=== PATIENT | female | born 1945 | race Caucasian/White ===

== ENCOUNTER 2018-01-05 08:31 | Inpatient (IN) | payer BC ==
[2018-01-05] MEDS ORDERED: 0.9 % SODIUM CHLORIDE 10 ML DISP.SYRIN. IV (09:15)
[2018-01-05 09:41] LABS: BASO % 0 % (0-3); EOS % 0 % (0-3); HEMATOCRIT 29.1 % (36.0-47.0); HEMOGLOBIN 9.7 g/dL (12.0-15.5); LYMPH # 0.7 x10^3/uL (1.0-4.8); LYMPH % 7 % (24-48); MEAN CORPUSCULAR HEMOGLOBIN 25 pg (25-35); MEAN CORPUSCULAR HGB CONC 33 g/dL (31-37); MEAN CORPUSCULAR VOLUME 74 fL (79-100); MONO # 0.7 x10^3/uL (0.0-1.1); MONO % 7 % (0-9); NEUT # 9.1 x10^3uL (1.8-7.7); NEUT % 87 % (31-73); PLATELET COUNT 336 x10^3/uL (140-400); RED BLOOD COUNT 3.94 x10^6/uL (3.50-5.40); RED CELL DISTRIBUTION WIDTH 17.5 % (11.5-14.5); WHITE BLOOD COUNT 10.5 x10^3/uL (4.0-11.0)
[2018-01-05] MEDS: IV NORMAL SALINE 1000ML BAG 1,000 ML IV ×3 (09:45→16:25)
[2018-01-05] MEDS: ONDANSETRON PF 4 MG/2 ML VIAL. IV (09:46)
[2018-01-05] MEDS: MORPHINE SULFATE 4 MG/ML DISP.SYRIN. IV/SQ (09:47)
[2018-01-05 09:48] LABS: ADD MAN DIFF? YES
[2018-01-05 09:54] LABS: ANION GAP 13 (6-14); BLOOD UREA NITROGEN 32 mg/dL (7-20); CALCIUM 9.7 mg/dL (8.5-10.1); CARBON DIOXIDE 26 mmol/L (21-32); CHLORIDE 99 mmol/L (98-107); CREATININE 1.2 mg/dL (0.6-1.0); GFR 43.9; GLUCOSE 152 mg/dL (70-99); POTASSIUM 3.5 mmol/L (3.5-5.1); SODIUM 138 mmol/L (136-145)
[2018-01-05 10:02] LABS: LACTIC ACID 1.6 mmol/L (0.4-2.0)
[2018-01-05 10:06] LABS: TROPONINI < 0.017 ng/mL (0.000-0.055)
[2018-01-05 10:09] LABS: ALBUMIN 3.3 g/dL (3.4-5.0); ALK PHOS 95 U/L (46-116); ALT (SGPT) 14 U/L (14-59); AST (SGOT) 14 U/L (15-37); CREATINE KINASE 30 U/L (26-192); DIRECT BILIRUBIN 0.2 mg/dL (0.0-0.2); LIPASE 77 U/L (73-393); TOTAL BILIRUBIN 0.5 mg/dL (0.2-1.0); TOTAL PROTEIN 7.5 g/dL (6.4-8.2)
[2018-01-05 10:30] LABS: % BANDS 16 % (0-9); % BASOS 1 % (0-3); % EOS 1 % (0-5); % LYMPHS 7 % (24-48); % METAS 1 % (0-0); % MONOS 3 % (0-10); % SEGS 71 % (35-66); PLT ESTIMATE ADEQUATE (ADEQUATE)
[2018-01-05 10:56] LABS: BILIRUBIN,URINE NEGATIVE (NEG); CLARITY,URINE CLEAR; COLOR,URINE YELLOW; GLUCOSE,URINE NEGATIVE (NEG); NITRITE,URINE NEGATIVE (NEG); PROTEIN,URINE NEGATIVE (NEG-TRACE)
[2018-01-05 11:08] LABS: BACTERIA,URINE 0 /HPF (0-FEW); RBC,URINE 0 /HPF (0-2); SQUAMOUS EPITHELIAL CELL,UR OCC /LPF; WBC,URINE 0 /HPF (0-4)
[2018-01-05] MEDS: MORPHINE SULFATE 4 MG/ML DISP.SYRIN. IV ×2 (11:18→22:57)
[2018-01-05] MEDS: CIPROFLOXACIN 400MG PREMIX 200 ML IV ×2 (12:14→21:15)
[2018-01-05] MEDS ORDERED: ALBUTEROL SULFATE 2.5 MG/3 ML NEBU. NEB (14:15)
[2018-01-05] MEDS: LOSARTAN POTASSIUM 50 MG TABLET. PO (15:00)
[2018-01-05] MEDS: CALCIUM CARBONATE 500 MG TABLET PO (15:00)
[2018-01-05] MEDS: DIGOXIN 125 MCG TABLET. PO (15:00)
[2018-01-05] MEDS: ENOXAPARIN 40 MG/0.4 ML SYRINGE. SQ (15:00)
[2018-01-05] MEDS: OMEGA-3 FATTY ACIDS/FISH OIL 1,000 MG CAPSULE. PO ×2 (15:00→21:16)
[2018-01-05] MEDS: BUMETANIDE 1 MG TABLET. PO (15:00)
[2018-01-05] MEDS: ALBUTEROL SULFATE 2.5 MG/3 ML NEBU. NEB ×2 (15:54→20:25)
[2018-01-05] MEDS: POTASSIUM CL 20MEQ D5-0.9%NACL 1,000 ML IV (16:23)
[2018-01-05] MEDS: BUDESONIDE 0.5 MG/2 ML NEBU. NEB (20:25)
[2018-01-05] MEDS ORDERED: NON FORMULARY ITEM (Budesonide/Formoterol Fumarate (Symbicort 160-4.5 Mcg Inhaler) 2 PUFF) IH (21:00)
[2018-01-05] MEDS: FAMOTIDINE 20 MG TABLET. PO (21:15)
[2018-01-06] MEDS: POTASSIUM CL 20MEQ D5-0.9%NACL 1,000 ML IV ×3 (01:52→20:11)
[2018-01-06] MEDS: MORPHINE SULFATE 4 MG/ML DISP.SYRIN. IV ×2 (04:03→11:29)
[2018-01-06] MEDS: ONDANSETRON PF 4 MG/2 ML VIAL. IV (04:05)
[2018-01-06] MEDS: BUDESONIDE 0.5 MG/2 ML NEBU. NEB ×2 (06:09→18:40)
[2018-01-06] MEDS: ALBUTEROL SULFATE 2.5 MG/3 ML NEBU. NEB ×4 (06:09→18:40)
[2018-01-06] MEDS: CIPROFLOXACIN 400MG PREMIX 200 ML IV ×2 (08:29→21:28)
[2018-01-06] MEDS: BUMETANIDE 1 MG TABLET. PO (09:00)
[2018-01-06] MEDS: DIGOXIN 125 MCG TABLET. PO ×2 (09:00→20:52)
[2018-01-06] MEDS: CALCIUM CARBONATE 500 MG TABLET PO (09:00)
[2018-01-06] MEDS: LOSARTAN POTASSIUM 50 MG TABLET. PO ×2 (09:00→20:53)
[2018-01-06] MEDS: OMEGA-3 FATTY ACIDS/FISH OIL 1,000 MG CAPSULE. PO ×2 (09:00→20:29)
[2018-01-06] MEDS: IV NORMAL SALINE 1000ML BAG 1,000 ML IV (11:32)
[2018-01-06 12:04] LABS: ADD MAN DIFF? NO
[2018-01-06 12:05] LABS: BASO % 0 % (0-3); EOS % 0 % (0-3); HEMOGLOBIN 8.4 g/dL (12.0-15.5); LYMPH # 0.6 x10^3/uL (1.0-4.8); LYMPH % 8 % (24-48); MEAN CORPUSCULAR HEMOGLOBIN 25 pg (25-35); MEAN CORPUSCULAR HGB CONC 32 g/dL (31-37); MEAN CORPUSCULAR VOLUME 77 fL (79-100); MONO # 0.7 x10^3/uL (0.0-1.1); MONO % 10 % (0-9); NEUT # 6.2 x10^3uL (1.8-7.7); NEUT % 82 % (31-73); PLATELET COUNT 267 x10^3/uL (140-400); RED BLOOD COUNT 3.37 x10^6/uL (3.50-5.40); RED CELL DISTRIBUTION WIDTH 17.3 % (11.5-14.5); WHITE BLOOD COUNT 7.6 x10^3/uL (4.0-11.0)
[2018-01-06 12:21] LABS: ALBUMIN 2.7 g/dL (3.4-5.0); ALBUMIN/GLOBULIN RATIO 0.7 (1.0-1.7); BLOOD UREA NITROGEN 27 mg/dL (7-20); CALCIUM 8.4 mg/dL (8.5-10.1); CREATININE 1.2 mg/dL (0.6-1.0); GLUCOSE 141 mg/dL (70-99); TOTAL PROTEIN 6.6 g/dL (6.4-8.2)
[2018-01-06 12:22] LABS: ALK PHOS 89 U/L (46-116); ALT (SGPT) 34 U/L (14-59); AST (SGOT) 23 U/L (15-37); BUN/CREATININE RATIO 23 (6-20); CARBON DIOXIDE 27 mmol/L (21-32); CHLORIDE 103 mmol/L (98-107); GFR 43.9; SODIUM 126 mmol/L (136-145); TOTAL BILIRUBIN 0.2 mg/dL (0.2-1.0)
[2018-01-06] MEDS ORDERED: POTASSIUM CHLORIDE 20MEQ 50 ML IV (13:00)
[2018-01-06 13:05] LABS: MAGNESIUM 1.8 mg/dL (1.8-2.4)
[2018-01-06] MEDS: POTASSIUM CHLORIDE 10 MEQ in IV NORMAL SALINE 100ML 100 ML IV ×6 (13:30→20:53)
[2018-01-06] MEDS: ENOXAPARIN 40 MG/0.4 ML SYRINGE. SQ (13:41)
[2018-01-06 17:19] LABS: C DIFF BY PCR Negative (Negative)
[2018-01-06] MEDS: FAMOTIDINE 20 MG TABLET. PO (20:29)
[2018-01-07] MEDS: MORPHINE SULFATE 2 MG/ML DISP.SYRIN. IV (01:53)
[2018-01-07] MEDS: POTASSIUM CL 20MEQ D5-0.9%NACL 1,000 ML IV (01:53)
[2018-01-07] MEDS: BUDESONIDE 0.5 MG/2 ML NEBU. NEB ×2 (08:33→20:06)
[2018-01-07] MEDS: ALBUTEROL SULFATE 2.5 MG/3 ML NEBU. NEB ×4 (08:33→20:06)
[2018-01-07] MEDS: LOSARTAN POTASSIUM 50 MG TABLET. PO ×2 (09:00→16:30)
[2018-01-07] MEDS: CIPROFLOXACIN 400MG PREMIX 200 ML IV ×2 (09:00→20:28)
[2018-01-07] MEDS: CALCIUM CARBONATE 500 MG TABLET PO ×2 (09:00→16:32)
[2018-01-07] MEDS: BUMETANIDE 1 MG TABLET. PO ×2 (09:00→16:31)
[2018-01-07] MEDS: OMEGA-3 FATTY ACIDS/FISH OIL 1,000 MG CAPSULE. PO ×2 (09:00→20:28)
[2018-01-07] MEDS: DIGOXIN 125 MCG TABLET. PO ×2 (09:00→16:32)
[2018-01-07] MEDS: POTASSIUM CHLORIDE 20 MEQ TABLET.ER. PO ×2 (11:30→16:18)
[2018-01-07] MEDS: IV NORMAL SALINE 1000ML BAG 1,000 ML IV ×2 (11:30→21:30)
[2018-01-07] MEDS: ENOXAPARIN 40 MG/0.4 ML SYRINGE. SQ (15:00)
[2018-01-07] MEDS: HYDROcodone/APAP 5/325MG 1 TAB TABLET PO ×2 (16:18→20:05)
[2018-01-07] MEDS: FAMOTIDINE 20 MG TABLET. PO (20:28)
[2018-01-08] MEDS: HYDROcodone/APAP 5/325MG 1 TAB TABLET PO ×2 (04:42→23:26)
[2018-01-08 06:22] LABS: ADD MAN DIFF? NO
[2018-01-08 06:28] LABS: BASO % 0 % (0-3); EOS # 0.1 x10^3/uL (0.0-0.7); EOS % 1 % (0-3); HEMATOCRIT 26.4 % (36.0-47.0); HEMOGLOBIN 8.3 g/dL (12.0-15.5); LYMPH # 1.3 x10^3/uL (1.0-4.8); LYMPH % 13 % (24-48); MEAN CORPUSCULAR HEMOGLOBIN 24 pg (25-35); MEAN CORPUSCULAR HGB CONC 31 g/dL (31-37); MEAN CORPUSCULAR VOLUME 77 fL (79-100); MONO % 10 % (0-9); NEUT # 7.4 x10^3uL (1.8-7.7); NEUT % 75 % (31-73); PLATELET COUNT 288 x10^3/uL (140-400); RED BLOOD COUNT 3.44 x10^6/uL (3.50-5.40); RED CELL DISTRIBUTION WIDTH 16.8 % (11.5-14.5); WHITE BLOOD COUNT 9.8 x10^3/uL (4.0-11.0)
[2018-01-08 06:35] LABS: ANION GAP 6 (6-14); BLOOD UREA NITROGEN 12 mg/dL (7-20); CALCIUM 8.4 mg/dL (8.5-10.1); CARBON DIOXIDE 27 mmol/L (21-32); CHLORIDE 107 mmol/L (98-107); GFR 54.2; GLUCOSE 118 mg/dL (70-99); POTASSIUM 3.7 mmol/L (3.5-5.1); SODIUM 140 mmol/L (136-145)
[2018-01-08] MEDS: BUDESONIDE 0.5 MG/2 ML NEBU. NEB ×2 (07:13→19:34)
[2018-01-08] MEDS: ALBUTEROL SULFATE 2.5 MG/3 ML NEBU. NEB ×4 (07:13→19:34)
[2018-01-08] MEDS: IV NORMAL SALINE 1000ML BAG 1,000 ML IV ×2 (07:30→17:30)
[2018-01-08] MEDS: OMEGA-3 FATTY ACIDS/FISH OIL 1,000 MG CAPSULE. PO ×2 (08:42→22:04)
[2018-01-08] MEDS: LOSARTAN POTASSIUM 50 MG TABLET. PO (08:42)
[2018-01-08] MEDS: DIGOXIN 125 MCG TABLET. PO (08:42)
[2018-01-08] MEDS: CALCIUM CARBONATE 500 MG TABLET PO (08:42)
[2018-01-08] MEDS: BUMETANIDE 1 MG TABLET. PO (08:42)
[2018-01-08] MEDS: CIPROFLOXACIN 400MG PREMIX 200 ML IV ×2 (08:43→22:04)
[2018-01-08] MEDS: ENOXAPARIN 40 MG/0.4 ML SYRINGE. SQ (15:00)
[2018-01-08] MEDS: FAMOTIDINE 20 MG TABLET. PO (22:04)
[2018-01-08] MEDS: LACTOBACILLUS RHAMNOSUS GG 1 CAPSULE. PO (22:05)
[2018-01-09] MEDS: IV NORMAL SALINE 1000ML BAG 1,000 ML IV ×2 (03:30→12:34)
[2018-01-09 05:05] LABS: ADD MAN DIFF? NO
[2018-01-09 05:09] LABS: BASO % 0 % (0-3); EOS # 0.1 x10^3/uL (0.0-0.7); EOS % 2 % (0-3); HEMATOCRIT 25.8 % (36.0-47.0); HEMOGLOBIN 8.3 g/dL (12.0-15.5); LYMPH # 1.5 x10^3/uL (1.0-4.8); LYMPH % 16 % (24-48); MEAN CORPUSCULAR HEMOGLOBIN 25 pg (25-35); MEAN CORPUSCULAR HGB CONC 32 g/dL (31-37); MEAN CORPUSCULAR VOLUME 77 fL (79-100); MONO % 10 % (0-9); NEUT # 6.8 x10^3uL (1.8-7.7); NEUT % 72 % (31-73); PLATELET COUNT 277 x10^3/uL (140-400); RED BLOOD COUNT 3.36 x10^6/uL (3.50-5.40); WHITE BLOOD COUNT 9.4 x10^3/uL (4.0-11.0)
[2018-01-09 05:30] LABS: ANION GAP 6 (6-14); BLOOD UREA NITROGEN 10 mg/dL (7-20); CALCIUM 8.7 mg/dL (8.5-10.1); CARBON DIOXIDE 27 mmol/L (21-32); CHLORIDE 104 mmol/L (98-107); CREATININE 1.1 mg/dL (0.6-1.0); GFR 48.6; GLUCOSE 112 mg/dL (70-99); POTASSIUM 3.4 mmol/L (3.5-5.1); SODIUM 137 mmol/L (136-145)
[2018-01-09] MEDS: ALBUTEROL SULFATE 2.5 MG/3 ML NEBU. NEB ×4 (08:17→19:03)
[2018-01-09] MEDS: BUDESONIDE 0.5 MG/2 ML NEBU. NEB ×2 (08:17→19:03)
[2018-01-09] MEDS: CIPROFLOXACIN 400MG PREMIX 200 ML IV ×2 (08:45→22:19)
[2018-01-09] MEDS: OMEGA-3 FATTY ACIDS/FISH OIL 1,000 MG CAPSULE. PO ×2 (08:46→21:01)
[2018-01-09] MEDS: CALCIUM CARBONATE 500 MG TABLET PO (08:46)
[2018-01-09] MEDS: DIGOXIN 125 MCG TABLET. PO (08:47)
[2018-01-09] MEDS: LOSARTAN POTASSIUM 50 MG TABLET. PO (08:48)
[2018-01-09] MEDS: BUMETANIDE 1 MG TABLET. PO (08:48)
[2018-01-09] MEDS: LACTOBACILLUS RHAMNOSUS GG 1 CAPSULE. PO ×2 (08:50→21:01)
[2018-01-09 10:55] LABS: % SAT IRON 4 % (15-34); IRON,SERUM 11 ug/dL (50-170)
[2018-01-09] MEDS: ENOXAPARIN 40 MG/0.4 ML SYRINGE. SQ (15:00)
[2018-01-09] MEDS: FAMOTIDINE 20 MG TABLET. PO (21:01)
[2018-01-10] MEDS: BUDESONIDE 0.5 MG/2 ML NEBU. NEB ×2 (07:30→19:22)
[2018-01-10] MEDS: ALBUTEROL SULFATE 2.5 MG/3 ML NEBU. NEB ×4 (07:30→19:22)
[2018-01-10] MEDS: BUMETANIDE 1 MG TABLET. PO (08:23)
[2018-01-10] MEDS: LOSARTAN POTASSIUM 50 MG TABLET. PO (08:24)
[2018-01-10] MEDS: LACTOBACILLUS RHAMNOSUS GG 1 CAPSULE. PO ×2 (08:24→20:52)
[2018-01-10] MEDS: DIGOXIN 125 MCG TABLET. PO (08:24)
[2018-01-10] MEDS: OMEGA-3 FATTY ACIDS/FISH OIL 1,000 MG CAPSULE. PO ×2 (08:25→20:52)
[2018-01-10] MEDS: CALCIUM CARBONATE 500 MG TABLET PO (08:25)
[2018-01-10] MEDS: CIPROFLOXACIN 400MG PREMIX 200 ML IV (08:25)
[2018-01-10] MEDS ORDERED: ERGOCALCIFEROL (VITAMIN D2) 50,000 UNIT CAPSULE. PO (10:00)
[2018-01-10] MEDS: ERGOCALCIFEROL (VITAMIN D2) 50,000 UNIT CAPSULE. PO (10:40)
[2018-01-10] MEDS: ENOXAPARIN 40 MG/0.4 ML SYRINGE. SQ (13:16)
[2018-01-10] MEDS: CIPROFLOXACIN HCL 250 MG TABLET. PO (20:52)
[2018-01-10] MEDS: FAMOTIDINE 20 MG TABLET. PO (20:53)
[2018-01-11] MEDS: ALBUTEROL SULFATE 2.5 MG/3 ML NEBU. NEB ×2 (08:30→11:18)
[2018-01-11] MEDS: BUDESONIDE 0.5 MG/2 ML NEBU. NEB (08:30)
[2018-01-11] MEDS: BUMETANIDE 1 MG TABLET. PO (08:38)
[2018-01-11] MEDS: LACTOBACILLUS RHAMNOSUS GG 1 CAPSULE. PO (08:39)
[2018-01-11] MEDS: OMEGA-3 FATTY ACIDS/FISH OIL 1,000 MG CAPSULE. PO (08:39)
[2018-01-11] MEDS: CIPROFLOXACIN HCL 250 MG TABLET. PO (08:40)
[2018-01-11] MEDS: CALCIUM CARBONATE 500 MG TABLET PO (08:40)
[2018-01-11] MEDS: DIGOXIN 125 MCG TABLET. PO (08:40)
[2018-01-11] MEDS: LOSARTAN POTASSIUM 50 MG TABLET. PO (08:41)
[2018-01-11 11:17] LABS: ANION GAP 9 (6-14); BLOOD UREA NITROGEN 11 mg/dL (7-20); CARBON DIOXIDE 29 mmol/L (21-32); CHLORIDE 103 mmol/L (98-107); CREATININE 1.3 mg/dL (0.6-1.0); GLUCOSE 101 mg/dL (70-99); MAGNESIUM 1.5 mg/dL (1.8-2.4); POTASSIUM 3.3 mmol/L (3.5-5.1); SODIUM 141 mmol/L (136-145)
== END 2018-01-11 13:55 | disposition home or self-care (01) | DRG 392 ==
LOC: ER 08:31 → 4 NORTH 12:11
DX: K57.32 Diverticulitis of large intestine without perforation or abscess without bleeding (principal); K59.39 Other megacolon; E11.22 Type 2 diabetes mellitus with diabetic chronic kidney disease; I48.0 Paroxysmal atrial fibrillation; E44.1 Mild protein-calorie malnutrition; N18.3 Chronic kidney disease, stage 3 (moderate); E66.01 Morbid (severe) obesity due to excess calories; K56.7 Ileus, unspecified; I50.32 Chronic diastolic (congestive) heart failure; I13.0 Hypertensive heart and chronic kidney disease with heart failure and stage 1 through stage 4 chronic kidney disease, or unspecified chronic kidney disease; E87.1 Hypo-osmolality and hyponatremia; N39.0 Urinary tract infection, site not specified; K43.9 Ventral hernia without obstruction or gangrene; D50.9 Iron deficiency anemia, unspecified; K21.9 Gastro-esophageal reflux disease without esophagitis; J44.9 Chronic obstructive pulmonary disease, unspecified; E87.6 Hypokalemia; E78.5 Hyperlipidemia, unspecified; Z68.33 Body mass index [BMI] 33.0-33.9, adult; Z90.49 Acquired absence of other specified parts of digestive tract; Z87.891 Personal history of nicotine dependence; Z88.1 Allergy status to other antibiotic agents; Z88.0 Allergy status to penicillin; Z88.8 Allergy status to other drugs, medicaments and biological substances; Z82.49 Family history of ischemic heart disease and other diseases of the circulatory system; Z86.010 Personal history of colon polyps; Z83.71 Family history of colonic polyps; Z83.3 Family history of diabetes mellitus
CPT/HCPCS: 36415; 74176; 80048; 80053; 80076; 81001; 82550; 83540; 83550; 83605; 83690; 83735; 84484; 85007; 85025; 87045; 87324; 93005; 94640; 94760; 96361; 96365; 96375; 96376; 99285; 99285-25; J0744; J2270; J2405; J3490; J7030; J7613; J7626

== ENCOUNTER 2018-03-28 15:00 | Inpatient (IN) | payer BC ==
[2018-03-28 15:39] LABS: ADD MAN DIFF? NO
[2018-03-28 15:45] LABS: BASO # 0.1 x10^3/uL (0.0-0.2); BASO % 1 % (0-3); EOS # 0.2 x10^3/uL (0.0-0.7); EOS % 2 % (0-3); LYMPH # 1.5 x10^3/uL (1.0-4.8); LYMPH % 18 % (24-48); MEAN CORPUSCULAR HEMOGLOBIN 23 pg (25-35); MEAN CORPUSCULAR HGB CONC 31 g/dL (31-37); MEAN CORPUSCULAR VOLUME 74 fL (79-100); MONO # 0.9 x10^3/uL (0.0-1.1); MONO % 11 % (0-9); NEUT # 5.7 x10^3uL (1.8-7.7); NEUT % 68 % (31-73); PLATELET COUNT 407 x10^3/uL (140-400); RED BLOOD COUNT 2.84 x10^6/uL (3.50-5.40); RED CELL DISTRIBUTION WIDTH 21.3 % (11.5-14.5); WHITE BLOOD COUNT 8.4 x10^3/uL (4.0-11.0)
[2018-03-28 15:47] LABS: HEMOGLOBIN 6.6 g/dL (12.0-15.5)
[2018-03-28 15:50] LABS: FECAL OB PT NEGATIVE (NEG); INR 1.1 (0.8-1.1); NEG OBC FOB NEG; POS OBC FOB POS; PROTHROMBIN TIME PATIENT 13.7 SEC (11.7-14.0)
[2018-03-28 15:53] LABS: ANION GAP 8 (6-14); BLOOD UREA NITROGEN 23 mg/dL (7-20); BUN/CREATININE RATIO 18 (6-20); CALCIUM 9.7 mg/dL (8.5-10.1); CARBON DIOXIDE 28 mmol/L (21-32); CHLORIDE 105 mmol/L (98-107); CREATININE 1.3 mg/dL (0.6-1.0); GLUCOSE 115 mg/dL (70-99); POTASSIUM 3.9 mmol/L (3.5-5.1); SODIUM 141 mmol/L (136-145)
[2018-03-28 15:59] LABS: ALBUMIN/GLOBULIN RATIO 0.7 (1.0-1.7); ALK PHOS 77 U/L (46-116); ALT (SGPT) 15 U/L (14-59); AST (SGOT) 16 U/L (15-37); TOTAL BILIRUBIN 0.2 mg/dL (0.2-1.0); TOTAL PROTEIN 7.2 g/dL (6.4-8.2)
[2018-03-28 16:05] LABS: TROPONINI < 0.017 ng/mL (0.000-0.055)
[2018-03-28 16:07] LABS: NT-PRO BNP 1283 pg/mL (0-124)
[2018-03-28 16:08] LABS: CKMB MASS < 0.5 ng/mL (0.0-3.6); CREATINE KINASE 33 U/L (26-192)
[2018-03-28 16:44] LABS: IMMEDIATE SPIN CROSSMATCH 1 2
[2018-03-28 17:40] LABS: ANISOCYTOSIS MOD; HYPOCHROMIA SLIGHT; MICROCYTOSIS MOD; PLT ESTIMATE ADEQUATE (ADEQUATE)
[2018-03-28] MEDS ORDERED: traMADol 50 MG TABLET PO (17:45)
[2018-03-28] MEDS ORDERED: DOCUSATE SODIUM 100 MG CAPSULE. PO (17:45)
[2018-03-28] MEDS ORDERED: ONDANSETRON PF 4 MG/2 ML VIAL. IV (17:45)
[2018-03-28] MEDS ORDERED: hydrALAZINE 20 MG/ML VIAL. IVP (17:45)
[2018-03-28] MEDS ORDERED: MORPHINE SULFATE 4 MG/ML DISP.SYRIN. IV (17:45)
[2018-03-28] MEDS: ALBUTEROL SULFATE 2.5 MG/3 ML NEBU. NEB (20:00)
[2018-03-28] MEDS: BUDESONIDE 0.5 MG/2 ML NEBU. NEB (20:00)
[2018-03-28] MEDS: PANTOPRAZOLE IV PUSH 40 MG VIAL. IVP (20:12)
[2018-03-28] MEDS: OMEGA-3 FATTY ACIDS/FISH OIL 1,000 MG CAPSULE. PO (22:24)
[2018-03-29] MEDS: ACETAMINOPHEN 325 MG TABLET. PO ×2 (03:35→22:57)
[2018-03-29] MEDS: PANTOPRAZOLE IV PUSH 40 MG VIAL. IVP (06:00)
[2018-03-29 08:12] LABS: ADD MAN DIFF? NO
[2018-03-29 08:14] LABS: BASO % 0 % (0-3); EOS # 0.2 x10^3/uL (0.0-0.7); EOS % 2 % (0-3); HEMATOCRIT 27.7 % (36.0-47.0); HEMOGLOBIN 8.8 g/dL (12.0-15.5); LYMPH % 13 % (24-48); MEAN CORPUSCULAR HEMOGLOBIN 24 pg (25-35); MEAN CORPUSCULAR HGB CONC 32 g/dL (31-37); MEAN CORPUSCULAR VOLUME 77 fL (79-100); MONO # 0.7 x10^3/uL (0.0-1.1); MONO % 9 % (0-9); NEUT # 6.1 x10^3uL (1.8-7.7); NEUT % 76 % (31-73); PLATELET COUNT 363 x10^3/uL (140-400); RED BLOOD COUNT 3.62 x10^6/uL (3.50-5.40); RED CELL DISTRIBUTION WIDTH 20.5 % (11.5-14.5)
[2018-03-29] MEDS: ALBUTEROL SULFATE 2.5 MG/3 ML NEBU. NEB ×4 (08:15→20:02)
[2018-03-29] MEDS: BUDESONIDE 0.5 MG/2 ML NEBU. NEB ×2 (08:15→20:02)
[2018-03-29 08:25] LABS: ANION GAP 9 (6-14); BLOOD UREA NITROGEN 19 mg/dL (7-20); CALCIUM 9.4 mg/dL (8.5-10.1); CARBON DIOXIDE 27 mmol/L (21-32); CHLORIDE 109 mmol/L (98-107); CREATININE 1.3 mg/dL (0.6-1.0); GLUCOSE 137 mg/dL (70-99); POTASSIUM 4.3 mmol/L (3.5-5.1); SODIUM 145 mmol/L (136-145)
[2018-03-29] MEDS: POLYETHYLENE GLYCOL 3350 17 GM PACKET. PO (09:17)
[2018-03-29] MEDS: BUMETANIDE 1 MG TABLET. PO (09:17)
[2018-03-29] MEDS: LOSARTAN POTASSIUM 50 MG TABLET. PO (09:18)
[2018-03-29] MEDS: POTASSIUM CHLORIDE 10 MEQ TABLET.ER. PO (09:18)
[2018-03-29] MEDS: OMEGA-3 FATTY ACIDS/FISH OIL 1,000 MG CAPSULE. PO ×2 (09:18→20:17)
[2018-03-29] MEDS: DIGOXIN 125 MCG TABLET. PO (09:18)
[2018-03-29] MEDS: CALCIUM CARBONATE 500 MG TABLET PO (09:18)
[2018-03-29] MEDS ORDERED: CONTRAST GIVEN MC (11:00)
[2018-03-29] MEDS: IOHEXOL 300 MG/ML 100ML VIAL. PR (11:36)
[2018-03-30] MEDS: PANTOPRAZOLE IV PUSH 40 MG VIAL. IVP (07:30)
[2018-03-30] MEDS: ALBUTEROL SULFATE 2.5 MG/3 ML NEBU. NEB ×3 (07:45→15:17)
[2018-03-30] MEDS: BUDESONIDE 0.5 MG/2 ML NEBU. NEB (07:48)
[2018-03-30] MEDS ORDERED: POTASSIUM CHLORIDE 10 MEQ TABLET.ER. PO (08:00)
[2018-03-30] MEDS ORDERED: POLYETHYLENE GLYCOL 3350 17 GM PACKET. (08:00)
[2018-03-30] MEDS ORDERED: DIGOXIN 125 MCG TABLET. (08:00)
[2018-03-30] MEDS ORDERED: PANTOPRAZOLE IV PUSH 40 MG VIAL. IVP (08:00)
[2018-03-30] MEDS ORDERED: LOSARTAN POTASSIUM 50 MG TABLET. (08:00)
[2018-03-30] MEDS ORDERED: BUMETANIDE 1 MG TABLET. (08:00)
[2018-03-30] MEDS ORDERED: CALCIUM CARBONATE 500 MG TABLET PO (08:00)
[2018-03-30] MEDS ORDERED: OMEGA-3 FATTY ACIDS/FISH OIL 1,000 MG CAPSULE. PO (08:00)
[2018-03-30] MEDS: BUMETANIDE 1 MG TABLET. PO (09:00)
[2018-03-30] MEDS: OMEGA-3 FATTY ACIDS/FISH OIL 1,000 MG CAPSULE. PO (09:00)
[2018-03-30] MEDS: LOSARTAN POTASSIUM 50 MG TABLET. PO (09:00)
[2018-03-30] MEDS: DIGOXIN 125 MCG TABLET. PO (09:00)
[2018-03-30] MEDS: POLYETHYLENE GLYCOL 3350 17 GM PACKET. PO (09:00)
[2018-03-30] MEDS: POTASSIUM CHLORIDE 10 MEQ TABLET.ER. PO (09:00)
[2018-03-30] MEDS: CALCIUM CARBONATE 500 MG TABLET PO (09:00)
[2018-03-30 13:38] LABS: ADD MAN DIFF? NO
[2018-03-30 13:47] LABS: BASO # 0.1 x10^3/uL (0.0-0.2); BASO % 1 % (0-3); EOS # 0.1 x10^3/uL (0.0-0.7); EOS % 2 % (0-3); HEMATOCRIT 26.4 % (36.0-47.0); HEMOGLOBIN 8.5 g/dL (12.0-15.5); LYMPH # 0.6 x10^3/uL (1.0-4.8); LYMPH % 10 % (24-48); MEAN CORPUSCULAR HEMOGLOBIN 24 pg (25-35); MEAN CORPUSCULAR HGB CONC 32 g/dL (31-37); MEAN CORPUSCULAR VOLUME 76 fL (79-100); MONO # 0.9 x10^3/uL (0.0-1.1); MONO % 15 % (0-9); NEUT # 4.3 x10^3uL (1.8-7.7); NEUT % 73 % (31-73); PLATELET COUNT 345 x10^3/uL (140-400); RED BLOOD COUNT 3.49 x10^6/uL (3.50-5.40); RED CELL DISTRIBUTION WIDTH 20.9 % (11.5-14.5); WHITE BLOOD COUNT 5.9 x10^3/uL (4.0-11.0)
[2018-03-30 14:45] LABS: ANISOCYTOSIS MOD; HYPOCHROMIA MOD; MICROCYTOSIS MOD; PLT ESTIMATE ADEQUATE (ADEQUATE); POLYCHROMASIA SLIGHT
== END 2018-03-30 16:10 | disposition home or self-care (01) | DRG 378 ==
LOC: ER 15:00 → 4 NORTH 17:15
PROC: 30233N1 Transfusion of Nonautologous Red Blood Cells into Peripheral Vein, Percutaneous Approach (ICD-10-PCS; principal; 2018-03-28)
DX: K57.33 Diverticulitis of large intestine without perforation or abscess with bleeding (principal); E44.1 Mild protein-calorie malnutrition; E11.22 Type 2 diabetes mellitus with diabetic chronic kidney disease; I48.0 Paroxysmal atrial fibrillation; I13.0 Hypertensive heart and chronic kidney disease with heart failure and stage 1 through stage 4 chronic kidney disease, or unspecified chronic kidney disease; I50.9 Heart failure, unspecified; D64.9 Anemia, unspecified; N18.3 Chronic kidney disease, stage 3 (moderate); E66.01 Morbid (severe) obesity due to excess calories; J44.9 Chronic obstructive pulmonary disease, unspecified; E61.1 Iron deficiency; K21.9 Gastro-esophageal reflux disease without esophagitis; Z87.11 Personal history of peptic ulcer disease; Z90.49 Acquired absence of other specified parts of digestive tract; Z90.89 Acquired absence of other organs; Z86.010 Personal history of colon polyps; Z83.71 Family history of colonic polyps; Z82.49 Family history of ischemic heart disease and other diseases of the circulatory system; Z83.3 Family history of diabetes mellitus; Z88.0 Allergy status to penicillin; Z88.1 Allergy status to other antibiotic agents; Z88.8 Allergy status to other drugs, medicaments and biological substances; Z68.34 Body mass index [BMI] 34.0-34.9, adult; Z87.891 Personal history of nicotine dependence
CPT/HCPCS: 36415; 71045; 74176; 74270; 80048; 80053; 82274; 82553; 83880; 84484; 85025; 85610; 86850; 86900; 86901; 86920; 93005; 94640; 94760; 99291; 99291-25; C9113; J7613; J7626; P9016; Q9967

== ENCOUNTER → 2018-04-11 | Day surgery (SDC) | payer BC ==
[~2018-04-11] MED LIST: LIDOCAINE 1% PF 2 ML VIAL. ID; MORPHINE SULFATE 4 MG/ML DISP.SYRIN. IV; PROCHLORPERAZINE 10 MG/2 ML VIAL. IV; PROPOFOL 40 ML IV; fentaNYL PF VIAL 100 MCG/2 ML VIAL IV
[2018-04-11] MEDS: IV RINGERS,LACTATED 1000ML 1,000 ML IV (12:04)
== END | disposition home or self-care (01) ==
LOC: ENDOS 10:56
DX: K21.0 Gastro-esophageal reflux disease with esophagitis (principal); K31.89 Other diseases of stomach and duodenum; D50.9 Iron deficiency anemia, unspecified; I11.0 Hypertensive heart disease with heart failure; I50.9 Heart failure, unspecified; J43.9 Emphysema, unspecified; I48.91 Unspecified atrial fibrillation; G47.33 Obstructive sleep apnea (adult) (pediatric); M19.90 Unspecified osteoarthritis, unspecified site; Z90.49 Acquired absence of other specified parts of digestive tract; Z98.890 Other specified postprocedural states; Z87.891 Personal history of nicotine dependence; Z72.89 Other problems related to lifestyle; Z82.49 Family history of ischemic heart disease and other diseases of the circulatory system; Z83.3 Family history of diabetes mellitus; Z83.71 Family history of colonic polyps; Z79.899 Other long term (current) drug therapy; Z88.0 Allergy status to penicillin; Z88.1 Allergy status to other antibiotic agents; Z88.8 Allergy status to other drugs, medicaments and biological substances; Z86.010 Personal history of colon polyps; Z98.42 Cataract extraction status, left eye; Z98.41 Cataract extraction status, right eye
CPT/HCPCS: 43239; 88305; 88342; J2704

== ENCOUNTER 2018-04-26 10:46 | Emergency (ER) | payer BC ==
[2018-04-26 11:35] LABS: ADD MAN DIFF? NO
[2018-04-26 11:40] LABS: BASO % 0 % (0-3); EOS % 0 % (0-3); HEMATOCRIT 31.6 % (36.0-47.0); HEMOGLOBIN 10.1 g/dL (12.0-15.5); LYMPH # 1.2 x10^3/uL (1.0-4.8); LYMPH % 12 % (24-48); MEAN CORPUSCULAR HEMOGLOBIN 24 pg (25-35); MEAN CORPUSCULAR HGB CONC 32 g/dL (31-37); MEAN CORPUSCULAR VOLUME 73 fL (79-100); MONO # 0.9 x10^3/uL (0.0-1.1); MONO % 9 % (0-9); NEUT # 8.1 x10^3uL (1.8-7.7); NEUT % 79 % (31-73); PLATELET COUNT 387 x10^3/uL (140-400); RED BLOOD COUNT 4.31 x10^6/uL (3.50-5.40); RED CELL DISTRIBUTION WIDTH 19.4 % (11.5-14.5); WHITE BLOOD COUNT 10.3 x10^3/uL (4.0-11.0)
[2018-04-26 11:42] LABS: BILIRUBIN,URINE SMALL (NEG); CLARITY,URINE CLEAR; COLOR,URINE YELLOW; GLUCOSE,URINE NEGATIVE (NEG); NITRITE,URINE NEGATIVE (NEG); PH,URINE 5.5; PROTEIN,URINE NEGATIVE (NEG-TRACE)
[2018-04-26 11:46] LABS: ANION GAP 13 (6-14); BLOOD UREA NITROGEN 26 mg/dL (7-20); BUN/CREATININE RATIO 19 (6-20); CALCIUM 11.2 mg/dL (8.5-10.1); CARBON DIOXIDE 24 mmol/L (21-32); CHLORIDE 102 mmol/L (98-107); CREATININE 1.4 mg/dL (0.6-1.0); GFR 36.8; GLUCOSE 125 mg/dL (70-99); SODIUM 139 mmol/L (136-145)
[2018-04-26 11:51] LABS: ALBUMIN 3.2 g/dL (3.4-5.0); ALBUMIN/GLOBULIN RATIO 0.7 (1.0-1.7); ALK PHOS 111 U/L (46-116); ALT (SGPT) 13 U/L (14-59); AST (SGOT) 13 U/L (15-37); LIPASE 131 U/L (73-393); TOTAL BILIRUBIN 0.4 mg/dL (0.2-1.0); TOTAL PROTEIN 7.8 g/dL (6.4-8.2)
[2018-04-26 11:58] LABS: AMORPHOUS SEDIMENT,UR PRESENT /HPF; BACTERIA,URINE 0 /HPF (0-FEW); HYALINE CASTS, URINE FEW /HPF; RBC,URINE 0 /HPF (0-2); WBC,URINE OCC /HPF (0-4)
[2018-04-26 14:41] LABS: FECAL OB PT POSITIVE (NEG); NEG OBC FOB NEG; POS OBC FOB POS
== END 2018-04-26 16:13 | disposition home or self-care (01) ==
LOC: ER 10:46
DX: R10.84 Generalized abdominal pain (principal); R11.2 Nausea with vomiting, unspecified; N18.9 Chronic kidney disease, unspecified; I13.0 Hypertensive heart and chronic kidney disease with heart failure and stage 1 through stage 4 chronic kidney disease, or unspecified chronic kidney disease; I50.9 Heart failure, unspecified; E11.22 Type 2 diabetes mellitus with diabetic chronic kidney disease; I48.91 Unspecified atrial fibrillation; J44.9 Chronic obstructive pulmonary disease, unspecified; Z90.49 Acquired absence of other specified parts of digestive tract; Z88.0 Allergy status to penicillin; Z88.1 Allergy status to other antibiotic agents; Z88.8 Allergy status to other drugs, medicaments and biological substances
CPT/HCPCS: 36415; 80053; 81001; 82274; 83690; 85025; 99284; P9612

== ENCOUNTER → 2018-07-17 | Outpatient (CLI) | payer BC ==
[2018-05-12 11:00] VITALS: BP 106/56
[~2018-07-17] MED LIST changes: +BUDE10.2 IH; +BUME2TAB PO; +CALC600T4 PO; +CIPR250T30 PO; +DIGO125T PO; +ERGO500027 PO; +LACT1CAP19 PO; -LIDOCAINE 1% PF 2 ML VIAL. ID; +LOSA50TA6 PO; +METO25TA4 PO; +METR500T PO; -MORPHINE SULFATE 4 MG/ML DISP.SYRIN. IV; +OMEG-165 PO; +POLY17PO29 PO; +POTA10TA12 PO; -PROCHLORPERAZINE 10 MG/2 ML VIAL. IV; -PROPOFOL 40 ML IV; +Pantoprazole PO; +TRAM50TA PO; -fentaNYL PF VIAL 100 MCG/2 ML VIAL IV
--- NOTE | 2018-07-17 11:54 | CARD ---
MR#: [id number] Date of Study: 07/17/2018 Ordering Physician: NERI CAMARA, Referring Physician: NERI CAMARA, Tech: Maricel Trujillo RDCS APPROVED REPORT EXAM: Two-dimensional and M-mode echocardiogram with Doppler and color Doppler. Other Information Quality : Good Rhythm : Atrial Fibrillation INDICATION Atrial Fibrillation 2D DIMENSIONS RVDd3.0 (2.9-3.5cm)Left Atrium(2D)4.7 (1.6-4.0cm) IVSd1.2 (0.7-1.1cm)Aortic Root(2D)2.5 (2.0-3.7cm) LVDd4.7 (3.9-5.9cm)LVOT Diameter2.0 (1.8-2.4cm) PWd1.2 (0.7-1.1cm)LVDs2.6 (2.5-4.0cm) FS (%) 30.0 %SV75.6 ml LVEF(%)60.0 (>50%) Aortic Valve AoV Peak Mustapha.187.0cm/sAoV VTI35.5cm AO Peak GR.14.0mmHgLVOT Peak Mustapha.117.9cm/s LVOT VTI 24.62cmAO Mean GR.8mmHg SHANE (VMAX)2.76td6BQC (VTI)2.23cm2 AI P 1/2 Gyas235tq Mitral Valve MV E Goeoooch856.7cm/sMV E Peak Gr.157mmHg MV DECEL [id number] DEY19xr MVA (PHT)4.43cm2 TDI E/Lateral E'43.8 Tricuspid Valve TR P. Sbowqhod920iq/sRAP UDCEJEGE7ntEf TR Peak Gr.17fcIeTNVT01gnTb Pulmonary Vein S1 Hhodjobr95.1cm/sD2 Wxsloktl18.3cm/s LEFT VENTRICLE The left ventricle is normal size. There is mild concentric left ventricular hypertrophy. The left ve ntricular systolic function is normal. The Ejection Fraction is 60-65%. There is normal LV segmental wall motion. RIGHT VENTRICLE The right ventricle is normal size. The right ventricular systolic function is normal. ATRIA The left atrium is mildly dilated. The right atrium size is normal. The interatrial septum is intact with no evidence for an atrial septal defect or patent foramen ovale as noted on 2-D or Doppler imagi ng. AORTIC VALVE The aortic valve is calcified but opens well. Doppler and Color Flow revealed moderate aortic regurgi tation. There is no significant aortic valvular stenosis. MITRAL VALVE The mitral valve is calcified but opens well. Mitral annular calcification is mild. There is no evide nce of mitral valve prolapse. There is no mitral valve stenosis. Doppler and Color-flow revealed mild to moderate mitral regurgitation. TRICUSPID VALVE The tricuspid valve is normal in structure and function. Doppler and Color Flow revealed mild tricusp id regurgitation. There is mild to moderate pulmonary hypertension. The PA pressure was estimated at 42 mmHg. There is no tricuspid valve stenosis. PULMONIC VALVE The pulmonic valve is not well visualized. Doppler and Color Flow revealed trace to mild pulmonic anthony vular regurgitation. There is no pulmonic valvular stenosis. GREAT VESSELS The aortic root is normal in size. The ascending aorta is normal in size. The IVC is dilated and socorro apses >50% with inspiration. PERICARDIAL EFFUSION There is no evidence of significant pericardial effusion. Critical Notification Critical Value: No <Conclusion> The left ventricular systolic function is normal. The Ejection Fraction is 60-65%. There is normal LV segmental wall motion. Moderate aortic regurgitation. Mild to moderate mitral regurgitation. Mild tricuspid regurgitation. The PA pressure was estimated at 42 mmHg. There is no evidence of significant pericardial effusion. Signed by : Caleb Craig, Electronically Approved : 07/17/2018 11:53:56
== END | disposition home or self-care (01) ==
LOC: ECHO 10:40
PROVIDERS: ATTEND Internal Medicine Cardiovascular Disease
DX: I08.8 Other rheumatic multiple valve diseases (principal); I48.2 Chronic atrial fibrillation; I13.0 Hypertensive heart and chronic kidney disease with heart failure and stage 1 through stage 4 chronic kidney disease, or unspecified chronic kidney disease; E11.22 Type 2 diabetes mellitus with diabetic chronic kidney disease; I50.9 Heart failure, unspecified; N18.3 Chronic kidney disease, stage 3 (moderate); K21.9 Gastro-esophageal reflux disease without esophagitis; E78.5 Hyperlipidemia, unspecified; J43.9 Emphysema, unspecified; E87.6 Hypokalemia; Z86.2 Personal history of diseases of the blood and blood-forming organs and certain disorders involving the immune mechanism; Z90.89 Acquired absence of other organs; Z90.49 Acquired absence of other specified parts of digestive tract; Z83.3 Family history of diabetes mellitus; Z83.71 Family history of colonic polyps
CPT/HCPCS: 93306

== ENCOUNTER 2018-07-21 14:44 | Inpatient (IN) | payer BC ==
[~2018-07-21] VITALS: Ht 152.4 cm; Wt 75.3 kg
[~2018-07-21 14:44] MED LIST changes: -LOSA50TA6 PO; +LOSA50TA7 PO
[2018-07-21 15:36] LABS: CREATININE ISTAT 0.9 mg/dL (0.5-1.4); HEMOGLOBIN ISTAT 13.3 g/dL (12-15); ION CA ISTAT 1.24 mmol/L (1.13-1.32); POTASSIUM ISTAT 4.3 mmol/L (3.5-5.0)
[2018-07-21] MEDS ORDERED: METOCLOPRAMIDE HCL 10 MG/2 ML VIAL. IV ONE (15:45)
[2018-07-21] MEDS ORDERED: IV NORMAL SALINE 500ML BAG 500 ML IV ONE (15:45)
[2018-07-21] MEDS ORDERED: fentaNYL PF VIAL 100 MCG/2 ML VIAL IV ONE ×2 (15:45→18:45)
[2018-07-21 15:48] LABS: BASO # 0.1 x10^3/uL (0.0-0.2); BASO % 1 % (0-3); EOS # 0.2 x10^3/uL (0.0-0.7); EOS % 1 % (0-3); HEMATOCRIT 38.9 % (36.0-47.0); HEMOGLOBIN 12.9 g/dL (12.0-15.5); LYMPH # 1.2 x10^3/uL (1.0-4.8); LYMPH % 9 % (24-48); MEAN CORPUSCULAR HEMOGLOBIN 28 pg (25-35); MEAN CORPUSCULAR HGB CONC 33 g/dL (31-37); MEAN CORPUSCULAR VOLUME 86 fL (79-100); MONO # 0.5 x10^3/uL (0.0-1.1); MONO % 4 % (0-9); NEUT # 10.5 x10^3uL (1.8-7.7); NEUT % 85 % (31-73); PLATELET COUNT 274 x10^3/uL (140-400); RED BLOOD COUNT 4.55 x10^6/uL (3.50-5.40); RED CELL DISTRIBUTION WIDTH 19.3 % (11.5-14.5); WHITE BLOOD COUNT 12.4 x10^3/uL (4.0-11.0)
--- NOTE | 2018-07-21 15:49 | RAD ---
Single view of the chest. 07/21/2018 3:37 PM Indication: SEVERE ABDOMINAL ACROSS LOWER STOMACH BY OSTOMY. Comparison: Chest radiograph May 04, 2018 Findings: Lordotic projection noted. No pneumothorax or definitive effusion is seen. Mild linear opacity in left midlung may represent discoid atelectasis. Heart size is enlarged. Mild central vascular congestion is similar comparison studies. No acute osseous change is identified. IMPRESSION: 1. Stable cardiomegaly and mild central vascular congestion 2. Possible mild discoid atelectasis, left midlung 3. Otherwise stable chest Electronically signed by: Ruben Chawla MD (07/21/2018 3:46 PM) [facility]
--- NOTE | 2018-07-21 15:50 | EKG ---
[facility] [address] [place] [address] Test Date: 2018-07-21 Test Time: 15:21:28 Pat Name: ARIELLE MONZON Department: Room: Gender: F Counter Maker: SRIKANTH : 1945 Requested By: BRITTON BEST Order Number: [id number] Reading MD: Dejon Spaulding MD Measurements Intervals [place] Rate: 88 P: ID: QRS: 26 QRSD: 102 T: 26 QT: 408 QTc: 498 Interpretive Statements ATRIAL FIBRILLATION WITH RVR NON-SPECIFIC ST/T CHANGES PVC Electronically Signed On 07-25-2018 11:56:14 CDT by Dejon Spaulding MD
[2018-07-21] MEDS ORDERED: IOHEXOL 300 MG/ML 100ML VIAL. IV ONE (16:00)
[2018-07-21] MEDS ORDERED: CONTRAST GIVEN. MC PRN (16:00)
--- NOTE | 2018-07-21 16:32 | PHYS DOC ---
Past Medical History Past Medical History: A-Fib, Anemia, Arrhythmia, Asthma, CHF, COPD, Diabetes- Type II, Diverticulitis, Hypertension, Renal Failure, Other Additional Past Medical Histor: C-DIFF, COLOSTOMY D/T BOWEL OBST, Past Surgical History: Appendectomy, Cholecystectomy, Tonsillectomy, Other Additional Past Surgical Histo: adenoidectomy, EGD,COLOSTOMY BOWEL OBST, Alcohol Use: Rarely Drug Use: None Adult General Chief Complaint Chief Complaint: ABDOMINAL PAIN HPI HPI Patient is a 73 year old female who presents with abdominal pain and vomiting she's had this for 2 days. The pain is worse. She a few minutes into the ER stay had a period where she had significant vomiting she was foaming at the mouth she bradyed down to 20 for about 30 seconds she never lost her pulse all the way she remained awake throughout. She says that the pain is diffuse and cramping she did have an ostomy placed a few weeks ago she tells me for a blocked large intestine. Review of Systems Review of Systems Constitutional: Denies fever or chills [] Eyes: Denies change in visual acuity, redness, or eye pain [] Musculoskeletal: Denies back pain or joint pain [] Integument: Denies rash or skin lesions [] Neurologic: Denies headache, focal weakness or sensory changes [] Endocrine: Denies polyuria or polydipsia [] All other systems were reviewed and found to be within normal limits, except as documented in this note. Current Medications Current Medications Current Medications Medications (Trade) Dose Ordered Sig/Jose Rafael Start Time Stop Time Status Last Admin Dose Admin Fentanyl Citrate (Fentanyl 2ml Vial) 50 mcg 1X ONCE 07/21/18 15:45 07/21/18 15:46 DC 07/21/18 16:04 50 MCG Info (CONTRAST GIVEN -- Rx MONITORING) 1 each PRN DAILY PRN 07/21/18 16:00 07/23/18 15:59 Iohexol (Omnipaque 300 Mg/ml) 75 ml 1X ONCE 07/21/18 16:00 07/21/18 16:01 DC 07/21/18 17:00 75 ML Metoclopramide HCl (Reglan Vial) 10 mg 1X ONCE 07/21/18 15:45 07/21/18 15:46 DC 07/21/18 16:04 10 MG Sodium Chloride 1,000 ml @ 100 mls/hr Q10H 07/21/18 17:28 07/22/18 17:27 Allergies Allergies Allergies Coded Allergies Type Severity Reaction Last Updated Verified DONNA Inhibitors Allergy Severe angioedema 04/11/18 Yes Penicillins Allergy Intermediate n/v,itch,rash 04/11/18 Yes erythromycin base Adverse Reaction Intermediate n/v 04/29/18 Yes Physical Exam Physical Exam Constitutional: Well developed, well nourished, mild distress HENT: Normocephalic, atraumatic, bilateral external ears normal, oropharynx moist, no oral exudates, nose normal. [] Eyes: PERRLA, EOMI, conjunctiva normal, no discharge. [] Neck: Normal range of motion, no tenderness, supple, no stridor. [] Cardiovascular:Heart rate regular rhythm, 3/6 murmur Lungs & Thorax: Bilateral breath sounds clear to auscultation [] Abdomen: soft, diffuse tenderness, no masses, no pulsatile masses. [] ostomy bag is flat the ostomy itself is somewhat flat against the skin and not as pink as I AM USED TO seeing. Does appear patent however Skin: Warm, dry, no erythema, no rash. [] Back: No tenderness, no CVA tenderness. [] Extremities: No tenderness, no cyanosis, no clubbing, ROM intact, no edema. [] Neurologic: Alert and oriented X 3, normal motor function, normal sensory function, no focal deficits noted. [] Psychologic: Affect normal, judgement normal, mood normal. [] Current Patient Data Vital Signs Vital Signs Date Time Temp Pulse Resp B/P (MAP) Pulse Ox O2 Delivery O2 Flow Rate FiO2 07/21/18 16:04 22 Nasal Cannula 2.0 07/21/18 14:44 97.7 91 176/99 (124) 96 97.7 Lab Values Laboratory Tests Test 07/21/18 15:25 07/21/18 15:30 07/21/18 16:12 White Blood Count 12.4 x10^3/uL (4.0-11.0) H Red Blood Count 4.55 x10^6/uL (3.50-5.40) Hemoglobin 12.9 g/dL (12.0-15.5) Hematocrit 38.9 % (36.0-47.0) Mean Corpuscular Volume 86 fL (79-100) Mean Corpuscular Hemoglobin 28 pg (25-35) Mean Corpuscular Hemoglobin Concent 33 g/dL (31-37) Red Cell Distribution Width 19.3 % (11.5-14.5) H Platelet Count 274 x10^3/uL (140-400) Neutrophils (%) (Auto) 85 % (31-73) H Lymphocytes (%) (Auto) 9 % (24-48) L Monocytes (%) (Auto) 4 % (0-9) Eosinophils (%) (Auto) 1 % (0-3) Basophils (%) (Auto) 1 % (0-3) Neutrophils # (Auto) 10.5 x10^3uL (1.8-7.7) H Lymphocytes # (Auto) 1.2 x10^3/uL (1.0-4.8) Monocytes # (Auto) 0.5 x10^3/uL (0.0-1.1) Eosinophils # (Auto) 0.2 x10^3/uL (0.0-0.7) Basophils # (Auto) 0.1 x10^3/uL (0.0-0.2) Lactic Acid Level 1.7 mmol/L (0.4-2.0) POC Hemoglobin 13.3 g/dL (12-15) POC Hematocrit 39 % (36-40) POC Sodium 141 mmol/L (135-145) POC Potassium 4.3 mmol/L (3.5-5.0) POC Chloride 106 mmol/L (98-110) POC Total CO2 26 mmol/L (23-32) Anion Gap 15 mmol/L (6-14) H 9 (6-14) POC Blood Urea Nitrogen 23 mg/dL (8-26) POC Creatinine 0.9 mg/dL (0.5-1.4) Glucose Level 198 mg/dL (70-99) H 200 mg/dL (70-99) H POC Ionized Calcium (Madeleine) 1.24 mmol/L (1.13-1.32) POC Troponin I 0.03 ng/ml (<0.08) Sodium Level 141 mmol/L (136-145) Potassium Level 4.2 mmol/L (3.5-5.1) Chloride Level 106 mmol/L (98-107) Carbon Dioxide Level 26 mmol/L (21-32) Blood Urea Nitrogen 20 mg/dL (7-20) Creatinine 1.0 mg/dL (0.6-1.0) Estimated GFR (Cockcroft-Gault) 54.1 BUN/Creatinine Ratio 20 (6-20) Calcium Level 10.0 mg/dL (8.5-10.1) Magnesium Level 2.1 mg/dL (1.8-2.4) Total Bilirubin 0.6 mg/dL (0.2-1.0) Aspartate Amino Transferase (AST) 14 U/L (15-37) L Alanine Aminotransferase (ALT) 18 U/L (14-59) Alkaline Phosphatase 85 U/L (46-116) Total Protein 7.6 g/dL (6.4-8.2) Albumin 3.5 g/dL (3.4-5.0) Albumin/Globulin Ratio 0.9 (1.0-1.7) L Lipase 139 U/L (73-393) Laboratory Tests 07/21/18 15:25 Laboratory Tests 07/21/18 15:30 07/21/18 16:12 EKG EKG [] Interpretation Time: EKG shows probable A. fib irregular rhythm QRS is [address] changes noted high lateral but no obvious STEMI was seen. Radiology/Procedures Radiology/Procedures [] Impressions: IMPRESSION: 1. Stable cardiomegaly and mild central vascular congestion 2. Possible mild discoid atelectasis, left midlung 3. Otherwise stable chest Electronically signed by: Ruben Riggins MD (07/21/2018 3:46 PM) [facility] DICTATED and SIGNED BY: RUBEN RIGGINS MD DATE: 07/21/18 1544 FINDINGS: Heart is moderately enlarged in size. No pericardial or pleural effusion. Clear lung bases. Liver, spleen, pancreas, adrenals are within normal limits. Too small to characterize low attenuating lesion is seen in the left kidney also seen on previous study most likely simple cysts. No nephrolithiasis or hydronephrosis. Status post partial colectomy with left lower quadrant colostomy. There is diffuse dilation of the residual colon seen with air-fluid levels without obstructing lesion. The represented to chronic diameter measures approximately 5.6 cm in the transverse colon. Small bowel is nondilated. No enlarged retroperitoneal or pelvic adenopathy. No free pelvic fluid or ascites. Urinary bladder is within normal limits. Anteverted uterus with small calcified fibroids. No pneumoperitoneum or pneumatosis intestinalis. No suspicious bony lesion. Moderate multilevel degenerative disc disease is seen in the visualized spine. Advanced lower lumbar spine facet arthropathy. IMPRESSION: 1. Diffuse dilation of the colon with air-fluid levels all the way up to the ostomy without obstructing mass suggest colonic ileus. Clinically correlate with ostomy output. Electronically signed by: Ant Johnson DO (07/21/2018 5:12 PM) [facility] DICTATED and SIGNED BY: ANT JOHNSON DO DATE: 07/21/181705 Course & Med Decision Making Course & Med Decision Making Pertinent Labs and Imaging studies reviewed. (See chart for details) []73 yo f presenting with abdominal pain and vomiting for 2 days she is status post ostomy for a large intestine hemicolectomy BACK IN [facility] During the ER stay she did have a period of bradycardia with vomiting however she never lost her pulse and when I went into the room she was awake and alert. CT scan as noted above. I spoke with Dr. Duvall from surgery who is recommended an NG tube due to the vomiting as well as an ICU admission overnight for close observation. Given the bradycardia and abnormal findings. admit emmanuelle Holt Disclaimer Dragon Disclaimer This electronic medical record was generated, in whole or in part, using a voice recognition dictation system. Departure Departure Impression: Primary Impression: Colon obstruction Additional Impression: Syncope Disposition: 09 ADMITTED INPATIENT Condition: STABLE Referrals: RYLEY GONZALES Jr, MD (PCP) Problem Qualifiers BRITTON BEST MD Jul 21, 2018 16:32
[2018-07-21 16:53] LABS: GFR 54.1; POTASSIUM 4.2 mmol/L (3.5-5.1)
[2018-07-21 16:59] LABS: ALBUMIN 3.5 g/dL (3.4-5.0); ALBUMIN/GLOBULIN RATIO 0.9 (1.0-1.7); MAGNESIUM 2.1 mg/dL (1.8-2.4); TOTAL BILIRUBIN 0.6 mg/dL (0.2-1.0); TOTAL PROTEIN 7.6 g/dL (6.4-8.2)
--- NOTE | 2018-07-21 17:15 | RAD ---
PQRS Compliance statement: One or more of the following individualized dose reduction techniques were utilized for this examination: 1. Automated exposure control. 2. Adjustment of the mA and/or kV according to patient size. 3. Use of iterative reconstruction technique. Indication:severe abd pain s/p sx inj 75ml Omni 300 prev sent TECHNIQUE: CT abdomen and pelvis with IV contrast with multiplanar reformats. COMPARISON: 04/27/2018 FINDINGS: Heart is moderately enlarged in size. No pericardial or pleural effusion. Clear lung bases. Liver, spleen, pancreas, adrenals are within normal limits. Too small to characterize low attenuating lesion is seen in the left kidney also seen on previous study most likely simple cysts. No nephrolithiasis or hydronephrosis. Status post partial colectomy with left lower quadrant colostomy. There is diffuse dilation of the residual colon seen with air-fluid levels without obstructing lesion. The represented to chronic diameter measures approximately 5.6 cm in the transverse colon. Small bowel is nondilated. No enlarged retroperitoneal or pelvic adenopathy. No free pelvic fluid or ascites. Urinary bladder is within normal limits. Anteverted uterus with small calcified fibroids. No pneumoperitoneum or pneumatosis intestinalis. No suspicious bony lesion. Moderate multilevel degenerative disc disease is seen in the visualized spine. Advanced lower lumbar spine facet arthropathy. IMPRESSION: 1. Diffuse dilation of the colon with air-fluid levels all the way up to the ostomy without obstructing mass suggest colonic ileus. Clinically correlate with ostomy output. Electronically signed by: Ant Johnson DO (07/21/2018 5:12 PM) [facility]
--- NOTE | 2018-07-21 18:02 | PDOC2 ---
CONSULT Date of Consult Date of Consult DATE: 07/21/18 TIME: 17:56 Reason for Consult Reason for Consult: abd pain, N/V Referring Physician Referring Physician: Jeanne Identification/Chief Complaint Chief Complaint abd pain, N/V Source Source: Patient History of Present Illness Reason for Visit: 73 yo F recently underwent bryant's procedure for colonic obstruction secondary to diverticulitis. Presents with minimal colostomy output, diffuse abd pain and distention. N/V with associated bradycardia event in ER. Also reports inability to void, and to have john. Past Medical History Cardiovascular: AFIB, CHF, HTN Pulmonary: COPD Musculoskeletal: Osteoarthritis Infectious disease: No pertinent hx Renal/: Chronic renal insuff Endocrine: No pertinent hx Past Surgical History Past Surgical History: Appendectomy, Cholecystectomy, Tonsillectomy, Colon Resection, Other Family History Family History: Diabetes, Hypertension, Other Social History Quit ALCOHOL: occassional Drugs: None Current Medications Current Medications Current Medications Metoclopramide HCl (Reglan Vial) 10 mg 1X ONCE IV Last administered on at 16:04; Start 07/21/18 at 15:45; Stop 07/21/18 at 15:46; Status DC Sodium Chloride 500 ml @ 500 mls/hr 1X ONCE IV Last administered on at 16:06; Start 07/21/18 at 15:45; Stop 07/21/18 at 16:44; Status DC Fentanyl Citrate (Fentanyl 2ml Vial) 50 mcg 1X ONCE IV Last administered on at 16:04; Start 07/21/18 at 15:45; Stop 07/21/18 at 15:46; Status DC Iohexol (Omnipaque 300 Mg/ml) 75 ml 1X ONCE IV Last administered on 07/21/18at 17:00; Start 07/21/18 at 16:00; Stop 07/21/18 at 16:01; Status DC Info (CONTRAST GIVEN -- Rx MONITORING) 1 each PRN DAILY PRN MC SEE COMMENTS; Start 07/21/18 at 16:00; Stop 07/23/18 at 15:59 Sodium Chloride 1,000 ml @ 100 mls/hr Q10H IV ; Start 07/21/18 at 17:28; Stop 07/22/18 at 17:27 Active Scripts Active [Pantoprazole] 40 MG Tablet.dr 40 Mg PO DAILYAC Tramadol Hcl 50 Mg Tablet 50 Mg PO PRN Q6HRS PRN Metoprolol Tartrate 25 Mg Tablet 12.5 Mg PO BID Culturelle (Lactobacillus Rhamnosus Gg) 1 Each Cap.sprink 1 Cap PO BID Reported Bumetanide 2 Mg Tablet 2 Mg PO DAILY Fish Oil 1,000 mg Softgel ([place]-3S/Dha/Epa/Fish Oil) 1 Each Capsule 1 Each PO BID Losartan Potassium 50 Mg Tablet 50 Mg PO DAILY Vitamin D2 (Ergocalciferol (Vitamin D2)) 50,000 Unit Capsule 50,000 Unit PO 2XWEEKLY Klor-Con M10 (Potassium Chloride) 10 Meq Tab.er.prt 1 Tab PO BID Calcium (Calcium Carbonate) 600 Mg Tablet 600 Mg PO DAILY Digoxin 125 Mcg Tablet 1 Tab PO DAILY Miralax (Polyethylene Glycol 3350) 17 Gm Powd.pack 1 Packet PO DAILY Symbicort 160-4.5 Mcg Inhaler (Budesonide/Formoterol Fumarate) 10.2 Gm Hfa.aer.ad 2 Puff IH BID Allergies Allergies: Coded Allergies: DONNA Inhibitors (Verified Allergy, Severe, angioedema, 04/11/18) Penicillins (Verified Allergy, Intermediate, n/v,itch,rash, 04/11/18) erythromycin base (Verified Adverse Reaction, Intermediate, n/v, 04/29/18) ROS Gastrointestinal: Yes Nausea, Yes Vomiting, Yes Abdominal Pain, Yes Constipation Genitourinary: YES Retention Physical Exam General: Alert, Oriented X3, Cooperative, mild distress, Other (somewhat cushingnoid appearance) HEENT: Atraumatic Lungs: Other (some wheeze) Abdomen: Soft, Other (diffuse distention and mild TTP, incision well healed, ostomy without obvious output) Vitals VITALS Vital Signs Date Time Temp Pulse Resp B/P (MAP) Pulse Ox O2 Delivery O2 Flow Rate FiO2 07/21/18 16:04 22 Nasal Cannula 2.0 07/21/18 14:44 97.7 91 176/99 (124) 96 97.7 Labs Labs Laboratory Tests Test 07/21/18 15:25 07/21/18 15:30 07/21/18 16:12 White Blood Count 12.4 x10^3/uL (4.0-11.0) Red Blood Count 4.55 x10^6/uL (3.50-5.40) Hemoglobin 12.9 g/dL (12.0-15.5) Hematocrit 38.9 % (36.0-47.0) Mean Corpuscular Volume 86 fL (79-100) Mean Corpuscular Hemoglobin 28 pg (25-35) Mean Corpuscular Hemoglobin Concent 33 g/dL (31-37) Red Cell Distribution Width 19.3 % (11.5-14.5) Platelet Count 274 x10^3/uL (140-400) Neutrophils (%) (Auto) 85 % (31-73) Lymphocytes (%) (Auto) 9 % (24-48) Monocytes (%) (Auto) 4 % (0-9) Eosinophils (%) (Auto) 1 % (0-3) Basophils (%) (Auto) 1 % (0-3) Neutrophils # (Auto) 10.5 x10^3uL (1.8-7.7) Lymphocytes # (Auto) 1.2 x10^3/uL (1.0-4.8) Monocytes # (Auto) 0.5 x10^3/uL (0.0-1.1) Eosinophils # (Auto) 0.2 x10^3/uL (0.0-0.7) Basophils # (Auto) 0.1 x10^3/uL (0.0-0.2) Lactic Acid Level 1.7 mmol/L (0.4-2.0) Bedside Hemoglobin 13.3 g/dL (12-15) Bedside Hematocrit 39 % (36-40) Bedside Sodium 141 mmol/L (135-145) Bedside Potassium 4.3 mmol/L (3.5-5.0) Bedside Chloride 106 mmol/L (98-110) Bedside Total CO2 26 mmol/L (23-32) Anion Gap 15 mmol/L (6-14) 9 (6-14) Bedside Blood Urea Nitrogen 23 mg/dL (8-26) Bedside Creatinine 0.9 mg/dL (0.5-1.4) Glucose Level 198 mg/dL (70-99) 200 mg/dL (70-99) Bedside Ionized Calcium (Madeleine) 1.24 mmol/L (1.13-1.32) Bedside Troponin I 0.03 ng/ml (<0.08) Sodium Level 141 mmol/L (136-145) Potassium Level 4.2 mmol/L (3.5-5.1) Chloride Level 106 mmol/L (98-107) Carbon Dioxide Level 26 mmol/L (21-32) Blood Urea Nitrogen 20 mg/dL (7-20) Creatinine 1.0 mg/dL (0.6-1.0) Estimated GFR (Cockcroft-Gault) 54.1 BUN/Creatinine Ratio 20 (6-20) Calcium Level 10.0 mg/dL (8.5-10.1) Magnesium Level 2.1 mg/dL (1.8-2.4) Total Bilirubin 0.6 mg/dL (0.2-1.0) Aspartate Amino Transf (AST/SGOT) 14 U/L (15-37) Alanine Aminotransferase (ALT/SGPT) 18 U/L (14-59) Alkaline Phosphatase 85 U/L (46-116) Total Protein 7.6 g/dL (6.4-8.2) Albumin 3.5 g/dL (3.4-5.0) Albumin/Globulin Ratio 0.9 (1.0-1.7) Lipase 139 U/L (73-393) Laboratory Tests Test 07/21/18 15:25 07/21/18 15:30 07/21/18 16:12 White Blood Count 12.4 x10^3/uL (4.0-11.0) Red Blood Count 4.55 x10^6/uL (3.50-5.40) Hemoglobin 12.9 g/dL (12.0-15.5) Hematocrit 38.9 % (36.0-47.0) Mean Corpuscular Volume 86 fL (79-100) Mean Corpuscular Hemoglobin 28 pg (25-35) Mean Corpuscular Hemoglobin Concent 33 g/dL (31-37) Red Cell Distribution Width 19.3 % (11.5-14.5) Platelet Count 274 x10^3/uL (140-400) Neutrophils (%) (Auto) 85 % (31-73) Lymphocytes (%) (Auto) 9 % (24-48) Monocytes (%) (Auto) 4 % (0-9) Eosinophils (%) (Auto) 1 % (0-3) Basophils (%) (Auto) 1 % (0-3) Neutrophils # (Auto) 10.5 x10^3uL (1.8-7.7) Lymphocytes # (Auto) 1.2 x10^3/uL (1.0-4.8) Monocytes # (Auto) 0.5 x10^3/uL (0.0-1.1) Eosinophils # (Auto) 0.2 x10^3/uL (0.0-0.7) Basophils # (Auto) 0.1 x10^3/uL (0.0-0.2) Lactic Acid Level 1.7 mmol/L (0.4-2.0) Bedside Hemoglobin 13.3 g/dL (12-15) Bedside Hematocrit 39 % (36-40) Bedside Sodium 141 mmol/L (135-145) Bedside Potassium 4.3 mmol/L (3.5-5.0) Bedside Chloride 106 mmol/L (98-110) Bedside Total CO2 26 mmol/L (23-32) Anion Gap 15 mmol/L (6-14) 9 (6-14) Bedside Blood Urea Nitrogen 23 mg/dL (8-26) Bedside Creatinine 0.9 mg/dL (0.5-1.4) Glucose Level 198 mg/dL (70-99) 200 mg/dL (70-99) Bedside Ionized Calcium (Madeleine) 1.24 mmol/L (1.13-1.32) Bedside Troponin I 0.03 ng/ml (<0.08) Sodium Level 141 mmol/L (136-145) Potassium Level 4.2 mmol/L (3.5-5.1) Chloride Level 106 mmol/L (98-107) Carbon Dioxide Level 26 mmol/L (21-32) Blood Urea Nitrogen 20 mg/dL (7-20) Creatinine 1.0 mg/dL (0.6-1.0) Estimated GFR (Cockcroft-Gault) 54.1 BUN/Creatinine Ratio 20 (6-20) Calcium Level 10.0 mg/dL (8.5-10.1) Magnesium Level 2.1 mg/dL (1.8-2.4) Total Bilirubin 0.6 mg/dL (0.2-1.0) Aspartate Amino Transf (AST/SGOT) 14 U/L (15-37) Alanine Aminotransferase (ALT/SGPT) 18 U/L (14-59) Alkaline Phosphatase 85 U/L (46-116) Total Protein 7.6 g/dL (6.4-8.2) Albumin 3.5 g/dL (3.4-5.0) Albumin/Globulin Ratio 0.9 (1.0-1.7) Lipase 139 U/L (73-393) Images Images CT with colonic distention but no lesion Assessment/Plan Assessment/Plan Colonic ileus agree with admission to ICU, NGT placement for N/V and supportive care Once stabilized, will ask GI to evaluate and consider colonoscopy and decompression. If not successful, may need to consider total colectomy Thanks for consult! MIRANDA PAYNE MD Jul 21, 2018 18:02
[2018-07-21] MEDS: IV NORMAL SALINE 1000ML BAG 1,000 ML IV SCH (18:45)
[2018-07-21 19:10] VITALS: BP 152/84
[2018-07-21 20:00] VITALS: BP 165/98
[2018-07-21] MEDS ORDERED: ONDANSETRON PF 4 MG/2 ML VIAL. IV PRN (20:00)
[2018-07-21] MEDS: MORPHINE SULFATE 2 MG/ML VIAL. IV PRN ×2 (20:18→22:07)
[2018-07-21 21:00] VITALS: BP 176/88
[2018-07-21 22:00] VITALS: BP 135/67
[2018-07-21 23:00] VITALS: BP 129/71
--- NOTE | 2018-07-21 23:10 | RAD ---
Indication: NG tube placement verification TECHNIQUE: Single supine AP view of the abdomen COMPARISON: None FINDINGS: NG tube is seen with its tip in the body of the stomach. Visualized lung bases are clear. IMPRESSION: NG tube with its tip in the body of stomach. Electronically signed by: Ant Johnson DO (07/21/2018 11:07 PM) [facility]
[2018-07-22] VITALS (16 sets, daily range): BP systolic 86–120; BP diastolic 47–62
[2018-07-22] MEDS: IV NORMAL SALINE 1000ML BAG 1,000 ML IV SCH ×2 (03:26→13:28)
[2018-07-22] MEDS: MORPHINE SULFATE 2 MG/ML VIAL. IV PRN (06:37)
--- NOTE | 2018-07-22 11:36 | PDOC ---
SURGICAL PROGRESS NOTE Subjective Pt feels much better, no N/V, had large amount of colostomy output Vital Signs Vital Signs Date Time Temp Pulse Resp B/P (MAP) Pulse Ox O2 Delivery O2 Flow Rate FiO2 07/22/18 11:00 98.7 92 14 113/62 (79) 99 Nasal Cannula 2.0 98.7 I&O Intake and Output 07/22/18 07:00 Intake Total 1487.8 ml Output Total 645 ml Balance 842.8 ml Intake Oral 0 ml IV Total 1487.8 ml Output Urine Total 645 ml # Voids 3 PATIENT HAS A EDWARDS: Yes General: Alert, Oriented X3, Cooperative, No acute distress Abdomen: Soft, No tenderness Labs Laboratory Tests Test 07/21/18 15:25 07/21/18 15:30 07/21/18 16:12 White Blood Count 12.4 x10^3/uL (4.0-11.0) Red Blood Count 4.55 x10^6/uL (3.50-5.40) Hemoglobin 12.9 g/dL (12.0-15.5) Hematocrit 38.9 % (36.0-47.0) Mean Corpuscular Volume 86 fL (79-100) Mean Corpuscular Hemoglobin 28 pg (25-35) Mean Corpuscular Hemoglobin Concent 33 g/dL (31-37) Red Cell Distribution Width 19.3 % (11.5-14.5) Platelet Count 274 x10^3/uL (140-400) Neutrophils (%) (Auto) 85 % (31-73) Lymphocytes (%) (Auto) 9 % (24-48) Monocytes (%) (Auto) 4 % (0-9) Eosinophils (%) (Auto) 1 % (0-3) Basophils (%) (Auto) 1 % (0-3) Neutrophils # (Auto) 10.5 x10^3uL (1.8-7.7) Lymphocytes # (Auto) 1.2 x10^3/uL (1.0-4.8) Monocytes # (Auto) 0.5 x10^3/uL (0.0-1.1) Eosinophils # (Auto) 0.2 x10^3/uL (0.0-0.7) Basophils # (Auto) 0.1 x10^3/uL (0.0-0.2) Lactic Acid Level 1.7 mmol/L (0.4-2.0) Bedside Hemoglobin 13.3 g/dL (12-15) Bedside Hematocrit 39 % (36-40) Bedside Sodium 141 mmol/L (135-145) Bedside Potassium 4.3 mmol/L (3.5-5.0) Bedside Chloride 106 mmol/L (98-110) Bedside Total CO2 26 mmol/L (23-32) Anion Gap 15 mmol/L (6-14) 9 (6-14) Bedside Blood Urea Nitrogen 23 mg/dL (8-26) Bedside Creatinine 0.9 mg/dL (0.5-1.4) Glucose Level 198 mg/dL (70-99) 200 mg/dL (70-99) Bedside Ionized Calcium (Madeleine) 1.24 mmol/L (1.13-1.32) Bedside Troponin I 0.03 ng/ml (<0.08) Sodium Level 141 mmol/L (136-145) Potassium Level 4.2 mmol/L (3.5-5.1) Chloride Level 106 mmol/L (98-107) Carbon Dioxide Level 26 mmol/L (21-32) Blood Urea Nitrogen 20 mg/dL (7-20) Creatinine 1.0 mg/dL (0.6-1.0) Estimated GFR (Cockcroft-Gault) 54.1 BUN/Creatinine Ratio 20 (6-20) Calcium Level 10.0 mg/dL (8.5-10.1) Magnesium Level 2.1 mg/dL (1.8-2.4) Total Bilirubin 0.6 mg/dL (0.2-1.0) Aspartate Amino Transf (AST/SGOT) 14 U/L (15-37) Alanine Aminotransferase (ALT/SGPT) 18 U/L (14-59) Alkaline Phosphatase 85 U/L (46-116) Total Protein 7.6 g/dL (6.4-8.2) Albumin 3.5 g/dL (3.4-5.0) Albumin/Globulin Ratio 0.9 (1.0-1.7) Lipase 139 U/L (73-393) Laboratory Tests Test 07/21/18 15:25 07/21/18 15:30 07/21/18 16:12 White Blood Count 12.4 x10^3/uL (4.0-11.0) Red Blood Count 4.55 x10^6/uL (3.50-5.40) Hemoglobin 12.9 g/dL (12.0-15.5) Hematocrit 38.9 % (36.0-47.0) Mean Corpuscular Volume 86 fL (79-100) Mean Corpuscular Hemoglobin 28 pg (25-35) Mean Corpuscular Hemoglobin Concent 33 g/dL (31-37) Red Cell Distribution Width 19.3 % (11.5-14.5) Platelet Count 274 x10^3/uL (140-400) Neutrophils (%) (Auto) 85 % (31-73) Lymphocytes (%) (Auto) 9 % (24-48) Monocytes (%) (Auto) 4 % (0-9) Eosinophils (%) (Auto) 1 % (0-3) Basophils (%) (Auto) 1 % (0-3) Neutrophils # (Auto) 10.5 x10^3uL (1.8-7.7) Lymphocytes # (Auto) 1.2 x10^3/uL (1.0-4.8) Monocytes # (Auto) 0.5 x10^3/uL (0.0-1.1) Eosinophils # (Auto) 0.2 x10^3/uL (0.0-0.7) Basophils # (Auto) 0.1 x10^3/uL (0.0-0.2) Lactic Acid Level 1.7 mmol/L (0.4-2.0) Bedside Hemoglobin 13.3 g/dL (12-15) Bedside Hematocrit 39 % (36-40) Bedside Sodium 141 mmol/L (135-145) Bedside Potassium 4.3 mmol/L (3.5-5.0) Bedside Chloride 106 mmol/L (98-110) Bedside Total CO2 26 mmol/L (23-32) Anion Gap 15 mmol/L (6-14) 9 (6-14) Bedside Blood Urea Nitrogen 23 mg/dL (8-26) Bedside Creatinine 0.9 mg/dL (0.5-1.4) Glucose Level 198 mg/dL (70-99) 200 mg/dL (70-99) Bedside Ionized Calcium (Madeleine) 1.24 mmol/L (1.13-1.32) Bedside Troponin I 0.03 ng/ml (<0.08) Sodium Level 141 mmol/L (136-145) Potassium Level 4.2 mmol/L (3.5-5.1) Chloride Level 106 mmol/L (98-107) Carbon Dioxide Level 26 mmol/L (21-32) Blood Urea Nitrogen 20 mg/dL (7-20) Creatinine 1.0 mg/dL (0.6-1.0) Estimated GFR (Cockcroft-Gault) 54.1 BUN/Creatinine Ratio 20 (6-20) Calcium Level 10.0 mg/dL (8.5-10.1) Magnesium Level 2.1 mg/dL (1.8-2.4) Total Bilirubin 0.6 mg/dL (0.2-1.0) Aspartate Amino Transf (AST/SGOT) 14 U/L (15-37) Alanine Aminotransferase (ALT/SGPT) 18 U/L (14-59) Alkaline Phosphatase 85 U/L (46-116) Total Protein 7.6 g/dL (6.4-8.2) Albumin 3.5 g/dL (3.4-5.0) Albumin/Globulin Ratio 0.9 (1.0-1.7) Lipase 139 U/L (73-393) Problem List colonic ileus, appears resolved d/c NGT, ADAT, will check KUB OK to tx out of ICU as vitals have been wnl d/w pt and pt's family consider colonoscopy at some point but defer to GI MIRANDA PAYNE MD Jul 22, 2018 11:36
[2018-07-22] MEDS ORDERED: traMADol 50 MG TABLET PO PRN (11:45)
--- NOTE | 2018-07-22 11:55 | HP ---
ADMIT DATE: 07/22/2018 CHIEF COMPLAINT: Abdominal pain. HISTORY OF PRESENT ILLNESS: The patient is a pleasant 73-year-old female who presented with abdominal pain. While in the ER, we did some imaging. It appears she has an ileus or small-bowel obstruction. She also vomited in the ER ____ down to heart rate of 20. We did admit her to the ICU. She is now being examined in the ICU room 108. PAST MEDICAL HISTORY: AFib, anemia, arrhythmias, asthma, CHF, COPD, diabetes, diverticulitis, hypertension, renal failure, C. diff, colostomy, previous bowel obstructions, cholecystectomy, tonsillectomy, adenoidectomy, EGD. ALLERGIES: DONNA INHIBITORS, PENICILLIN AND ERYTHROMYCIN. FAMILY HISTORY: Coronary artery disease. SOCIAL HISTORY: She does not drink, smoke or take drugs. MEDICATIONS: Reviewed, please refer to the MRAD. REVIEW OF SYSTEMS: GENERAL: No history of weight change, weakness or fevers. SKIN: No bruising, hair changes or rashes. EYES: No blurred, double or loss of vision. NOSE AND THROAT: No history of nosebleeds, hoarseness or sore throat. HEART: No history of palpitations, chest pain or shortness of breath on exertion. LUNGS: Denies cough, hemoptysis, wheezing or shortness of breath. GASTROINTESTINAL: She complains of abdominal pain, but is improving. GENITOURINARY: No history of frequency, urgency, hesitancy or nocturia. NEUROLOGIC: Denies history of numbness, tingling, tremor or weakness. PSYCHIATRIC: No history of panic, anxiety or depression. ENDOCRINE: No history of heat or cold intolerance, polyuria or polydipsia. EXTREMITIES: Denies muscle weakness, joint pain, pain on walking or stiffness. PHYSICAL EXAMINATION: VITAL SIGNS: Temperature afebrile, pulse 92, respirations 18, blood pressure 113/62. GENERAL: She is alert, cooperative. HEART: Normal S1, S2, irregular. LUNGS: Clear. ABDOMEN: Soft. There is an ostomy. ENDOCRINE: No thyromegaly. LYMPHATICS: No cervical nodes. HEMATOPOIETIC: No bruising. EXTREMITIES: No edema. PSYCHIATRIC: She is stable. LABORATORY DATA: White count is 12, hemoglobin 12.9, platelets 274. Electrolytes are normal. Lactic acid is normal at 1.7. Glucose is little high at 198. Lipase 139. Albumin 3.5. Chest x-ray, cardiomegaly with mild vascular congestion. CT of the abdomen shows diffuse dilatation of the colon with air fluid levels way up to the ostomy without obstruction, suggesting colonic ileus. ASSESSMENT AND PLAN: Colonic ileus. The patient has been admitted. We have consulted GI and General Surgery. We are suctioning her gut. N.P.O., IV hydration, p.r.n. antiemetics. We will try to resume her home meds once we get this resolved. PROGNOSIS: Guarded. JULEEL Anamaria DAVIS DO DR: MAREN/lara JOB#: [id number] / [id number]
--- NOTE | 2018-07-22 11:59 | PDOC2 ---
CONSULT Date of Consult Date of Consult DATE: 07/22/18 TIME: 11:57 Reason for Consult Reason for Consult: Abd pain s/p diverting colostomy Past Medical History Cardiovascular: AFIB, CHF, HTN Pulmonary: COPD Musculoskeletal: Osteoarthritis Infectious disease: No pertinent hx Renal/: Chronic renal insuff Endocrine: No pertinent hx Past Surgical History Past Surgical History: Appendectomy, Cholecystectomy, Tonsillectomy, Colon Resection, Other Family History Family History: Diabetes, Hypertension, Other Social History Quit ALCOHOL: occassional Drugs: None Current Medications Current Medications Current Medications Metoclopramide HCl (Reglan Vial) 10 mg 1X ONCE IV Last administered on at 16:04; Start 07/21/18 at 15:45; Stop 07/21/18 at 15:46; Status DC Sodium Chloride 500 ml @ 500 mls/hr 1X ONCE IV Last administered on at 16:06; Start 07/21/18 at 15:45; Stop 07/21/18 at 16:44; Status DC Fentanyl Citrate (Fentanyl 2ml Vial) 50 mcg 1X ONCE IV Last administered on at 16:04; Start 07/21/18 at 15:45; Stop 07/21/18 at 15:46; Status DC Iohexol (Omnipaque 300 Mg/ml) 75 ml 1X ONCE IV Last administered on 07/21/18at 17:00; Start 07/21/18 at 16:00; Stop 07/21/18 at 16:01; Status DC Info (CONTRAST GIVEN -- Rx MONITORING) 1 each PRN DAILY PRN MC SEE COMMENTS; Start 07/21/18 at 16:00; Stop 07/23/18 at 15:59 Sodium Chloride 1,000 ml @ 100 mls/hr Q10H IV Last administered on 07/22/18at 03 :26; Start 07/21/18 at 17:28; Stop 07/22/18 at 17:27 Fentanyl Citrate (Fentanyl 2ml Vial) 50 mcg 1X ONCE IV Last administered on at 18:44; Start 07/21/18 at 18:45; Stop 07/21/18 at 18:46; Status DC Morphine Sulfate (Morphine Sulfate) 2 mg PRN Q2HR PRN IV PAIN Last administered on 07/22/18at 06:37; Start 8/31/18 at 20:00 Ondansetron HCl (Zofran) 4 mg PRN Q6HRS PRN IV NAUSEA/VOMITING Last administered on 07/21/18at 20:17; Start 07/21/18 at 20:00 Digoxin (Lanoxin) 125 mcg DAILY PO ; Start 07/22/18 at 12:00 Ergocalciferol (Vitamin D2) 50,000 unit DAILY PO ; Start 07/23/18 at 09:00; Status UNV Lactobacillus Rhamnosus (Culturelle) 1 cap BID PO ; Start 07/22/18 at 12:00 Losartan Potassium (Cozaar) 50 mg DAILY PO ; Start 07/22/18 at 12:00 Metoprolol Tartrate (Lopressor) 12.5 mg BID PO ; Start 07/22/18 at 12:00 Potassium Chloride (Klor-Con) 10 meq BID PO ; Start 07/22/18 at 12:00 Tramadol HCl (Ultram) 50 mg PRN Q6HRS PRN PO MILD PAIN; Start 07/22/18 at 11:45 Non-Formulary Medication (Budesonide/ Formoterol Fumarate (Symbicort 160-4.5 Mcg Inhaler)) 2 puff BID IH ; Start 07/22/18 at 21:00; Status UNV Bumetanide (Bumex) 2 mg DAILY PO ; Start 07/22/18 at 12:00 Calcium/Vitamin D (Oscal D 500mg/ 200uts) 1 tab DAILYWLUN PO ; Start 07/22/18 at 12:00 Fish Oil (Fish Oil) 1,000 mg BID PO ; Start 07/22/18 at 12:00 Polyethylene Glycol (miraLAX PACKET) 17 gm DAILY PO ; Start 07/22/18 at 12:00 Pantoprazole Sodium (Protonix) 40 mg DAILYAC PO ; Start 07/22/18 at 12:00 Budesonide (Pulmicort) 0.5 mg RTBID NEB ; Start 07/22/18 at 20:00; Status UNV Albuterol Sulfate (Ventolin Neb Soln) 2.5 mg RTQID NEB ; Start 07/22/18 at 12:00 ; Status UNV Active Scripts Active [Pantoprazole] 40 MG Tablet.dr 40 Mg PO DAILYAC Tramadol Hcl 50 Mg Tablet 50 Mg PO PRN Q6HRS PRN Metoprolol Tartrate 25 Mg Tablet 12.5 Mg PO BID Culturelle (Lactobacillus Rhamnosus Gg) 1 Each Cap.sprink 1 Cap PO BID Reported Bumetanide 2 Mg Tablet 2 Mg PO DAILY Fish Oil 1,000 mg Softgel (Marion-3S/Dha/Epa/Fish Oil) 1 Each Capsule 1 Each PO BID Losartan Potassium 50 Mg Tablet 50 Mg PO DAILY Vitamin D2 (Ergocalciferol (Vitamin D2)) 50,000 Unit Capsule 50,000 Unit PO 2XWEEKLY Klor-Con M10 (Potassium Chloride) 10 Meq Tab.er.prt 1 Tab PO BID Calcium (Calcium Carbonate) 600 Mg Tablet 600 Mg PO DAILY Digoxin 125 Mcg Tablet 1 Tab PO DAILY Miralax (Polyethylene Glycol 3350) 17 Gm Powd.pack 1 Packet PO DAILY Symbicort 160-4.5 Mcg Inhaler (Budesonide/Formoterol Fumarate) 10.2 Gm Hfa.aer.ad 2 Puff IH BID Allergies Allergies: Coded Allergies: DONNA Inhibitors (Verified Allergy, Severe, angioedema, 04/11/18) Penicillins (Verified Allergy, Intermediate, n/v,itch,rash, 04/11/18) erythromycin base (Verified Adverse Reaction, Intermediate, n/v, 04/29/18) Vitals VITALS Vital Signs Date Time Temp Pulse Resp B/P (MAP) Pulse Ox O2 Delivery O2 Flow Rate FiO2 07/22/18 11:00 98.7 92 14 113/62 (79) 99 Nasal Cannula 2.0 98.7 Labs Labs Laboratory Tests Test 07/21/18 15:25 07/21/18 15:30 07/21/18 16:12 White Blood Count 12.4 x10^3/uL (4.0-11.0) Red Blood Count 4.55 x10^6/uL (3.50-5.40) Hemoglobin 12.9 g/dL (12.0-15.5) Hematocrit 38.9 % (36.0-47.0) Mean Corpuscular Volume 86 fL (79-100) Mean Corpuscular Hemoglobin 28 pg (25-35) Mean Corpuscular Hemoglobin Concent 33 g/dL (31-37) Red Cell Distribution Width 19.3 % (11.5-14.5) Platelet Count 274 x10^3/uL (140-400) Neutrophils (%) (Auto) 85 % (31-73) Lymphocytes (%) (Auto) 9 % (24-48) Monocytes (%) (Auto) 4 % (0-9) Eosinophils (%) (Auto) 1 % (0-3) Basophils (%) (Auto) 1 % (0-3) Neutrophils # (Auto) 10.5 x10^3uL (1.8-7.7) Lymphocytes # (Auto) 1.2 x10^3/uL (1.0-4.8) Monocytes # (Auto) 0.5 x10^3/uL (0.0-1.1) Eosinophils # (Auto) 0.2 x10^3/uL (0.0-0.7) Basophils # (Auto) 0.1 x10^3/uL (0.0-0.2) Lactic Acid Level 1.7 mmol/L (0.4-2.0) Bedside Hemoglobin 13.3 g/dL (12-15) Bedside Hematocrit 39 % (36-40) Bedside Sodium 141 mmol/L (135-145) Bedside Potassium 4.3 mmol/L (3.5-5.0) Bedside Chloride 106 mmol/L (98-110) Bedside Total CO2 26 mmol/L (23-32) Anion Gap 15 mmol/L (6-14) 9 (6-14) Bedside Blood Urea Nitrogen 23 mg/dL (8-26) Bedside Creatinine 0.9 mg/dL (0.5-1.4) Glucose Level 198 mg/dL (70-99) 200 mg/dL (70-99) Bedside Ionized Calcium (Madeleine) 1.24 mmol/L (1.13-1.32) Bedside Troponin I 0.03 ng/ml (<0.08) Sodium Level 141 mmol/L (136-145) Potassium Level 4.2 mmol/L (3.5-5.1) Chloride Level 106 mmol/L (98-107) Carbon Dioxide Level 26 mmol/L (21-32) Blood Urea Nitrogen 20 mg/dL (7-20) Creatinine 1.0 mg/dL (0.6-1.0) Estimated GFR (Cockcroft-Gault) 54.1 BUN/Creatinine Ratio 20 (6-20) Calcium Level 10.0 mg/dL (8.5-10.1) Magnesium Level 2.1 mg/dL (1.8-2.4) Total Bilirubin 0.6 mg/dL (0.2-1.0) Aspartate Amino Transf (AST/SGOT) 14 U/L (15-37) Alanine Aminotransferase (ALT/SGPT) 18 U/L (14-59) Alkaline Phosphatase 85 U/L (46-116) Total Protein 7.6 g/dL (6.4-8.2) Albumin 3.5 g/dL (3.4-5.0) Albumin/Globulin Ratio 0.9 (1.0-1.7) Lipase 139 U/L (73-393) Laboratory Tests Test 07/21/18 15:25 07/21/18 15:30 07/21/18 16:12 White Blood Count 12.4 x10^3/uL (4.0-11.0) Red Blood Count 4.55 x10^6/uL (3.50-5.40) Hemoglobin 12.9 g/dL (12.0-15.5) Hematocrit 38.9 % (36.0-47.0) Mean Corpuscular Volume 86 fL (79-100) Mean Corpuscular Hemoglobin 28 pg (25-35) Mean Corpuscular Hemoglobin Concent 33 g/dL (31-37) Red Cell Distribution Width 19.3 % (11.5-14.5) Platelet Count 274 x10^3/uL (140-400) Neutrophils (%) (Auto) 85 % (31-73) Lymphocytes (%) (Auto) 9 % (24-48) Monocytes (%) (Auto) 4 % (0-9) Eosinophils (%) (Auto) 1 % (0-3) Basophils (%) (Auto) 1 % (0-3) Neutrophils # (Auto) 10.5 x10^3uL (1.8-7.7) Lymphocytes # (Auto) 1.2 x10^3/uL (1.0-4.8) Monocytes # (Auto) 0.5 x10^3/uL (0.0-1.1) Eosinophils # (Auto) 0.2 x10^3/uL (0.0-0.7) Basophils # (Auto) 0.1 x10^3/uL (0.0-0.2) Lactic Acid Level 1.7 mmol/L (0.4-2.0) Bedside Hemoglobin 13.3 g/dL (12-15) Bedside Hematocrit 39 % (36-40) Bedside Sodium 141 mmol/L (135-145) Bedside Potassium 4.3 mmol/L (3.5-5.0) Bedside Chloride 106 mmol/L (98-110) Bedside Total CO2 26 mmol/L (23-32) Anion Gap 15 mmol/L (6-14) 9 (6-14) Bedside Blood Urea Nitrogen 23 mg/dL (8-26) Bedside Creatinine 0.9 mg/dL (0.5-1.4) Glucose Level 198 mg/dL (70-99) 200 mg/dL (70-99) Bedside Ionized Calcium (Madeleine) 1.24 mmol/L (1.13-1.32) Bedside Troponin I 0.03 ng/ml (<0.08) Sodium Level 141 mmol/L (136-145) Potassium Level 4.2 mmol/L (3.5-5.1) Chloride Level 106 mmol/L (98-107) Carbon Dioxide Level 26 mmol/L (21-32) Blood Urea Nitrogen 20 mg/dL (7-20) Creatinine 1.0 mg/dL (0.6-1.0) Estimated GFR (Cockcroft-Gault) 54.1 BUN/Creatinine Ratio 20 (6-20) Calcium Level 10.0 mg/dL (8.5-10.1) Magnesium Level 2.1 mg/dL (1.8-2.4) Total Bilirubin 0.6 mg/dL (0.2-1.0) Aspartate Amino Transf (AST/SGOT) 14 U/L (15-37) Alanine Aminotransferase (ALT/SGPT) 18 U/L (14-59) Alkaline Phosphatase 85 U/L (46-116) Total Protein 7.6 g/dL (6.4-8.2) Albumin 3.5 g/dL (3.4-5.0) Albumin/Globulin Ratio 0.9 (1.0-1.7) Lipase 139 U/L (73-393) Assessment/Plan Assessment/Plan Abd pain- s/p diverting colostomy with partial bowel obstruction. Adhesions and/ or stomal hernia likely contributing. Improved with NG decompression. Trial of pO. If recurrent symptoms, then SB series and colonoscopy to follow. Full note dictated RYAN SHEN MD Jul 22, 2018 11:59
[2018-07-22] MEDS: POTASSIUM CHLORIDE 10 MEQ TABLET.ER. PO SCH ×2 (12:00→20:52)
[2018-07-22] MEDS: POLYETHYLENE GLYCOL 3350 17 GM PACKET. PO SCH (12:00)
[2018-07-22] MEDS: METOPROLOL TART IMMED RELEASE 25 MG TABLET. PO SCH ×2 (12:00→20:52)
[2018-07-22] MEDS: BUMETANIDE 1 MG TABLET. PO SCH (12:00)
[2018-07-22] MEDS: LOSARTAN POTASSIUM 50 MG TABLET. PO SCH (12:00)
[2018-07-22] MEDS: ALBUTEROL SULFATE 2.5 MG/3 ML NEBU. NEB SCH ×3 (12:00→20:00)
[2018-07-22] MEDS: DIGOXIN 125 MCG TABLET. PO SCH (12:22)
[2018-07-22] MEDS: CALCIUM CARB/VIT D3 500/200 TABLET. PO SCH (12:22)
[2018-07-22] MEDS: OMEGA-3 FATTY ACIDS/FISH OIL 1,000 MG CAPSULE. PO SCH ×2 (12:22→20:51)
[2018-07-22] MEDS: LACTOBACILLUS RHAMNOSUS GG 1 CAPSULE. PO SCH ×2 (12:22→20:51)
[2018-07-22] MEDS: PANTOPRAZOLE 40 MG TABLET.DR. PO SCH (12:22)
--- NOTE | 2018-07-22 13:11 | RAD ---
2 view abdominal series and portable AP upright chest x-ray COMPARISON: KUB dated July 11, 2018 and chest x-ray dated July 21, 2018. Clinical indications: Colonic ileus. Chronic bloating. Abdominal pain. FINDINGS: The previously seen dilated segment of colon has decreased in size and now measures only 5 cm in caliber. No obstructive bowel pattern is seen. No air-fluid levels are evident. No tobi. No air is evident. There is a radiolucent area seen just lateral to the left hip joint which measures 4 cm in size. This could represent a lipoma. Chest x-ray: No new lung infiltrate or pulmonary edema is seen. No pleural effusion is seen on the right side. There is persistent blunting of the left lateral costophrenic angle which may represent a small pleural effusion or pleural thickening and is unchanged including a chest x-ray from May 04, 2018 chest x-ray. No pneumothorax is seen. The heart size is enlarged but stable. IMPRESSION: Decrease in size of dilated colon seen previously. No small bowel obstruction or free air is evident. No new lung infiltrate. Stable cardiomegaly. Electronically signed by: Vitor Barajas MD (07/22/2018 1:07 PM) [facility]
[2018-07-22] MEDS: BUDESONIDE 0.5 MG/2 ML NEBU. NEB SCH (20:00)
[2018-07-22] MEDS ORDERED: NON FORMULARY ITEM (Budesonide/Formoterol Fumarate (Symbicort 160-4.5 Mcg Inhaler) 2 PUFF) IH SCH (21:00)
--- NOTE | 2018-07-23 01:57 | CONS ---
DATE OF CONSULTATION: 07/22/2018 REFERRING PHYSICIAN: Dr. Angel. REASON FOR CONSULTATION: Abdominal pain, ileus, status post diverting colostomy. HISTORY OF PRESENT ILLNESS: A 73-year-old female, with past medical history significant for organic heart disease, AFib, anemia, COPD, diabetes, hypertension, status post appendectomy, cholecystectomy, tonsillectomy and status post diverting colostomy for diverticulitis, is seen with increased abdominal pain, nausea and vomiting for the past 2 days. She states that she is unable tolerate the pain and has come to the hospital for admission and subsequently was then placed on IV fluids and NG decompression with improvement in her symptoms with return of function to her colostomy. There has been no melena. There has been no change in weight or appetite up until the acute event. She is otherwise without additional complaints. PAST MEDICAL HISTORY: Organic heart disease, AFib, anemia, arrhythmia, asthma, CHF, COPD, type 2 diabetes mellitus, hypertension, chronic renal insufficiency, status post appendectomy, cholecystectomy, tonsillectomy. MEDICATIONS: Presently include bumetanide, vitamin D, pantoprazole, budesonide, metoprolol, losartan, digoxin, tramadol. FAMILY AND SOCIAL HISTORY: She is retired. Does not drink or smoke at this time. REVIEW OF SYSTEMS: Per records. PHYSICAL EXAMINATION: GENERAL: Reveals a well-nourished, well-developed female. VITAL SIGNS: Temperature 98.7, pulse 92, respirations 14, blood pressure is 113/62. HEENT: Normocephalic, atraumatic head. Pupils and extraocular muscles are not tested. Sclerae are anicteric. NECK: Supple. LUNGS: Clear. CARDIOVASCULAR: Reveals S1, S2 without S3, S4 or appreciable murmur. ABDOMEN: Reveals soft abdomen with normoactive bowel sounds with a colostomy in the left lower quadrant with multiple surgical incisions. EXTREMITIES: Reveals no cyanosis, clubbing or edema. LABORATORY STUDIES: Hemoglobin is 12.9, hematocrit 38.9, white count 12.4, platelet count is 274,000. Sodium 141, potassium 4.3, chloride 106, BUN is 23, creatinine 0.9, glucose is 200, magnesium 2.1. Total bilirubin 0.6, AST of 14, ALT of 18, alkaline phosphatase 85, total protein 7.6, albumin 3.5, lipase 139. CT of the abdomen and pelvis reveals cardiomegaly, status post partial colectomy with left lower quadrant colostomy with some dilatation of the transverse colon. IMPRESSION: Abdominal pain, status post diverting colostomy with partial ileus and partial small bowel obstruction, which is improved with NG decompression, IV fluids. We recommend trial of p.o. If the patient continues to have symptoms, small bowel series and colonoscopy would be pursued. I thank Dr. Angel and Dr. Duvall for allowing us to consult and participate in this patient's care. RYAN SHEN MD DR: MARIA ESTHER/lara JOB#: [id number] / [id number] ASHWIN Romo Dr.
[2018-07-23 03:00] VITALS: BP 102/57
[2018-07-23 07:00] VITALS: BP 101/60
[2018-07-23] MEDS: ALBUTEROL SULFATE 2.5 MG/3 ML NEBU. NEB SCH (08:00)
[2018-07-23] MEDS: BUDESONIDE 0.5 MG/2 ML NEBU. NEB SCH (08:00)
[2018-07-23] MEDS ORDERED: ERGOCALCIFEROL (VITAMIN D2) 50,000 UNIT CAPSULE. PO SCH (09:00)
[2018-07-23] MEDS: METOPROLOL TART IMMED RELEASE 25 MG TABLET. PO SCH (09:00)
[2018-07-23] MEDS: LOSARTAN POTASSIUM 50 MG TABLET. PO SCH (09:00)
[2018-07-23] MEDS: DIGOXIN 125 MCG TABLET. PO SCH (09:15)
[2018-07-23] MEDS: PANTOPRAZOLE 40 MG TABLET.DR. PO SCH (09:15)
[2018-07-23] MEDS: OMEGA-3 FATTY ACIDS/FISH OIL 1,000 MG CAPSULE. PO SCH (09:15)
[2018-07-23] MEDS: POTASSIUM CHLORIDE 10 MEQ TABLET.ER. PO SCH (09:16)
[2018-07-23] MEDS: LACTOBACILLUS RHAMNOSUS GG 1 CAPSULE. PO SCH (09:16)
[2018-07-23] MEDS: POLYETHYLENE GLYCOL 3350 17 GM PACKET. PO SCH (09:17)
[2018-07-23] MEDS: BUMETANIDE 1 MG TABLET. PO SCH (09:24)
[2018-07-23] MEDS: CALCIUM CARB/VIT D3 500/200 TABLET. PO SCH (09:29)
--- NOTE | 2018-07-23 10:55 | PDOC ---
SURGICAL PROGRESS NOTE Subjective Pt feels better today, fili clears, good ostomy output Vital Signs Vital Signs Date Time Temp Pulse Resp B/P (MAP) Pulse Ox O2 Delivery O2 Flow Rate FiO2 07/23/18 09:15 76 101/60 07/23/18 07:00 98.3 20 93 Room Air 98.3 07/23/18 03:00 2.0 I&O Intake and Output 07/23/18 07:00 Intake Total 2402 ml Output Total 685 ml Balance 1717 ml Intake Oral 700 ml IV Total 1702 ml Output Urine Total 610 ml Stool Total 75 ml # Voids 1 General: Alert, Oriented X3, Cooperative, No acute distress Abdomen: Soft, No tenderness, Other (ostomy fxn) Labs Laboratory Tests Test 07/21/18 15:25 07/21/18 15:30 07/21/18 16:12 07/21/18 19:10 White Blood Count 12.4 x10^3/uL (4.0-11.0) Red Blood Count 4.55 x10^6/uL (3.50-5.40) Hemoglobin 12.9 g/dL (12.0-15.5) Hematocrit 38.9 % (36.0-47.0) Mean Corpuscular Volume 86 fL (79-100) Mean Corpuscular Hemoglobin 28 pg (25-35) Mean Corpuscular Hemoglobin Concent 33 g/dL (31-37) Red Cell Distribution Width 19.3 % (11.5-14.5) Platelet Count 274 x10^3/uL (140-400) Neutrophils (%) (Auto) 85 % (31-73) Lymphocytes (%) (Auto) 9 % (24-48) Monocytes (%) (Auto) 4 % (0-9) Eosinophils (%) (Auto) 1 % (0-3) Basophils (%) (Auto) 1 % (0-3) Neutrophils # (Auto) 10.5 x10^3uL (1.8-7.7) Lymphocytes # (Auto) 1.2 x10^3/uL (1.0-4.8) Monocytes # (Auto) 0.5 x10^3/uL (0.0-1.1) Eosinophils # (Auto) 0.2 x10^3/uL (0.0-0.7) Basophils # (Auto) 0.1 x10^3/uL (0.0-0.2) Lactic Acid Level 1.7 mmol/L (0.4-2.0) Bedside Hemoglobin 13.3 g/dL (12-15) Bedside Hematocrit 39 % (36-40) Bedside Sodium 141 mmol/L (135-145) Bedside Potassium 4.3 mmol/L (3.5-5.0) Bedside Chloride 106 mmol/L (98-110) Bedside Total CO2 26 mmol/L (23-32) Anion Gap 15 mmol/L (6-14) 9 (6-14) Bedside Blood Urea Nitrogen 23 mg/dL (8-26) Bedside Creatinine 0.9 mg/dL (0.5-1.4) Glucose Level 198 mg/dL (70-99) 200 mg/dL (70-99) Bedside Ionized Calcium (Madeleine) 1.24 mmol/L (1.13-1.32) Bedside Troponin I 0.03 ng/ml (<0.08) Sodium Level 141 mmol/L (136-145) Potassium Level 4.2 mmol/L (3.5-5.1) Chloride Level 106 mmol/L (98-107) Carbon Dioxide Level 26 mmol/L (21-32) Blood Urea Nitrogen 20 mg/dL (7-20) Creatinine 1.0 mg/dL (0.6-1.0) Estimated GFR (Cockcroft-Gault) 54.1 BUN/Creatinine Ratio 20 (6-20) Calcium Level 10.0 mg/dL (8.5-10.1) Magnesium Level 2.1 mg/dL (1.8-2.4) Total Bilirubin 0.6 mg/dL (0.2-1.0) Aspartate Amino Transf (AST/SGOT) 14 U/L (15-37) Alanine Aminotransferase (ALT/SGPT) 18 U/L (14-59) Alkaline Phosphatase 85 U/L (46-116) Total Protein 7.6 g/dL (6.4-8.2) Albumin 3.5 g/dL (3.4-5.0) Albumin/Globulin Ratio 0.9 (1.0-1.7) Lipase 139 U/L (73-393) Nasal Screen MRSA (PCR) Negative (Negative) Problem List colonic ileus, appears resolved ADAT OK to d/c home if cleared by other physicians MIRANDA PAYNE MD Jul 23, 2018 10:55
[2018-07-23 11:00] VITALS: BP 125/68
[2018-07-23] MEDS ORDERED: ZINC OXIDE 20% TOPICAL OINTMENT 28GM TUBE. TP ONE (13:00)
--- NOTE | 2018-07-23 13:28 | PDOC ---
G I PROGRESS NOTE Reason for Follow-up Abd pain/bloating Subjective Feeling better with ostomy output increased Physical Exam Lungs clear CV S1 S2 ABD +BS, soft, LLQ stoma intact Review of Relevant I have reviewed the following items halle (where applicable) has been applied. Labs Laboratory Tests Test 07/21/18 15:25 07/21/18 15:30 07/21/18 16:12 07/21/18 19:10 White Blood Count 12.4 x10^3/uL (4.0-11.0) Red Blood Count 4.55 x10^6/uL (3.50-5.40) Hemoglobin 12.9 g/dL (12.0-15.5) Hematocrit 38.9 % (36.0-47.0) Mean Corpuscular Volume 86 fL (79-100) Mean Corpuscular Hemoglobin 28 pg (25-35) Mean Corpuscular Hemoglobin Concent 33 g/dL (31-37) Red Cell Distribution Width 19.3 % (11.5-14.5) Platelet Count 274 x10^3/uL (140-400) Neutrophils (%) (Auto) 85 % (31-73) Lymphocytes (%) (Auto) 9 % (24-48) Monocytes (%) (Auto) 4 % (0-9) Eosinophils (%) (Auto) 1 % (0-3) Basophils (%) (Auto) 1 % (0-3) Neutrophils # (Auto) 10.5 x10^3uL (1.8-7.7) Lymphocytes # (Auto) 1.2 x10^3/uL (1.0-4.8) Monocytes # (Auto) 0.5 x10^3/uL (0.0-1.1) Eosinophils # (Auto) 0.2 x10^3/uL (0.0-0.7) Basophils # (Auto) 0.1 x10^3/uL (0.0-0.2) Lactic Acid Level 1.7 mmol/L (0.4-2.0) Bedside Hemoglobin 13.3 g/dL (12-15) Bedside Hematocrit 39 % (36-40) Bedside Sodium 141 mmol/L (135-145) Bedside Potassium 4.3 mmol/L (3.5-5.0) Bedside Chloride 106 mmol/L (98-110) Bedside Total CO2 26 mmol/L (23-32) Anion Gap 15 mmol/L (6-14) 9 (6-14) Bedside Blood Urea Nitrogen 23 mg/dL (8-26) Bedside Creatinine 0.9 mg/dL (0.5-1.4) Glucose Level 198 mg/dL (70-99) 200 mg/dL (70-99) Bedside Ionized Calcium (Madeleine) 1.24 mmol/L (1.13-1.32) Bedside Troponin I 0.03 ng/ml (<0.08) Sodium Level 141 mmol/L (136-145) Potassium Level 4.2 mmol/L (3.5-5.1) Chloride Level 106 mmol/L (98-107) Carbon Dioxide Level 26 mmol/L (21-32) Blood Urea Nitrogen 20 mg/dL (7-20) Creatinine 1.0 mg/dL (0.6-1.0) Estimated GFR (Cockcroft-Gault) 54.1 BUN/Creatinine Ratio 20 (6-20) Calcium Level 10.0 mg/dL (8.5-10.1) Magnesium Level 2.1 mg/dL (1.8-2.4) Total Bilirubin 0.6 mg/dL (0.2-1.0) Aspartate Amino Transf (AST/SGOT) 14 U/L (15-37) Alanine Aminotransferase (ALT/SGPT) 18 U/L (14-59) Alkaline Phosphatase 85 U/L (46-116) Total Protein 7.6 g/dL (6.4-8.2) Albumin 3.5 g/dL (3.4-5.0) Albumin/Globulin Ratio 0.9 (1.0-1.7) Lipase 139 U/L (73-393) Nasal Screen MRSA (PCR) Negative (Negative) Medications Current Medications Metoclopramide HCl (Reglan Vial) 10 mg 1X ONCE IV Last administered on at 16:04; Start 07/21/18 at 15:45; Stop 07/21/18 at 15:46; Status DC Sodium Chloride 500 ml @ 500 mls/hr 1X ONCE IV Last administered on at 16:06; Start 07/21/18 at 15:45; Stop 07/21/18 at 16:44; Status DC Fentanyl Citrate (Fentanyl 2ml Vial) 50 mcg 1X ONCE IV Last administered on at 16:04; Start 07/21/18 at 15:45; Stop 07/21/18 at 15:46; Status DC Iohexol (Omnipaque 300 Mg/ml) 75 ml 1X ONCE IV Last administered on 07/21/18at 17:00; Start 07/21/18 at 16:00; Stop 07/21/18 at 16:01; Status DC Info (CONTRAST GIVEN -- Rx MONITORING) 1 each PRN DAILY PRN MC SEE COMMENTS; Start 07/21/18 at 16:00; Stop 07/23/18 at 15:59 Sodium Chloride 1,000 ml @ 100 mls/hr Q10H IV Last administered on 07/22/18at 13 :28; Start 07/21/18 at 17:28; Stop 07/22/18 at 17:27; Status DC Fentanyl Citrate (Fentanyl 2ml Vial) 50 mcg 1X ONCE IV Last administered on at 18:44; Start 07/21/18 at 18:45; Stop 07/21/18 at 18:46; Status DC Morphine Sulfate (Morphine Sulfate) 2 mg PRN Q2HR PRN IV PAIN Last administered on 07/22/18at 06:37; Start 07/21/18 at 20:00 Ondansetron HCl (Zofran) 4 mg PRN Q6HRS PRN IV NAUSEA/VOMITING Last administered on 07/21/18at 20:17; Start 07/21/18 at 20:00 Digoxin (Lanoxin) 125 mcg DAILY PO Last administered on 07/23/18at 09:15; Start 07/22/18 at 12:00 Ergocalciferol (Vitamin D2) 50,000 unit DAILY PO Last administered on 07/23/18at 09:16; Start 07/23/18 at 09:00 Lactobacillus Rhamnosus (Culturelle) 1 cap BID PO Last administered on at 09:16; Start 07/22/18 at 12:00 Losartan Potassium (Cozaar) 50 mg DAILY PO ; Start 07/22/18 at 12:00 Metoprolol Tartrate (Lopressor) 12.5 mg BID PO Last administered on 07/22/18at 20 :52; Start 07/22/18 at 12:00 Potassium Chloride (Klor-Con) 10 meq BID PO Last administered on 07/23/18at 09:16 ; Start 07/22/18 at 12:00 Tramadol HCl (Ultram) 50 mg PRN Q6HRS PRN PO MILD PAIN Last administered on 07/22at 19:30; Start 07/22/18 at 11:45 Non-Formulary Medication (Budesonide/ Formoterol Fumarate (Symbicort 160-4.5 Mcg Inhaler)) 2 puff BID IH ; Start 07/22/18 at 21:00; Status UNV Bumetanide (Bumex) 2 mg DAILY PO Last administered on 07/23/18at 09:24; Start 07/22/18 at 12:00 Calcium/Vitamin D (Oscal D 500mg/ 200uts) 1 tab DAILYWLUN PO Last administered on 07/22/18at 12:22; Start 07/22/18 at 12:00 Fish Oil (Fish Oil) 1,000 mg BID PO Last administered on 07/23/18at 09:15; Start 07/22/18 at 12:00 Polyethylene Glycol (miraLAX PACKET) 17 gm DAILY PO Last administered on at 09:17; Start 07/22/18 at 12:00 Pantoprazole Sodium (Protonix) 40 mg DAILYAC PO Last administered on 07/23/18at 09:15; Start 07/22/18 at 12:00 Budesonide (Pulmicort) 0.5 mg RTBID NEB ; Start 07/22/18 at 20:00 Albuterol Sulfate (Ventolin Neb Soln) 2.5 mg RTQID NEB ; Start 07/22/18 at 12:00 Zinc Oxide (Zinc Oxide 20% Topical) 1 char 1X ONCE TP ; Start 07/23/18 at 13:00; Stop 07/23/18 at 13:01; Status DC Active Scripts Active Tramadol Hcl 50 Mg Tablet 50 Mg PO PRN Q6HRS PRN Metoprolol Tartrate 25 Mg Tablet 12.5 Mg PO BID Culturelle (Lactobacillus Rhamnosus Gg) 1 Each Cap.sprink 1 Cap PO BID Reported Bumetanide 2 Mg Tablet 2 Mg PO DAILY Fish Oil 1,000 mg Softgel ([place]-3S/Dha/Epa/Fish Oil) 1 Each Capsule 1 Each PO BID Losartan Potassium 50 Mg Tablet 50 Mg PO DAILY Vitamin D2 (Ergocalciferol (Vitamin D2)) 50,000 Unit Capsule 50,000 Unit PO 2XWEEKLY Klor-Con M10 (Potassium Chloride) 10 Meq Tab.er.prt 1 Tab PO BID Calcium (Calcium Carbonate) 600 Mg Tablet 600 Mg PO DAILY Digoxin 125 Mcg Tablet 1 Tab PO DAILY Miralax (Polyethylene Glycol 3350) 17 Gm Powd.pack 1 Packet PO DAILY Symbicort 160-4.5 Mcg Inhaler (Budesonide/Formoterol Fumarate) 10.2 Gm Hfa.aer.ad 2 Puff IH BID Vitals/I & O Vital Sign - Last 24 Hours 07/22/18 07/22/18 07/22/18 07/22/18 16:00 19:30 20:00 20:52 Temp 98.1 98.4 98.1 98.4 Pulse 102 102 98 Resp 18 20 B/P (MAP) 96/55 (69) 101/59 (73) 101/59 Pulse Ox 99 96 O2 Delivery Nasal Cannula Nasal Cannula Nasal Cannula O2 Flow Rate 2.0 2.0 2.0 07/22/18 07/23/18 07/23/18 07/23/18 22:31 03:00 07:00 09:00 Temp 98.3 98.3 98.3 98.3 98.3 98.3 Pulse 77 76 76 76 Resp 18 18 20 B/P (MAP) 113/50 (71) 102/57 (72) 101/60 (74) 101/60 Pulse Ox 99 97 93 O2 Delivery Nasal Cannula Nasal Cannula Room Air O2 Flow Rate 2.0 2.0 07/23/18 07/23/18 09:15 11:00 Temp 99.7 99.7 Pulse 76 90 Resp 18 B/P (MAP) 101/60 125/68 (87) Pulse Ox 98 O2 Delivery Nasal Cannula O2 Flow Rate 2.0 Intake and Output 07/22/18 07/22/18 07/23/18 15:00 23:00 07:00 Intake Total 1222 ml 200 ml 980 ml Output Total 310 ml 375 ml Balance 912 ml -175 ml 980 ml Problem List Abd pain- with ileus s/p colostomy, most likely multi-factorial in etiology, tolerating PO, sb series and colonoscopy if symptoms recur RYAN SHEN MD Jul 23, 2018 13:27
--- NOTE | 2018-07-23 13:56 | PDOC ---
PROGRESS NOTES Chief Complaint Chief Complaint CC: Abdominal pain; Ileus Syncope Previous bowel obstructions Cholecystectomy A-fib Anemia Arrhythmias Asthma CHF COPD DM Diverticulitis HTN Renal failure C. diff Colostomy Tonsillectomy Adenoidectomy EGD History of Present Illness History of Present Illness Pt. seen and examined Pt. alert and oriented Pt.'s affect good VSS Family member present at bedside, good support DW nursing; pt. fit for discharge today Vitals Vitals Vital Signs Date Time Temp Pulse Resp B/P (MAP) Pulse Ox O2 Delivery O2 Flow Rate FiO2 07/23/18 11:00 99.7 90 18 125/68 (87) 98 Nasal Cannula 2.0 99.7 Physical Exam General: Alert, Oriented X3, Cooperative, No acute distress Lungs: Clear Abdomen: Soft, No tenderness, Other (ostomy fxn) Review of Systems Review of Systems Pt. denies pain Pt. denies weakness Assessment and Plan Assessmemt and Plan CC: Abdominal pain; Ileus Syncope Assessment: Abdominal pain; Ileus Syncope Previous bowel obstructions Cholecystectomy A-fib Anemia Arrhythmias Asthma CHF COPD DM Diverticulitis HTN Renal failure C. diff Colostomy Tonsillectomy Adenoidectomy EGD Plan: Pt. discharged home Continue home meds PT/OT Comment Review of Relevant I have reviewed the following items halle (where applicable) has been applied. Labs Laboratory Tests Test 07/21/18 15:25 07/21/18 15:30 07/21/18 16:12 07/21/18 19:10 White Blood Count 12.4 x10^3/uL (4.0-11.0) Red Blood Count 4.55 x10^6/uL (3.50-5.40) Hemoglobin 12.9 g/dL (12.0-15.5) Hematocrit 38.9 % (36.0-47.0) Mean Corpuscular Volume 86 fL (79-100) Mean Corpuscular Hemoglobin 28 pg (25-35) Mean Corpuscular Hemoglobin Concent 33 g/dL (31-37) Red Cell Distribution Width 19.3 % (11.5-14.5) Platelet Count 274 x10^3/uL (140-400) Neutrophils (%) (Auto) 85 % (31-73) Lymphocytes (%) (Auto) 9 % (24-48) Monocytes (%) (Auto) 4 % (0-9) Eosinophils (%) (Auto) 1 % (0-3) Basophils (%) (Auto) 1 % (0-3) Neutrophils # (Auto) 10.5 x10^3uL (1.8-7.7) Lymphocytes # (Auto) 1.2 x10^3/uL (1.0-4.8) Monocytes # (Auto) 0.5 x10^3/uL (0.0-1.1) Eosinophils # (Auto) 0.2 x10^3/uL (0.0-0.7) Basophils # (Auto) 0.1 x10^3/uL (0.0-0.2) Lactic Acid Level 1.7 mmol/L (0.4-2.0) Bedside Hemoglobin 13.3 g/dL (12-15) Bedside Hematocrit 39 % (36-40) Bedside Sodium 141 mmol/L (135-145) Bedside Potassium 4.3 mmol/L (3.5-5.0) Bedside Chloride 106 mmol/L (98-110) Bedside Total CO2 26 mmol/L (23-32) Anion Gap 15 mmol/L (6-14) 9 (6-14) Bedside Blood Urea Nitrogen 23 mg/dL (8-26) Bedside Creatinine 0.9 mg/dL (0.5-1.4) Glucose Level 198 mg/dL (70-99) 200 mg/dL (70-99) Bedside Ionized Calcium (Madeleine) 1.24 mmol/L (1.13-1.32) Bedside Troponin I 0.03 ng/ml (<0.08) Sodium Level 141 mmol/L (136-145) Potassium Level 4.2 mmol/L (3.5-5.1) Chloride Level 106 mmol/L (98-107) Carbon Dioxide Level 26 mmol/L (21-32) Blood Urea Nitrogen 20 mg/dL (7-20) Creatinine 1.0 mg/dL (0.6-1.0) Estimated GFR (Cockcroft-Gault) 54.1 BUN/Creatinine Ratio 20 (6-20) Calcium Level 10.0 mg/dL (8.5-10.1) Magnesium Level 2.1 mg/dL (1.8-2.4) Total Bilirubin 0.6 mg/dL (0.2-1.0) Aspartate Amino Transf (AST/SGOT) 14 U/L (15-37) Alanine Aminotransferase (ALT/SGPT) 18 U/L (14-59) Alkaline Phosphatase 85 U/L (46-116) Total Protein 7.6 g/dL (6.4-8.2) Albumin 3.5 g/dL (3.4-5.0) Albumin/Globulin Ratio 0.9 (1.0-1.7) Lipase 139 U/L (73-393) Nasal Screen MRSA (PCR) Negative (Negative) Medications Current Medications Metoclopramide HCl (Reglan Vial) 10 mg 1X ONCE IV Last administered on 16:04; Start 07/21/18 at 15:45; Stop 07/21/18 at 15:46; Status DC Sodium Chloride 500 ml @ 500 mls/hr 1X ONCE IV Last administered on at 16:06; Start 07/21/18 at 15:45; Stop 07/21/18 at 16:44; Status DC Fentanyl Citrate (Fentanyl 2ml Vial) 50 mcg 1X ONCE IV Last administered on at 16:04; Start 07/21/18 at 15:45; Stop 07/21/18 at 15:46; Status DC Iohexol (Omnipaque 300 Mg/ml) 75 ml 1X ONCE IV Last administered on 07/21/18at 17:00; Start 07/21/18 at 16:00; Stop 07/21/18 at 16:01; Status DC Info (CONTRAST GIVEN -- Rx MONITORING) 1 each PRN DAILY PRN MC SEE COMMENTS; Start 07/21/18 at 16:00; Stop 07/23/18 at 15:59 Sodium Chloride 1,000 ml @ 100 mls/hr Q10H IV Last administered on 07/22/18at 13 :28; Start 07/21/18 at 17:28; Stop 07/22/18 at 17:27; Status DC Fentanyl Citrate (Fentanyl 2ml Vial) 50 mcg 1X ONCE IV Last administered on at 18:44; Start 07/21/18 at 18:45; Stop 07/21/18 at 18:46; Status DC Morphine Sulfate (Morphine Sulfate) 2 mg PRN Q2HR PRN IV PAIN Last administered on 07/22/18at 06:37; Start 07/21/18 at 20:00 Ondansetron HCl (Zofran) 4 mg PRN Q6HRS PRN IV NAUSEA/VOMITING Last administered on 07/21/18 20:17; Start 07/21/18 at 20:00 Digoxin (Lanoxin) 125 mcg DAILY PO Last administered on 07/23/18 09:15; Start 07/22/18 at 12:00 Ergocalciferol (Vitamin D2) 50,000 unit DAILY PO Last administered on 07/23/18 09:16; Start 07/23/18 at 09:00 Lactobacillus Rhamnosus (Culturelle) 1 cap BID PO Last administered on 09:16; Start 07/22/18 at 12:00 Losartan Potassium (Cozaar) 50 mg DAILY PO ; Start 07/22/18 at 12:00 Metoprolol Tartrate (Lopressor) 12.5 mg BID PO Last administered on 07/22/18 20 :52; Start 07/22/18 at 12:00 Potassium Chloride (Klor-Con) 10 meq BID PO Last administered on 07/23/18 09:16 ; Start 07/22/18 at 12:00 Tramadol HCl (Ultram) 50 mg PRN Q6HRS PRN PO MILD PAIN Last administered on 07/22 19:30; Start 07/22/18 at 11:45 Non-Formulary Medication (Budesonide/ Formoterol Fumarate (Symbicort 160-4.5 Mcg Inhaler)) 2 puff BID IH ; Start 07/22/18 at 21:00; Status UNV Bumetanide (Bumex) 2 mg DAILY PO Last administered on 07/23/18 09:24; Start 07/22/18 at 12:00 Calcium/Vitamin D (Oscal D 500mg/ 200uts) 1 tab DAILYWLUN PO Last administered on 07/22/18 12:22; Start 07/22/18 at 12:00 Fish Oil (Fish Oil) 1,000 mg BID PO Last administered on 07/23/18 09:15; Start 07/22/18 at 12:00 Polyethylene Glycol (miraLAX PACKET) 17 gm DAILY PO Last administered on 09:17; Start 07/22/18 at 12:00 Pantoprazole Sodium (Protonix) 40 mg DAILYAC PO Last administered on 07/23/18at 09:15; Start 07/22/18 at 12:00 Budesonide (Pulmicort) 0.5 mg RTBID NEB ; Start 07/22/18 at 20:00 Albuterol Sulfate (Ventolin Neb Soln) 2.5 mg RTQID NEB ; Start 07/22/18 at 12:00 Zinc Oxide (Zinc Oxide 20% Topical) 1 char 1X ONCE TP ; Start 07/23/18 at 13:00; Stop 07/23/18 at 13:01; Status DC Active Scripts Active Tramadol Hcl 50 Mg Tablet 50 Mg PO PRN Q6HRS PRN Metoprolol Tartrate 25 Mg Tablet 12.5 Mg PO BID Culturelle (Lactobacillus Rhamnosus Gg) 1 Each Cap.sprink 1 Cap PO BID Reported Bumetanide 2 Mg Tablet 2 Mg PO DAILY Fish Oil 1,000 mg Softgel ([place]-3S/Dha/Epa/Fish Oil) 1 Each Capsule 1 Each PO BID Losartan Potassium 50 Mg Tablet 50 Mg PO DAILY Vitamin D2 (Ergocalciferol (Vitamin D2)) 50,000 Unit Capsule 50,000 Unit PO 2XWEEKLY Klor-Con M10 (Potassium Chloride) 10 Meq Tab.er.prt 1 Tab PO BID Calcium (Calcium Carbonate) 600 Mg Tablet 600 Mg PO DAILY Digoxin 125 Mcg Tablet 1 Tab PO DAILY Miralax (Polyethylene Glycol 3350) 17 Gm Powd.pack 1 Packet PO DAILY Symbicort 160-4.5 Mcg Inhaler (Budesonide/Formoterol Fumarate) 10.2 Gm Hfa.aer.ad 2 Puff IH BID Vitals/I & O Vital Sign - Last 24 Hours 07/22/18 07/22/18 07/22/18 07/22/18 16:00 19:30 20:00 20:52 Temp 98.1 98.4 98.1 98.4 Pulse 102 102 98 Resp 18 20 B/P (MAP) 96/55 (69) 101/59 (73) 101/59 Pulse Ox 99 96 O2 Delivery Nasal Cannula Nasal Cannula Nasal Cannula O2 Flow Rate 2.0 2.0 2.0 07/22/18 07/23/18 07/23/18 07/23/18 22:31 03:00 07:00 09:00 Temp 98.3 98.3 98.3 98.3 98.3 98.3 Pulse 77 76 76 76 Resp 18 18 20 B/P (MAP) 113/50 (71) 102/57 (72) 101/60 (74) 101/60 Pulse Ox 99 97 93 O2 Delivery Nasal Cannula Nasal Cannula Room Air O2 Flow Rate 2.0 2.0 07/23/18 07/23/18 09:15 11:00 Temp 99.7 99.7 Pulse 76 90 Resp 18 B/P (MAP) 101/60 125/68 (87) Pulse Ox 98 O2 Delivery Nasal Cannula O2 Flow Rate 2.0 Intake and Output 07/22/18 07/22/18 07/23/18 15:00 23:00 07:00 Intake Total 1222 ml 200 ml 980 ml Output Total 310 ml 375 ml Balance 912 ml -175 ml 980 ml ASHWIN DAVIS III DO Jul 23, 2018 13:56
== END 2018-07-23 15:10 | disposition home or self-care (01) | DRG 389 ==
LOC: ER 14:44 → 1 WEST ICU 17:30 → 4 NORTH 07-22 12:52
PROVIDERS: ADMIT Internal Medicine; ATTEND Internal Medicine
PROC: 0D9670Z Drainage of Stomach with Drainage Device, Via Natural or Artificial Opening (ICD-10-PCS; principal; 2018-07-21)
DX: K56.600 Partial intestinal obstruction, unspecified as to cause (principal); K57.32 Diverticulitis of large intestine without perforation or abscess without bleeding; I13.0 Hypertensive heart and chronic kidney disease with heart failure and stage 1 through stage 4 chronic kidney disease, or unspecified chronic kidney disease; K56.7 Ileus, unspecified; D64.9 Anemia, unspecified; E11.22 Type 2 diabetes mellitus with diabetic chronic kidney disease; I50.9 Heart failure, unspecified; I48.91 Unspecified atrial fibrillation; J44.9 Chronic obstructive pulmonary disease, unspecified; N18.9 Chronic kidney disease, unspecified; Z82.49 Family history of ischemic heart disease and other diseases of the circulatory system; Z90.49 Acquired absence of other specified parts of digestive tract; Z83.3 Family history of diabetes mellitus; Z93.3 Colostomy status; Z88.8 Allergy status to other drugs, medicaments and biological substances; Z88.0 Allergy status to penicillin; Z88.1 Allergy status to other antibiotic agents
CPT/HCPCS: 36415; 51701; 71045; 74018; 74022; 74177; 80047; 80053; 83605; 83690; 83735; 84484; 85025; 87641; 93005; 96361; 96374; 96375; J2270; J2405; J2765; J3010; J7030; J7040; Q9967; 99285-25

== ENCOUNTER 2018-08-01 17:02 | Inpatient (IN) | payer BC ==
[~2018-08-01] VITALS: Ht 154.9 cm; Wt 71.8 kg
[2018-08-01] MEDS ORDERED: ONDANSETRON PF 4 MG/2 ML VIAL. IV ONE (19:30)
[2018-08-01] MEDS ORDERED: fentaNYL PF VIAL 100 MCG/2 ML VIAL IV ONE ×2 (19:30→22:30)
[2018-08-01 19:46] LABS: BASO # 0.1 x10^3/uL (0.0-0.2); BASO % 1 % (0-3); EOS # 0.1 x10^3/uL (0.0-0.7); EOS % 1 % (0-3); HEMATOCRIT 37.1 % (36.0-47.0); HEMOGLOBIN 12.5 g/dL (12.0-15.5); LYMPH # 1.4 x10^3/uL (1.0-4.8); LYMPH % 11 % (24-48); MEAN CORPUSCULAR HEMOGLOBIN 29 pg (25-35); MEAN CORPUSCULAR HGB CONC 34 g/dL (31-37); MEAN CORPUSCULAR VOLUME 85 fL (79-100); MONO # 0.9 x10^3/uL (0.0-1.1); MONO % 7 % (0-9); NEUT # 10.6 x10^3uL (1.8-7.7); NEUT % 81 % (31-73); PLATELET COUNT 315 x10^3/uL (140-400); RED BLOOD COUNT 4.37 x10^6/uL (3.50-5.40); RED CELL DISTRIBUTION WIDTH 16.4 % (11.5-14.5); WHITE BLOOD COUNT 13.1 x10^3/uL (4.0-11.0)
[2018-08-01 19:48] LABS: BILIRUBIN,URINE NEGATIVE (NEG); CLARITY,URINE CLEAR; COLOR,URINE YELLOW; NITRITE,URINE NEGATIVE (NEG); PH,URINE 5.5; PROTEIN,URINE 30 mg/dL (NEG-TRACE); UROBILINOGEN,URINE 0.2 mg/dL (0.2 mg/dL)
[2018-08-01] MEDS ORDERED: BENZOCAINE ONE 20% MUCOSAL SPRAY. (19:52)
[2018-08-01 19:54] LABS: CALCIUM 10.5 mg/dL (8.5-10.1); CREATININE 0.8 mg/dL (0.6-1.0); GFR 69.9; POTASSIUM 4.5 mmol/L (3.5-5.1)
[2018-08-01 19:57] LABS: BACTERIA,URINE FEW /HPF (0-FEW); RBC,URINE 0 /HPF (0-2); SQUAMOUS EPITHELIAL CELL,UR FEW /LPF; WBC,URINE OCC /HPF (0-4)
[2018-08-01 19:59] LABS: ALBUMIN 3.2 g/dL (3.4-5.0); ALBUMIN/GLOBULIN RATIO 0.7 (1.0-1.7); TOTAL BILIRUBIN 0.7 mg/dL (0.2-1.0); TOTAL PROTEIN 7.8 g/dL (6.4-8.2)
[2018-08-01] MEDS ORDERED: BENZOCAINE ONE 20% MUCOSAL SPRAY. MM (20:00)
[2018-08-01] MEDS ORDERED: IOHEXOL 240 MG/ML 50ML VIAL. PO ONE (20:30)
[2018-08-01] MEDS ORDERED: IOHEXOL 300 MG/ML 100ML VIAL. IV ONE (20:30)
--- NOTE | 2018-08-01 21:56 | PHYS DOC ---
Past Medical History Past Medical History: A-Fib, Anemia, Arrhythmia, Asthma, CHF, COPD, Diabetes- Type II, Diverticulitis, Hypertension, Renal Failure, Other Additional Past Medical Histor: C-DIFF, COLOSTOMY D/T BOWEL OBST, Past Surgical History: Appendectomy, Cholecystectomy, Tonsillectomy, Other Additional Past Surgical Histo: adenoidectomy, EGD,COLOSTOMY BOWEL OBST, Alcohol Use: Rarely Drug Use: None Adult General Chief Complaint Chief Complaint: ABDOMINAL PAIN HPI HPI Patient is a 73 year old female who presents with abdominal pain with nausea and vomiting. The patient was recently seen for a similar incident when she was admitted with a bowel obstruction. The patient has had a hemicolectomy and states that the pain, nausea and vomiting have begun exactly like her last admission. She denies fever. Review of Systems Review of Systems Constitutional: Denies fever or chills [] Eyes: Denies change in visual acuity, redness, or eye pain [] HENT: Denies nasal congestion or sore throat [] Respiratory: Denies cough or shortness of breath [] Cardiovascular: No additional information not addressed in HPI [] GI: See history of present illness : Denies dysuria or hematuria [] Musculoskeletal: Denies back pain or joint pain [] Integument: Denies rash or skin lesions [] Neurologic: Denies headache, focal weakness or sensory changes [] Endocrine: Denies polyuria or polydipsia [] All other systems were reviewed and found to be within normal limits, except as documented in this note. Current Medications Current Medications Current Medications Medications (Trade) Dose Ordered Sig/Jose Rafael Start Time Stop Time Status Last Admin Dose Admin Benzocaine (Hurricaine One) 1 spray 1X ONCE 08/01/18 20:00 08/01/18 20:01 DC 08/01/18 21:51 1 SPRAY Fentanyl Citrate (Fentanyl 2ml Vial) 50 mcg PRN Q2HR PRN 08/01/18 22:45 08/02/18 22:44 Iohexol (Omnipaque 240 Mg/ml) 30 ml 1X ONCE 08/01/18 20:30 08/01/18 20:37 DC 08/01/18 20:30 30 ML Iohexol (Omnipaque 300 Mg/ml) 75 ml 1X ONCE 08/01/18 20:30 08/01/18 20:37 DC 08/01/18 20:30 75 ML Morphine Sulfate (Morphine Sulfate) 4 mg PRN Q2HR PRN 08/01/18 22:45 08/02/18 22:44 Ondansetron HCl (Zofran) 4 mg PRN Q8HRS PRN 08/01/18 22:45 08/02/18 22:44 Sodium Chloride 1,000 ml @ 125 mls/hr Q8H 08/01/18 22:45 08/02/18 22:44 Allergies Allergies Allergies Coded Allergies Type Severity Reaction Last Updated Verified DONNA Inhibitors Allergy Severe angioedema 08/01/18 Yes Penicillins Allergy Intermediate n/v,itch,rash 08/01/18 Yes erythromycin base Adverse Reaction Intermediate n/v 08/01/18 Yes Physical Exam Physical Exam Constitutional: Well developed, well nourished, no acute distress, non-toxic appearance. [] HENT: Normocephalic, atraumatic, bilateral external ears normal, oropharynx moist, no oral exudates, nose normal. [] Eyes: PERRLA, EOMI, conjunctiva normal, no discharge. [] Neck: Normal range of motion, no tenderness, supple, no stridor. [] Cardiovascular:Heart rate regular rhythm, no murmur [] Lungs & Thorax: Bilateral breath sounds clear to auscultation [] Abdomen: Bowel sounds hypoactive, firm, generalized tenderness, no masses, no pulsatile masses. [] Skin: Warm, dry, no erythema, no rash. [] Neurologic: Alert and oriented X 3, normal motor function, normal sensory function, no focal deficits noted. [] Psychologic: Affect normal, judgement normal, mood normal. [] Current Patient Data Vital Signs Vital Signs Date Time Temp Pulse Resp B/P (MAP) Pulse Ox O2 Delivery O2 Flow Rate FiO2 08/01/18 22:46 97 Room Air 08/01/18 20:38 64 147/81 (103) 08/01/18 20:04 21 08/01/18 18:09 97.7 97.7 Lab Values Laboratory Tests Test 08/01/18 18:42 08/01/18 19:35 Urine Collection Type Unknown Urine Color Yellow Urine Clarity Clear Urine pH 5.5 Urine Specific [place] 1.015 Urine Protein 30 mg/dL (NEG-TRACE) Urine Glucose (UA) Negative mg/dL (NEG) Urine Ketones (Stick) Negative mg/dL (NEG) Urine Blood Negative (NEG) Urine Nitrite Negative (NEG) Urine Bilirubin Negative (NEG) Urine Urobilinogen Dipstick 0.2 mg/dL (0.2 mg/dL) Urine Leukocyte Esterase Negative (NEG) Urine RBC 0 /HPF (0-2) Urine WBC Occ /HPF (0-4) Urine Squamous Epithelial Cells Few /LPF Urine Bacteria Few /HPF (0-FEW) Urine Mucus Mod /LPF White Blood Count 13.1 x10^3/uL (4.0-11.0) H Red Blood Count 4.37 x10^6/uL (3.50-5.40) Hemoglobin 12.5 g/dL (12.0-15.5) Hematocrit 37.1 % (36.0-47.0) Mean Corpuscular Volume 85 fL (79-100) Mean Corpuscular Hemoglobin 29 pg (25-35) Mean Corpuscular Hemoglobin Concent 34 g/dL (31-37) Red Cell Distribution Width 16.4 % (11.5-14.5) H Platelet Count 315 x10^3/uL (140-400) Neutrophils (%) (Auto) 81 % (31-73) H Lymphocytes (%) (Auto) 11 % (24-48) L Monocytes (%) (Auto) 7 % (0-9) Eosinophils (%) (Auto) 1 % (0-3) Basophils (%) (Auto) 1 % (0-3) Neutrophils # (Auto) 10.6 x10^3uL (1.8-7.7) H Lymphocytes # (Auto) 1.4 x10^3/uL (1.0-4.8) Monocytes # (Auto) 0.9 x10^3/uL (0.0-1.1) Eosinophils # (Auto) 0.1 x10^3/uL (0.0-0.7) Basophils # (Auto) 0.1 x10^3/uL (0.0-0.2) Sodium Level 140 mmol/L (136-145) Potassium Level 4.5 mmol/L (3.5-5.1) Chloride Level 103 mmol/L (98-107) Carbon Dioxide Level 24 mmol/L (21-32) Anion Gap 13 (6-14) Blood Urea Nitrogen 21 mg/dL (7-20) H Creatinine 0.8 mg/dL (0.6-1.0) Estimated GFR (Cockcroft-Gault) 69.9 BUN/Creatinine Ratio 26 (6-20) H Glucose Level 106 mg/dL (70-99) H Calcium Level 10.5 mg/dL (8.5-10.1) H Total Bilirubin 0.7 mg/dL (0.2-1.0) Aspartate Amino Transferase (AST) 24 U/L (15-37) Alanine Aminotransferase (ALT) 13 U/L (14-59) L Alkaline Phosphatase 80 U/L (46-116) Total Protein 7.8 g/dL (6.4-8.2) Albumin 3.2 g/dL (3.4-5.0) L Albumin/Globulin Ratio 0.7 (1.0-1.7) L Laboratory Tests 08/01/18 19:35 Laboratory Tests 08/01/18 19:35 EKG EKG [] Radiology/Procedures Radiology/Procedures [] Course & Med Decision Making Course & Med Decision Making Pertinent Labs and Imaging studies reviewed. (See chart for details) The patient had an NG tube placed in the emergency department. She has also received fentanyl and Zofran for her pain and nausea. She states that the nausea has resolved. Her pain is under control with the fentanyl. She is being admitted to Dr. Moran's service. Dragon Disclaimer Dragon Disclaimer This electronic medical record was generated, in whole or in part, using a voice recognition dictation system. Departure Departure Impression: Primary Impression: Abdominal pain Additional Impression: Nausea & vomiting Disposition: ADMITTED INPATIENT Admitting Physician: aDyanna Sanchez Condition: GOOD Referrals: RYLEY GONZALES Jr, MD (PCP) Problem Qualifiers IRVIN DICKENS [employer] Aug 01, 2018 21:56
--- NOTE | 2018-08-01 22:34 | RAD ---
PQRS Compliance statement: One or more of the following individualized dose reduction techniques were utilized for this examination: 1. Automated exposure control. 2. Adjustment of the mA and/or kV according to patient size. 3. Use of iterative reconstruction technique. Indication:eval for obstruction, abd pain TECHNIQUE: CT abdomen and pelvis with IV contrast with multiplanar reformats. COMPARISON: 07/21/2018 FINDINGS: Heart is moderately enlarged in size. No pericardial or pleural effusion. Clear lung bases. Liver, spleen, pancreas, adrenals and kidneys are within normal limits. No enlarged retroperitoneal or pelvic adenopathy. No free pelvic fluid or ascites. Status post cholecystectomy. Left lower quadrant ostomy is seen. Diffusely fluid-filled distended colon seen. Small bowel loops are not dilated. Dodd's pouch noted. Uterus is present. Urinary bladder within normal limits. No pneumoperitoneum or pneumatosis intestinalis. No suspicious bony lesion. Grade 1 anterolisthesis of L4 over L5. Multilevel degenerative disc disease is seen in the spine. IMPRESSION: 1. Left lower quadrant ostomy with diffusely distended fluid-filled colon. Clinically correlate with ostomy output. 2. No small bowel obstruction. Electronically signed by: Ant Johnson DO (08/01/2018 10:31 PM) [facility]
[2018-08-01] MEDS ORDERED: ONDANSETRON PF 4 MG/2 ML VIAL. IV PRN (22:45)
[2018-08-02] VITALS (7 sets, daily range): BP systolic 115–176; BP diastolic 64–78
--- NOTE | 2018-08-02 00:03 | RAD ---
Indication: Check NG tube placement TECHNIQUE: Single upright AP view of the upper abdomen COMPARISON: None FINDINGS: Heart is moderately enlarged in size. Clear lung bases. NG tube is seen with its tip in the region of the gastric cardia with side-port in the distal esophagus. No abnormally dilated bowel loops. Visualized bones are within normal limits. IMPRESSION: ET tube is in the gastric cardia and side-port in the distal esophagus. Please advance the NG tube by approximately 10 cm. Electronically signed by: Ant Johnson DO (08/01/2018 11:59 PM) [facility]
[2018-08-02] MEDS: IV NORMAL SALINE 1000ML BAG 1,000 ML IV SCH ×3 (00:38→16:09)
[2018-08-02] MEDS: fentaNYL PF VIAL 100 MCG/2 ML VIAL IV PRN ×3 (00:42→17:32)
[2018-08-02 06:09] LABS: BASO % 0 % (0-3); EOS % 0 % (0-3); HEMATOCRIT 36.3 % (36.0-47.0); LYMPH # 1.4 x10^3/uL (1.0-4.8); LYMPH % 13 % (24-48); MEAN CORPUSCULAR HEMOGLOBIN 28 pg (25-35); MEAN CORPUSCULAR HGB CONC 33 g/dL (31-37); MEAN CORPUSCULAR VOLUME 86 fL (79-100); MONO # 0.8 x10^3/uL (0.0-1.1); MONO % 8 % (0-9); NEUT # 8.2 x10^3uL (1.8-7.7); NEUT % 79 % (31-73); PLATELET COUNT 296 x10^3/uL (140-400); RED BLOOD COUNT 4.24 x10^6/uL (3.50-5.40); RED CELL DISTRIBUTION WIDTH 16.5 % (11.5-14.5); WHITE BLOOD COUNT 10.4 x10^3/uL (4.0-11.0)
[2018-08-02 06:14] LABS: CALCIUM 10.3 mg/dL (8.5-10.1); CREATININE 0.8 mg/dL (0.6-1.0); GFR 69.9
[2018-08-02] MEDS ORDERED: ONDANSETRON PF 4 MG/2 ML VIAL. IV PRN (09:15)
[2018-08-02] MEDS ORDERED: ACETAMINOPHEN 500 MG TABLET PO PRN (09:15)
[2018-08-02] MEDS ORDERED: LABETALOL 20 MG/4 ML DISP.SYRIN. IVP PRN (09:15)
[2018-08-02] MEDS ORDERED: ACETAMINOPHEN/CODEINE 300/30MG TABLET. PO PRN (09:15)
[2018-08-02] MEDS: ENOXAPARIN 40 MG/0.4 ML SYRINGE. SQ SCH (10:00)
[2018-08-02] MEDS ORDERED: PANTOPRAZOLE IV PUSH 40 MG VIAL. IVP ONE (10:00)
--- NOTE | 2018-08-02 10:38 | PDOC ---
Subjective: Subjective: Please see GI consult from 07/23/18. 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 Recent admission for abd pain, n/v, and ileus. Symptoms improved and was discharged. Was beginning to eat more at home, then gradual recurrence of abd pain on Tuesday, progressively worse w/ n/v, called Dr. John's office and came back to ER. Has NGT (clamped), still really uncomfortable. Last ostomy output yesterday - soft stool, perhaps smaller amount than usual. H/o JOHNNIE, now w/ normal Hgb. EGD 04/11/18: LA grade A reflux esophagitis, normal stomach, normal duodenum - path neg for H. pylori and celiac. Flex sig in 04/2018 prior to surgery - unable to pass scope beyond rectosigmoid stricture. Last complete colonoscopy in [place] ~8 years ago (for "GI bleed"). H/o colon polyps, C Diff. S/p cholecystectomy. Objective: Vital Signs: Vital Signs Date Time Temp Pulse Resp B/P (MAP) Pulse Ox O2 Delivery O2 Flow Rate FiO2 08/02/18 07:00 97.5 71 16 144/78 (100) 98 Room Air 97.5 Labs: Laboratory Tests Test 08/01/18 18:42 08/01/18 19:35 08/02/18 05:04 Urine Collection Type Unknown Urine Color Yellow Urine Clarity Clear Urine pH 5.5 Urine Specific [place] 1.015 Urine Protein 30 mg/dL Urine Glucose (UA) Negative mg/dL Urine Ketones (Stick) Negative mg/dL Urine Blood Negative Urine Nitrite Negative Urine Bilirubin Negative Urine Urobilinogen Dipstick 0.2 mg/dL Urine Leukocyte Esterase Negative Urine RBC 0 /HPF Urine WBC Occ /HPF Urine Squamous Epithelial Cells Few /LPF Urine Bacteria Few /HPF Urine Mucus Mod /LPF White Blood Count 13.1 x10^3/uL 10.4 x10^3/uL Red Blood Count 4.37 x10^6/uL 4.24 x10^6/uL Hemoglobin 12.5 g/dL 12.0 g/dL Hematocrit 37.1 % 36.3 % Mean Corpuscular Volume 85 fL 86 fL Mean Corpuscular Hemoglobin 29 pg 28 pg Mean Corpuscular Hemoglobin Concent 34 g/dL 33 g/dL Red Cell Distribution Width 16.4 % 16.5 % Platelet Count 315 x10^3/uL 296 x10^3/uL Neutrophils (%) (Auto) 81 % 79 % Lymphocytes (%) (Auto) 11 % 13 % Monocytes (%) (Auto) 7 % 8 % Eosinophils (%) (Auto) 1 % 0 % Basophils (%) (Auto) 1 % 0 % Neutrophils # (Auto) 10.6 x10^3uL 8.2 x10^3uL Lymphocytes # (Auto) 1.4 x10^3/uL 1.4 x10^3/uL Monocytes # (Auto) 0.9 x10^3/uL 0.8 x10^3/uL Eosinophils # (Auto) 0.1 x10^3/uL 0.0 x10^3/uL Basophils # (Auto) 0.1 x10^3/uL 0.0 x10^3/uL Sodium Level 140 mmol/L 140 mmol/L Potassium Level 4.5 mmol/L 4.0 mmol/L Chloride Level 103 mmol/L 104 mmol/L Carbon Dioxide Level 24 mmol/L 26 mmol/L Anion Gap 13 10 Blood Urea Nitrogen 21 mg/dL 22 mg/dL Creatinine 0.8 mg/dL 0.8 mg/dL Estimated GFR (Cockcroft-Gault) 69.9 69.9 BUN/Creatinine Ratio 26 Glucose Level 106 mg/dL 115 mg/dL Calcium Level 10.5 mg/dL 10.3 mg/dL Total Bilirubin 0.7 mg/dL Aspartate Amino Transf (AST/SGOT) 24 U/L Alanine Aminotransferase (ALT/SGPT) 13 U/L Alkaline Phosphatase 80 U/L Total Protein 7.8 g/dL Albumin 3.2 g/dL Albumin/Globulin Ratio 0.7 Imaging: CT A/P IMPRESSION: 1. Left lower quadrant ostomy with diffusely distended fluid-filled colon. Clinically correlate with ostomy output. 2. No small bowel obstruction. KUB IMPRESSION: ET tube is in the gastric cardia and side-port in the distal esophagus. Please advance the NG tube by approximately 10 cm. PE: GEN: uncomfortable HEENT: +NGT LUNGS: CTAB HEART: RRR ABD: tender diffusely, BS+ but louder on right, LLQ ostomy - no stool NEURO/PSYCH: A & O 3 A/P: H/o diverticular stricture, s/p sigmoid colectomy w/ LLQ ostomy Abd pain, n/v Abnormal CT - distended fluid-filled colon -- ?need for NGT Will review w/ Dr. John. MELO STOCKTON Aug 02, 2018 10:38
[2018-08-02] MEDS: MORPHINE SULFATE 4 MG/ML VIAL. IV PRN ×2 (10:43→19:56)
[2018-08-02] MEDS ORDERED: IOHEXOL 300 MG/ML 100ML VIAL. PR ONE (12:15)
[2018-08-02] MEDS ORDERED: CONTRAST GIVEN. MC PRN (12:15)
--- NOTE | 2018-08-02 13:43 | PDOC1 ---
History and Physical Date of Admission Date of Admission DATE: 08/02/18 TIME: 13:39 Identification/Chief Complaint Chief Complaint Nausea vomiting Source Source: Caregiver, Chart review, Patient History of Present Illness History of Present Illness 73-year-old female history of SBO, lives at home, few days history nausea vomiting and abdominal pain severe, claims similar to the pain she had when he she had SBO not too long ago. She Now has an NG tube and looks better, more comfortable. CAT scan shows 1. Left lower quadrant ostomy with diffusely distended fluid-filled colon. Clinically correlate with ostomy output. 2. No small bowel obstruction. GI consulted, ordered small barium , which can be both diagnostic and therapeutic, will see what that shows, she looks actually better with minimal NG output. Might be able to clamp her trial the NG tube tomorrow if barium shows resolution of the fluid, follow GI recommendations she has An indwelling left colostomy/stoma from her previous SBO Past Medical History Cardiovascular: AFIB, CHF, HTN Pulmonary: COPD Musculoskeletal: Osteoarthritis Infectious disease: No pertinent hx Renal/: Chronic renal insuff Endocrine: No pertinent hx Past Surgical History Past Surgical History: Appendectomy, Cholecystectomy, Tonsillectomy, Colon Resection, Other Family History Family History: Diabetes, Hypertension, Other Social History Smoke: No ALCOHOL: none Drugs: None Current Medications Current Medications Current Medications Fentanyl Citrate (Fentanyl 2ml Vial) 50 mcg 1X ONCE IV Last administered on 10/08at 20:04; Start 08/01/18 at 19:30; Stop 08/01/18 at 19:33; Status DC Ondansetron HCl (Zofran) 4 mg 1X ONCE IV Last administered on 08/01/18at 20:04 ; Start 08/01/18 at 19:30; Stop 08/01/18 at 19:33; Status DC Benzocaine (Hurricaine One) 1 spray STK-MED ONCE .ROUTE ; Start 08/01/18 at 19: 52; Stop 08/01/18 at 19:53; Status DC Benzocaine (Hurricaine One) 1 spray 1X ONCE MM Last administered on 08/01/18at 21:51; Start 08/01/18 at 20:00; Stop 08/01/18 at 20:01; Status DC Iohexol (Omnipaque 240 Mg/ml) 30 ml 1X ONCE PO Last administered on 08/01/18at 20:30; Start 08/01/18 at 20:30; Stop 08/01/18 at 20:37; Status DC Iohexol (Omnipaque 300 Mg/ml) 75 ml 1X ONCE IV Last administered on 08/01/18at 20:30; Start 08/01/18 at 20:30; Stop 08/01/18 at 20:37; Status DC Fentanyl Citrate (Fentanyl 2ml Vial) 50 mcg 1X ONCE IV Last administered on 10/08at 22:46; Start 08/01/18 at 22:30; Stop 08/01/18 at 22:31; Status DC Ondansetron HCl (Zofran) 4 mg PRN Q8HRS PRN IV NAUSEA/VOMITING Last administered on 08/02/18at 08:54; Start 08/01/18 at 22:45; Stop 08/02/18 at 09:05 ; Status DC Morphine Sulfate (Morphine Sulfate) 4 mg PRN Q2HR PRN IV PAIN Last administered on 08/02/18at 10:43; Start 08/01/18 at 22:45; Stop 08/02/18 at 22:44 Fentanyl Citrate (Fentanyl 2ml Vial) 50 mcg PRN Q2HR PRN IV PAIN Last administered on 08/02/18at 08:52; Start 08/01/18 at 22:45; Stop 08/02/18 at 22:44 Sodium Chloride 1,000 ml @ 100 mls/hr Q10H IV Last administered on 08/02/18at 08:52; Start 08/01/18 at 22:45; Stop 08/02/18 at 22:44 Ondansetron HCl (Zofran) 4 mg PRN Q6HRS PRN IV NAUSEA/VOMITING; Start 08/02/18 at 09:15 Enoxaparin Sodium (Lovenox 40mg Syringe) 40 mg Q24H SQ ; Start 08/02/18 at 10:00 Acetaminophen (Tylenol) 500 mg PRN Q6HRS PRN PO MILD PAIN / TEMP; Start at 09:15 Acetaminophen/ Codeine Phosphate (Tylenol #3) 1 tab PRN Q6HRS PRN PO MODERATE - SEVERE PAIN; Start 08/02/18 at 09:15 Pantoprazole Sodium (PROTONIX VIAL for IV PUSH) 40 mg DAILYAC IVP ; Start at 07:30 Pantoprazole Sodium (PROTONIX VIAL for IV PUSH) 40 mg 1X ONCE IVP Last administered on 08/02/18at 10:42; Start 08/02/18 at 10:00; Stop 08/02/18 at 11:22 ; Status DC Labetalol HCl (Normodyne Iv Push) 20 mg PRN Q2HR PRN IVP HYPERTENSION, SEE COMMENTS; Start 08/02/18 at 09:15 Pantoprazole Sodium (Protonix) 40 mg BIDAC PO ; Start 08/02/18 at 16:30 Iohexol (Omnipaque 300 Mg/ml) 500 ml 1X ONCE ND Last administered on at 13:26; Start 08/02/18 at 12:15; Stop 08/02/18 at 12:16; Status DC Info (CONTRAST GIVEN -- Rx MONITORING) 1 each PRN DAILY PRN MC SEE COMMENTS; Start 08/02/18 at 12:15; Stop 08/04/18 at 12:14 Active Scripts Active [Pantoprazole] 40 MG Tablet.dr 40 Mg PO DAILYAC Tramadol Hcl 50 Mg Tablet 50 Mg PO PRN Q6HRS PRN Metoprolol Tartrate 25 Mg Tablet 12.5 Mg PO BID Culturelle (Lactobacillus Rhamnosus Gg) 1 Each Cap.sprink 1 Cap PO BID Reported Bumetanide 2 Mg Tablet 2 Mg PO DAILY Fish Oil 1,000 mg Softgel ([place]-3S/Dha/Epa/Fish Oil) 1 Each Capsule 1 Each PO BID Losartan Potassium 50 Mg Tablet 50 Mg PO DAILY Vitamin D2 (Ergocalciferol (Vitamin D2)) 50,000 Unit Capsule 50,000 Unit PO 2XWEEKLY Klor-Con M10 (Potassium Chloride) 10 Meq Tab.er.prt 1 Tab PO BID Calcium (Calcium Carbonate) 600 Mg Tablet 600 Mg PO DAILY Digoxin 125 Mcg Tablet 1 Tab PO DAILY Miralax (Polyethylene Glycol 3350) 17 Gm Powd.pack 1 Packet PO DAILY Symbicort 160-4.5 Mcg Inhaler (Budesonide/Formoterol Fumarate) 10.2 Gm Hfa.aer.ad 2 Puff IH BID Allergies Allergies: Coded Allergies: DONNA Inhibitors (Verified Allergy, Severe, angioedema, 08/01/18) Penicillins (Verified Allergy, Intermediate, n/v,itch,rash, 08/01/18) erythromycin base (Verified Adverse Reaction, Intermediate, n/v, 08/01/18) ROS Review of System As per history of present illness, the rest of ROS 14 point negative Physical Exam General: Alert, Oriented X3, Cooperative, No acute distress HEENT: Atraumatic, PERRLA, Mucous membr. moist/pink, Other (NG tube in place with minimal output) Lungs: Clear to auscultation Cardiovascular: S1, S2 Breasts: Normal, Rt breast nml w/o mass, Lt breast nml w/o mass, Nipples normal Abdomen: Normal bowel sounds, Soft, Other (some tenderness on deep palpation otherwise no guarding not an acute abdomen) Rectal Exam: not examined PELVIC: Nml ext genitalia Extremities: No clubbing, No cyanosis, No edema, Normal pulses, No tenderness/ swelling Skin: No rashes, No breakdown, No significant lesion Neuro: Normal gait, Normal speech, Strength at 5/5 X4 ext, Normal tone, Sensation intact, Cranial nerves 3-12 NL, Reflexes 2+ Psych/Mental Status: Mental status NL, Mood NL Vitals Vitals Vital Signs Date Time Temp Pulse Resp B/P (MAP) Pulse Ox O2 Delivery O2 Flow Rate FiO2 08/02/18 11:00 97.5 76 16 149/75 (99) 99 Room Air 97.5 Labs Labs Laboratory Tests Test 08/01/18 18:42 08/01/18 19:35 08/02/18 05:04 Urine Collection Type Unknown Urine Color Yellow Urine Clarity Clear Urine pH 5.5 Urine Specific [place] 1.015 Urine Protein 30 mg/dL (NEG-TRACE) Urine Glucose (UA) Negative mg/dL (NEG) Urine Ketones (Stick) Negative mg/dL (NEG) Urine Blood Negative (NEG) Urine Nitrite Negative (NEG) Urine Bilirubin Negative (NEG) Urine Urobilinogen Dipstick 0.2 mg/dL (0.2 mg/dL) Urine Leukocyte Esterase Negative (NEG) Urine RBC 0 /HPF (0-2) Urine WBC Occ /HPF (0-4) Urine Squamous Epithelial Cells Few /LPF Urine Bacteria Few /HPF (0-FEW) Urine Mucus Mod /LPF White Blood Count 13.1 x10^3/uL (4.0-11.0) 10.4 x10^3/uL (4.0-11.0) Red Blood Count 4.37 x10^6/uL (3.50-5.40) 4.24 x10^6/uL (3.50-5.40) Hemoglobin 12.5 g/dL (12.0-15.5) 12.0 g/dL (12.0-15.5) Hematocrit 37.1 % (36.0-47.0) 36.3 % (36.0-47.0) Mean Corpuscular Volume 85 fL (79-100) 86 fL (79-100) Mean Corpuscular Hemoglobin 29 pg (25-35) 28 pg (25-35) Mean Corpuscular Hemoglobin Concent 34 g/dL (31-37) 33 g/dL (31-37) Red Cell Distribution Width 16.4 % (11.5-14.5) 16.5 % (11.5-14.5) Platelet Count 315 x10^3/uL (140-400) 296 x10^3/uL (140-400) Neutrophils (%) (Auto) 81 % (31-73) 79 % (31-73) Lymphocytes (%) (Auto) 11 % (24-48) 13 % (24-48) Monocytes (%) (Auto) 7 % (0-9) 8 % (0-9) Eosinophils (%) (Auto) 1 % (0-3) 0 % (0-3) Basophils (%) (Auto) 1 % (0-3) 0 % (0-3) Neutrophils # (Auto) 10.6 x10^3uL (1.8-7.7) 8.2 x10^3uL (1.8-7.7) Lymphocytes # (Auto) 1.4 x10^3/uL (1.0-4.8) 1.4 x10^3/uL (1.0-4.8) Monocytes # (Auto) 0.9 x10^3/uL (0.0-1.1) 0.8 x10^3/uL (0.0-1.1) Eosinophils # (Auto) 0.1 x10^3/uL (0.0-0.7) 0.0 x10^3/uL (0.0-0.7) Basophils # (Auto) 0.1 x10^3/uL (0.0-0.2) 0.0 x10^3/uL (0.0-0.2) Sodium Level 140 mmol/L (136-145) 140 mmol/L (136-145) Potassium Level 4.5 mmol/L (3.5-5.1) 4.0 mmol/L (3.5-5.1) Chloride Level 103 mmol/L (98-107) 104 mmol/L (98-107) Carbon Dioxide Level 24 mmol/L (21-32) 26 mmol/L (21-32) Anion Gap 13 (6-14) 10 (6-14) Blood Urea Nitrogen 21 mg/dL (7-20) 22 mg/dL (7-20) Creatinine 0.8 mg/dL (0.6-1.0) 0.8 mg/dL (0.6-1.0) Estimated GFR (Cockcroft-Gault) 69.9 69.9 BUN/Creatinine Ratio 26 (6-20) Glucose Level 106 mg/dL (70-99) 115 mg/dL (70-99) Calcium Level 10.5 mg/dL (8.5-10.1) 10.3 mg/dL (8.5-10.1) Total Bilirubin 0.7 mg/dL (0.2-1.0) Aspartate Amino Transf (AST/SGOT) 24 U/L (15-37) Alanine Aminotransferase (ALT/SGPT) 13 U/L (14-59) Alkaline Phosphatase 80 U/L (46-116) Total Protein 7.8 g/dL (6.4-8.2) Albumin 3.2 g/dL (3.4-5.0) Albumin/Globulin Ratio 0.7 (1.0-1.7) Laboratory Tests Test 08/01/18 18:42 08/01/18 19:35 08/02/18 05:04 Urine Collection Type Unknown Urine Color Yellow Urine Clarity Clear Urine pH 5.5 Urine Specific [place] 1.015 Urine Protein 30 mg/dL (NEG-TRACE) Urine Glucose (UA) Negative mg/dL (NEG) Urine Ketones (Stick) Negative mg/dL (NEG) Urine Blood Negative (NEG) Urine Nitrite Negative (NEG) Urine Bilirubin Negative (NEG) Urine Urobilinogen Dipstick 0.2 mg/dL (0.2 mg/dL) Urine Leukocyte Esterase Negative (NEG) Urine RBC 0 /HPF (0-2) Urine WBC Occ /HPF (0-4) Urine Squamous Epithelial Cells Few /LPF Urine Bacteria Few /HPF (0-FEW) Urine Mucus Mod /LPF White Blood Count 13.1 x10^3/uL (4.0-11.0) 10.4 x10^3/uL (4.0-11.0) Red Blood Count 4.37 x10^6/uL (3.50-5.40) 4.24 x10^6/uL (3.50-5.40) Hemoglobin 12.5 g/dL (12.0-15.5) 12.0 g/dL (12.0-15.5) Hematocrit 37.1 % (36.0-47.0) 36.3 % (36.0-47.0) Mean Corpuscular Volume 85 fL (79-100) 86 fL (79-100) Mean Corpuscular Hemoglobin 29 pg (25-35) 28 pg (25-35) Mean Corpuscular Hemoglobin Concent 34 g/dL (31-37) 33 g/dL (31-37) Red Cell Distribution Width 16.4 % (11.5-14.5) 16.5 % (11.5-14.5) Platelet Count 315 x10^3/uL (140-400) 296 x10^3/uL (140-400) Neutrophils (%) (Auto) 81 % (31-73) 79 % (31-73) Lymphocytes (%) (Auto) 11 % (24-48) 13 % (24-48) Monocytes (%) (Auto) 7 % (0-9) 8 % (0-9) Eosinophils (%) (Auto) 1 % (0-3) 0 % (0-3) Basophils (%) (Auto) 1 % (0-3) 0 % (0-3) Neutrophils # (Auto) 10.6 x10^3uL (1.8-7.7) 8.2 x10^3uL (1.8-7.7) Lymphocytes # (Auto) 1.4 x10^3/uL (1.0-4.8) 1.4 x10^3/uL (1.0-4.8) Monocytes # (Auto) 0.9 x10^3/uL (0.0-1.1) 0.8 x10^3/uL (0.0-1.1) Eosinophils # (Auto) 0.1 x10^3/uL (0.0-0.7) 0.0 x10^3/uL (0.0-0.7) Basophils # (Auto) 0.1 x10^3/uL (0.0-0.2) 0.0 x10^3/uL (0.0-0.2) Sodium Level 140 mmol/L (136-145) 140 mmol/L (136-145) Potassium Level 4.5 mmol/L (3.5-5.1) 4.0 mmol/L (3.5-5.1) Chloride Level 103 mmol/L (98-107) 104 mmol/L (98-107) Carbon Dioxide Level 24 mmol/L (21-32) 26 mmol/L (21-32) Anion Gap 13 (6-14) 10 (6-14) Blood Urea Nitrogen 21 mg/dL (7-20) 22 mg/dL (7-20) Creatinine 0.8 mg/dL (0.6-1.0) 0.8 mg/dL (0.6-1.0) Estimated GFR (Cockcroft-Gault) 69.9 69.9 BUN/Creatinine Ratio 26 (6-20) Glucose Level 106 mg/dL (70-99) 115 mg/dL (70-99) Calcium Level 10.5 mg/dL (8.5-10.1) 10.3 mg/dL (8.5-10.1) Total Bilirubin 0.7 mg/dL (0.2-1.0) Aspartate Amino Transf (AST/SGOT) 24 U/L (15-37) Alanine Aminotransferase (ALT/SGPT) 13 U/L (14-59) Alkaline Phosphatase 80 U/L (46-116) Total Protein 7.8 g/dL (6.4-8.2) Albumin 3.2 g/dL (3.4-5.0) Albumin/Globulin Ratio 0.7 (1.0-1.7) VTE Prophylaxis Ordered VTE Prophylaxis Devices: Yes VTE Pharmacological Prophylaxi: Yes Assessment/Plan Assessment/Plan H/o diverticular stricture, s/p sigmoid colectomy w/ LLQ ostomy Abd pain, n/v Abnormal CT - distended fluid-filled colon PLAN: Await barium studies, ostomy care Nothing by mouth for now while NG tube IV fluids while nothing by mouth PPI Appreciate GI Will reconcile home meds when taking PO already labetolol prn CURLY NOLAN MD Aug 02, 2018 13:43
--- NOTE | 2018-08-02 13:50 | RAD ---
Contrast enema, 08/02/2018: History: Possible blockage, stomal dysfunction The preliminary abdominal image demonstrates a nonspecific gas pattern. There are right lower quadrant opacities compatible with undissolved medication in the right colon. Initial attempts at placing the normal enema tip in the patient's left lower quadrant ostomy site were unsuccessful due to the small caliber of the stoma. We were able to pass an 8 [place] feeding tube through the stoma into the colon. Nonionic contrast was then injected through this tube. 3.1 minutes of fluoroscopy time was utilized. 15 static and dynamic fluoroscopic sequences were recorded. The left colon and transverse colon were well opacified. There are filling defects compatible with retained stool. Colonic diverticula are present, most prominent in the distal descending colon. No constricting colonic lesion is seen. The colon is of normal caliber right up to the level of the stoma. The findings suggest ostial stenosis at the stoma. We did not attempt to fully opacify the right colon. IMPRESSION: 1. Colonic diverticulosis. 2. Narrowing of the stoma as described above which is probably the source of the partial obstruction. Follow up abdominal radiographs may be helpful in evaluating the degree of obstruction by following the rate of clearing of the contrast from the colon.
[2018-08-02] MEDS: PANTOPRAZOLE 40 MG TABLET.DR. PO SCH (17:31)
[2018-08-03 03:38] VITALS: BP 134/66
[2018-08-03 07:00] VITALS: BP 140/56
[2018-08-03] MEDS ORDERED: PANTOPRAZOLE IV PUSH 40 MG VIAL. IVP SCH (07:30)
[2018-08-03] MEDS: MORPHINE SULFATE 2 MG/ML VIAL. IV PRN ×4 (07:41→21:18)
[2018-08-03] MEDS: PANTOPRAZOLE 40 MG TABLET.DR. PO SCH ×2 (07:41→16:59)
[2018-08-03] MEDS: ENOXAPARIN 40 MG/0.4 ML SYRINGE. SQ SCH (08:57)
--- NOTE | 2018-08-03 10:13 | PDOC ---
Subjective: Subjective: Feels better - reading about college football, she's a [employer] fan. Her family might come visit later. Her son-in-law had a stroke in May. Tolerating clears w/o n/v. Not much ostomy output aside from a little brown liquid. Area around ostomy feels "hard" but is less painful. Objective: Vital Signs: Vital Signs Date Time Temp Pulse Resp B/P (MAP) Pulse Ox O2 Delivery O2 Flow Rate FiO2 08/03/18 08:11 20 98 Room Air 08/03/18 08:00 2.0 08/03/18 07:00 98.1 96 140/56 (84) 98.1 Imaging: IMPRESSION: 1. Colonic diverticulosis. 2. Narrowing of the stoma as described above which is probably the source of the partial obstruction. Follow up abdominal radiographs may be helpful in evaluating the degree of obstruction by following the rate of clearing of the contrast from the colon. PE: GEN: NAD LUNGS: CTAB HEART: RRR ABD: NABS, firmness around ostomy though not particularly tender, minimal brown liquid in bag NEURO/PSYCH: A & O 3 A/P: H/o diverticular stricture, s/p sigmoid colectomy w/ LLQ ostomy ?stomal stenosis on imaging -- Await today's KUB and surgery thoughts. MELO STOCKTON Aug 03, 2018 10:13
[2018-08-03 11:00] VITALS: BP 121/71
--- NOTE | 2018-08-03 12:12 | RAD ---
Portable abdomen, 08/03/2018: HISTORY: Abdominal tenderness, partial obstruction at colostomy site Comparison is made to images from yesterday's contrast enema. There is a large amount of retained contrast within the colon with mild colonic distention. Contrast has refluxed into the terminal ileum which is also mildly distended. The findings suggest significant distal obstruction, at the level of the colostomy stoma as noted on the contrast enema. IMPRESSION: Large amount retained contrast in the colon as described above. Electronically signed by: Med Lamas MD (08/03/2018 12:09 PM) [facility]
--- NOTE | 2018-08-03 13:00 | PDOC2 ---
CONSULT Date of Consult Date of Consult DATE: 08/02/18 TIME: 16:30 LATE ENTRY PT SEEN AND EXAMINED THURSDAY 08/02 Reason for Consult Reason for Consult: CONSTIPATION Referring Physician Referring Physician: RHYS Identification/Chief Complaint Chief Complaint abdominal pain, decreased output from colostomy Source Source: Chart review, Patient History of Present Illness Reason for Visit: Ms Christensen is a 73 yo lady known to our surgical service. She had a sigmoid resection with end colostomy by Dr Marte a few months back. She was recently admitted here, seen by Dr Duvall. Her constipation resolved and she went home. She returns with another bout of abdominal pain and decreased output from her stoma. Past Medical History Cardiovascular: AFIB, CHF, HTN Pulmonary: COPD Musculoskeletal: Osteoarthritis Infectious disease: No pertinent hx Renal/: Chronic renal insuff Endocrine: No pertinent hx Past Surgical History Past Surgical History: Appendectomy, Cholecystectomy, Tonsillectomy, Colon Resection, Other Family History Family History: Diabetes, Hypertension, Other Social History No ALCOHOL: none Drugs: None Current Medications Current Medications Current Medications Fentanyl Citrate (Fentanyl 2ml Vial) 50 mcg 1X ONCE IV Last administered on 10/08at 20:04; Start 08/01/18 at 19:30; Stop 08/01/18 at 19:33; Status DC Ondansetron HCl (Zofran) 4 mg 1X ONCE IV Last administered on 08/01/18at 20:04 ; Start 08/01/18 at 19:30; Stop 08/01/18 at 19:33; Status DC Benzocaine (Hurricaine One) 1 spray STK-MED ONCE .ROUTE ; Start 08/01/18 at 19: 52; Stop 08/01/18 at 19:53; Status DC Benzocaine (Hurricaine One) 1 spray 1X ONCE MM Last administered on 08/01/18at 21:51; Start 08/01/18 at 20:00; Stop 08/01/18 at 20:01; Status DC Iohexol (Omnipaque 240 Mg/ml) 30 ml 1X ONCE PO Last administered on 08/01/18at 20:30; Start 08/01/18 at 20:30; Stop 08/01/18 at 20:37; Status DC Iohexol (Omnipaque 300 Mg/ml) 75 ml 1X ONCE IV Last administered on 08/01/18at 20:30; Start 08/01/18 at 20:30; Stop 08/01/18 at 20:37; Status DC Fentanyl Citrate (Fentanyl 2ml Vial) 50 mcg 1X ONCE IV Last administered on 10/08at 22:46; Start 08/01/18 at 22:30; Stop 08/01/18 at 22:31; Status DC Ondansetron HCl (Zofran) 4 mg PRN Q8HRS PRN IV NAUSEA/VOMITING Last administered on 08/02/18at 08:54; Start 08/01/18 at 22:45; Stop 08/02/18 at 09:05 ; Status DC Morphine Sulfate (Morphine Sulfate) 4 mg PRN Q2HR PRN IV PAIN Last administered on 08/02/18at 19:56; Start 08/01/18 at 22:45; Stop 08/02/18 at 22:44 ; Status DC Fentanyl Citrate (Fentanyl 2ml Vial) 50 mcg PRN Q2HR PRN IV PAIN Last administered on 08/02/18at 17:32; Start 08/01/18 at 22:45; Stop 08/02/18 at 22:44 ; Status DC Sodium Chloride 1,000 ml @ 100 mls/hr Q10H IV Last administered on 08/02/18at 08:52; Start 08/01/18 at 22:45; Stop 08/02/18 at 22:44; Status DC Ondansetron HCl (Zofran) 4 mg PRN Q6HRS PRN IV NAUSEA/VOMITING; Start 08/02/18 at 09:15 Enoxaparin Sodium (Lovenox 40mg Syringe) 40 mg Q24H SQ ; Start 08/02/18 at 10:00 Acetaminophen (Tylenol) 500 mg PRN Q6HRS PRN PO MILD PAIN / TEMP; Start at 09:15 Acetaminophen/ Codeine Phosphate (Tylenol #3) 1 tab PRN Q6HRS PRN PO MODERATE - SEVERE PAIN; Start 08/02/18 at 09:15 Pantoprazole Sodium (PROTONIX VIAL for IV PUSH) 40 mg DAILYAC IVP ; Start at 07:30; Stop 08/03/18 at 10:14; Status DC Pantoprazole Sodium (PROTONIX VIAL for IV PUSH) 40 mg 1X ONCE IVP Last administered on 08/02/18at 10:42; Start 08/02/18 at 10:00; Stop 08/02/18 at 11:22 ; Status DC Labetalol HCl (Normodyne Iv Push) 20 mg PRN Q2HR PRN IVP HYPERTENSION, SEE COMMENTS; Start 08/02/18 at 09:15 Pantoprazole Sodium (Protonix) 40 mg BIDAC PO Last administered on 08/03/18at 07 :41; Start 08/02/18 at 16:30 Iohexol (Omnipaque 300 Mg/ml) 500 ml 1X ONCE AL Last administered on at 13:26; Start 08/02/18 at 12:15; Stop 08/02/18 at 12:16; Status DC Info (CONTRAST GIVEN -- Rx MONITORING) 1 each PRN DAILY PRN MC SEE COMMENTS; Start 08/02/18 at 12:15; Stop 08/04/18 at 12:14 Morphine Sulfate (Morphine Sulfate) 4 mg PRN Q2HR PRN IV SEVERE PAIN Last administered on 08/03/18at 07:41; Start 08/03/18 at 01:00 Active Scripts Active [Pantoprazole] 40 MG Tablet.dr 40 Mg PO DAILYAC Tramadol Hcl 50 Mg Tablet 50 Mg PO PRN Q6HRS PRN Metoprolol Tartrate 25 Mg Tablet 12.5 Mg PO BID Culturelle (Lactobacillus Rhamnosus Gg) 1 Each Cap.sprink 1 Cap PO BID Reported Bumetanide 2 Mg Tablet 2 Mg PO DAILY Fish Oil 1,000 mg Softgel ([place]-3S/Dha/Epa/Fish Oil) 1 Each Capsule 1 Each PO BID Losartan Potassium 50 Mg Tablet 50 Mg PO DAILY Vitamin D2 (Ergocalciferol (Vitamin D2)) 50,000 Unit Capsule 50,000 Unit PO 2XWEEKLY Klor-Con M10 (Potassium Chloride) 10 Meq Tab.er.prt 1 Tab PO BID Calcium (Calcium Carbonate) 600 Mg Tablet 600 Mg PO DAILY Digoxin 125 Mcg Tablet 1 Tab PO DAILY Miralax (Polyethylene Glycol 3350) 17 Gm Powd.pack 1 Packet PO DAILY Symbicort 160-4.5 Mcg Inhaler (Budesonide/Formoterol Fumarate) 10.2 Gm Hfa.aer.ad 2 Puff IH BID Allergies Allergies: Coded Allergies: DONNA Inhibitors (Verified Allergy, Severe, angioedema, 08/01/18) Penicillins (Verified Allergy, Intermediate, n/v,itch,rash, 08/01/18) erythromycin base (Verified Adverse Reaction, Intermediate, n/v, 08/01/18) ROS Review of System negative with exception of present complaints Physical Exam General: Alert, Cooperative, No acute distress HEENT: Atraumatic Lungs: Normal air movement Heart: Regular rate Abdomen: Soft, Other (well healed midline scar, left sided stoma with minimal contents in appliance) Vitals VITALS Vital Signs Date Time Temp Pulse Resp B/P (MAP) Pulse Ox O2 Delivery O2 Flow Rate FiO2 08/03/18 11:00 97.7 82 18 121/71 (88) 95 Room Air 97.7 08/03/18 08:00 2.0 Labs Labs Laboratory Tests Test 08/01/18 18:42 08/01/18 19:35 08/02/18 05:04 Urine Collection Type Unknown Urine Color Yellow Urine Clarity Clear Urine pH 5.5 Urine Specific [place] 1.015 Urine Protein 30 mg/dL (NEG-TRACE) Urine Glucose (UA) Negative mg/dL (NEG) Urine Ketones (Stick) Negative mg/dL (NEG) Urine Blood Negative (NEG) Urine Nitrite Negative (NEG) Urine Bilirubin Negative (NEG) Urine Urobilinogen Dipstick 0.2 mg/dL (0.2 mg/dL) Urine Leukocyte Esterase Negative (NEG) Urine RBC 0 /HPF (0-2) Urine WBC Occ /HPF (0-4) Urine Squamous Epithelial Cells Few /LPF Urine Bacteria Few /HPF (0-FEW) Urine Mucus Mod /LPF White Blood Count 13.1 x10^3/uL (4.0-11.0) 10.4 x10^3/uL (4.0-11.0) Red Blood Count 4.37 x10^6/uL (3.50-5.40) 4.24 x10^6/uL (3.50-5.40) Hemoglobin 12.5 g/dL (12.0-15.5) 12.0 g/dL (12.0-15.5) Hematocrit 37.1 % (36.0-47.0) 36.3 % (36.0-47.0) Mean Corpuscular Volume 85 fL (79-100) 86 fL (79-100) Mean Corpuscular Hemoglobin 29 pg (25-35) 28 pg (25-35) Mean Corpuscular Hemoglobin Concent 34 g/dL (31-37) 33 g/dL (31-37) Red Cell Distribution Width 16.4 % (11.5-14.5) 16.5 % (11.5-14.5) Platelet Count 315 x10^3/uL (140-400) 296 x10^3/uL (140-400) Neutrophils (%) (Auto) 81 % (31-73) 79 % (31-73) Lymphocytes (%) (Auto) 11 % (24-48) 13 % (24-48) Monocytes (%) (Auto) 7 % (0-9) 8 % (0-9) Eosinophils (%) (Auto) 1 % (0-3) 0 % (0-3) Basophils (%) (Auto) 1 % (0-3) 0 % (0-3) Neutrophils # (Auto) 10.6 x10^3uL (1.8-7.7) 8.2 x10^3uL (1.8-7.7) Lymphocytes # (Auto) 1.4 x10^3/uL (1.0-4.8) 1.4 x10^3/uL (1.0-4.8) Monocytes # (Auto) 0.9 x10^3/uL (0.0-1.1) 0.8 x10^3/uL (0.0-1.1) Eosinophils # (Auto) 0.1 x10^3/uL (0.0-0.7) 0.0 x10^3/uL (0.0-0.7) Basophils # (Auto) 0.1 x10^3/uL (0.0-0.2) 0.0 x10^3/uL (0.0-0.2) Sodium Level 140 mmol/L (136-145) 140 mmol/L (136-145) Potassium Level 4.5 mmol/L (3.5-5.1) 4.0 mmol/L (3.5-5.1) Chloride Level 103 mmol/L (98-107) 104 mmol/L (98-107) Carbon Dioxide Level 24 mmol/L (21-32) 26 mmol/L (21-32) Anion Gap 13 (6-14) 10 (6-14) Blood Urea Nitrogen 21 mg/dL (7-20) 22 mg/dL (7-20) Creatinine 0.8 mg/dL (0.6-1.0) 0.8 mg/dL (0.6-1.0) Estimated GFR (Cockcroft-Gault) 69.9 69.9 BUN/Creatinine Ratio 26 (6-20) Glucose Level 106 mg/dL (70-99) 115 mg/dL (70-99) Calcium Level 10.5 mg/dL (8.5-10.1) 10.3 mg/dL (8.5-10.1) Total Bilirubin 0.7 mg/dL (0.2-1.0) Aspartate Amino Transf (AST/SGOT) 24 U/L (15-37) Alanine Aminotransferase (ALT/SGPT) 13 U/L (14-59) Alkaline Phosphatase 80 U/L (46-116) Total Protein 7.8 g/dL (6.4-8.2) Albumin 3.2 g/dL (3.4-5.0) Albumin/Globulin Ratio 0.7 (1.0-1.7) Assessment/Plan Assessment/Plan abdominal pain/constipation 2/2 stenotic stoma, ileus 2/2 medications s/p sigmoid resection stool softeners, ambulations, minimize narcotic pain meds may need dilatation of stoma site will follow Thanks for consult WAQAS OLIVERA MD Aug 03, 2018 13:00
--- NOTE | 2018-08-03 13:04 | PDOC ---
PROGRESS NOTES Chief Complaint Chief Complaint stomal stricture H/o diverticular stricture, s/p sigmoid colectomy w/ LLQ ostomy Abd pain, n/v Abnormal CT - distended fluid-filled colon History of Present Illness History of Present Illness NG out 08/02/18 Minimal abdominal pain Upgraded to full liquid diet Plan for dilatation of the stoma stricture as evident on barium enema on small bowel series Plan: Full liquid today Nothing by mouth post midnight Discussed with family members and RN at bedside Vitals Vitals Vital Signs Date Time Temp Pulse Resp B/P (MAP) Pulse Ox O2 Delivery O2 Flow Rate FiO2 08/03/18 11:00 97.7 82 18 121/71 (88) 95 Room Air 97.7 08/03/18 08:00 2.0 Physical Exam General: Alert, Cooperative, No acute distress Heart: Regular rate Lungs: Clear Abdomen: Soft, Other (well healed midline scar, left sided stoma with minimal contents in appliance) Extremities: No clubbing, No cyanosis, No edema, Normal pulses, No tenderness/ swelling Skin: No rashes, No breakdown, No significant lesion Review of Systems Review of Systems A 14 point ROS was completed with the following noted as positive: Other systems reviewed and negative. \CONSTITUTIONAL: No fever or chills EYES: No recent changes SKIN: No rash or itching CARDIOVASCULAR: No chest pain, syncope, palpitations, or edema RESPIRATORY: No SOB or cough GASTROINTESTINAL: No nausea, vomiting or abdominal pain NEUROLOGICAL: No headaches or weakness ENDOCRINE: No cold or heat intolerance GENITOURINARY: No urgency or frequency of urination MUSCULOSKELETAL: No back pain or joint pain LYMPHATICS: No enlarged lymph nodes PSYCHIATRIC: No anxiety or depression Comment Review of Relevant I have reviewed the following items halle (where applicable) has been applied. Labs Laboratory Tests Test 08/01/18 18:42 08/01/18 19:35 08/02/18 05:04 Urine Collection Type Unknown Urine Color Yellow Urine Clarity Clear Urine pH 5.5 Urine Specific [place] 1.015 Urine Protein 30 mg/dL (NEG-TRACE) Urine Glucose (UA) Negative mg/dL (NEG) Urine Ketones (Stick) Negative mg/dL (NEG) Urine Blood Negative (NEG) Urine Nitrite Negative (NEG) Urine Bilirubin Negative (NEG) Urine Urobilinogen Dipstick 0.2 mg/dL (0.2 mg/dL) Urine Leukocyte Esterase Negative (NEG) Urine RBC 0 /HPF (0-2) Urine WBC Occ /HPF (0-4) Urine Squamous Epithelial Cells Few /LPF Urine Bacteria Few /HPF (0-FEW) Urine Mucus Mod /LPF White Blood Count 13.1 x10^3/uL (4.0-11.0) 10.4 x10^3/uL (4.0-11.0) Red Blood Count 4.37 x10^6/uL (3.50-5.40) 4.24 x10^6/uL (3.50-5.40) Hemoglobin 12.5 g/dL (12.0-15.5) 12.0 g/dL (12.0-15.5) Hematocrit 37.1 % (36.0-47.0) 36.3 % (36.0-47.0) Mean Corpuscular Volume 85 fL (79-100) 86 fL (79-100) Mean Corpuscular Hemoglobin 29 pg (25-35) 28 pg (25-35) Mean Corpuscular Hemoglobin Concent 34 g/dL (31-37) 33 g/dL (31-37) Red Cell Distribution Width 16.4 % (11.5-14.5) 16.5 % (11.5-14.5) Platelet Count 315 x10^3/uL (140-400) 296 x10^3/uL (140-400) Neutrophils (%) (Auto) 81 % (31-73) 79 % (31-73) Lymphocytes (%) (Auto) 11 % (24-48) 13 % (24-48) Monocytes (%) (Auto) 7 % (0-9) 8 % (0-9) Eosinophils (%) (Auto) 1 % (0-3) 0 % (0-3) Basophils (%) (Auto) 1 % (0-3) 0 % (0-3) Neutrophils # (Auto) 10.6 x10^3uL (1.8-7.7) 8.2 x10^3uL (1.8-7.7) Lymphocytes # (Auto) 1.4 x10^3/uL (1.0-4.8) 1.4 x10^3/uL (1.0-4.8) Monocytes # (Auto) 0.9 x10^3/uL (0.0-1.1) 0.8 x10^3/uL (0.0-1.1) Eosinophils # (Auto) 0.1 x10^3/uL (0.0-0.7) 0.0 x10^3/uL (0.0-0.7) Basophils # (Auto) 0.1 x10^3/uL (0.0-0.2) 0.0 x10^3/uL (0.0-0.2) Sodium Level 140 mmol/L (136-145) 140 mmol/L (136-145) Potassium Level 4.5 mmol/L (3.5-5.1) 4.0 mmol/L (3.5-5.1) Chloride Level 103 mmol/L (98-107) 104 mmol/L (98-107) Carbon Dioxide Level 24 mmol/L (21-32) 26 mmol/L (21-32) Anion Gap 13 (6-14) 10 (6-14) Blood Urea Nitrogen 21 mg/dL (7-20) 22 mg/dL (7-20) Creatinine 0.8 mg/dL (0.6-1.0) 0.8 mg/dL (0.6-1.0) Estimated GFR (Cockcroft-Gault) 69.9 69.9 BUN/Creatinine Ratio 26 (6-20) Glucose Level 106 mg/dL (70-99) 115 mg/dL (70-99) Calcium Level 10.5 mg/dL (8.5-10.1) 10.3 mg/dL (8.5-10.1) Total Bilirubin 0.7 mg/dL (0.2-1.0) Aspartate Amino Transf (AST/SGOT) 24 U/L (15-37) Alanine Aminotransferase (ALT/SGPT) 13 U/L (14-59) Alkaline Phosphatase 80 U/L (46-116) Total Protein 7.8 g/dL (6.4-8.2) Albumin 3.2 g/dL (3.4-5.0) Albumin/Globulin Ratio 0.7 (1.0-1.7) Medications Current Medications Fentanyl Citrate (Fentanyl 2ml Vial) 50 mcg 1X ONCE IV Last administered on 10/08at 20:04; Start 08/01/18 at 19:30; Stop 08/01/18 at 19:33; Status DC Ondansetron HCl (Zofran) 4 mg 1X ONCE IV Last administered on 08/01/18at 20:04 ; Start 08/01/18 at 19:30; Stop 08/01/18 at 19:33; Status DC Benzocaine (Hurricaine One) 1 spray STK-MED ONCE .ROUTE ; Start 08/01/18 at 19: 52; Stop 08/01/18 at 19:53; Status DC Benzocaine (Hurricaine One) 1 spray 1X ONCE MM Last administered on 08/01/18at 21:51; Start 08/01/18 at 20:00; Stop 08/01/18 at 20:01; Status DC Iohexol (Omnipaque 240 Mg/ml) 30 ml 1X ONCE PO Last administered on 08/01/18at 20:30; Start 08/01/18 at 20:30; Stop 08/01/18 at 20:37; Status DC Iohexol (Omnipaque 300 Mg/ml) 75 ml 1X ONCE IV Last administered on 08/01/18at 20:30; Start 08/01/18 at 20:30; Stop 08/01/18 at 20:37; Status DC Fentanyl Citrate (Fentanyl 2ml Vial) 50 mcg 1X ONCE IV Last administered on 10/08at 22:46; Start 08/01/18 at 22:30; Stop 08/01/18 at 22:31; Status DC Ondansetron HCl (Zofran) 4 mg PRN Q8HRS PRN IV NAUSEA/VOMITING Last administered on 08/02/18at 08:54; Start 08/01/18 at 22:45; Stop 08/02/18 at 09:05 ; Status DC Morphine Sulfate (Morphine Sulfate) 4 mg PRN Q2HR PRN IV PAIN Last administered on 08/02/18at 19:56; Start 08/01/18 at 22:45; Stop 08/02/18 at 22:44 ; Status DC Fentanyl Citrate (Fentanyl 2ml Vial) 50 mcg PRN Q2HR PRN IV PAIN Last administered on 08/02/18at 17:32; Start 08/01/18 at 22:45; Stop 08/02/18 at 22:44 ; Status DC Sodium Chloride 1,000 ml @ 100 mls/hr Q10H IV Last administered on 08/02/18at 08:52; Start 08/01/18 at 22:45; Stop 08/02/18 at 22:44; Status DC Ondansetron HCl (Zofran) 4 mg PRN Q6HRS PRN IV NAUSEA/VOMITING; Start 08/02/18 at 09:15 Enoxaparin Sodium (Lovenox 40mg Syringe) 40 mg Q24H SQ ; Start 08/02/18 at 10:00 Acetaminophen (Tylenol) 500 mg PRN Q6HRS PRN PO MILD PAIN / TEMP; Start at 09:15 Acetaminophen/ Codeine Phosphate (Tylenol #3) 1 tab PRN Q6HRS PRN PO MODERATE - SEVERE PAIN; Start 08/02/18 at 09:15 Pantoprazole Sodium (PROTONIX VIAL for IV PUSH) 40 mg DAILYAC IVP ; Start at 07:30; Stop 08/03/18 at 10:14; Status DC Pantoprazole Sodium (PROTONIX VIAL for IV PUSH) 40 mg 1X ONCE IVP Last administered on 08/02/18at 10:42; Start 08/02/18 at 10:00; Stop 08/02/18 at 11:22 ; Status DC Labetalol HCl (Normodyne Iv Push) 20 mg PRN Q2HR PRN IVP HYPERTENSION, SEE COMMENTS; Start 08/02/18 at 09:15 Pantoprazole Sodium (Protonix) 40 mg BIDAC PO Last administered on 08/03/18at 07 :41; Start 08/02/18 at 16:30 Iohexol (Omnipaque 300 Mg/ml) 500 ml 1X ONCE [place] Last administered on at 13:26; Start 08/02/18 at 12:15; Stop 08/02/18 at 12:16; Status DC Info (CONTRAST GIVEN -- Rx MONITORING) 1 each PRN DAILY PRN MC SEE COMMENTS; Start 08/02/18 at 12:15; Stop 08/04/18 at 12:14 Morphine Sulfate (Morphine Sulfate) 4 mg PRN Q2HR PRN IV SEVERE PAIN Last administered on 08/03/18at 07:41; Start 08/03/18 at 01:00 Active Scripts Active [Pantoprazole] 40 MG Tablet.dr 40 Mg PO DAILYAC Tramadol Hcl 50 Mg Tablet 50 Mg PO PRN Q6HRS PRN Metoprolol Tartrate 25 Mg Tablet 12.5 Mg PO BID Culturelle (Lactobacillus Rhamnosus Gg) 1 Each Cap.sprink 1 Cap PO BID Reported Bumetanide 2 Mg Tablet 2 Mg PO DAILY Fish Oil 1,000 mg Softgel ([place]-3S/Dha/Epa/Fish Oil) 1 Each Capsule 1 Each PO BID Losartan Potassium 50 Mg Tablet 50 Mg PO DAILY Vitamin D2 (Ergocalciferol (Vitamin D2)) 50,000 Unit Capsule 50,000 Unit PO 2XWEEKLY Klor-Con M10 (Potassium Chloride) 10 Meq Tab.er.prt 1 Tab PO BID Calcium (Calcium Carbonate) 600 Mg Tablet 600 Mg PO DAILY Digoxin 125 Mcg Tablet 1 Tab PO DAILY Miralax (Polyethylene Glycol 3350) 17 Gm Powd.pack 1 Packet PO DAILY Symbicort 160-4.5 Mcg Inhaler (Budesonide/Formoterol Fumarate) 10.2 Gm Hfa.aer.ad 2 Puff IH BID Vitals/I & O Vital Sign - Last 24 Hours 08/02/18 08/02/18 08/02/18 08/02/18 15:00 19:32 19:56 20:00 Temp 96.8 97.9 96.8 97.9 Pulse 81 87 Resp 16 16 16 B/P (MAP) 142/76 (98) 128/75 (92) Pulse Ox 98 95 O2 Delivery Room Air Room Air Room Air Room Air 08/02/18 08/02/18 08/03/18 08/03/18 20:26 23:13 03:38 07:00 Temp 98.0 98.4 98.1 98.0 98.4 98.1 Pulse 81 79 96 Resp 16 16 20 16 B/P (MAP) 115/64 (81) 134/66 (88) 140/56 (84) Pulse Ox 95 95 98 93 O2 Delivery Nasal Cannula Room Air Nasal Cannula Room Air O2 Flow Rate 2.0 08/03/18 08/03/18 08/03/18 08/03/18 07:41 08:00 08:11 11:00 Temp 97.7 97.7 Pulse 82 Resp 20 20 18 B/P (MAP) 121/71 (88) Pulse Ox 98 98 95 O2 Delivery Room Air Room Air Room Air Room Air O2 Flow Rate 2.0 2.0 Intake and Output 08/02/18 08/02/18 08/03/18 15:00 23:00 07:00 Intake Total 870 ml 100 ml Output Total 452 ml Balance 870 ml -352 ml CURLY NOLAN MD Aug 03, 2018 13:04
[2018-08-03 15:00] VITALS: BP 123/75
[2018-08-03 19:19] LABS: CALCIUM PTH 9.4 mg/dL (8.7-10.3); CREATININE PTH 0.88 mg/dL (0.57-1.00); PHOSPHORUS PTH 2.7 mg/dL (2.5-4.5); PTH INTACT 27 pg/mL (15-65)
[2018-08-03 19:46] VITALS: BP 121/73
[2018-08-03 23:20] VITALS: BP 128/76
[2018-08-04 03:16] VITALS: BP 132/63
[2018-08-04] MEDS: MORPHINE SULFATE 2 MG/ML VIAL. IV PRN ×2 (05:44→22:01)
[2018-08-04 07:00] VITALS: BP 110/65
[2018-08-04] MEDS: PANTOPRAZOLE 40 MG TABLET.DR. PO SCH ×2 (07:30→17:24)
[2018-08-04] MEDS: ENOXAPARIN 40 MG/0.4 ML SYRINGE. SQ SCH (10:00)
--- NOTE | 2018-08-04 10:54 | PDOC ---
PROGRESS NOTES Chief Complaint Chief Complaint stomal stricture H/o diverticular stricture, s/p sigmoid colectomy w/ LLQ ostomy Abd pain, n/v Abnormal CT - distended fluid-filled colon History of Present Illness History of Present Illness NG out 08/02/18 some abdominal pain today Asks what time her procedure is Plan: Nothing by mouth for planned diltn of the stomal stricture We'll defer diet post procedure to GI or GS No PT needs Vitals Vitals Vital Signs Date Time Temp Pulse Resp B/P (MAP) Pulse Ox O2 Delivery O2 Flow Rate FiO2 08/04/18 08:19 Room Air 2.0 08/04/18 07:00 98.1 79 16 110/65 (80) 98 98.1 Physical Exam General: Alert, Cooperative, No acute distress Heart: Regular rate Lungs: Clear Abdomen: Soft, Other (well healed midline scar, left sided stoma with minimal contents in appliance) Extremities: No clubbing, No cyanosis, No edema, Normal pulses, No tenderness/ swelling Skin: No rashes, No breakdown, No significant lesion Review of Systems Review of Systems some Abdominal pain otherwise rest of 14 point negative Comment Review of Relevant I have reviewed the following items halle (where applicable) has been applied. Labs Laboratory Tests Test 08/03/18 09:55 Estimated GFR (Non- 64 (>59) EGFR 74 (>59) PTH (Intact) Specimen Description Comment (.) Parathyroid Hormone (Intact) 27 pg/mL (15-65) Calcium (PTH Intact) 9.4 mg/dL (8.7-10.3) Creatinine (PTH Intact) 0.88 mg/dL (0.57-1.00) Phosphorus (PTH Intact) 2.7 mg/dL (2.5-4.5) Medications Current Medications Fentanyl Citrate (Fentanyl 2ml Vial) 50 mcg 1X ONCE IV Last administered on 10/08at 20:04; Start 08/01/18 at 19:30; Stop 08/01/18 at 19:33; Status DC Ondansetron HCl (Zofran) 4 mg 1X ONCE IV Last administered on 08/01/18at 20:04 ; Start 08/01/18 at 19:30; Stop 08/01/18 at 19:33; Status DC Benzocaine (Hurricaine One) 1 spray STK-MED ONCE .ROUTE ; Start 08/01/18 at 19: 52; Stop 08/01/18 at 19:53; Status DC Benzocaine (Hurricaine One) 1 spray 1X ONCE MM Last administered on 08/01/18at 21:51; Start 08/01/18 at 20:00; Stop 08/01/18 at 20:01; Status DC Iohexol (Omnipaque 240 Mg/ml) 30 ml 1X ONCE PO Last administered on 08/01/18at 20:30; Start 08/01/18 at 20:30; Stop 08/01/18 at 20:37; Status DC Iohexol (Omnipaque 300 Mg/ml) 75 ml 1X ONCE IV Last administered on 08/01/18at 20:30; Start 08/01/18 at 20:30; Stop 08/01/18 at 20:37; Status DC Fentanyl Citrate (Fentanyl 2ml Vial) 50 mcg 1X ONCE IV Last administered on 10/08at 22:46; Start 08/01/18 at 22:30; Stop 08/01/18 at 22:31; Status DC Ondansetron HCl (Zofran) 4 mg PRN Q8HRS PRN IV NAUSEA/VOMITING Last administered on 08/02/18at 08:54; Start 08/01/18 at 22:45; Stop 08/02/18 at 09:05 ; Status DC Morphine Sulfate (Morphine Sulfate) 4 mg PRN Q2HR PRN IV PAIN Last administered on 08/02/18at 19:56; Start 08/01/18 at 22:45; Stop 08/02/18 at 22:44 ; Status DC Fentanyl Citrate (Fentanyl 2ml Vial) 50 mcg PRN Q2HR PRN IV PAIN Last administered on 08/02/18at 17:32; Start 08/01/18 at 22:45; Stop 08/02/18 at 22:44 ; Status DC Sodium Chloride 1,000 ml @ 100 mls/hr Q10H IV Last administered on 08/02/18at 08:52; Start 08/01/18 at 22:45; Stop 08/02/18 at 22:44; Status DC Ondansetron HCl (Zofran) 4 mg PRN Q6HRS PRN IV NAUSEA/VOMITING; Start 08/02/18 at 09:15 Enoxaparin Sodium (Lovenox 40mg Syringe) 40 mg Q24H SQ ; Start 08/02/18 at 10:00 Acetaminophen (Tylenol) 500 mg PRN Q6HRS PRN PO MILD PAIN / TEMP; Start at 09:15 Acetaminophen/ Codeine Phosphate (Tylenol #3) 1 tab PRN Q6HRS PRN PO MODERATE - SEVERE PAIN; Start 08/02/18 at 09:15 Pantoprazole Sodium (PROTONIX VIAL for IV PUSH) 40 mg DAILYAC IVP ; Start at 07:30; Stop 08/03/18 at 10:14; Status DC Pantoprazole Sodium (PROTONIX VIAL for IV PUSH) 40 mg 1X ONCE IVP Last administered on 08/02/18at 10:42; Start 08/02/18 at 10:00; Stop 08/02/18 at 11:22 ; Status DC Labetalol HCl (Normodyne Iv Push) 20 mg PRN Q2HR PRN IVP HYPERTENSION, SEE COMMENTS; Start 08/02/18 at 09:15 Pantoprazole Sodium (Protonix) 40 mg BIDAC PO Last administered on 08/03/18at 16 :59; Start 08/02/18 at 16:30 Iohexol (Omnipaque 300 Mg/ml) 500 ml 1X ONCE KS Last administered on at 13:26; Start 08/02/18 at 12:15; Stop 08/02/18 at 12:16; Status DC Info (CONTRAST GIVEN -- Rx MONITORING) 1 each PRN DAILY PRN MC SEE COMMENTS; Start 08/02/18 at 12:15; Stop 08/04/18 at 12:14 Morphine Sulfate (Morphine Sulfate) 4 mg PRN Q2HR PRN IV SEVERE PAIN Last administered on 08/04/18at 05:44; Start 08/03/18 at 01:00 Active Scripts Active [Pantoprazole] 40 MG Tablet.dr 40 Mg PO DAILYAC Tramadol Hcl 50 Mg Tablet 50 Mg PO PRN Q6HRS PRN Metoprolol Tartrate 25 Mg Tablet 12.5 Mg PO BID Culturelle (Lactobacillus Rhamnosus Gg) 1 Each Cap.sprink 1 Cap PO BID Reported Bumetanide 2 Mg Tablet 2 Mg PO DAILY Fish Oil 1,000 mg Softgel ([place]-3S/Dha/Epa/Fish Oil) 1 Each Capsule 1 Each PO BID Losartan Potassium 50 Mg Tablet 50 Mg PO DAILY Vitamin D2 (Ergocalciferol (Vitamin D2)) 50,000 Unit Capsule 50,000 Unit PO 2XWEEKLY Klor-Con M10 (Potassium Chloride) 10 Meq Tab.er.prt 1 Tab PO BID Calcium (Calcium Carbonate) 600 Mg Tablet 600 Mg PO DAILY Digoxin 125 Mcg Tablet 1 Tab PO DAILY Miralax (Polyethylene Glycol 3350) 17 Gm Powd.pack 1 Packet PO DAILY Symbicort 160-4.5 Mcg Inhaler (Budesonide/Formoterol Fumarate) 10.2 Gm Hfa.aer.ad 2 Puff IH BID Vitals/I & O Vital Sign - Last 24 Hours 08/03/18 08/03/18 08/03/18 08/03/18 11:00 14:50 15:00 18:32 Temp 97.7 98.4 97.7 98.4 Pulse 82 92 Resp 18 20 18 20 B/P (MAP) 121/71 (88) 123/75 (91) Pulse Ox 95 95 94 94 O2 Delivery Room Air Room Air Room Air Room Air O2 Flow Rate 2.0 08/03/18 08/03/18 08/03/18 08/03/18 19:46 20:00 21:18 23:20 Temp 98.9 99.7 98.9 99.7 Pulse 94 99 Resp 18 16 B/P (MAP) 121/73 (89) 128/76 (93) Pulse Ox 96 96 94 O2 Delivery Room Air Room Air Room Air Room Air O2 Flow Rate 2.0 08/04/18 08/04/18 08/04/18 08/04/18 03:16 05:44 06:14 07:00 Temp 98.9 98.1 98.9 98.1 Pulse 96 79 Resp 20 16 16 16 B/P (MAP) 132/63 (86) 110/65 (80) Pulse Ox 99 99 98 O2 Delivery Nasal Cannula Room Air Room Air Nasal Cannula O2 Flow Rate 2.0 2.0 2.0 2.0 08/04/18 08:19 O2 Delivery Room Air O2 Flow Rate 2.0 Intake and Output 08/03/18 08/03/18 08/04/18 15:00 23:00 07:00 Intake Total 720 ml 360 ml 110 ml Balance 720 ml 360 ml 110 ml CURLY NOLAN MD Aug 04, 2018 10:54
[2018-08-04 11:00] VITALS: BP 133/73
[2018-08-04] MEDS ORDERED: LIDOCAINE 2% JELLY 6ML IN APPLICATOR. ONE ×2 (11:11→11:12)
[2018-08-04] MEDS ORDERED: LIDOCAINE 2% JELLY 6ML IN APPLICATOR. MM ONE (12:15)
--- NOTE | 2018-08-04 14:39 | PDOC ---
SURGICAL PROGRESS NOTE Subjective some occasional crampy abdominal pain minimal stomal output Vital Signs Vital Signs Date Time Temp Pulse Resp B/P (MAP) Pulse Ox O2 Delivery O2 Flow Rate FiO2 08/04/18 11:00 98.1 80 16 133/73 (93) 94 Room Air 98.1 08/04/18 08:19 2.0 I&O Intake and Output 08/04/18 07:00 Intake Total 1190 ml Balance 1190 ml Intake Oral 1190 ml # Voids 10 PATIENT HAS A EDWARDS: No General: No acute distress Abdomen: Soft, Other Labs Laboratory Tests Test 08/03/18 09:55 Estimated GFR (Non- 64 (>59) EGFR 74 (>59) PTH (Intact) Specimen Description Comment (.) Parathyroid Hormone (Intact) 27 pg/mL (15-65) Calcium (PTH Intact) 9.4 mg/dL (8.7-10.3) Creatinine (PTH Intact) 0.88 mg/dL (0.57-1.00) Phosphorus (PTH Intact) 2.7 mg/dL (2.5-4.5) Assessment/Plan stomal stenosis I injected some 2% lidocaine jelly in the stoma, gently dilated up to a #10 Paula dilator, patient tolerated well, liquid brown stool output, minimal bleeding Dr Duvall and Amanda Whaley to follow over the weekend Dr Marte returns Tuesday WAQAS OLIVERA MD Aug 04, 2018 14:39
[2018-08-04 15:00] VITALS: BP 115/57
--- NOTE | 2018-08-04 15:14 | PDOC ---
Subjective: Subjective: Having some water, says stoma was dilated and has some stool in bag now. Objective: Objective: D/w Dr. Ni and RN this morning - was made NPO at midnight, not sure why. Reviewed Dr. Ni's note. Vital Signs: Vital Signs Date Time Temp Pulse Resp B/P (MAP) Pulse Ox O2 Delivery O2 Flow Rate FiO2 08/04/18 11:00 98.1 80 16 133/73 (93) 94 Room Air 98.1 08/04/18 08:19 2.0 PE: GEN: NAD LUNGS: CTAB HEART: RRR ABD: LLQ ostomy - bag with brown stool NEURO/PSYCH: A & O 3 A/P: Stomal stenosis s/p dilation -- Some stool in bag this afternoon, observe. MELO STOCKTON Aug 04, 2018 15:14
[2018-08-04 19:47] VITALS: BP 127/66
[2018-08-04 23:14] VITALS: BP 143/68
[2018-08-05] MEDS: MORPHINE SULFATE 2 MG/ML VIAL. IV PRN ×2 (01:44→06:02)
[2018-08-05 03:24] VITALS: BP 142/79
[2018-08-05 07:00] VITALS: BP 125/76
[2018-08-05] MEDS: PANTOPRAZOLE 40 MG TABLET.DR. PO SCH ×2 (08:42→16:26)
[2018-08-05] MEDS: ENOXAPARIN 40 MG/0.4 ML SYRINGE. SQ SCH (08:42)
--- NOTE | 2018-08-05 09:50 | PDOC ---
SURGICAL PROGRESS NOTE Subjective hungry some pain did not sleep well Vital Signs Vital Signs Date Time Temp Pulse Resp B/P (MAP) Pulse Ox O2 Delivery O2 Flow Rate FiO2 08/05/18 07:12 Room Air 08/05/18 07:00 98.1 78 18 125/76 (92) 99 2.0 98.1 I&O Intake and Output 08/05/18 07:00 Intake Total 500 ml Output Total 800 ml Balance -300 ml Intake Oral 500 ml Output Urine Total 800 ml # Voids 2 # Bowel Movements 1 General: Alert, Oriented X3, Cooperative, No acute distress Abdomen: Soft, Other (ostomy with some stool) Labs Laboratory Tests Test 08/03/18 09:55 Estimated GFR (Non- 64 (>59) EGFR 74 (>59) PTH (Intact) Specimen Description Comment (.) Parathyroid Hormone (Intact) 27 pg/mL (15-65) Calcium (PTH Intact) 9.4 mg/dL (8.7-10.3) Creatinine (PTH Intact) 0.88 mg/dL (0.57-1.00) Phosphorus (PTH Intact) 2.7 mg/dL (2.5-4.5) Problem List stomal stenosis clears over weekend, will discuss with Dr Marte on Tuesday BRAXTON BIRMINGHAM APRN Aug 05, 2018 09:50
[2018-08-05 11:00] VITALS: BP_SYST 128; BP_DIAS 76; BP_DIAS 86
--- NOTE | 2018-08-05 12:41 | PDOC ---
PROGRESS NOTES Chief Complaint Chief Complaint stomal stricture s/p bedside dilatation 08/04 H/o diverticular stricture, s/p sigmoid colectomy w/ LLQ ostomy Abd pain, n/v Abnormal CT - distended fluid-filled colon History of Present Illness History of Present Illness NG out 08/02/18 Dilatation of ostomy stoma done at bedside by Dr. Ni, more stools coming out Soft belly, hungry Plan: Regular diet Home meds reconciled GS wants to monitor the patient over the weekend, Dr. Marte to come back on Tuesday Discussed with whole family PT OT Vitals Vitals Vital Signs Date Time Temp Pulse Resp B/P (MAP) Pulse Ox O2 Delivery O2 Flow Rate FiO2 08/05/18 11:00 98.0 90 20 128/76 (93) 96 Room Air 98.0 08/05/18 07:00 2.0 Physical Exam General: Alert, Oriented X3, Cooperative, No acute distress Heart: Regular rate Lungs: Clear Abdomen: Soft, Other (ostomy with some stool) Extremities: No clubbing, No cyanosis, No edema, Normal pulses, No tenderness/ swelling Skin: No rashes, No breakdown, No significant lesion Review of Systems Review of Systems A 14 point ROS was completed with the following noted as positive: Other systems reviewed and negative. \CONSTITUTIONAL: No fever or chills EYES: No recent changes SKIN: No rash or itching CARDIOVASCULAR: No chest pain, syncope, palpitations, or edema RESPIRATORY: No SOB or cough GASTROINTESTINAL: No nausea, vomiting or abdominal pain NEUROLOGICAL: No headaches or weakness ENDOCRINE: No cold or heat intolerance GENITOURINARY: No urgency or frequency of urination MUSCULOSKELETAL: No back pain or joint pain LYMPHATICS: No enlarged lymph nodes PSYCHIATRIC: No anxiety or depression Comment Review of Relevant I have reviewed the following items halle (where applicable) has been applied. Medications Current Medications Fentanyl Citrate (Fentanyl 2ml Vial) 50 mcg 1X ONCE IV Last administered on 10/08at 20:04; Start 08/01/18 at 19:30; Stop 08/01/18 at 19:33; Status DC Ondansetron HCl (Zofran) 4 mg 1X ONCE IV Last administered on 08/01/18at 20:04 ; Start 08/01/18 at 19:30; Stop 08/01/18 at 19:33; Status DC Benzocaine (Hurricaine One) 1 spray STK-MED ONCE .ROUTE ; Start 08/01/18 at 19: 52; Stop 08/01/18 at 19:53; Status DC Benzocaine (Hurricaine One) 1 spray 1X ONCE MM Last administered on 08/01/18at 21:51; Start 08/01/18 at 20:00; Stop 08/01/18 at 20:01; Status DC Iohexol (Omnipaque 240 Mg/ml) 30 ml 1X ONCE PO Last administered on 08/01/18at 20:30; Start 08/01/18 at 20:30; Stop 08/01/18 at 20:37; Status DC Iohexol (Omnipaque 300 Mg/ml) 75 ml 1X ONCE IV Last administered on 08/01/18at 20:30; Start 08/01/18 at 20:30; Stop 08/01/18 at 20:37; Status DC Fentanyl Citrate (Fentanyl 2ml Vial) 50 mcg 1X ONCE IV Last administered on 10/08at 22:46; Start 08/01/18 at 22:30; Stop 08/01/18 at 22:31; Status DC Ondansetron HCl (Zofran) 4 mg PRN Q8HRS PRN IV NAUSEA/VOMITING Last administered on 08/02/18at 08:54; Start 08/01/18 at 22:45; Stop 08/02/18 at 09:05 ; Status DC Morphine Sulfate (Morphine Sulfate) 4 mg PRN Q2HR PRN IV PAIN Last administered on 08/02/18at 19:56; Start 08/01/18 at 22:45; Stop 08/02/18 at 22:44 ; Status DC Fentanyl Citrate (Fentanyl 2ml Vial) 50 mcg PRN Q2HR PRN IV PAIN Last administered on 08/02/18at 17:32; Start 08/01/18 at 22:45; Stop 08/02/18 at 22:44 ; Status DC Sodium Chloride 1,000 ml @ 100 mls/hr Q10H IV Last administered on 08/02/18at 08:52; Start 08/01/18 at 22:45; Stop 08/02/18 at 22:44; Status DC Ondansetron HCl (Zofran) 4 mg PRN Q6HRS PRN IV NAUSEA/VOMITING; Start 08/02/18 at 09:15 Enoxaparin Sodium (Lovenox 40mg Syringe) 40 mg Q24H SQ ; Start 08/02/18 at 10:00 Acetaminophen (Tylenol) 500 mg PRN Q6HRS PRN PO MILD PAIN / TEMP; Start at 09:15 Acetaminophen/ Codeine Phosphate (Tylenol #3) 1 tab PRN Q6HRS PRN PO MODERATE - SEVERE PAIN; Start 08/02/18 at 09:15 Pantoprazole Sodium (PROTONIX VIAL for IV PUSH) 40 mg DAILYAC IVP ; Start at 07:30; Stop 08/03/18 at 10:14; Status DC Pantoprazole Sodium (PROTONIX VIAL for IV PUSH) 40 mg 1X ONCE IVP Last administered on 08/02/18at 10:42; Start 08/02/18 at 10:00; Stop 08/02/18 at 11:22 ; Status DC Labetalol HCl (Normodyne Iv Push) 20 mg PRN Q2HR PRN IVP HYPERTENSION, SEE COMMENTS; Start 08/02/18 at 09:15 Pantoprazole Sodium (Protonix) 40 mg BIDAC PO Last administered on 08/05/18at 08 :42; Start 08/02/18 at 16:30 Iohexol (Omnipaque 300 Mg/ml) 500 ml 1X ONCE VA Last administered on at 13:26; Start 08/02/18 at 12:15; Stop 08/02/18 at 12:16; Status DC Info (CONTRAST GIVEN -- Rx MONITORING) 1 each PRN DAILY PRN MC SEE COMMENTS; Start 08/02/18 at 12:15; Stop 08/04/18 at 12:14; Status DC Morphine Sulfate (Morphine Sulfate) 4 mg PRN Q2HR PRN IV SEVERE PAIN Last administered on 08/05/18at 06:02; Start 08/03/18 at 01:00 Lidocaine HCl (Glydo (Lidocaine) Jelly) 1 char 1X ONCE MM Last administered on 08/04/18at 12:15; Start 08/04/18 at 12:15; Stop 08/04/18 at 12:16; Status DC Lidocaine HCl (Glydo (Lidocaine) Jelly) 6 char STK-MED ONCE .ROUTE ; Start at 11:11; Stop 08/04/18 at 12:12; Status DC Lidocaine HCl (Glydo (Lidocaine) Jelly) 6 char STK-MED ONCE .ROUTE ; Start at 11:12; Stop 08/04/18 at 12:12; Status DC Active Scripts Active [Pantoprazole] 40 MG Tablet.dr 40 Mg PO DAILYAC Tramadol Hcl 50 Mg Tablet 50 Mg PO PRN Q6HRS PRN Metoprolol Tartrate 25 Mg Tablet 12.5 Mg PO BID Culturelle (Lactobacillus Rhamnosus Gg) 1 Each Cap.sprink 1 Cap PO BID Reported Bumetanide 2 Mg Tablet 2 Mg PO DAILY Fish Oil 1,000 mg Softgel ([place]-3S/Dha/Epa/Fish Oil) 1 Each Capsule 1 Each PO BID Losartan Potassium 50 Mg Tablet 50 Mg PO DAILY Vitamin D2 (Ergocalciferol (Vitamin D2)) 50,000 Unit Capsule 50,000 Unit PO 2XWEEKLY Klor-Con M10 (Potassium Chloride) 10 Meq Tab.er.prt 1 Tab PO BID Calcium (Calcium Carbonate) 600 Mg Tablet 600 Mg PO DAILY Digoxin 125 Mcg Tablet 1 Tab PO DAILY Miralax (Polyethylene Glycol 3350) 17 Gm Powd.pack 1 Packet PO DAILY Symbicort 160-4.5 Mcg Inhaler (Budesonide/Formoterol Fumarate) 10.2 Gm Hfa.aer.ad 2 Puff IH BID Vitals/I & O Vital Sign - Last 24 Hours 08/04/18 08/04/18 08/04/18 08/04/18 15:00 19:47 20:00 22:01 Temp 97.9 97.8 97.9 97.8 Pulse 79 88 Resp 18 18 B/P (MAP) 115/57 (76) 127/66 (86) Pulse Ox 95 94 94 O2 Delivery Room Air Room Air Room Air Room Air O2 Flow Rate 2.0 08/04/18 08/05/18 08/05/18 08/05/18 23:14 01:44 02:14 03:24 Temp 98.1 97.9 98.1 97.9 Pulse 92 90 Resp 18 18 B/P (MAP) 143/68 (93) 142/79 (100) Pulse Ox 95 95 95 95 O2 Delivery Room Air Room Air Nasal Cannula O2 Flow Rate 2.0 9/1508/05/18 08/05/18 08/05/18 06:02 06:54 07:00 07:12 Temp 98.1 98.1 Pulse 78 Resp 18 B/P (MAP) 125/76 (92) Pulse Ox 96 99 O2 Delivery Room Air Room Air Nasal Cannula Room Air O2 Flow Rate 2.0 2.0 08/05/18 11:00 Temp 98.0 98.0 Pulse 90 Resp 20 B/P (MAP) 128/76 (93) Pulse Ox 96 O2 Delivery Room Air Intake and Output 08/04/18 08/04/18 08/05/18 15:00 23:00 07:00 Intake Total 500 ml Output Total 800 ml Balance -300 ml CURLY NOLAN MD Aug 05, 2018 12:41
[2018-08-05] MEDS ORDERED: traMADol 50 MG TABLET PO PRN (12:45)
[2018-08-05] MEDS: CALCIUM CARBONATE 500 MG TABLET PO SCH ×2 (13:00→13:32)
[2018-08-05] MEDS: BUMETANIDE 1 MG TABLET. PO SCH (13:31)
[2018-08-05] MEDS: DIGOXIN 125 MCG TABLET. PO SCH (13:32)
[2018-08-05] MEDS: LOSARTAN POTASSIUM 50 MG TABLET. PO SCH (13:32)
[2018-08-05] MEDS: POLYETHYLENE GLYCOL 3350 17 GM PACKET. PO SCH (13:32)
[2018-08-05] MEDS: ALBUTEROL SULFATE 2.5 MG/3 ML NEBU. NEB SCH ×2 (16:00→19:50)
[2018-08-05] MEDS: POTASSIUM CHLORIDE 10 MEQ TABLET.ER. PO SCH (16:26)
[2018-08-05 19:10] VITALS: BP 119/65
[2018-08-05] MEDS: BUDESONIDE 0.5 MG/2 ML NEBU. NEB SCH (19:30)
[2018-08-05] MEDS: LACTOBACILLUS RHAMNOSUS GG 1 CAPSULE. PO SCH (20:55)
[2018-08-05] MEDS: METOPROLOL TART IMMED RELEASE 25 MG TABLET. PO SCH (20:55)
[2018-08-05] MEDS: OMEGA-3 FATTY ACIDS/FISH OIL 1,000 MG CAPSULE. PO SCH (20:55)
[2018-08-05] MEDS ORDERED: NON FORMULARY ITEM (Budesonide/Formoterol Fumarate (Symbicort 160-4.5 Mcg Inhaler) 2 PUFF) IH SCH (21:00)
[2018-08-05 23:41] VITALS: BP 123/69
[2018-08-06 03:55] VITALS: BP 130/55
[2018-08-06 07:00] VITALS: BP 122/62
[2018-08-06] MEDS ORDERED: NON FORMULARY ITEM ([Pantoprazole] 40 MG) PO SCH (07:30)
[2018-08-06] MEDS: ALBUTEROL SULFATE 2.5 MG/3 ML NEBU. NEB SCH ×4 (07:35→19:16)
[2018-08-06] MEDS: BUDESONIDE 0.5 MG/2 ML NEBU. NEB SCH ×2 (07:35→19:16)
[2018-08-06] MEDS: LACTOBACILLUS RHAMNOSUS GG 1 CAPSULE. PO SCH ×2 (08:30→21:00)
[2018-08-06] MEDS: POLYETHYLENE GLYCOL 3350 17 GM PACKET. PO SCH (08:30)
[2018-08-06] MEDS: BUMETANIDE 1 MG TABLET. PO SCH (08:30)
[2018-08-06] MEDS: PANTOPRAZOLE 40 MG TABLET.DR. PO SCH ×2 (08:31→16:00)
[2018-08-06] MEDS: POTASSIUM CHLORIDE 10 MEQ TABLET.ER. PO SCH ×2 (08:31→16:00)
[2018-08-06] MEDS: OMEGA-3 FATTY ACIDS/FISH OIL 1,000 MG CAPSULE. PO SCH ×2 (08:31→21:00)
[2018-08-06] MEDS: DIGOXIN 125 MCG TABLET. PO SCH (08:32)
[2018-08-06] MEDS: LOSARTAN POTASSIUM 50 MG TABLET. PO SCH (08:32)
[2018-08-06] MEDS: METOPROLOL TART IMMED RELEASE 25 MG TABLET. PO SCH ×2 (08:32→21:00)
[2018-08-06] MEDS: ENOXAPARIN 40 MG/0.4 ML SYRINGE. SQ SCH (08:35)
--- NOTE | 2018-08-06 09:11 | PDOC ---
BRAXTON BIRMINGHAM APRN 08/06/18 0910: SURGICAL PROGRESS NOTE Subjective has been eating regular diet no emesis feels better ostomy working Vital Signs Vital Signs Date Time Temp Pulse Resp B/P (MAP) Pulse Ox O2 Delivery O2 Flow Rate FiO2 08/06/18 08:32 55 122/62 08/06/18 07:43 Room Air 08/06/18 07:37 96 08/06/18 07:00 97.9 16 97.9 08/05/18 19:34 2.0 I&O Intake and Output 08/06/18 07:00 Intake Total 800 ml Output Total 2200 ml Balance -1400 ml Intake Oral 800 ml Output Urine Total 1650 ml Stool Total 550 ml # Voids 4 # Bowel Movements 1 General: Alert, Oriented X3, Cooperative, No acute distress Abdomen: Soft, Other (ostomy with stool) Assessment/Plan will review with Dr Marte tuesday MIRANDA PAYEN MD 08/06/18 1426: SURGICAL PROGRESS NOTE Assessment/Plan Pt seen and examined. Agree with Ms. Birmingham's note Pt reports feeling well, fili diet having good ostomy output cont supportive care BRAXTON BIRMINGHAM APRN Aug 06, 2018 09:10 MIRANDA PAYNE MD Aug 06, 2018 14:26
--- NOTE | 2018-08-06 10:02 | PDOC ---
PROGRESS NOTES Chief Complaint Chief Complaint stomal stricture s/p bedside dilatation 08/04 H/o diverticular stricture, s/p sigmoid colectomy w/ LLQ ostomy Abd pain, n/v Abnormal CT - distended fluid-filled colon History of Present Illness History of Present Illness NG out 08/02/18 Dilatation of ostomy stoma done at bedside by Dr. Ni, more stools coming out Soft belly, hungry Plan: Regular diet Home meds reconciled GS wants to monitor the patient over the weekend, Dr. Marte to come back on Tuesday Discussed with whole family PT OT Vitals Vitals Vital Signs Date Time Temp Pulse Resp B/P (MAP) Pulse Ox O2 Delivery O2 Flow Rate FiO2 08/06/18 08:32 55 122/62 08/06/18 07:43 Room Air 08/06/18 07:37 96 08/06/18 07:00 97.9 16 97.9 08/05/18 19:34 2.0 Physical Exam General: Alert, Oriented X3, Cooperative, No acute distress Heart: Regular rate Lungs: Clear Abdomen: Soft, Other (ostomy with stool) Extremities: No clubbing, No cyanosis, No edema, Normal pulses, No tenderness/ swelling Skin: No rashes, No breakdown, No significant lesion Review of Systems Review of Systems A 14 point ROS was completed with the following noted as positive: Other systems reviewed and negative. \CONSTITUTIONAL: No fever or chills EYES: No recent changes SKIN: No rash or itching CARDIOVASCULAR: No chest pain, syncope, palpitations, or edema RESPIRATORY: No SOB or cough GASTROINTESTINAL: No nausea, vomiting or abdominal pain NEUROLOGICAL: No headaches or weakness ENDOCRINE: No cold or heat intolerance GENITOURINARY: No urgency or frequency of urination MUSCULOSKELETAL: No back pain or joint pain LYMPHATICS: No enlarged lymph nodes PSYCHIATRIC: No anxiety or depression Comment Review of Relevant I have reviewed the following items halle (where applicable) has been applied. Medications Current Medications Fentanyl Citrate (Fentanyl 2ml Vial) 50 mcg 1X ONCE IV Last administered on 10/08at 20:04; Start 08/01/18 at 19:30; Stop 08/01/18 at 19:33; Status DC Ondansetron HCl (Zofran) 4 mg 1X ONCE IV Last administered on 08/01/18at 20:04 ; Start 08/01/18 at 19:30; Stop 08/01/18 at 19:33; Status DC Benzocaine (Hurricaine One) 1 spray STK-MED ONCE .ROUTE ; Start 08/01/18 at 19: 52; Stop 08/01/18 at 19:53; Status DC Benzocaine (Hurricaine One) 1 spray 1X ONCE MM Last administered on 08/01/18at 21:51; Start 08/01/18 at 20:00; Stop 08/01/18 at 20:01; Status DC Iohexol (Omnipaque 240 Mg/ml) 30 ml 1X ONCE PO Last administered on 08/01/18at 20:30; Start 08/01/18 at 20:30; Stop 08/01/18 at 20:37; Status DC Iohexol (Omnipaque 300 Mg/ml) 75 ml 1X ONCE IV Last administered on 08/01/18at 20:30; Start 08/01/18 at 20:30; Stop 08/01/18 at 20:37; Status DC Fentanyl Citrate (Fentanyl 2ml Vial) 50 mcg 1X ONCE IV Last administered on 10/08at 22:46; Start 08/01/18 at 22:30; Stop 08/01/18 at 22:31; Status DC Ondansetron HCl (Zofran) 4 mg PRN Q8HRS PRN IV NAUSEA/VOMITING Last administered on 08/02/18at 08:54; Start 08/01/18 at 22:45; Stop 08/02/18 at 09:05 ; Status DC Morphine Sulfate (Morphine Sulfate) 4 mg PRN Q2HR PRN IV PAIN Last administered on 08/02/18at 19:56; Start 08/01/18 at 22:45; Stop 08/02/18 at 22:44 ; Status DC Fentanyl Citrate (Fentanyl 2ml Vial) 50 mcg PRN Q2HR PRN IV PAIN Last administered on 08/02/18at 17:32; Start 08/01/18 at 22:45; Stop 08/02/18 at 22:44 ; Status DC Sodium Chloride 1,000 ml @ 100 mls/hr Q10H IV Last administered on 08/02/18at 08:52; Start 08/01/18 at 22:45; Stop 08/02/18 at 22:44; Status DC Ondansetron HCl (Zofran) 4 mg PRN Q6HRS PRN IV NAUSEA/VOMITING; Start 08/02/18 at 09:15 Enoxaparin Sodium (Lovenox 40mg Syringe) 40 mg Q24H SQ ; Start 08/02/18 at 10:00 Acetaminophen (Tylenol) 500 mg PRN Q6HRS PRN PO MILD PAIN / TEMP; Start at 09:15 Acetaminophen/ Codeine Phosphate (Tylenol #3) 1 tab PRN Q6HRS PRN PO MODERATE - SEVERE PAIN; Start 08/02/18 at 09:15 Pantoprazole Sodium (PROTONIX VIAL for IV PUSH) 40 mg DAILYAC IVP ; Start at 07:30; Stop 08/03/18 at 10:14; Status DC Pantoprazole Sodium (PROTONIX VIAL for IV PUSH) 40 mg 1X ONCE IVP Last administered on 08/02/18at 10:42; Start 08/02/18 at 10:00; Stop 08/02/18 at 11:22 ; Status DC Labetalol HCl (Normodyne Iv Push) 20 mg PRN Q2HR PRN IVP HYPERTENSION, SEE COMMENTS; Start 08/02/18 at 09:15 Pantoprazole Sodium (Protonix) 40 mg BIDAC PO Last administered on 08/06/18at 08 :31; Start 08/02/18 at 16:30 Iohexol (Omnipaque 300 Mg/ml) 500 ml 1X ONCE AR Last administered on at 13:26; Start 08/02/18 at 12:15; Stop 08/02/18 at 12:16; Status DC Info (CONTRAST GIVEN -- Rx MONITORING) 1 each PRN DAILY PRN MC SEE COMMENTS; Start 08/02/18 at 12:15; Stop 08/04/18 at 12:14; Status DC Morphine Sulfate (Morphine Sulfate) 4 mg PRN Q2HR PRN IV SEVERE PAIN Last administered on 08/05/18at 06:02; Start 08/03/18 at 01:00 Lidocaine HCl (Glydo (Lidocaine) Jelly) 1 char 1X ONCE MM Last administered on 08/04/18at 12:15; Start 08/04/18 at 12:15; Stop 08/04/18 at 12:16; Status DC Lidocaine HCl (Glydo (Lidocaine) Jelly) [address]-MED ONCE .ROUTE ; Start at 11:11; Stop 08/04/18 at 12:12; Status DC Lidocaine HCl (Glydo (Lidocaine) Jelly) 6 char STK-MED ONCE .ROUTE ; Start at 11:12; Stop 08/04/18 at 12:12; Status DC Digoxin (Lanoxin) 125 mcg DAILY PO Last administered on 08/06/18 08:32; Start 08/05/18 at 14:00 Ergocalciferol (Vitamin D2) 50,000 unit WEEKLY PO ; Start 08/12/18 at 09:00 Lactobacillus Rhamnosus (Culturelle) 1 cap BID PO Last administered on 08:30; Start 08/05/18 at 21:00 Losartan Potassium (Cozaar) 50 mg DAILY PO Last administered on 08/06/18 08:32 ; Start 08/05/18 at 13:00 Metoprolol Tartrate (Lopressor) 12.5 mg BID PO Last administered on 08/06/18 08:32; Start 08/05/18 at 21:00 Potassium Chloride (Klor-Con) 10 meq BIDWMEALS PO Last administered on 08:31; Start 08/05/18 at 17:00 Tramadol HCl (Ultram) 50 mg PRN Q6HRS PRN PO MILD PAIN; Start 08/05/18 at 12:45 Non-Formulary Medication (Budesonide/ Formoterol Fumarate (Symbicort 160-4.5 Mcg Inhaler)) 2 puff BID IH ; Start 08/05/18 at 21:00; Status UNV Bumetanide (Bumex) 2 mg DAILY PO Last administered on 08/06/18 08:30; Start at 14:00 Calcium Carbonate/ Glycine (Oscal) 500 mg DAILY PO Last administered on at 13:32; Start 08/05/18 at 13:00 Fish Oil (Fish Oil) 1,000 mg BID PO Last administered on 08/06/18 08:31; Start 08/05/18 at 21:00 Polyethylene Glycol (miraLAX PACKET) 17 gm DAILY PO Last administered on 08:30; Start 08/05/18 at 14:00 Non-Formulary Medication ([Pantoprazole] ) 40 mg DAILYAC PO ; Start 08/06/18 at 07:30; Status UNV Albuterol Sulfate (Ventolin Neb Soln) 2.5 mg RTQID NEB Last administered on at 07:35; Start 08/05/18 at 16:00 Budesonide (Pulmicort) 0.5 mg RTBID NEB Last administered on 08/06/18at 07:35; Start 08/05/18 at 20:00 Active Scripts Active [Pantoprazole] 40 MG Tablet.dr 40 Mg PO DAILYAC Tramadol Hcl 50 Mg Tablet 50 Mg PO PRN Q6HRS PRN Metoprolol Tartrate 25 Mg Tablet 12.5 Mg PO BID Culturelle (Lactobacillus Rhamnosus Gg) 1 Each Cap.sprink 1 Cap PO BID Reported Bumetanide 2 Mg Tablet 2 Mg PO DAILY Fish Oil 1,000 mg Softgel ([place]-3S/Dha/Epa/Fish Oil) 1 Each Capsule 1 Each PO BID Losartan Potassium 50 Mg Tablet 50 Mg PO DAILY Vitamin D2 (Ergocalciferol (Vitamin D2)) 50,000 Unit Capsule 50,000 Unit PO 2XWEEKLY Klor-Con M10 (Potassium Chloride) 10 Meq Tab.er.prt 1 Tab PO BID Calcium (Calcium Carbonate) 600 Mg Tablet 600 Mg PO DAILY Digoxin 125 Mcg Tablet 1 Tab PO DAILY Miralax (Polyethylene Glycol 3350) 17 Gm Powd.pack 1 Packet PO DAILY Symbicort 160-4.5 Mcg Inhaler (Budesonide/Formoterol Fumarate) 10.2 Gm Hfa.aer.ad 2 Puff IH BID Vitals/I & O Vital Sign - Last 24 Hours 08/05/18 08/05/18 08/05/18 08/05/18 11:00 13:32 13:32 19:10 Temp 98.0 96.6 98.0 96.6 Pulse 90 90 90 79 Resp 20 18 B/P (MAP) 128/86 (100) 128/76 128/76 119/65 (83) Pulse Ox 96 96 O2 Delivery Room Air Room Air 08/05/18 08/05/18 08/05/18 08/05/18 19:32 19:34 20:00 20:55 Pulse 79 B/P (MAP) 119/65 Pulse Ox 97 97 O2 Delivery Nasal Cannula Nasal Cannula Room Air O2 Flow Rate 2.0 2.0 08/05/18 08/06/18 08/06/18 08/06/18 23:41 03:55 07:00 07:37 Temp 98.8 98.9 97.9 98.8 98.9 97.9 Pulse 71 65 55 Resp 18 20 16 B/P (MAP) 123/69 (87) 130/55 (80) 122/62 (82) Pulse Ox 94 100 95 96 O2 Delivery Room Air Room Air Room Air Room Air 08/06/18 08/06/18 08/06/18 08/06/18 07:43 08:32 08:32 08:32 Pulse 55 55 55 B/P (MAP) 122/62 122/62 122/62 O2 Delivery Room Air Intake and Output 08/05/18 08/05/18 08/06/18 15:00 23:00 07:00 Intake Total 400 ml 400 ml Output Total 550 ml 1650 ml Balance -550 ml 400 ml -1250 ml CURLY NOLAN MD Aug 06, 2018 10:02
[2018-08-06 11:00] VITALS: BP 101/47
[2018-08-06 15:00] VITALS: BP 96/58
[2018-08-06 19:49] VITALS: BP 97/56
[2018-08-06 23:02] VITALS: BP 112/55
[2018-08-07 03:05] VITALS: BP 111/57
[2018-08-07] MEDS: ALBUTEROL SULFATE 2.5 MG/3 ML NEBU. NEB SCH ×2 (07:24→11:22)
[2018-08-07] MEDS: BUDESONIDE 0.5 MG/2 ML NEBU. NEB SCH (07:24)
[2018-08-07 07:38] VITALS: BP 114/70
[2018-08-07] MEDS: OMEGA-3 FATTY ACIDS/FISH OIL 1,000 MG CAPSULE. PO SCH (09:39)
[2018-08-07] MEDS: POTASSIUM CHLORIDE 10 MEQ TABLET.ER. PO SCH (09:40)
[2018-08-07] MEDS: CALCIUM CARBONATE 500 MG TABLET PO SCH (09:40)
[2018-08-07] MEDS: PANTOPRAZOLE 40 MG TABLET.DR. PO SCH (09:40)
[2018-08-07] MEDS: BUMETANIDE 1 MG TABLET. PO SCH (09:40)
[2018-08-07] MEDS: LOSARTAN POTASSIUM 50 MG TABLET. PO SCH (09:41)
[2018-08-07] MEDS: DIGOXIN 125 MCG TABLET. PO SCH (09:41)
[2018-08-07] MEDS: METOPROLOL TART IMMED RELEASE 25 MG TABLET. PO SCH (09:42)
[2018-08-07] MEDS: LACTOBACILLUS RHAMNOSUS GG 1 CAPSULE. PO SCH (09:42)
[2018-08-07] MEDS: POLYETHYLENE GLYCOL 3350 17 GM PACKET. PO SCH (09:42)
[2018-08-07] MEDS: ENOXAPARIN 40 MG/0.4 ML SYRINGE. SQ SCH (09:43)
[2018-08-07] MEDS ORDERED: PANT20TA2 PO (10:44)
--- NOTE | 2018-08-07 10:46 | PDOC3 ---
Discharge Summary Visit Information Date of Admission: Aug 01, 2018 Date of Discharge: Aug 07, 2018 Admitting Diagnosis Comment: stomal stricture s/p bedside dilatation 08/04 H/o diverticular stricture, s/p sigmoid colectomy w/ LLQ ostomy Abd pain, n/v Abnormal CT - distended fluid-filled colo Brief Hospital Course Allergies Allergies Coded Allergies Type Severity Reaction Last Updated Verified DONNA Inhibitors Allergy Severe angioedema 08/01/18 Yes Penicillins Allergy Intermediate n/v,itch,rash 08/01/18 Yes erythromycin base Adverse Reaction Intermediate n/v 08/01/18 Yes Vital Signs Vital Signs Date Time Temp Pulse Resp B/P (MAP) Pulse Ox O2 Delivery O2 Flow Rate FiO2 08/07/18 09:42 62 114/70 08/07/18 07:38 97.7 18 98 Room Air 97.7 Brief Hospital Course Ms. Christensen is a 73 old pleasant female who was admitted because of initial thoughts of SBO, she has history of sigmoid colectomy with indwelling left lower quadrant ostomy. But it turned out to be not SBO but just stomal stricture. She underwent stomal dilatation at bedside by GS on 08/04 and that solved the problems. She stayed 7 days because it was the course was throughout the weekend and they wanted to keep over the weekend until the surgeon who did her colonoscopy with come back on Tuesday She has been cleared by that surgeon now No PT needs, new medication is PPI as recommended by GI Rx on chart Discharge time less than 30 minutes Consults performed GI, GS Procedures performed bedside stomal stricture dilatation Discharge Information Condition at Discharge: Improved, Stable Disposition/Orders: D/C to Home Scheduled Budesonide/Formoterol Fumarate (Symbicort 160-4.5 Mcg Inhaler) 10.2 Gm Hfa.aer.ad, 2 PUFF IH BID, #10.6 Ref 3 (Reported) Entered as Reported by: DAISY MENDEZ on 01/05/18 1251 Last Action: Converted on 08/05/18 1239 by CURLY NOLAN Bumetanide (Bumetanide) 2 Mg Tablet, 2 MG PO DAILY, (Reported) Entered as Reported by: DAISY MENDEZ on 01/05/18 1251 Last Action: Converted on 08/05/18 1239 by CURLY NOLAN Calcium Carbonate (Calcium) 600 Mg Tablet, 600 MG PO DAILY, (Reported) Entered as Reported by: DAISY MENDEZ on 01/05/18 1251 Last Action: Converted on 08/05/181238 by CURLY NOLAN Digoxin (Digoxin) 125 Mcg Tablet, 1 TAB PO DAILY, #30 Ref 5 (Reported) Entered as Reported by: DAISY MENDEZ on 01/05/18 125 Last Action: Continued on 08/05/181238 by CURLY NOLAN Ergocalciferol (Vitamin D2) (Vitamin D2) 50,000 Unit Capsule, 50,000 UNIT PO 2XWEEKLY, (Reported) Entered as Reported by: DAISY MENDEZ on 01/05/18 125 Last Action: Continued on 08/05/18 123 by CURLY NOLAN Lactobacillus Rhamnosus Gg (Culturelle) 1 Each Cap.sprink, 1 CAP PO BID, #60 Prescribed by: SNEHA HO on 01/11/18 1054 Last Action: Continued on 08/05/181238 by CURLY NOLAN Losartan Potassium (Losartan Potassium) 50 Mg Tablet, 50 MG PO DAILY, (Reported) Entered as Reported by: DAISY MENDEZ on 01/05/18 125 Last Action: Continued on 08/05/18 123 by CURLY NOLAN Metoprolol Tartrate (Metoprolol Tartrate) 25 Mg Tablet, 12.5 MG PO BID, #60 Ref 1 Prescribed by: SNEHA HO on 05/10/18 1017 Last Action: Continued on 08/05/181238 by CURLY NOLAN [place]-3S/Dha/Epa/Fish Oil (Fish Oil 1,000 mg Softgel) 1 Each Capsule, 1 EACH PO BID, (Reported) Entered as Reported by: DAISY MENDEZ on 01/05/18 125 Last Action: Converted on 08/05/181238 by CURLY NOLAN Pantoprazole Sodium (Protonix) 20 Mg Tablet.dr, 40 MG PO DAILY for 60 Days, #120 Prescribed by: CURLY NOLAN on 08/07/18 1044 Polyethylene Glycol 3350 (Miralax) 17 Gm Powd.pack, 1 PACKET PO DAILY, #30 Ref 3 (Reported) Entered as Reported by: DAISY MENDEZ on 01/05/18 125 Last Action: Converted on 08/05/18 1239 by CURLY NOLAN Potassium Chloride (Klor-Con M10) 10 Meq Tab.er.prt, 1 TAB PO BID, #30 Ref 5 ( Reported) Entered as Reported by: DAISY MENDEZ on 01/05/18 1251 Last Action: Continued on 08/05/181238 by CURLY NOLAN [Pantoprazole] 40 MG TABLET.DR, 40 MG PO DAILYAC, #30 Prescribed by: SNEHA HO on 05/10/18 1017 Last Action: Converted on 08/05/181238 by CURLY NOLAN Scheduled PRN Tramadol Hcl (Tramadol Hcl) 50 Mg Tablet, 50 MG PO PRN Q6HRS PRN for MILD PAIN, #20 Prescribed by: SNEHA HO on 05/10/18 1017 Last Action: Continued on 08/05/181238 by CURLY CEBALLOS MD Aug 07, 2018 10:46
[2018-08-07 11:03] VITALS: BP 132/87
--- NOTE | 2018-08-07 12:43 | PDOC ---
Subjective: Subjective: Feeling much better - tolerating PO, ostomy functioning much better, minimal intermittent abd cramping w/ stooling. Says Dr. Marte stopped by to discuss reversal. Objective: Vital Signs: Vital Signs Date Time Temp Pulse Resp B/P (MAP) Pulse Ox O2 Delivery O2 Flow Rate FiO2 08/07/18 11:22 97 Room Air 08/07/18 11:03 97.8 67 20 132/87 (102) 97.8 PE: GEN: NAD, playing a game LUNGS: CTAB HEART: RRR ABD: LLQ ostomy w/ soft brown stool, non-tender NEURO/PSYCH: A & O 3 A/P: Stomal stenosis s/p dilation -- Ostomy functioning. DC per primary, follow-up w/ surgery as planned. MELO STOCKTON Aug 07, 2018 12:43
--- NOTE | 2018-08-07 12:59 | PDOC ---
SURGICAL PROGRESS NOTE Subjective tolerating diet feels well Vital Signs Vital Signs Date Time Temp Pulse Resp B/P (MAP) Pulse Ox O2 Delivery O2 Flow Rate FiO2 08/07/18 11:22 97 Room Air 08/07/18 11:03 97.8 67 20 132/87 (102) 97.8 I&O Intake and Output 08/07/18 07:00 Intake Total 1445 ml Output Total 350 ml Balance 1095 ml Intake Oral 1445 ml Stool Total 350 ml # Voids 3 General: Alert, Oriented X3, Cooperative, No acute distress Abdomen: No tenderness Extremities: No clubbing Assessment/Plan ok to dc FU next week with Dr Marte to schedule surgery BRAXTON BIRMINGHAM APRN Aug 07, 2018 12:59
[2018-08-12] MEDS ORDERED: ERGOCALCIFEROL (VITAMIN D2) 50,000 UNIT CAPSULE. PO SCH (09:00)
== END 2018-08-07 13:40 | disposition home or self-care (01) | DRG 348 ==
LOC: ER 17:02 → 6 SOUTH 21:51
PROVIDERS: ADMIT Internal Medicine; ATTEND Internal Medicine
PROC: 0WQFXZ2 Repair Abdominal Wall, Stoma, External Approach (ICD-10-PCS; principal; 2018-08-04)
DX: K94.03 Colostomy malfunction (principal); K56.7 Ileus, unspecified; I13.0 Hypertensive heart and chronic kidney disease with heart failure and stage 1 through stage 4 chronic kidney disease, or unspecified chronic kidney disease; R65.10 Systemic inflammatory response syndrome (SIRS) of non-infectious origin without acute organ dysfunction; M19.90 Unspecified osteoarthritis, unspecified site; K21.0 Gastro-esophageal reflux disease with esophagitis; I48.91 Unspecified atrial fibrillation; J44.9 Chronic obstructive pulmonary disease, unspecified; N18.9 Chronic kidney disease, unspecified; K57.30 Diverticulosis of large intestine without perforation or abscess without bleeding; Y82.8 Other medical devices associated with adverse incidents; I50.9 Heart failure, unspecified; E11.22 Type 2 diabetes mellitus with diabetic chronic kidney disease; Y83.3 Surgical operation with formation of external stoma as the cause of abnormal reaction of the patient, or of later complication, without mention of misadventure at the time of the procedure; Z86.010 Personal history of colon polyps; Z90.49 Acquired absence of other specified parts of digestive tract; Z79.51 Long term (current) use of inhaled steroids; Z88.0 Allergy status to penicillin; Z88.8 Allergy status to other drugs, medicaments and biological substances; Z88.1 Allergy status to other antibiotic agents; Z83.3 Family history of diabetes mellitus; Z82.49 Family history of ischemic heart disease and other diseases of the circulatory system
CPT/HCPCS: 36415; 43752; 74018; 74177; 74270; 80048; 80053; 81001; 83970; 85025; 94640; 94760; 96374; 96375; 96376; C9113; J2270; J2405; J3010; J7030; J7613; J7626; Q9966; Q9967; 99285-25

== ENCOUNTER → 2019-04-13 | Outpatient (CLI) | payer BC ==
[2018-12-23 11:31] VITALS: BP 116/55
[~2019-04-13] MED LIST changes: +ALBU2.5V8 NEB; -BUME2TAB PO; +BUME2TAB3 PO; +DOXY100C14 PO; +LOSA-73 PO; -LOSA50TA7 PO; +OXYC1TAB7 PO; +PANT20TA2 PO; +PRED20TA PO
--- NOTE | 2019-04-13 10:47 | RAD ---
EXAM: CT Chest without IV contrast CLINICAL HISTORY: Lung nodule follow-up COMPARISON: None. TECHNIQUE: CT of the chest without intravenous contrast. Axial, coronal and sagittal reformatted images were generated. ---PQRS compliance statement - One or more of the following individualized dose reduction techniques were utilized for this study: 1. Automated exposure control 2. Adjustment of the mA and/or kV according to patient size 3. Use of iterative reconstruction technique--- FINDINGS: Lack of intravenous contrast limits evaluation of solid organs, vasculature, and lymph nodes. Chest: The heart is moderately enlarged. No pericardial effusion. Coronary artery calcifications are seen. Aortic calcifications are seen particularly at the, arch as well as main branches of aorta. Ectasia of the ascending aorta measuring up to 3.9 cm. No pleural effusion or pneumothorax. A borderline enlarged precarinal lymph node measures 1.1 x 1.1 cm however contains fatty hilum, morphologically normal. Additional prominent mediastinal and hilar lymph nodes are seen, in general not enlarged by size criteria. No axillary lymphadenopathy. A 2.1 cm right thyroid nodule is partially profiled, can be further assessed by thyroid ultrasound. Groundglass nodules are again seen in the left upper lobe. The largest left upper lobe groundglass nodule measures 1.9 x 1.5 cm, previously 2 x 1.4 cm when measured in a similar fashion. A smaller, more peripheral mixed solid and groundglass nodule measures 1.4 x 1 cm, previously 1.3 x 0.9 cm. This also appears more solid on today's examination. Several additional smaller groundglass nodules are seen in the left lung in general stable in size. A 5 mm right middle lobe groundglass nodule (series 8 image 136) is stable. Linear opacities in the lower lobes likely scarring/atelectasis. Bilateral emphysematous changes are seen. No lobar consolidation. No definite solid nodule is seen. Visualized Upper abdomen: Grossly unremarkable. Bones: Degenerative changes of the spine are seen. IMPRESSION: 1. Bilateral ground glass nodules are again seen, in general grossly stable in size when measured in a similar fashion. However recommend continued follow-up. Follow-up in 3-6 months is recommended. 2. A 2.1 cm right thyroid nodule is partially profiled, should be further assessed by thyroid ultrasound if not previously performed. 3. Bilateral emphysematous changes are seen. Electronically signed by: Job Sanders MD (04/13/2019 10:44 AM) [id number]
== END | disposition home or self-care (01) ==
LOC: CT 08:56
PROVIDERS: ATTEND Internal Medicine Pulmonary Disease
DX: R91.8 Other nonspecific abnormal finding of lung field (principal); J43.9 Emphysema, unspecified; I70.0 Atherosclerosis of aorta; I77.810 Thoracic aortic ectasia; M47.814 Spondylosis without myelopathy or radiculopathy, thoracic region; E04.1 Nontoxic single thyroid nodule
CPT/HCPCS: 71250

== ENCOUNTER → 2019-04-30 | Outpatient (CLI) | payer BC ==
[2018-12-23 11:31] VITALS: BP 116/55
--- NOTE | 2019-04-30 10:14 | CARD ---
MR#: [id number] Date of Study: 04/30/2019 Ordering Physician: NERI CAMARA, Referring Physician: NERI CAMARA, Tech: Madelyn Adair MAHIN APPROVED REPORT EXAM: Two-dimensional and M-mode echocardiogram with Doppler and color Doppler. Other Information Quality : AverageHR: 75bpm Rhythm : OtherTechnically limited study due to body habitus. INDICATION Shortness of breath 2D DIMENSIONS RVDd3.5 (2.9-3.5cm)Left Atrium(2D)4.9 (1.6-4.0cm) IVSd1.2 (0.7-1.1cm)Aortic Root(2D)2.7 (2.0-3.7cm) LVDd5.2 (3.9-5.9cm)LVOT Diameter1.9 (1.8-2.4cm) PWd1.3 (0.7-1.1cm)LVDs4.1 (2.5-4.0cm) FS (%) 20.3 %SV53.3 ml M-Mode DIMENSIONS Left Atrium(MM)4.78 (2.5-4.0cm)Aortic Root2.63 (2.2-3.7cm) Aortic Valve AoV Peak Mustapha.217.1cm/sAoV VTI46.4cm AO Peak GR.18.9mmHgLVOT Peak Mustapha.66.2cm/s AO Mean GR.10mmHgAVA (VMAX)1.10cm2 SHANE (VTI)1.70gg8QH P 1/2 Poov730qo Mitral Valve MV E Wmftjqvz519.2cm/sMV E Peak Gr.148mmHg MV DECEL [id number] A Woouutwy65.0cm/s MV E Mean Gr.2mmHgE/A Ratio3.0 Pulmonary Valve PV Peak Ymztcnyp076.1cm/s Tricuspid Valve TR P. Yuzplqch230ue/sRAP GAJSWYCK3tlHs TR Peak Gr.20ljPiOYHL09boSl Pulmonary Vein S1 Dutsapum91.6cm/sD2 Aegytvqt70.3cm/s LEFT VENTRICLE The left ventricle is normal size. There is mild concentric left ventricular hypertrophy. Basal infer ior wall appears hypokinetic. The Ejection Fraction is 55%. RIGHT VENTRICLE The right ventricle is normal size. There is normal right ventricular wall thickness. The right ventr icular systolic function is normal. ATRIA The left atrium is moderately dilated. The right atrium is moderately dilated. The interatrial septum is intact with no evidence for an atrial septal defect or patent foramen ovale as noted on 2-D or Do ppler imaging. AORTIC VALVE The aortic valve is calcified but opens well. The aortic valve is trileaflet. Doppler and Color Flow revealed mild to moderate aortic regurgitation. There is no significant aortic valvular stenosis. MITRAL VALVE The mitral valve is normal in structure and function. There is no evidence of mitral valve prolapse. There is no mitral valve stenosis. Doppler and Color-flow revealed moderate to severe mitral regurgit ation. TRICUSPID VALVE The tricuspid valve is normal in structure and function. Doppler and Color Flow revealed mild tricusp id regurgitation. There is moderate pulmonary hypertension. The PA pressure was estimated at 43 mmHg. There is no tricuspid valve prolapse or vegetation. There is no tricuspid valve stenosis. PULMONIC VALVE The pulmonic valve is not well visualized. GREAT VESSELS The aortic root is normal in size. The ascending aorta is Mildly dilated at 3.9cm. The IVC is normal in size and collapses >50% with inspiration. PERICARDIAL EFFUSION There is no evidence of significant pericardial effusion. Critical Notification Critical Value: No <Conclusion> Basal inferior wall appears hypokinetic. The Ejection Fraction is 55%. The left atrium is moderately dilated. Mild to moderate aortic regurgitation. Moderate to severe mitral regurgitation. Mild tricuspid regurgitation. The PA pressure was estimated at 43 mmHg. There is no evidence of significant pericardial effusion. Signed by : Caleb Craig, Electronically Approved : 04/30/2019 10:13:40
== END | disposition home or self-care (01) ==
LOC: ECHO 08:46
PROVIDERS: ATTEND Internal Medicine Cardiovascular Disease
DX: I08.3 Combined rheumatic disorders of mitral, aortic and tricuspid valves (principal); I11.9 Hypertensive heart disease without heart failure; I27.20 Pulmonary hypertension, unspecified
CPT/HCPCS: 93306

== ENCOUNTER 2020-01-26 07:43 | Inpatient (IN) | payer BC ==
[~2020-01-26] VITALS: Ht 152.4 cm; Wt 88.9 kg
[~2020-01-26 07:43] MED LIST changes: -DIGO125T PO; +DIGO125T3 PO
[2020-01-26] MEDS ORDERED: IV NORMAL SALINE 1000ML BAG 1,000 ML IV SCH (08:07)
[2020-01-26] MEDS ORDERED: methylPREDNISolone SOD SUCC PF 125 MG/2 ML VIAL. IV ONE (08:15)
[2020-01-26] MEDS ORDERED: IPRATRPIUM/ALBUTEROL 0.5/2.5MG 3 ML NEBU. NEB ONE (08:15)
[2020-01-26 08:22] LABS: BASO % 0 % (0-3); EOS % 0 % (0-3); HEMATOCRIT 37.8 % (36.0-47.0); HEMOGLOBIN 12.4 g/dL (12.0-15.5); LYMPH # 0.4 x10^3/uL (1.0-4.8); LYMPH % 2 % (24-48); MEAN CORPUSCULAR HEMOGLOBIN 30 pg (25-35); MEAN CORPUSCULAR HGB CONC 33 g/dL (31-37); MEAN CORPUSCULAR VOLUME 91 fL (79-100); MONO # 1.4 x10^3/uL (0.0-1.1); MONO % 5 % (0-9); NEUT # 24.9 x10^3/uL (1.8-7.7); NEUT % 93 % (31-73); PLATELET COUNT 219 x10^3/uL (140-400); RED BLOOD COUNT 4.17 x10^6/uL (3.50-5.40); RED CELL DISTRIBUTION WIDTH 14.8 % (11.5-14.5); WHITE BLOOD COUNT 26.8 x10^3/uL (4.0-11.0)
[2020-01-26 08:36] LABS: CALCIUM 9.8 mg/dL (8.5-10.1); CREATININE 1.8 mg/dL (0.6-1.0); GFR 27.4
--- NOTE | 2020-01-26 08:39 | RAD ---
Examination: PORTABLE CHEST 1V History: Shortness of breath and chest pain. Cough. Comparison/Correlation: 12/11/2018 Portable Chest X-ray Exam Findings: Portable upright frontal view of the chest was obtained. Left perihilar consolidation is present. Cardiomegaly is again seen. No pneumothorax. Right lung field is clear. Subtle interstitial thickening of the lung durant is again seen. Possibility of a very small left pleural effusion is raised. No pneumothorax. Severe right glenohumeral joint degenerative narrowing and remodeling is present. Impression: Left perihilar consolidation. Follow-up to resolution is recommended. Electronically signed by: Eric Marshall MD (01/26/2020 8:36 AM) [id number]
[2020-01-26 08:42] LABS: ALBUMIN 2.8 g/dL (3.4-5.0); ALBUMIN/GLOBULIN RATIO 0.6 (1.0-1.7); TOTAL BILIRUBIN 0.7 mg/dL (0.2-1.0); TOTAL PROTEIN 7.5 g/dL (6.4-8.2)
[2020-01-26 08:43] LABS: PROTHROMBIN TIME PATIENT 15.4 SEC (11.7-14.0)
[2020-01-26 09:05] LABS: INFLUENZA A PATIENT NEGATIVE (NEGATIVE); INFLUENZA B PATIENT NEGATIVE (NEGATIVE)
[2020-01-26] MEDS ORDERED: cefTRIAXone IV Push 1 GM VIAL. IVP ONE (09:15)
[2020-01-26] MEDS: ACETAMINOPHEN 500 MG TABLET PO ONE ×2 (09:15→11:36)
[2020-01-26] MEDS ORDERED: VANCOMYCIN 2 GM in IV NORMAL SALINE 500ML BAG 500 ML IV ONE (09:30)
--- NOTE | 2020-01-26 09:31 | PHYS DOC ---
Past Medical History Past Medical History: A-Fib, Anemia, Arrhythmia, Asthma, CHF, COPD, Diabetes- Type II, Diverticulitis, Hypertension, Renal Failure, Other Additional Past Medical Histor: C-DIFF, COLOSTOMY D/T BOWEL OBST, Past Surgical History: Appendectomy, Cholecystectomy, Tonsillectomy, Other Additional Past Surgical Histo: adenoidectomy, EGD,COLOSTOMY BOWEL OBST, Smoking Status: Former Smoker Alcohol Use: Rarely Drug Use: None Adult General Chief Complaint Chief Complaint: CHEST PAIN HPI HPI Patient is a 74 year old female patient with history of hypertension, diabetes mellitus, CHF, anemia, atrial fibrillation, renal failure, COPD without home oxygen, asthma, diverticulitis who presents with complaint of chest pain. Patient complaining of nonproductive cough for the last 3 days associated with shortness of breath and subjective fever and chills and not feeling good. Patient states since yesterday she has had constant left-sided chest pain with radiation to her back that getting worse with cough and change of position. Patient complaining of myalgia and nausea without vomiting, diarrhea, sick contacts. Patient rated her pain 8/10. Patient was febrile at arrival to ER. Review of Systems Review of Systems Constitutional: Reports fever and chills Eyes: Denies change in visual acuity, redness, or eye pain [] HENT: Reports nasal congestion and sore throat. Respiratory: Reports cough and shortness of Cardiovascular: No additional information not addressed in HPI [] GI: Denies abdominal pain, nausea, vomiting, bloody stools or diarrhea [] : Denies dysuria or hematuria [] Musculoskeletal: Denies back pain or joint pain [] Integument: Denies rash or skin lesions [] Neurologic: Denies headache, focal weakness or sensory changes [] Endocrine: Denies polyuria or polydipsia [] All other systems were reviewed and found to be within normal limits, except as documented in this note. Current Medications Current Medications Current Medications Medications (Trade) Dose Ordered Sig/Jose Rafael Start Time Stop Time Status Last Admin Dose Admin Albuterol/ Ipratropium (Duoneb) 3 ml 1X ONCE 01/26/20 08:15 01/26/20 08:16 DC 01/26/20 08:30 3 ML Methylprednisolone Sodium Succinate (SOLU-Medrol 125MG VIAL) 125 mg 1X ONCE 01/26/20 08:15 01/26/20 08:16 DC 01/26/20 08:42 125 MG Sodium Chloride 1,000 ml @ 150 mls/hr [id number] 01/26/20 08:07 01/26/20 14:46 DC 01/26/20 08:51 150 MLS/HR Allergies Allergies Allergies Coded Allergies Type Severity Reaction Last Updated Verified DONNA Inhibitors Allergy Severe angioedema 12/22/18 Yes Penicillins Allergy Intermediate n/v,itch,rash 12/22/18 Yes erythromycin base Adverse Reaction Intermediate n/v 12/22/18 Yes Physical Exam Physical Exam Constitutional: Well developed, well nourished, mild distress, non-toxic appearance, febrile. [] HENT: Normocephalic, atraumatic, bilateral external ears normal, oropharynx dry, no oral exudates, nose normal. [] Eyes: PERRLA, EOMI, conjunctiva normal, no discharge. [] Neck: Normal range of motion, no tenderness, supple, no stridor. [] Cardiovascular: Irregularly irregular rhythm with tachycardia, no murmur [] Lungs & Thorax: Decrease of air movement bilaterally with left lung crackles and rhonchi Abdomen: Bowel sounds normal, soft, no tenderness, no masses, no pulsatile masses. [] Skin: Warm, dry, no erythema, no rash. [] Back: No tenderness, no CVA tenderness. [] Extremities: No tenderness, no cyanosis, no clubbing, ROM intact, no edema. [] Neurologic: Alert and oriented X 3, normal motor function, normal sensory function, no focal deficits noted. [] Psychologic: Affect normal, judgement normal, mood normal. [] Current Patient Data Vital Signs Vital Signs Date Time Temp Pulse Resp B/P (MAP) Pulse Ox O2 Delivery O2 Flow Rate FiO2 01/26/20 09:00 124 24 120/68 (85) 94 Nasal Cannula 2.0 01/26/20 08:00 100.2 100.2 Lab Values Laboratory Tests Test 01/26/20 07:58 01/26/20 08:00 Influenza Type A Antigen Negative (NEGATIVE) Influenza Type B Antigen Negative (NEGATIVE) White Blood Count 26.8 x10^3/uL (4.0-11.0) H Red Blood Count 4.17 x10^6/uL (3.50-5.40) Hemoglobin 12.4 g/dL (12.0-15.5) Hematocrit 37.8 % (36.0-47.0) Mean Corpuscular Volume 91 fL (79-100) Mean Corpuscular Hemoglobin 30 pg (25-35) Mean Corpuscular Hemoglobin Concent 33 g/dL (31-37) Red Cell Distribution Width 14.8 % (11.5-14.5) H Platelet Count 219 x10^3/uL (140-400) Neutrophils (%) (Auto) 93 % (31-73) H Lymphocytes (%) (Auto) 2 % (24-48) L Monocytes (%) (Auto) 5 % (0-9) Eosinophils (%) (Auto) 0 % (0-3) Basophils (%) (Auto) 0 % (0-3) Neutrophils # (Auto) 24.9 x10^3/uL (1.8-7.7) H Lymphocytes # (Auto) 0.4 x10^3/uL (1.0-4.8) L Monocytes # (Auto) 1.4 x10^3/uL (0.0-1.1) H Eosinophils # (Auto) 0.0 x10^3/uL (0.0-0.7) Basophils # (Auto) 0.0 x10^3/uL (0.0-0.2) Segmented Neutrophils % 81 % (35-66) H Band Neutrophils % 16 % (0-9) H Monocytes % 2 % (0-10) Myelocytes % 1 % (0-0) H Toxic Granulation Present Platelet Estimate Adequate (ADEQUATE) Large Platelets Few Giant Platelets Present Prothrombin Time 15.4 SEC (11.7-14.0) H Prothrombin Time INR 1.3 (0.8-1.1) H Activated Partial Thromboplast Time 37 SEC (24-38) Sodium Level 138 mmol/L (136-145) Potassium Level 4.0 mmol/L (3.5-5.1) Chloride Level 99 mmol/L (98-107) Carbon Dioxide Level 27 mmol/L (21-32) Anion Gap 12 (6-14) Blood Urea Nitrogen 51 mg/dL (7-20) H Creatinine 1.8 mg/dL (0.6-1.0) H Estimated GFR (Cockcroft-Gault) 27.4 BUN/Creatinine Ratio 28 (6-20) H Glucose Level 221 mg/dL (70-99) H Lactic Acid Level 1.6 mmol/L (0.4-2.0) Calcium Level 9.8 mg/dL (8.5-10.1) Magnesium Level 2.0 mg/dL (1.8-2.4) Total Bilirubin 0.7 mg/dL (0.2-1.0) Aspartate Amino Transferase (AST) 19 U/L (15-37) Alanine Aminotransferase (ALT) 27 U/L (14-59) Alkaline Phosphatase 92 U/L (46-116) Creatine Kinase 179 U/L (26-192) Troponin I Quantitative < 0.017 ng/mL (0.000-0.055) FM-Hjr-N-Type Natriuretic Peptide 3597 pg/mL (0-449) H Total Protein 7.5 g/dL (6.4-8.2) Albumin 2.8 g/dL (3.4-5.0) L Albumin/Globulin Ratio 0.6 (1.0-1.7) L Laboratory Tests 01/26/20 08:00 Laboratory Tests 01/26/20 08:00 EKG EKG EKG interpreted by me. EKG at 0 751 showed atrial fibrillation with RVR at rate of 120, PVCs, Q waves in anteroseptal leads, no acute ST and T wave elevation. Radiology/Procedures Radiology/Procedures [facility] [address] [place] [address] IMAGING REPORT Signed PATIENT: ARIELLE MONZON ACCOUNT: [id number] : 1945 LOCATION: ER AGE: 74 SEX: F EXAM STATUS: PRE ER ORD. PHYSICIAN: DEENA VERA MD REASON: Shortness of breath and chest pain and cough since Tuesday. PROCEDURE: PORTABLE CHEST 1V Examination: PORTABLE CHEST 1V History: Shortness of breath and chest pain. Cough. Comparison/Correlation: 12/11/2018 Portable Chest X-ray Exam Findings: Portable upright frontal view of the chest was obtained. Left perihilar consolidation is present. Cardiomegaly is again seen. No pneumothorax. Right lung field is clear. Subtle interstitial thickening of the lung durant is again seen. Possibility of a very small left pleural effusion is raised. No pneumothorax. Severe right glenohumeral joint degenerative narrowing and remodeling is present. Impression: Left perihilar consolidation. Follow-up to resolution is recommended. Electronically signed by: Eric Chandler MD (01/26/2020 8:36 AM) [id number] DICTATED and SIGNED BY: ERIC CHANDLER MD DATE: 01/26/20 0836 Course & Med Decision Making Course & Med Decision Making Pertinent Labs and Imaging studies reviewed. (See chart for details) Evaluation of patient also 74-year-old male patient brought in because of chest pain and cough. Patient was febrile with atrial fibrillation and RVR that did not get better with IV fluids and Tylenol and Cardizem bolus was given with improvement of the heart rate to atrial fibrillation at rate of 90s. Chest x- ray showed left lung infiltration with white count of 26,000. Patient did not have elevation of lactic acid and because of elevation of BNP did not take about 30ML IV fluid/ KG. Patient treated with antibiotic and admitted to CVC. Patient requiring admission for further evaluation and treatment. Discussed with Dr. Williamson who is in agreement with admission. Discussed findings and plan with patient and family, who acknowledge understanding and agreement. Jonathon Disclaimer Jonathon Disclaimer This electronic medical record was generated, in whole or in part, using a voice recognition dictation system. Departure Departure Impression: Primary Impression: CAP (community acquired pneumonia) Additional Impressions: SIRS (systemic inflammatory response syndrome) Leukocytosis Chest wall pain Atrial fibrillation with RVR Congestive heart failure Disposition: 09 ADMITTED INPATIENT (At 0 933) Admitting Physician: TEO (Dr. Williamson accepted admission at 0 932) Condition: GUARDED Referrals: LUIS CASANOVA MD (PCP) Critical Care Time Critical care time was 60 minutes exclusive of procedures. Problem Qualifiers Primary Impression: CAP (community acquired pneumonia) Laterality: left Lung location: unspecified part of lung Qualified Codes: J18.9 - Pneumonia, unspecified organism Additional Impressions: Leukocytosis Leukocytosis type: unspecified Qualified Codes: D72.829 - Elevated white blood cell count, unspecified Congestive heart failure Heart failure type: unspecified Heart failure chronicity: unspecified Qualified Codes: I50.9 - Heart failure, unspecified KOUSHAOBEDZ MD Jan 26, 2020 09:31
[2020-01-26 09:39] LABS: % BANDS 16 % (0-9); % MONOS 2 % (0-10); % MYELOS 1 % (0-0); % SEGS 81 % (35-66); PLT ESTIMATE ADEQUATE (ADEQUATE)
[2020-01-26 09:40] LABS: TOXIC GRANULATION PRESENT
--- NOTE | 2020-01-26 09:40 | PDOC1 ---
History and Physical Date of Admission Date of Admission DATE: 01/26/20 TIME: 09:37 Identification/Chief Complaint Chief Complaint Chest pain Source Source: Patient History of Present Illness History of Present Illness Ms Christensen is a 74 yo F w/ PMHx smoker, chronic AFib, anemia, hypertension, COPD, type 2 diabetes who presents to ED c/o cough, chest pain to ED. WBC 26.8, BUN 51, Cr 1.8, INR 1.3, BNP 3597, Albumin 2.8, Trop 0, Rapid flu negative. CXR with left perihilar infiltrate. Started on empiric antibiotics, admitted for treatment of CAP. Past Medical History Cardiovascular: AFIB, HTN Pulmonary: COPD GI: Diverticulosis, Other Heme/Onc: Anemia NOS Musculoskeletal: Osteoarthritis Infectious disease: Other Renal/: Chronic renal insuff Endocrine: No pertinent hx Past Surgical History Past Surgical History: Appendectomy, Cholecystectomy, Tonsillectomy, Colon Resection, Other Family History Family History: Diabetes, Hypertension Social History Smoke: <1 pack per day ALCOHOL: none Drugs: None Current Medications Current Medications Current Medications Sodium Chloride 1,000 ml @ 150 mls/hr Q6H40M IV Last administered on 01/26/20at 08:51; Start 01/26/20 at 08:07; Stop 01/26/20 at 14:46 Albuterol/ Ipratropium (Duoneb) 3 ml 1X ONCE NEB Last administered on 01/26/20at 08:30; Start 01/26/20 at 08:15; Stop 01/26/20 at 08:16; Status DC Methylprednisolone Sodium Succinate (SOLU-Medrol 125MG VIAL) 125 mg 1X ONCE IV Last administered on 01/26/20at 08:42; Start 01/26/20 at 08:15; Stop 01/26/20 at 08:16; Status DC Acetaminophen (Tylenol) 1,000 mg 1X ONCE PO ; Start 01/26/20 at 09:15; Stop 01/26/20 at 09:16; Status DC Ceftriaxone Sodium (Rocephin) 1 gm 1X ONCE IVP Last administered on 01/26/20at 09:29; Start 01/26/20 at 09:15; Stop 01/26/20 at 09:16; Status DC Vancomycin HCl 2 gm/Sodium Chloride 500 ml @ 250 mls/hr 1X ONCE IV ; Start 01/26/20 at 09:30; Stop 01/26/20 at 11:29 Active Scripts Active Prednisone 20 Mg Tablet 1 Tab PO DAILY Doxycycline Monohydrate 100 Mg Capsule 1 Cap PO BID Proair Hfa (Albuterol Sulfate) 8.5 Gm Hfa.aer.ad 2.5 Mg NEB RTQID MDD 1 Metoprolol Tartrate 25 Mg Tablet 12.5 Mg PO BID MDD 1 Protonix (Pantoprazole Sodium) 20 Mg Tablet.dr 40 Mg PO DAILY 60 Days Culturelle (Lactobacillus Rhamnosus Gg) 1 Each Cap.sprink 1 Cap PO BID Reported Bumetanide 2 Mg Tablet 2 Mg PO DAILY Fish Oil 1,000 mg Softgel (Beasley-3S/Dha/Epa/Fish Oil) 1 Each Capsule 1 Each PO BID Losartan Potassium 50 Mg Tablet 50 Mg PO DAILY Vitamin D2 (Ergocalciferol (Vitamin D2)) 50,000 Unit Capsule 50,000 Unit PO QWE Klor-Con M10 (Potassium Chloride) 10 Meq Tab.er.prt 1 Tab PO BID Digoxin 125 Mcg Tablet 1 Tab PO DAILY Miralax (Polyethylene Glycol 3350) 17 Gm Powd.pack 1 Packet PO DAILY Symbicort 160-4.5 Mcg Inhaler (Budesonide/Formoterol Fumarate) 10.2 Gm Hfa.aer.ad 2 Puff IH BID Allergies Allergies: Coded Allergies: DONNA Inhibitors (Verified Allergy, Severe, angioedema, 12/22/18) Penicillins (Verified Allergy, Intermediate, n/v,itch,rash, 12/22/18) erythromycin base (Verified Adverse Reaction, Intermediate, n/v, 12/22/18) ROS General: YES: Chills, Fatigue, Malaise, Appetite; No: Night Sweats, Other PSYCHOLOGICAL ROS: No: Anxiety, Behavioral Disorder, Concentration difficultie, Decreased libido, Depression, Disorientation, Hallucinations, Hostility, Irritablity, Memory difficulties, Mood Swings, Obsessive thoughts, Physical abuse, Sexual abuse, Sleep disturbances, Suicidal ideation, Other Eyes: No Blurry vision, No Decreased vision, No Double vision, No Dry eyes, No Excessive tearing, No Eye Pain, No Itchy Eyes, No Loss of vision, No Photophobia, No Scotomata, No Uses contacts, No Uses glasses, No Other HEENT: No: Heacaches, Visual Changes, Hearing change, Nasal congestion, Nasal discharge, Oral lesions, Sinus pain, Sore Throat, Epistaxis, Sneezing, Snoring, Tinnitus, Vertigo, Vocal changes, Other ALLERGY AND IMMUNOLOGY: No: Hives, Insect Bite Sensitivity, Itchy/Watery Eyes, Nasal Congestion, Post Nasal Drip, Seasonal Allergies, Other Hematological and Lymphatic: No: Bleeding Problems, Blood Clots, Blood Transfusions, Brusing, Night Sweats, Pallor, Swollen Lymph Nodes, Other ENDOCRINE: No: Breast Changes, Galactorrhea, Hair Pattern Changes, Hot Flashes, Malaise/lethargy, Mood Swings, Palpitations, Polydipsia/polyuria, Skin Changes, Temperature Intolerance, Unexpected Weight Changes, Other Breast: No New/Changing Breast Lumps, No Nipple changes, No Nipple discharge, No Other Respiratory: YES: Cough, Shortness of breath, SOB with excertion, Tachypnea, Wheezing; No: Hemoptysis, Orthopnea, Pleuritic Pain, Sputum Changes, Stridor, Other Cardiovascular: No Chest Pain, No Palpitations, No Orthopnea, No Paroxysmal Noc. Dyspnea, No Edema, No Lt Headedness, No Other Gastrointestinal: Yes Nausea; No Vomiting, No Abdominal Pain, No Diarrhea, No Constipation, No Melena, No Hematochezia, No Other Genitourinary: No Dysuria, No Frequency, No Incontinence, No Hematuria, No Retention, No Discharge, No Urgency, No Pain, No Flank Pain, No Other, No , No , No , No , No , No , No Musculoskeletal: No Gait Disturbance, No Joint Pain, No Joint Stiffness, No Joint Swelling, No Muscle Pain, No Muscular Weakness, No Pain In:, No Swelling In:, No Other Neurological: No Behavorial Changes, No Bowel/Bladder ControlChng, No Confusion, No Dizziness, No Gait Disturbance, No Headaches, No Impaired Coord/balance, No Memory Loss, No Numbness/Tingling, No Seizures, No Speech Problems, No Tremors, No Visual Changes, No Weakness, No Other Skin: No Dry Skin, No Eczema, No Hair Changes, No Lumps, No Mole Changes, No Mottling, No Nail Changes, No Pruritus, No Rash, No Skin Lesion Changes, No Other, No Acne Physical Exam General: Alert, Oriented X3, Cooperative, No acute distress HEENT: Atraumatic, PERRLA, EOMI, Mucous membr. moist/pink Lungs: Other (Left sided rhonchi) Heart: S1S2, irregularly irregular Abdomen: Normal bowel sounds, Soft, No tenderness, No hepatosplenomegaly, No masses Rectal Exam: not examined Extremities: No clubbing, No cyanosis, No edema, Normal pulses, No tenderness/swelling Skin: No rashes, No breakdown, No significant lesion Neuro: Normal gait, Normal speech, Strength at 5/5 X4 ext, Normal tone, Sensation intact, Cranial nerves 3-12 NL, Reflexes 2+ Psych/Mental Status: Mental status NL, Mood NL Vitals Vitals Vital Signs Date Time Temp Pulse Resp B/P (MAP) Pulse Ox O2 Delivery O2 Flow Rate FiO2 01/26/20 08:32 95 Nasal Cannula 3.0 01/26/20 08:00 100.2 130 28 141/94 (110) 100.2 Labs Labs Laboratory Tests Test 01/26/20 07:58 01/26/20 08:00 Influenza Type A Antigen Negative (NEGATIVE) Influenza Type B Antigen Negative (NEGATIVE) White Blood Count 26.8 x10^3/uL (4.0-11.0) Red Blood Count 4.17 x10^6/uL (3.50-5.40) Hemoglobin 12.4 g/dL (12.0-15.5) Hematocrit 37.8 % (36.0-47.0) Mean Corpuscular Volume 91 fL (79-100) Mean Corpuscular Hemoglobin 30 pg (25-35) Mean Corpuscular Hemoglobin Concent 33 g/dL (31-37) Red Cell Distribution Width 14.8 % (11.5-14.5) Platelet Count 219 x10^3/uL (140-400) Neutrophils (%) (Auto) 93 % (31-73) Lymphocytes (%) (Auto) 2 % (24-48) Monocytes (%) (Auto) 5 % (0-9) Eosinophils (%) (Auto) 0 % (0-3) Basophils (%) (Auto) 0 % (0-3) Neutrophils # (Auto) 24.9 x10^3/uL (1.8-7.7) Lymphocytes # (Auto) 0.4 x10^3/uL (1.0-4.8) Monocytes # (Auto) 1.4 x10^3/uL (0.0-1.1) Eosinophils # (Auto) 0.0 x10^3/uL (0.0-0.7) Basophils # (Auto) 0.0 x10^3/uL (0.0-0.2) Prothrombin Time 15.4 SEC (11.7-14.0) Prothromb Time International Ratio 1.3 (0.8-1.1) Activated Partial Thromboplast Time 37 SEC (24-38) Sodium Level 138 mmol/L (136-145) Potassium Level 4.0 mmol/L (3.5-5.1) Chloride Level 99 mmol/L (98-107) Carbon Dioxide Level 27 mmol/L (21-32) Anion Gap 12 (6-14) Blood Urea Nitrogen 51 mg/dL (7-20) Creatinine 1.8 mg/dL (0.6-1.0) Estimated GFR (Cockcroft-Gault) 27.4 BUN/Creatinine Ratio 28 (6-20) Glucose Level 221 mg/dL (70-99) Lactic Acid Level 1.6 mmol/L (0.4-2.0) Calcium Level 9.8 mg/dL (8.5-10.1) Magnesium Level 2.0 mg/dL (1.8-2.4) Total Bilirubin 0.7 mg/dL (0.2-1.0) Aspartate Amino Transf (AST/SGOT) 19 U/L (15-37) Alanine Aminotransferase (ALT/SGPT) 27 U/L (14-59) Alkaline Phosphatase 92 U/L (46-116) Creatine Kinase 179 U/L (26-192) Troponin I Quantitative < 0.017 ng/mL (0.000-0.055) OJ-Dbl-Z-Type Natriuretic Peptide 3597 pg/mL (0-449) Total Protein 7.5 g/dL (6.4-8.2) Albumin 2.8 g/dL (3.4-5.0) Albumin/Globulin Ratio 0.6 (1.0-1.7) Laboratory Tests Test 01/26/20 07:58 01/26/20 08:00 Influenza Type A Antigen Negative (NEGATIVE) Influenza Type B Antigen Negative (NEGATIVE) White Blood Count 26.8 x10^3/uL (4.0-11.0) Red Blood Count 4.17 x10^6/uL (3.50-5.40) Hemoglobin 12.4 g/dL (12.0-15.5) Hematocrit 37.8 % (36.0-47.0) Mean Corpuscular Volume 91 fL (79-100) Mean Corpuscular Hemoglobin 30 pg (25-35) Mean Corpuscular Hemoglobin Concent 33 g/dL (31-37) Red Cell Distribution Width 14.8 % (11.5-14.5) Platelet Count 219 x10^3/uL (140-400) Neutrophils (%) (Auto) 93 % (31-73) Lymphocytes (%) (Auto) 2 % (24-48) Monocytes (%) (Auto) 5 % (0-9) Eosinophils (%) (Auto) 0 % (0-3) Basophils (%) (Auto) 0 % (0-3) Neutrophils # (Auto) 24.9 x10^3/uL (1.8-7.7) Lymphocytes # (Auto) 0.4 x10^3/uL (1.0-4.8) Monocytes # (Auto) 1.4 x10^3/uL (0.0-1.1) Eosinophils # (Auto) 0.0 x10^3/uL (0.0-0.7) Basophils # (Auto) 0.0 x10^3/uL (0.0-0.2) Prothrombin Time 15.4 SEC (11.7-14.0) Prothromb Time International Ratio 1.3 (0.8-1.1) Activated Partial Thromboplast Time 37 SEC (24-38) Sodium Level 138 mmol/L (136-145) Potassium Level 4.0 mmol/L (3.5-5.1) Chloride Level 99 mmol/L (98-107) Carbon Dioxide Level 27 mmol/L (21-32) Anion Gap 12 (6-14) Blood Urea Nitrogen 51 mg/dL (7-20) Creatinine 1.8 mg/dL (0.6-1.0) Estimated GFR (Cockcroft-Gault) 27.4 BUN/Creatinine Ratio 28 (6-20) Glucose Level 221 mg/dL (70-99) Lactic Acid Level 1.6 mmol/L (0.4-2.0) Calcium Level 9.8 mg/dL (8.5-10.1) Magnesium Level 2.0 mg/dL (1.8-2.4) Total Bilirubin 0.7 mg/dL (0.2-1.0) Aspartate Amino Transf (AST/SGOT) 19 U/L (15-37) Alanine Aminotransferase (ALT/SGPT) 27 U/L (14-59) Alkaline Phosphatase 92 U/L (46-116) Creatine Kinase 179 U/L (26-192) Troponin I Quantitative < 0.017 ng/mL (0.000-0.055) XZ-Zsa-Z-Type Natriuretic Peptide 3597 pg/mL (0-449) Total Protein 7.5 g/dL (6.4-8.2) Albumin 2.8 g/dL (3.4-5.0) Albumin/Globulin Ratio 0.6 (1.0-1.7) Images Images CXR - Portable upright frontal view of the chest was obtained. Left perihilar consolidation is present. Cardiomegaly is again seen. No pneumothorax. Right lung field is clear. Subtle interstitial thickening of the lung durant is again seen. Possibility of a very small left pleural effusion is raised. No pneumothorax. Severe right glenohumeral joint degenerative narrowing and remodeling is present. Impression: Left perihilar consolidation. Follow-up to resolution is recommended. VTE Prophylaxis Ordered VTE Prophylaxis Devices: Yes VTE Pharmacological Prophylaxi: Yes Assessment/Plan Assessment/Plan A/P: Left sided pneumonia - will place on rocephin + doxy. given vancomycin and rocephin in ED COPD - with acute exacerbation. Steroids, nebs Sepsis - 2/2 pneumonia. Will cont antibiotics Acute hypoxia - likely related to pneumonia, will wean as tolerated AFIB - on BB, high risk for bleed, not on OAC HTN - cont meds Hx of bowel AVMs - stable Chronic anemia - will monitor CKD3 - stable Chronic diastolic CHF - compensated, will stop fluids DM2 - diet controlled. Will check A1c. Sliding scale + basal Severe protein calorie malnutrition - will have preparation supervisor freezing to see FEN - Cardiac ADA diet PPX - heparing q12hrs FULL CODE Dispo - inpatient for pneumonia. May need pulm consultation if she does not improve in the next 24-48 hours VIKY MOTA MD Jan 26, 2020 09:40
[2020-01-26] MEDS ORDERED: dilTIAZem IV PUSH 25 MG/5 ML VIAL IVP ONE (09:45)
[2020-01-26 10:36] VITALS: BP 117/77
[2020-01-26] MEDS ORDERED: CYAN-25 PO (11:12)
[2020-01-26] MEDS ORDERED: CHOL200078 PO (11:12)
[2020-01-26] MEDS ORDERED: MULT-735 PO (11:12)
[2020-01-26 11:17] LABS: DIG 0.7 ng/mL (0.9-2.0)
[2020-01-26] MEDS ORDERED: DEXTROSE 50% 25 GM / 50ML DISP.SYRIN. IV PRN (11:30)
[2020-01-26] MEDS: MULTIVITAMIN with MINERAL TABLET. PO SCH (12:00)
[2020-01-26] MEDS ORDERED: IPRATRPIUM/ALBUTEROL 0.5/2.5MG 3 ML NEBU. NEB SCH (12:00)
[2020-01-26] MEDS: METOPROLOL TART IMMED RELEASE 25 MG TABLET. PO SCH ×2 (12:00→21:23)
[2020-01-26] MEDS: POLYETHYLENE GLYCOL 3350 17 GM PACKET. PO SCH (12:17)
[2020-01-26] MEDS: CYANOCOBALAMIN (VITAMIN B-12) 1,000 MCG TABLET. PO SCH (12:18)
[2020-01-26] MEDS: OMEGA-3 FATTY ACIDS/FISH OIL 1,000 MG CAPSULE. PO SCH ×2 (12:19→21:23)
[2020-01-26] MEDS: POTASSIUM CHLORIDE 10 MEQ TABLET.ER. PO SCH ×2 (12:19→17:26)
[2020-01-26] MEDS: PANTOPRAZOLE 40 MG TABLET.DR. PO SCH (12:19)
[2020-01-26] MEDS: INSULIN LISPRO 300 UNITS/3 ML VIAL. SQ SCH ×3 (12:24→21:27)
[2020-01-26] MEDS: ALBUTEROL SULFATE 2.5 MG/3 ML NEBU. NEB SCH ×3 (13:03→20:00)
[2020-01-26] MEDS: BUDESONIDE 0.5 MG/2 ML NEBU. NEB SCH ×2 (13:03→20:46)
[2020-01-26 14:12] VITALS: BP 114/54
[2020-01-26] MEDS: LOSARTAN POTASSIUM 50 MG TABLET. PO SCH (14:29)
[2020-01-26] MEDS: DIGOXIN 125 MCG TABLET. PO SCH (14:29)
[2020-01-26] MEDS ORDERED: VANCOMYCIN PER PHARMACY MC PRN (16:45)
--- NOTE | 2020-01-26 16:56 | NUR ---
Patient arrived to unit from ER via bed, transferred with minimal assist. patient alert and oriented, vitals stable, call light within reach. Dr. Williamson notified of patient triggering positive sepsis screen. ICU charge nurse Whit also notified. Orders received for x1 Liter NS at 150 mls/hr. Will continue to monitor.
[2020-01-26] MEDS: HEPARIN for SUB-Q USE 5,000 UNIT/ML VIAL. SQ SCH (17:00)
[2020-01-26] MEDS: IPRATRPIUM/ALBUTEROL 0.5/2.5MG 3 ML NEBU. NEB SCH ×2 (17:00→20:45)
[2020-01-26 19:35] VITALS: BP 127/44
[2020-01-26] MEDS ORDERED: NON FORMULARY ITEM (Budesonide/Formoterol Fumarate (Symbicort 160-4.5 Mcg Inhaler) 2 PUFF) IH SCH (21:00)
[2020-01-26] MEDS: DOXYCYCLINE HYCLATE 100 MG in IV DEXTROSE 5% 100ML 100 ML IV SCH (21:24)
[2020-01-26] MEDS: INSULIN GLARGINE SYRINGE. SQ SCH (21:27)
--- NOTE | 2020-01-26 23:18 | EKG ---
[facility] [address] [place] [address] Test Date: 2020-01-26 Test Time: 07:51:50 Pat Name: ARIELLE MONZON Department: Room: Gender: F Computer Animator: : 1945 Requested By: DEENA VERA Order Number: [id number] Reading MD: Measurements Intervals [place] Rate: 120 P: DE: QRS: 34 QRSD: 98 T: 128 QT: 326 QTc: 466 Interpretive Statements IRREGULAR RHYTHM, NO P-WAVE FOUND VENTRICULAR PREMATURE COMPLEX(ES) ST & T ABNORMALITY, CONSIDER LATERAL ISCHEMIA OR LEFT VENTRICULAR STRAIN INFEROLATERAL ISCHEMIA OR LEFT VENTRICULAR STRAIN ABNORMAL ECG RI6.01 No previous ECG available for comparison
[2020-01-26 23:44] VITALS: BP 100/48
[2020-01-27 03:24] VITALS: BP 113/76
[2020-01-27 07:08] VITALS: BP 107/51
[2020-01-27] MEDS: ALBUTEROL SULFATE 2.5 MG/3 ML NEBU. NEB SCH ×3 (08:00→16:00)
[2020-01-27] MEDS: BUDESONIDE 0.5 MG/2 ML NEBU. NEB SCH ×2 (08:03→21:45)
[2020-01-27] MEDS: IPRATRPIUM/ALBUTEROL 0.5/2.5MG 3 ML NEBU. NEB SCH ×5 (08:03→21:45)
[2020-01-27] MEDS: POLYETHYLENE GLYCOL 3350 17 GM PACKET. PO SCH (08:38)
[2020-01-27] MEDS: DIGOXIN 125 MCG TABLET. PO SCH (08:38)
[2020-01-27] MEDS: OMEGA-3 FATTY ACIDS/FISH OIL 1,000 MG CAPSULE. PO SCH ×2 (08:38→21:19)
[2020-01-27] MEDS: CYANOCOBALAMIN (VITAMIN B-12) 1,000 MCG TABLET. PO SCH (08:38)
[2020-01-27] MEDS: MULTIVITAMIN with MINERAL TABLET. PO SCH ×2 (08:39→09:00)
[2020-01-27] MEDS: METOPROLOL TART IMMED RELEASE 25 MG TABLET. PO SCH ×2 (08:39→21:19)
[2020-01-27] MEDS: PANTOPRAZOLE 40 MG TABLET.DR. PO SCH (08:39)
[2020-01-27] MEDS: predniSONE 20 MG TABLET PO SCH (08:39)
[2020-01-27] MEDS: POTASSIUM CHLORIDE 10 MEQ TABLET.ER. PO SCH ×2 (08:39→17:12)
[2020-01-27] MEDS: LOSARTAN POTASSIUM 50 MG TABLET. PO SCH (08:40)
[2020-01-27] MEDS: INSULIN LISPRO 300 UNITS/3 ML VIAL. SQ SCH ×4 (08:47→21:27)
[2020-01-27] MEDS: cefTRIAXone IV Push 1 GM VIAL. IVP SCH (08:48)
[2020-01-27] MEDS: DOXYCYCLINE HYCLATE 100 MG in IV DEXTROSE 5% 100ML 100 ML IV SCH ×2 (08:48→21:20)
[2020-01-27] MEDS: HEPARIN for SUB-Q USE 5,000 UNIT/ML VIAL. SQ SCH ×2 (08:48→21:00)
[2020-01-27] MEDS: LACTOBACILLUS RHAMNOSUS GG 1 CAPSULE. PO SCH ×2 (09:44→21:19)
[2020-01-27 10:48] VITALS: BP 121/92
--- NOTE | 2020-01-27 12:10 | PDOC ---
PROGRESS NOTES History of Present Illness History of Present Illness Images Images CXR - Portable upright frontal view of the chest was obtained. Left perihilar consolidation is present. Cardiomegaly is again seen. No pneumothorax. Right lung field is clear. Subtle interstitial thickening of the lung durant is again seen. Possibility of a very small left pleural effusion is raised. No pneumothorax. Severe right glenohumeral joint degenerative narrowing and remodeling is present. Impression: Left perihilar consolidation. Follow-up to resolution is recommended. VTE Prophylaxis Ordered VTE Prophylaxis Devices: Yes VTE Pharmacological Prophylaxi: Yes IMPRESSION Left sided pneumonia - will place on rocephin + doxy. given vancomycin and rocephin in ED Left perihilar consolidation COPD - with acute exacerbation. Steroids, nebs Bilateral emphysematous changes are seen. prev ct CHEST Sepsis - 2/2 pneumonia. Will cont antibiotics Acute hypoxia - likely related to pneumonia, will wean as tolerated AFIB - on BB, high risk for bleed, not on OAC HTN - cont meds Hx of bowel AVMs - stable Chronic anemia - will monitor CKD3 - stable Chronic diastolic CHF - compensated, will stop fluids DM2 - diet controlled. Will check A1c. Sliding scale + basal Severe protein calorie malnutrition - will have mine superintendent to see GERARDO TOBACCO ABUSE DISORDER stopped 11 yrs ago plan ADMIT FEN - Cardiac ADA diet PPX - heparing q12hrs FULL CODE Dispo - inpatient for pneumonia. May need pulm consultation if she does not improve in the next 24-[address] CHEST recently done, we need report local facility Nephrology consult D/W RN Vitals Vitals Vital Signs Date Time Temp Pulse Resp B/P (MAP) Pulse Ox O2 Delivery O2 Flow Rate FiO2 01/27/20 11:49 Nasal Cannula 3.0 01/27/20 10:48 97.3 100 22 121/92 (102) 91 97.3 Physical Exam General: Alert, Oriented X3, Cooperative, No acute distress Lungs: Clear Abdomen: Normal bowel sounds, Soft, No tenderness, No hepatosplenomegaly, No masses Extremities: No clubbing, No cyanosis, No edema, Normal pulses, No tenderness/swelling Skin: No rashes, No breakdown, No significant lesion Labs LABS CLINICAL HISTORY: Lung nodule follow-up COMPARISON: None. TECHNIQUE: CT of the chest without intravenous contrast. Axial, coronal and sagittal reformatted images were generated. ---PQRS compliance statement - One or more of the following individualized dose reduction techniques were utilized for this study: 1. Automated exposure control 2. Adjustment of the mA and/or kV according to patient size 3. Use of iterative reconstruction technique--- FINDINGS: Lack of intravenous contrast limits evaluation of solid organs, vasculature, and lymph nodes. Chest: The heart is moderately enlarged. No pericardial effusion. Coronary artery calcifications are seen. Aortic calcifications are seen particularly at the, arch as well as main branches of aorta. Ectasia of the ascending aorta measuring up to 3.9 cm. No pleural effusion or pneumothorax. A borderline enlarged precarinal lymph node measures 1.1 x 1.1 cm however contains fatty hilum, morphologically normal. Additional prominent mediastinal and hilar lymph nodes are seen, in general not enlarged by size criteria. No axillary lymphadenopathy. A 2.1 cm right thyroid nodule is partially profiled, can be further assessed by thyroid ultrasound. Groundglass nodules are again seen in the left upper lobe. The largest left upper lobe groundglass nodule measures 1.9 x 1.5 cm, previously 2 x 1.4 cm when measured in a similar fashion. A smaller, more peripheral mixed solid and groundglass nodule measures 1.4 x 1 cm, previously 1.3 x 0.9 cm. This also appears more solid on today's examination. Several additional smaller groundglass nodules are seen in the left lung in general stable in size. A 5 mm right middle lobe groundglass nodule (series 8 image 136) is stable. Linear opacities in the lower lobes likely scarring/atelectasis. Bilateral emphysematous changes are seen. No lobar consolidation. No definite solid nodule is seen. Visualized Upper abdomen: Grossly unremarkable. Bones: Degenerative changes of the spine are seen. IMPRESSION: 1. Bilateral ground glass nodules are again seen, in general grossly stable in size when measured in a similar fashion. However recommend continued follow-up. Follow-up in 3-6 months is recommended. 2. A 2.1 cm right thyroid nodule is partially profiled, should be further assessed by thyroid ultrasound if not previously performed. 3. Bilateral emphysematous changes are seen. Electronically signed by: Job Mario MD (04/13/2019 10:44 AM) [facility] DICTATED and SIGNED BY: JOB MARIO MD DATE: 04/13/19 1044 PATIENT: ARIELLE MONZON ACCOUNT: [id number] : 1945 LOCATION: ER AGE: 74 SEX: F EXAM STATUS: PRE ER ORD. PHYSICIAN: DEENA VERA MD REASON: Shortness of breath and chest pain and cough since Tuesday. PROCEDURE: PORTABLE CHEST 1V Examination: PORTABLE CHEST 1V History: Shortness of breath and chest pain. Cough. Comparison/Correlation: 12/11/2018 Portable Chest X-ray Exam Findings: Portable upright frontal view of the chest was obtained. Left perihilar consolidation is present. Cardiomegaly is again seen. No pneumothorax. Right lung field is clear. Subtle interstitial thickening of the lung durant is again seen. Possibility of a very small left pleural effusion is raised. No pneumothorax. Severe right glenohumeral joint degenerative narrowing and remodeling is present. Impression: Left perihilar consolidation. Follow-up to resolution is recommended. Electronically signed by: Eric Chandler MD (01/26/2020 8:36 AM) [id number] DICTATED and SIGNED BY: ERIC CHANDLER MD DATE: 01/26/20 0836 Laboratory Tests Test 01/26/20 16:32 01/26/20 20:57 01/27/20 07:11 01/27/20 11:27 Glucose (Fingerstick) 337 mg/dL (70-99) 342 mg/dL (70-99) 177 mg/dL (70-99) 303 mg/dL (70-99) Assessment and Plan Assessmemt and Plan Problems Medical Problems: (1) Atrial fibrillation with RVR Status: Acute (2) CAP (community acquired pneumonia) Status: Acute (3) Chest wall pain Status: Acute (4) Congestive heart failure Status: Acute (5) Leukocytosis Status: Acute (6) SIRS (systemic inflammatory response syndrome) Status: Acute Comment Review of Relevant I have reviewed the following items halle (where applicable) has been applied. Labs Laboratory Tests Test 01/26/20 07:58 01/26/20 08:00 01/26/20 10:45 01/26/20 11:24 Influenza Type A Antigen Negative (NEGATIVE) Influenza Type B Antigen Negative (NEGATIVE) White Blood Count 26.8 x10^3/uL (4.0-11.0) Red Blood Count 4.17 x10^6/uL (3.50-5.40) Hemoglobin 12.4 g/dL (12.0-15.5) Hematocrit 37.8 % (36.0-47.0) Mean Corpuscular Volume 91 fL (79-100) Mean Corpuscular Hemoglobin 30 pg (25-35) Mean Corpuscular Hemoglobin Concent 33 g/dL (31-37) Red Cell Distribution Width 14.8 % (11.5-14.5) Platelet Count 219 x10^3/uL (140-400) Neutrophils (%) (Auto) 93 % (31-73) Lymphocytes (%) (Auto) 2 % (24-48) Monocytes (%) (Auto) 5 % (0-9) Eosinophils (%) (Auto) 0 % (0-3) Basophils (%) (Auto) 0 % (0-3) Neutrophils # (Auto) 24.9 x10^3/uL (1.8-7.7) Lymphocytes # (Auto) 0.4 x10^3/uL (1.0-4.8) Monocytes # (Auto) 1.4 x10^3/uL (0.0-1.1) Eosinophils # (Auto) 0.0 x10^3/uL (0.0-0.7) Basophils # (Auto) 0.0 x10^3/uL (0.0-0.2) Segmented Neutrophils % 81 % (35-66) Band Neutrophils % 16 % (0-9) Monocytes % 2 % (0-10) Myelocytes % 1 % (0-0) Toxic Granulation Present Platelet Estimate Adequate (ADEQUATE) Large Platelets Few Giant Platelets Present Prothrombin Time 15.4 SEC (11.7-14.0) Prothromb Time International Ratio 1.3 (0.8-1.1) Activated Partial Thromboplast Time 37 SEC (24-38) Sodium Level 138 mmol/L (136-145) Potassium Level 4.0 mmol/L (3.5-5.1) Chloride Level 99 mmol/L (98-107) Carbon Dioxide Level 27 mmol/L (21-32) Anion Gap 12 (6-14) Blood Urea Nitrogen 51 mg/dL (7-20) Creatinine 1.8 mg/dL (0.6-1.0) Estimated GFR (Cockcroft-Gault) 27.4 BUN/Creatinine Ratio 28 (6-20) Glucose Level 221 mg/dL (70-99) Lactic Acid Level 1.6 mmol/L (0.4-2.0) Calcium Level 9.8 mg/dL (8.5-10.1) Magnesium Level 2.0 mg/dL (1.8-2.4) Total Bilirubin 0.7 mg/dL (0.2-1.0) Aspartate Amino Transf (AST/SGOT) 19 U/L (15-37) Alanine Aminotransferase (ALT/SGPT) 27 U/L (14-59) Alkaline Phosphatase 92 U/L (46-116) Creatine Kinase 179 U/L (26-192) Troponin I Quantitative < 0.017 ng/mL (0.000-0.055) HM-Cjw-M-Type Natriuretic Peptide 3597 pg/mL (0-449) Total Protein 7.5 g/dL (6.4-8.2) Albumin 2.8 g/dL (3.4-5.0) Albumin/Globulin Ratio 0.6 (1.0-1.7) Procalcitonin 4.90 ng/mL (0.00-0.10) Digoxin Level 0.7 ng/mL (0.9-2.0) Digoxin Last Dose Date Unknown Digoxin Last Dose Time Unknown Glucose (Fingerstick) 219 mg/dL (70-99) Test 01/26/20 16:32 01/26/20 20:57 01/27/20 07:11 01/27/20 11:27 Glucose (Fingerstick) 337 mg/dL (70-99) 342 mg/dL (70-99) 177 mg/dL (70-99) 303 mg/dL (70-99) Laboratory Tests Test 01/26/20 16:32 01/26/20 20:57 01/27/20 07:11 01/27/20 11:27 Glucose (Fingerstick) 337 mg/dL (70-99) 342 mg/dL (70-99) 177 mg/dL (70-99) 303 mg/dL (70-99) Microbiology 01/26/20 Blood Culture - Preliminary, Resulted NO GROWTH AFTER 1 DAY Medications Current Medications Sodium Chloride 1,000 ml @ 150 mls/hr Q6H40M IV Last administered on 01/26/20 08:51; Start 01/26/20 at 08:07; Stop 01/26/20 at 14:46; Status DC Albuterol/ Ipratropium (Duoneb) 3 ml 1X ONCE NEB Last administered on 01/26/20at 08:30; Start 01/26/20 at 08:15; Stop 01/26/20 at 08:16; Status DC Methylprednisolone Sodium Succinate (SOLU-Medrol 125MG VIAL) 125 mg 1X ONCE IV Last administered on 01/26/20at 08:42; Start 01/26/20 at 08:15; Stop 01/26/20 at 08:16; Status DC Acetaminophen (Tylenol) 1,000 mg 1X ONCE PO Last administered on 01/26/20at 11:36; Start 01/26/20 at 09:15; Stop 01/26/20 at 09:16; Status DC Ceftriaxone Sodium (Rocephin) 1 gm 1X ONCE IVP Last administered on 01/26/20at 09:29; Start 01/26/20 at 09:15; Stop 01/26/20 at 09:16; Status DC Vancomycin HCl 2 gm/Sodium Chloride 500 ml @ 250 mls/hr 1X ONCE IV Last administered on 01/26/20at 11:03; Start 01/26/20 at 09:30; Stop 01/26/20 at 11:29; Status DC Diltiazem HCl (Cardizem Iv Push) 10 mg 1X ONCE IVP Last administered on 01/26/20at 11:37; Start 01/26/20 at 09:45; Stop 01/26/20 at 09:46; Status DC Albuterol/ Ipratropium (Duoneb) 3 ml RTQID NEB ; Start 01/26/20 at 12:00; Stop 01/26/20 at 11:46; Status DC Albuterol Sulfate (Ventolin Neb Soln) 2.5 mg RTQID NEB Last administered on 01/26/20at 16:13; Start 01/26/20 at 12:00 Cyanocobalamin (Vitamin B-12) 2,000 mcg DAILY PO Last administered on 01/27/20at 08:38; Start 01/26/20 at 12:00 Digoxin (Lanoxin) 125 mcg DAILY PO Last administered on 01/27/20 08:38; Start 01/26/20 at 12:00 Losartan Potassium (Cozaar) 50 mg DAILY PO Last administered on 01/27/20 08:40; Start 01/26/20 at 12:00 Metoprolol Tartrate (Lopressor) 12.5 mg BID PO Last administered on 01/27/20 08:39; Start 01/26/20 at 12:00 Polyethylene Glycol (miraLAX PACKET) 17 gm DAILY PO Last administered on 01/27/20 08:38; Start 01/26/20 at 11:00 Potassium Chloride (Klor-Con) 10 meq BIDWMEALS PO Last administered on 01/27/20 08:39; Start 01/26/20 at 12:00 Non-Formulary Medication (Budesonide/ Formoterol Fumarate (Symbicort 160-4.5 Mcg Inhaler)) 2 puff BID IH ; Start 01/26/20 at 21:00; Status UNV Multivitamins (Thera M Plus) 1 tab DAILY PO ; Start 01/26/20 at 12:00 Fish Oil (Fish Oil) 1,000 mg BID PO Last administered on 01/27/20 08:38; Start 01/26/20 at 12:00 Pantoprazole Sodium (Protonix) 40 mg DAILYAC PO Last administered on 01/27/20 08:39; Start 01/26/20 at 12:00 Insulin Human Lispro (HumaLOG) 0-5 UNITS TIDACHC SQ Last administered on 01/27/20 08:47; Start 01/26/20 at 11:30 Dextrose (Dextrose 50%-Water Syringe) 12.5 gm PRN Q15MIN PRN IV SEE COMMENTS; Start 01/26/20 at 11:30 Budesonide (Pulmicort) 0.5 mg RTBID NEB Last administered on 01/27/20 08:03; Start 01/26/20 at 12:00 Insulin Glargine (Lantus Syringe) 8 unit QHS SQ Last administered on 01/26/20 21:27; Start 01/26/20 at 21:00 Levofloxacin/ Dextrose 100 ml @ 100 mls/hr Q24H IV ; Start 01/26/20 at 17:00; Stop 01/26/20 at 16:52; Status DC Vancomycin HCl (Vanco Per Pharmacy) 1 each PRN DAILY PRN MC SEE COMMENTS; Start 01/26/20 at 16:45; Stop 01/26/20 at 16:45; Status DC Prednisone (Prednisone) 20 mg DAILY PO Last administered on 01/27/20at 08:39; Start 01/27/20 at 09:00; Stop 01/31/20 at 09:01 Albuterol/ Ipratropium (Duoneb) 3 ml RTQID NEB Last administered on 01/27/20at 11:48; Start 01/26/20 at 17:00 Heparin Sodium (Porcine) (Heparin Sodium) 5,000 unit Q12HR SQ ; Start 01/26/20 at 17:00 Doxycycline Hyclate 100 mg/ Dextrose 100 ml @ 50 mls/hr Q12HR IV Last administered on 01/27/20at 08:48; Start 01/26/20 at 21:00 Ceftriaxone Sodium (Rocephin) 1 gm Q24H IVP Last administered on 01/27/20at 08:48; Start 01/27/20 at 09:00 Lactobacillus Rhamnosus (Culturelle) 1 cap BID PO Last administered on 01/27/20at 09:44; Start 01/27/20 at 09:00 Active Scripts Active Proair Hfa (Albuterol Sulfate) 8.5 Gm Hfa.aer.ad 2.5 Mg NEB RTQID MDD 1 Metoprolol Tartrate 25 Mg Tablet 12.5 Mg PO BID MDD 1 Protonix (Pantoprazole Sodium) 20 Mg Tablet.dr 40 Mg PO DAILY 60 Days Reported Vitamin B-12 (Cyanocobalamin (Vitamin B-12)) 1,000 Mcg Tablet 2,000 Mcg PO DAILY One-Daily Multi-Vitamin (Multivitamin) 1 Each Tablet 1 Tab PO DAILY 30 Days Vitamin D3 (Cholecalciferol (Vitamin D3)) 2,000 Unit Tab.chew 1 Tab PO DAILY 30 Days Bumetanide 2 Mg Tablet 2 Mg PO DAILY Fish Oil 1,000 mg Softgel ([place]-3S/Dha/Epa/Fish Oil) 1 Each Capsule 1 Each PO BID Losartan Potassium 50 Mg Tablet 50 Mg PO DAILY Klor-Con M10 (Potassium Chloride) 10 Meq Tab.er.prt 1 Tab PO BID Digoxin 125 Mcg Tablet 1 Tab PO DAILY Miralax (Polyethylene Glycol 3350) 17 Gm Powd.pack 1 Packet PO DAILY Symbicort 160-4.5 Mcg Inhaler (Budesonide/Formoterol Fumarate) 10.2 Gm Hfa.aer.ad 2 Puff IH BID Vitals/I & O Vital Sign - Last 24 Hours 01/26/20 01/26/20 01/26/20 01/26/20 13:08 14:12 14:29 14:29 Temp 97.4 97.4 Pulse 95 95 95 Resp 18 B/P (MAP) 114/54 (74) 114/54 Pulse Ox 91 95 O2 Delivery Nasal Cannula Nasal Cannula O2 Flow Rate 3.0 2.0 01/26/20 01/26/20 01/26/20 01/26/20 16:14 19:35 20:00 20:47 Temp 97.5 97.5 Pulse 94 Resp 21 B/P (MAP) 127/44 (71) Pulse Ox 91 97 O2 Delivery Nasal Cannula Nasal Cannula Nasal Cannula Nasal Cannula O2 Flow Rate 3.0 3.0 2.0 3.0 01/26/20 01/26/20 01/27/20 01/27/20 21:23 23:44 03:24 07:08 Temp 97.6 97.6 97.5 97.6 97.6 97.5 Pulse 94 85 69 89 Resp 22 22 22 B/P (MAP) 127/44 100/48 (65) 113/76 (88) 107/51 (69) Pulse Ox 96 92 97 O2 Delivery Nasal Cannula Nasal Cannula Nasal Cannula O2 Flow Rate 3.0 3.0 3.0 01/27/20 01/27/20 01/27/20 01/27/20 08:00 08:06 08:08 08:38 Pulse 89 B/P (MAP) 107/51 Pulse Ox 97 97 O2 Delivery Nasal Cannula Nasal Cannula Nasal Cannula O2 Flow Rate 2.0 3.0 3.0 01/27/20 01/27/20 01/27/20 01/27/20 08:39 08:40 10:48 11:49 Temp 97.3 97.3 Pulse 89 89 100 Resp 22 B/P (MAP) 107/51 107/51 121/92 (102) Pulse Ox 91 O2 Delivery Nasal Cannula Nasal Cannula O2 Flow Rate 3.0 3.0 Intake and Output 3/7/20 3/7/20 3/8/20 15:00 23:00 07:00 Intake Total 240 ml 1560 ml 200 ml Output Total 400 ml Balance 240 ml 1560 ml -200 ml EBLKYS MOYA MD Jan 27, 2020 12:10
[2020-01-27 14:24] VITALS: BP 121/77
[2020-01-27 14:35] LABS: BASO # 0.1 x10^3/uL (0.0-0.2); BASO % 0 % (0-3); EOS % 0 % (0-3); HEMATOCRIT 35.4 % (36.0-47.0); HEMOGLOBIN 11.4 g/dL (12.0-15.5); LYMPH # 0.5 x10^3/uL (1.0-4.8); LYMPH % 2 % (24-48); MEAN CORPUSCULAR HEMOGLOBIN 30 pg (25-35); MEAN CORPUSCULAR HGB CONC 32 g/dL (31-37); MEAN CORPUSCULAR VOLUME 92 fL (79-100); MONO # 0.9 x10^3/uL (0.0-1.1); MONO % 4 % (0-9); NEUT # 21.2 x10^3/uL (1.8-7.7); NEUT % 94 % (31-73); PLATELET COUNT 234 x10^3/uL (140-400); RED BLOOD COUNT 3.87 x10^6/uL (3.50-5.40); RED CELL DISTRIBUTION WIDTH 14.6 % (11.5-14.5); WHITE BLOOD COUNT 22.6 x10^3/uL (4.0-11.0)
[2020-01-27 14:47] LABS: CALCIUM 9.5 mg/dL (8.5-10.1); GFR 24.2; POTASSIUM 4.3 mmol/L (3.5-5.1)
[2020-01-27 19:25] VITALS: BP 143/71
[2020-01-27] MEDS: INSULIN GLARGINE SYRINGE. SQ SCH (21:27)
[2020-01-27 23:00] VITALS: BP 135/64
[2020-01-28 03:00] VITALS: BP 145/85
[2020-01-28 03:07] LABS: HEMOGLOBIN A1C 6.6 % (4.8-5.6)
[2020-01-28 07:00] VITALS: BP 138/69
[2020-01-28] MEDS: PANTOPRAZOLE 40 MG TABLET.DR. PO SCH (08:35)
[2020-01-28] MEDS: OMEGA-3 FATTY ACIDS/FISH OIL 1,000 MG CAPSULE. PO SCH ×2 (08:35→20:18)
[2020-01-28] MEDS: LACTOBACILLUS RHAMNOSUS GG 1 CAPSULE. PO SCH ×2 (08:36→20:17)
[2020-01-28] MEDS: LOSARTAN POTASSIUM 50 MG TABLET. PO SCH (08:36)
[2020-01-28] MEDS: METOPROLOL TART IMMED RELEASE 25 MG TABLET. PO SCH ×2 (08:36→20:18)
[2020-01-28] MEDS: POTASSIUM CHLORIDE 10 MEQ TABLET.ER. PO SCH ×2 (08:36→17:38)
[2020-01-28] MEDS: MULTIVITAMIN with MINERAL TABLET. PO SCH (08:37)
[2020-01-28] MEDS: CYANOCOBALAMIN (VITAMIN B-12) 1,000 MCG TABLET. PO SCH (08:37)
[2020-01-28] MEDS: predniSONE 20 MG TABLET PO SCH (08:37)
[2020-01-28] MEDS: DIGOXIN 125 MCG TABLET. PO SCH (08:37)
[2020-01-28] MEDS: cefTRIAXone IV Push 1 GM VIAL. IVP SCH (08:38)
[2020-01-28] MEDS: DOXYCYCLINE HYCLATE 100 MG in IV DEXTROSE 5% 100ML 100 ML IV SCH ×2 (08:38→20:17)
[2020-01-28] MEDS: BUDESONIDE 0.5 MG/2 ML NEBU. NEB SCH ×2 (08:45→19:34)
[2020-01-28] MEDS: IPRATRPIUM/ALBUTEROL 0.5/2.5MG 3 ML NEBU. NEB SCH ×3 (08:45→19:34)
[2020-01-28] MEDS: INSULIN LISPRO 300 UNITS/3 ML VIAL. SQ SCH ×4 (08:52→21:49)
[2020-01-28] MEDS: POLYETHYLENE GLYCOL 3350 17 GM PACKET. PO SCH (09:00)
[2020-01-28] MEDS: HEPARIN for SUB-Q USE 5,000 UNIT/ML VIAL. SQ SCH ×2 (09:00→19:55)
--- NOTE | 2020-01-28 09:37 | PDOC ---
[facility] PROGRESS NOTE Chief Complaint Chief Complaint CAPS CP SIRS History of Present Illness History of Present Illness 01/28/2020 Pt seen and examined, discussed with nursing staff, reviewed documentation. Imaging finds a left perihylar consolidation. Will continue to provide steroids, breathing treatments, oxygen, duonebs. Will consult Pulmonology and Renal for BUN/Cr disturbance as well as hyponatremia. Discharge disposition pending to SNU likely. Vitals/I&O Vitals/I&O: Vital Signs Date Time Temp Pulse Resp B/P (MAP) Pulse Ox O2 Delivery O2 Flow Rate FiO2 01/28/20 08:49 96 Nasal Cannula 3.0 01/28/20 08:37 93 01/28/20 07:00 97.8 20 138/69 (92) 97.8 I & O 01/27/20 01/27/20 01/28/20 15:00 23:00 07:00 Intake Total 1450 ml 240 ml 600 ml Output Total 150 ml Balance 1450 ml 90 ml 600 ml Physical Exam General: Alert, Oriented X3, Cooperative, No acute distress Lungs: Clear Abdomen: Normal bowel sounds, Soft, No tenderness, No hepatosplenomegaly, No masses Extremities: No clubbing, No cyanosis, No edema, Normal pulses, No tenderness/swelling Skin: No rashes, No breakdown, No significant lesion Labs Labs: Laboratory Tests Test 01/27/20 11:27 01/27/20 14:15 01/27/20 16:42 01/28/20 07:27 Glucose (Fingerstick) 303 mg/dL (70-99) 249 mg/dL (70-99) 163 mg/dL (70-99) White Blood Count 22.6 x10^3/uL (4.0-11.0) Red Blood Count 3.87 x10^6/uL (3.50-5.40) Hemoglobin 11.4 g/dL (12.0-15.5) Hematocrit 35.4 % (36.0-47.0) Mean Corpuscular Volume 92 fL (79-100) Mean Corpuscular Hemoglobin 30 pg (25-35) Mean Corpuscular Hemoglobin Concent 32 g/dL (31-37) Red Cell Distribution Width 14.6 % (11.5-14.5) Platelet Count 234 x10^3/uL (140-400) Neutrophils (%) (Auto) 94 % (31-73) Lymphocytes (%) (Auto) 2 % (24-48) Monocytes (%) (Auto) 4 % (0-9) Eosinophils (%) (Auto) 0 % (0-3) Basophils (%) (Auto) 0 % (0-3) Neutrophils # (Auto) 21.2 x10^3/uL (1.8-7.7) Lymphocytes # (Auto) 0.5 x10^3/uL (1.0-4.8) Monocytes # (Auto) 0.9 x10^3/uL (0.0-1.1) Eosinophils # (Auto) 0.0 x10^3/uL (0.0-0.7) Basophils # (Auto) 0.1 x10^3/uL (0.0-0.2) Sodium Level 135 mmol/L (136-145) Potassium Level 4.3 mmol/L (3.5-5.1) Chloride Level 100 mmol/L (98-107) Carbon Dioxide Level 25 mmol/L (21-32) Anion Gap 10 (6-14) Blood Urea Nitrogen 79 mg/dL (7-20) Creatinine 2.0 mg/dL (0.6-1.0) Estimated GFR (Cockcroft-Gault) 24.2 Glucose Level 267 mg/dL (70-99) Calcium Level 9.5 mg/dL (8.5-10.1) Assessment and Plan Assessmemt and Plan assessment: CAPs CP SIRS Plan: 1. Continue antibiotic treatement 2. Continue duoneb treatment 3. continue O2 and breathing treatments 4. Consult Pulmonology 5. Consult Nephrology for BUN / Cr / hyponatremia 6. Discharge disposition pending, likely to SNU Comment Review of Relevant I have reviewed the following items halle (where applicable) has been applied. ASHWIN DAVIS III DO Jan 28, 2020 09:37
[2020-01-28 10:45] LABS: BASO # 0.1 x10^3/uL (0.0-0.2); BASO % 1 % (0-3); EOS % 0 % (0-3); HEMATOCRIT 36.4 % (36.0-47.0); HEMOGLOBIN 11.5 g/dL (12.0-15.5); LYMPH # 0.8 x10^3/uL (1.0-4.8); LYMPH % 5 % (24-48); MEAN CORPUSCULAR HEMOGLOBIN 29 pg (25-35); MEAN CORPUSCULAR HGB CONC 32 g/dL (31-37); MEAN CORPUSCULAR VOLUME 92 fL (79-100); MONO # 0.7 x10^3/uL (0.0-1.1); MONO % 4 % (0-9); NEUT # 15.4 x10^3/uL (1.8-7.7); NEUT % 91 % (31-73); PLATELET COUNT 224 x10^3/uL (140-400); RED BLOOD COUNT 3.95 x10^6/uL (3.50-5.40); RED CELL DISTRIBUTION WIDTH 14.8 % (11.5-14.5); WHITE BLOOD COUNT 16.9 x10^3/uL (4.0-11.0)
[2020-01-28 11:00] VITALS: BP 170/91
[2020-01-28 11:05] LABS: ALBUMIN 2.6 g/dL (3.4-5.0); ALBUMIN/GLOBULIN RATIO 0.5 (1.0-1.7); CALCIUM 9.6 mg/dL (8.5-10.1); CREATININE 1.7 mg/dL (0.6-1.0); GFR 29.2; POTASSIUM 4.4 mmol/L (3.5-5.1); TOTAL BILIRUBIN 0.2 mg/dL (0.2-1.0); TOTAL PROTEIN 7.4 g/dL (6.4-8.2)
--- NOTE | 2020-01-28 12:08 | PDOC2 ---
CONSULT Date of Consult Date of Consult DATE: 01/28/20 TIME: 12:02 Reason for Consult Reason for Consult: GERARDO Referring Physician Referring Physician: NAKUL Identification/Chief Complaint Chief Complaint CHEST PAIN AND SOB Source Source: Chart review History of Present Illness Reason for Visit: THIS IS A 74 YR WITH CHEST PAIN AND SOB. NOTED TO HAVE PNEUMONIA WITH A LEFT PERIHILAR INFILTRATED. CR OF 1.8 ON ADMIT AND TODAY 2.0. BASELINE CR OF ABOUT 1.5 C/W STAGE 3 CKD. SHE HAS NOT SEEN RENAL IN THE PAST. CKD DUE TO DM II AND HTN. HEMODYNAMICALLY STABLE. APPETITE HAD BEEN POOR FOR COUPLE DAYS BUT HAS IMPROVED SINCE LAST NIGHT. ER AND ADMIT NOTE REVIEWED Past Medical History Cardiovascular: AFIB, HTN Pulmonary: COPD GI: Diverticulosis, Other Heme/Onc: Anemia NOS Musculoskeletal: Osteoarthritis Infectious disease: Other Renal/: Chronic renal insuff Endocrine: No pertinent hx Past Surgical History Past Surgical History: Appendectomy, Cholecystectomy, Tonsillectomy, Colon Re section, Other Family History Family History: Diabetes, Hypertension Social History <1 pack per day ALCOHOL: none Drugs: None Lives: with Family Current Problem List Problem List Problems Medical Problems: (1) Atrial fibrillation with RVR Status: Acute (2) CAP (community acquired pneumonia) Status: Acute (3) Chest wall pain Status: Acute (4) Congestive heart failure Status: Acute (5) Leukocytosis Status: Acute (6) SIRS (systemic inflammatory response syndrome) Status: Acute Current Medications Current Medications Current Medications Sodium Chloride 1,000 ml @ 150 mls/hr Q6H40M IV Last administered on 01/26/20at 08:51; Start 01/26/20 at 08:07; Stop 01/26/20 at 14:46; Status DC Albuterol/ Ipratropium (Duoneb) 3 ml 1X ONCE NEB Last administered on 01/26/20at 08:30; Start 01/26/20 at 08:15; Stop 01/26/20 at 08:16; Status DC Methylprednisolone Sodium Succinate (SOLU-Medrol 125MG VIAL) 125 mg 1X ONCE IV Last administered on 01/26/20at 08:42; Start 01/26/20 at 08:15; Stop 01/26/20 at 08:16; Status DC Acetaminophen (Tylenol) 1,000 mg 1X ONCE PO Last administered on 01/26/20at 11:36; Start 01/26/20 at 09:15; Stop 01/26/20 at 09:16; Status DC Ceftriaxone Sodium (Rocephin) 1 gm 1X ONCE IVP Last administered on 01/26/20 09:29; Start 01/26/20 at 09:15; Stop 01/26/20 at 09:16; Status DC Vancomycin HCl 2 gm/Sodium Chloride 500 ml @ 250 mls/hr 1X ONCE IV Last administered on 01/26/20 11:03; Start 01/26/20 at 09:30; Stop 01/26/20 at 11:29; Status DC Diltiazem HCl (Cardizem Iv Push) 10 mg 1X ONCE IVP Last administered on 01/26/20 11:37; Start 01/26/20 at 09:45; Stop 01/26/20 at 09:46; Status DC Albuterol/ Ipratropium (Duoneb) 3 ml RTQID NEB ; Start 01/26/20 at 12:00; Stop 01/26/20 at 11:46; Status DC Albuterol Sulfate (Ventolin Neb Soln) 2.5 mg RTQID NEB Last administered on 01/26/20 16:13; Start 01/26/20 at 12:00; Stop 01/27/20 at 16:36; Status DC Cyanocobalamin (Vitamin B-12) 2,000 mcg DAILY PO Last administered on 01/28/20 08:37; Start 01/26/20 at 12:00 Digoxin (Lanoxin) 125 mcg DAILY PO Last administered on 01/28/20 08:37; Start 01/26/20 at 12:00 Losartan Potassium (Cozaar) 50 mg DAILY PO Last administered on 01/28/20 08:36; Start 01/26/20 at 12:00 Metoprolol Tartrate (Lopressor) 12.5 mg BID PO Last administered on 01/28/20 08:36; Start 01/26/20 at 12:00 Polyethylene Glycol (miraLAX PACKET) 17 gm DAILY PO Last administered on 01/27/20 08:38; Start 01/26/20 at 11:00 Potassium Chloride (Klor-Con) 10 meq BIDWMEALS PO Last administered on 01/28/20 08:36; Start 01/26/20 at 12:00 Non-Formulary Medication (Budesonide/ Formoterol Fumarate (Symbicort 160-4.5 Mcg Inhaler)) 2 puff BID IH ; Start 01/26/20 at 21:00; Status UNV Multivitamins (Thera M Plus) 1 tab DAILY PO Last administered on 01/28/20 08:37; Start 01/26/20 at 12:00 Fish Oil (Fish Oil) 1,000 mg BID PO Last administered on 01/28/20at 08:35; Start 01/26/20 at 12:00 Pantoprazole Sodium (Protonix) 40 mg DAILYAC PO Last administered on 01/28/20 08:35; Start 01/26/20 at 12:00 Insulin Human Lispro (HumaLOG) 0-5 UNITS TIDACHC SQ Last administered on 01/28/20at 08:52; Start 01/26/20 at 11:30 Dextrose (Dextrose 50%-Water Syringe) 12.5 gm PRN Q15MIN PRN IV SEE COMMENTS; Start 01/26/20 at 11:30 Budesonide (Pulmicort) 0.5 mg RTBID NEB Last administered on 01/28/20at 08:45; Start 01/26/20 at 12:00 Insulin Glargine (Lantus Syringe) 8 unit QHS SQ Last administered on 01/27/20at 21:27; Start 01/26/20 at 21:00 Levofloxacin/ Dextrose 100 ml @ 100 mls/hr Q24H IV ; Start 01/26/20 at 17:00; Stop 01/26/20 at 16:52; Status DC Vancomycin HCl (Vanco Per Pharmacy) 1 each PRN DAILY PRN MC SEE COMMENTS; Start 01/26/20 at 16:45; Stop 01/26/20 at 16:45; Status DC Prednisone (Prednisone) 20 mg DAILY PO Last administered on 01/28/20at 08:37; Start 01/27/20 at 09:00; Stop 01/31/20 at 09:01 Albuterol/ Ipratropium (Duoneb) 3 ml RTQID NEB Last administered on 01/28/20at 08:45; Start 01/26/20 at 17:00 Heparin Sodium (Porcine) (Heparin Sodium) 5,000 unit Q12HR SQ ; Start 01/26/20 at 17:00 Doxycycline Hyclate 100 mg/ Dextrose 100 ml @ 50 mls/hr Q12HR IV Last administered on 01/28/20at 08:38; Start 01/26/20 at 21:00 Ceftriaxone Sodium (Rocephin) 1 gm Q24H IVP Last administered on 01/28/20at 08:38; Start 01/27/20 at 09:00 Lactobacillus Rhamnosus (Culturelle) 1 cap BID PO Last administered on 01/28/20at 08:36; Start 01/27/20 at 09:00 Active Scripts Active Proair Hfa (Albuterol Sulfate) 8.5 Gm Hfa.aer.ad 2.5 Mg NEB RTQID MDD 1 Metoprolol Tartrate 25 Mg Tablet 12.5 Mg PO BID MDD 1 Protonix (Pantoprazole Sodium) 20 Mg Tablet.dr 40 Mg PO DAILY 60 Days Reported Vitamin B-12 (Cyanocobalamin (Vitamin B-12)) 1,000 Mcg Tablet 2,000 Mcg PO DAILY One-Daily Multi-Vitamin (Multivitamin) 1 Each Tablet 1 Tab PO DAILY 30 Days Vitamin D3 (Cholecalciferol (Vitamin D3)) 2,000 Unit Tab.chew 1 Tab PO DAILY 30 Days Bumetanide 2 Mg Tablet 2 Mg PO DAILY Fish Oil 1,000 mg Softgel (Dameron-3S/Dha/Epa/Fish Oil) 1 Each Capsule 1 Each PO BID Losartan Potassium 50 Mg Tablet 50 Mg PO DAILY Klor-Con M10 (Potassium Chloride) 10 Meq Tab.er.prt 1 Tab PO BID Digoxin 125 Mcg Tablet 1 Tab PO DAILY Miralax (Polyethylene Glycol 3350) 17 Gm Powd.pack 1 Packet PO DAILY Symbicort 160-4.5 Mcg Inhaler (Budesonide/Formoterol Fumarate) 10.2 Gm Hfa.aer.ad 2 Puff IH BID Allergies Allergies: Coded Allergies: DONNA Inhibitors (Verified Allergy, Severe, angioedema, 12/22/18) Penicillins (Verified Allergy, Intermediate, n/v,itch,rash, 12/22/18) erythromycin base (Verified Adverse Reaction, Intermediate, n/v, 12/22/18) ROS General: YES: Fatigue PSYCHOLOGICAL ROS: YES: Anxiety Eyes: Yes Decreased vision HEENT: YES: Heacaches Respiratory: YES: Cough, Shortness of breath Gastrointestinal: Yes Constipation Genitourinary: YES Other (NOCTURIA) Musculoskeletal: Yes Muscular Weakness Neurological: Yes Dizziness, Yes Weakness Skin: Yes Dry Skin Physical Exam General: Alert, Oriented X3, Cooperative, No acute distress HEENT: Atraumatic Lungs: Clear to auscultation, Normal air movement Heart: Regular rate, Normal S1 Abdomen: Soft, No tenderness Skin: No rashes Neuro: Normal speech Psych/Mental Status: Mental status NL, Mood NL MUSCULOSKELETAL: No joint tenderness, No deformity, No muscular tenderness noted Vitals VITALS Vital Signs Date Time Temp Pulse Resp B/P (MAP) Pulse Ox O2 Delivery O2 Flow Rate FiO2 01/28/20 11:57 96 Nasal Cannula 3.0 01/28/20 11:00 97.6 84 18 170/91 (117) 97.6 Labs Labs Laboratory Tests Test 01/26/20 16:32 01/26/20 20:57 01/27/20 07:11 01/27/20 11:27 Glucose (Fingerstick) 337 mg/dL (70-99) 342 mg/dL (70-99) 177 mg/dL (70-99) 303 mg/dL (70-99) Test 01/27/20 14:15 01/27/20 16:42 01/28/20 07:27 01/28/20 10:15 White Blood Count 22.6 x10^3/uL (4.0-11.0) 16.9 x10^3/uL (4.0-11.0) Red Blood Count 3.87 x10^6/uL (3.50-5.40) 3.95 x10^6/uL (3.50-5.40) Hemoglobin 11.4 g/dL (12.0-15.5) 11.5 g/dL (12.0-15.5) Hematocrit 35.4 % (36.0-47.0) 36.4 % (36.0-47.0) Mean Corpuscular Volume 92 fL (79-100) 92 fL (79-100) Mean Corpuscular Hemoglobin 30 pg (25-35) 29 pg (25-35) Mean Corpuscular Hemoglobin Concent 32 g/dL (31-37) 32 g/dL (31-37) Red Cell Distribution Width 14.6 % (11.5-14.5) 14.8 % (11.5-14.5) Platelet Count 234 x10^3/uL (140-400) 224 x10^3/uL (140-400) Neutrophils (%) (Auto) 94 % (31-73) 91 % (31-73) Lymphocytes (%) (Auto) 2 % (24-48) 5 % (24-48) Monocytes (%) (Auto) 4 % (0-9) 4 % (0-9) Eosinophils (%) (Auto) 0 % (0-3) 0 % (0-3) Basophils (%) (Auto) 0 % (0-3) 1 % (0-3) Neutrophils # (Auto) 21.2 x10^3/uL (1.8-7.7) 15.4 x10^3/uL (1.8-7.7) Lymphocytes # (Auto) 0.5 x10^3/uL (1.0-4.8) 0.8 x10^3/uL (1.0-4.8) Monocytes # (Auto) 0.9 x10^3/uL (0.0-1.1) 0.7 x10^3/uL (0.0-1.1) Eosinophils # (Auto) 0.0 x10^3/uL (0.0-0.7) 0.0 x10^3/uL (0.0-0.7) Basophils # (Auto) 0.1 x10^3/uL (0.0-0.2) 0.1 x10^3/uL (0.0-0.2) Sodium Level 135 mmol/L (136-145) 137 mmol/L (136-145) Potassium Level 4.3 mmol/L (3.5-5.1) 4.4 mmol/L (3.5-5.1) Chloride Level 100 mmol/L (98-107) 102 mmol/L (98-107) Carbon Dioxide Level 25 mmol/L (21-32) 26 mmol/L (21-32) Anion Gap 10 (6-14) 9 (6-14) Blood Urea Nitrogen 79 mg/dL (7-20) 72 mg/dL (7-20) Creatinine 2.0 mg/dL (0.6-1.0) 1.7 mg/dL (0.6-1.0) Estimated GFR (Cockcroft-Gault) 24.2 29.2 Glucose Level 267 mg/dL (70-99) 277 mg/dL (70-99) Calcium Level 9.5 mg/dL (8.5-10.1) 9.6 mg/dL (8.5-10.1) Glucose (Fingerstick) 249 mg/dL (70-99) 163 mg/dL (70-99) BUN/Creatinine Ratio 42 (6-20) Total Bilirubin 0.2 mg/dL (0.2-1.0) Aspartate Amino Transf (AST/SGOT) 23 U/L (15-37) Alanine Aminotransferase (ALT/SGPT) 32 U/L (14-59) Alkaline Phosphatase 94 U/L (46-116) Total Protein 7.4 g/dL (6.4-8.2) Albumin 2.6 g/dL (3.4-5.0) Albumin/Globulin Ratio 0.5 (1.0-1.7) Laboratory Tests Test 01/27/20 14:15 01/27/20 16:42 01/28/20 07:27 01/28/20 10:15 White Blood Count 22.6 x10^3/uL (4.0-11.0) 16.9 x10^3/uL (4.0-11.0) Red Blood Count 3.87 x10^6/uL (3.50-5.40) 3.95 x10^6/uL (3.50-5.40) Hemoglobin 11.4 g/dL (12.0-15.5) 11.5 g/dL (12.0-15.5) Hematocrit 35.4 % (36.0-47.0) 36.4 % (36.0-47.0) Mean Corpuscular Volume 92 fL (79-100) 92 fL (79-100) Mean Corpuscular Hemoglobin 30 pg (25-35) 29 pg (25-35) Mean Corpuscular Hemoglobin Concent 32 g/dL (31-37) 32 g/dL (31-37) Red Cell Distribution Width 14.6 % (11.5-14.5) 14.8 % (11.5-14.5) Platelet Count 234 x10^3/uL (140-400) 224 x10^3/uL (140-400) Neutrophils (%) (Auto) 94 % (31-73) 91 % (31-73) Lymphocytes (%) (Auto) 2 % (24-48) 5 % (24-48) Monocytes (%) (Auto) 4 % (0-9) 4 % (0-9) Eosinophils (%) (Auto) 0 % (0-3) 0 % (0-3) Basophils (%) (Auto) 0 % (0-3) 1 % (0-3) Neutrophils # (Auto) 21.2 x10^3/uL (1.8-7.7) 15.4 x10^3/uL (1.8-7.7) Lymphocytes # (Auto) 0.5 x10^3/uL (1.0-4.8) 0.8 x10^3/uL (1.0-4.8) Monocytes # (Auto) 0.9 x10^3/uL (0.0-1.1) 0.7 x10^3/uL (0.0-1.1) Eosinophils # (Auto) 0.0 x10^3/uL (0.0-0.7) 0.0 x10^3/uL (0.0-0.7) Basophils # (Auto) 0.1 x10^3/uL (0.0-0.2) 0.1 x10^3/uL (0.0-0.2) Sodium Level 135 mmol/L (136-145) 137 mmol/L (136-145) Potassium Level 4.3 mmol/L (3.5-5.1) 4.4 mmol/L (3.5-5.1) Chloride Level 100 mmol/L (98-107) 102 mmol/L (98-107) Carbon Dioxide Level 25 mmol/L (21-32) 26 mmol/L (21-32) Anion Gap 10 (6-14) 9 (6-14) Blood Urea Nitrogen 79 mg/dL (7-20) 72 mg/dL (7-20) Creatinine 2.0 mg/dL (0.6-1.0) 1.7 mg/dL (0.6-1.0) Estimated GFR (Cockcroft-Gault) 24.2 29.2 Glucose Level 267 mg/dL (70-99) 277 mg/dL (70-99) Calcium Level 9.5 mg/dL (8.5-10.1) 9.6 mg/dL (8.5-10.1) Glucose (Fingerstick) 249 mg/dL (70-99) 163 mg/dL (70-99) BUN/Creatinine Ratio 42 (6-20) Total Bilirubin 0.2 mg/dL (0.2-1.0) Aspartate Amino Transf (AST/SGOT) 23 U/L (15-37) Alanine Aminotransferase (ALT/SGPT) 32 U/L (14-59) Alkaline Phosphatase 94 U/L (46-116) Total Protein 7.4 g/dL (6.4-8.2) Albumin 2.6 g/dL (3.4-5.0) Albumin/Globulin Ratio 0.5 (1.0-1.7) Assessment/Plan Assessment/Plan IMP GERARDO WITH CR OF 2.0 EXTRACELLULAR VOLUME DEPLETION CKD STAGE 3 WITH CR OF 1.5 PNEUMONIA-CAP DM II HTN PLAN ANTIBIOTICS HOLD ARB FURTHER EVAL IF RENAL FXN NOT BETTER CHECK UA ENC PO AVOID NEPHROTOXINS WILL FOLLOW CATHERINE PATEL MD Jan 28, 2020 12:08
--- NOTE | 2020-01-28 12:16 | CONS ---
DATE OF CONSULTATION: PULMONARY CONSULTATION ATTENDING PHYSICIAN: Maxime Williamson MD REASON FOR CONSULTATION: Pneumonia. HISTORY OF PRESENT ILLNESS: The patient is a 74-year-old female, who smoked for about 30-35 years before quitting 11 years ago. She has a history of sleep apnea for which she is on CPAP. She was brought into the hospital complaining of a cough, which has been mostly dry for the last week or so. The patient said that she had some subjective fever as well. She has no increased shortness of breath. No headache, no nausea or vomiting, no diarrhea, no focal weakness, no dysuria. Chest x-ray was reviewed and it showed a rounded density in the left perihilar area. The patient had a CT chest done in 03/2019. At that time, she had bilateral ground glass nodules, more noticeable on the left side. Her echo had shown previously a normal EF, but ltyffxlw-[id number] MR. She has no history of deep vein thrombosis or pulmonary embolism. I have been asked to see her for further evaluation. PAST MEDICAL HISTORY: Significant for history of AFib, history of hypertension, COPD, osteoarthritis, chronic renal insufficiency. PAST SURGICAL HISTORY: Appendectomy, cholecystectomy, tonsillectomy and colon resection. FAMILY HISTORY: Hypertension, diabetes. SOCIAL HISTORY: Quit 11 years ago, before that smoked for 30 years. REVIEW OF SYSTEMS: Twelve-point systems obtained. Pertinent positives discussed in my history of present illness, otherwise noncontributory. All systems that were negative were reviewed as well. ALLERGIES: DONNA INHIBITORS, PENICILLIN, ERYTHROMYCIN. CURRENT MEDICATIONS: Reviewed as listed in the MRAD including antibiotic, Rocephin, and she is also on doxycycline. PHYSICAL EXAMINATION: VITAL SIGNS: Reviewed. Afebrile, blood pressure stable, pulse ox 96% on 3 liters. NECK: Supple. LUNGS: With diminished breath sounds posteriorly. CARDIOVASCULAR: Regular rate and rhythm. ABDOMEN: Soft, obese. EXTREMITIES: With no pitting edema. LABORATORY DATA: Reviewed. Her influenza screen is negative. BUN and creatinine 79 and 2.0. White cell count was 26,000, hemoglobin 12.4 and platelets are 290. IMPRESSION: 1. Acute hypoxic respiratory failure secondary to underlying chronic obstructive pulmonary disease and left perihilar pneumonia. 2. Abnormal chest x-ray with left perihilar rounded density. Needs to get a CT chest to compare with the previous ground glass infiltrates, nodules from 03/2019. 3. Underlying obstructive sleep apnea, on CPAP with good compliance. 4. No history of deep vein thrombosis. 5. Leukocytosis secondary to pneumonia. 6. Influenza screen negative. RECOMMENDATIONS: 1. Continue with present oxygen with gradual wean to keep saturation 92 and above. 2. Continue Rocephin and doxycycline. 3. Continue DuoNeb. 4. Noncontrast CT chest for further evaluation. 5. CPAP at bedtime. 6. We will follow along with you. DORIS COMER MD DR: GLENIS/lara JOB#: [id number] / [id number]
--- NOTE | 2020-01-28 14:15 | RAD ---
Examination: CT CHEST WO CONTRAST History: Pneumonia Comparison/Correlation: 12/22/2018 CT chest with contrast, 04/13/2019 CT chest without contrast Findings: Axial images of chest were obtained without contrast. Sagittal and coronal reformatted images were provided. Dilated hepatomegaly is present. No enlarged thoracic lymph nodes. Nonenlarged superior mediastinal lymph nodes are present. Right middle lobe medial basilar atelectasis is present. Left upper midthoracic level consolidation is present. Linear atelectasis at the left lateral basal aspect. Small left pleural effusion is present. Bony structures are unremarkable. Centrilobular emphysema is present. No change in 3 foci of left upper lung field groundglass the largest of these measures 2 cm in diameter and is seen on axial image 10 of series 2. Opacities. Fatty infiltration of the liver is present. There is a 1.2 cm diameter density involving the stomach. Correlate with ingested substances. Impression: Interval development of significant consolidations since the prior exam. Interval follow-up to resolution is recommended. Stability of previously seen left apical groundglass infiltrates since 12/22/2018 CT chest without contrast. Continued interval follow-up in 9 months to assess stability of these infiltrates recommended. PQRS Compliance Statement: One or more of the following individualized dose reduction techniques were utilized for this examination: 1. Automated exposure control 2. Adjustment of the mA and/or kV according to patient size 3. Use of iterative reconstruction technique Electronically signed by: Eric Marshall MD (01/28/2020 2:12 PM) [email or web address]
[2020-01-28 15:00] VITALS: BP 126/66
--- NOTE | 2020-01-28 16:37 | NUR ---
SS following for discharge planning. SS reviewed pt chart. Pt is from home and is currently requiring oxygen. SS will continue to follow for discharge planning.
[2020-01-28 19:25] VITALS: BP 175/94
[2020-01-28] MEDS: INSULIN GLARGINE SYRINGE. SQ SCH (21:50)
[2020-01-28 22:50] VITALS: BP 141/77
[2020-01-29 03:20] VITALS: BP 133/79
[2020-01-29 05:22] LABS: CALCIUM 9.3 mg/dL (8.5-10.1); CREATININE 1.4 mg/dL (0.6-1.0); GFR 36.6; POTASSIUM 4.6 mmol/L (3.5-5.1)
[2020-01-29 07:00] VITALS: BP 174/91
[2020-01-29] MEDS: INSULIN LISPRO 300 UNITS/3 ML VIAL. SQ SCH ×4 (07:30→21:11)
[2020-01-29] MEDS: BUDESONIDE 0.5 MG/2 ML NEBU. NEB SCH ×2 (07:35→20:04)
[2020-01-29] MEDS: IPRATRPIUM/ALBUTEROL 0.5/2.5MG 3 ML NEBU. NEB SCH ×4 (07:35→20:04)
[2020-01-29] MEDS ORDERED: ACETAMINOPHEN 500 MG TABLET PO PRN (08:00)
[2020-01-29] MEDS: predniSONE 20 MG TABLET PO SCH (08:31)
[2020-01-29] MEDS: METOPROLOL TART IMMED RELEASE 25 MG TABLET. PO SCH ×2 (08:31→21:09)
[2020-01-29] MEDS: DIGOXIN 125 MCG TABLET. PO SCH (08:31)
[2020-01-29] MEDS: PANTOPRAZOLE 40 MG TABLET.DR. PO SCH (08:31)
[2020-01-29] MEDS: LACTOBACILLUS RHAMNOSUS GG 1 CAPSULE. PO SCH ×2 (08:31→21:09)
[2020-01-29] MEDS: CYANOCOBALAMIN (VITAMIN B-12) 1,000 MCG TABLET. PO SCH (08:32)
[2020-01-29] MEDS: MULTIVITAMIN with MINERAL TABLET. PO SCH ×2 (08:32→09:00)
[2020-01-29] MEDS: OMEGA-3 FATTY ACIDS/FISH OIL 1,000 MG CAPSULE. PO SCH ×2 (08:32→21:09)
[2020-01-29] MEDS: cefTRIAXone IV Push 1 GM VIAL. IVP SCH (08:57)
[2020-01-29] MEDS: DOXYCYCLINE HYCLATE 100 MG in IV DEXTROSE 5% 100ML 100 ML IV SCH ×2 (08:57→21:10)
[2020-01-29] MEDS: POTASSIUM CHLORIDE 10 MEQ TABLET.ER. PO SCH ×2 (08:58→17:00)
[2020-01-29] MEDS: HEPARIN for SUB-Q USE 5,000 UNIT/ML VIAL. SQ SCH ×2 (09:00→21:00)
[2020-01-29] MEDS: POLYETHYLENE GLYCOL 3350 17 GM PACKET. PO SCH (09:00)
--- NOTE | 2020-01-29 10:09 | PDOC ---
PULMONARY PROGRESS NOTES Subjective feels better Vitals Vital Signs Date Time Temp Pulse Resp B/P (MAP) Pulse Ox O2 Delivery O2 Flow Rate FiO2 01/29/20 08:31 110 01/29/20 07:35 96 Nasal Cannula 3.0 01/29/20 07:00 97.6 22 174/91 (118) 97.6 General: Alert, No acute distress Lungs: Clear Cardiovascular: S1, S2 Abdomen: Soft Neuro Exam: Alert Extremities: No Edema Skin: Warm Labs Laboratory Tests Test 01/27/20 11:27 01/27/20 14:15 01/27/20 16:42 01/28/20 07:27 Glucose (Fingerstick) 303 mg/dL (70-99) 249 mg/dL (70-99) 163 mg/dL (70-99) White Blood Count 22.6 x10^3/uL (4.0-11.0) Red Blood Count 3.87 x10^6/uL (3.50-5.40) Hemoglobin 11.4 g/dL (12.0-15.5) Hematocrit 35.4 % (36.0-47.0) Mean Corpuscular Volume 92 fL (79-100) Mean Corpuscular Hemoglobin 30 pg (25-35) Mean Corpuscular Hemoglobin Concent 32 g/dL (31-37) Red Cell Distribution Width 14.6 % (11.5-14.5) Platelet Count 234 x10^3/uL (140-400) Neutrophils (%) (Auto) 94 % (31-73) Lymphocytes (%) (Auto) 2 % (24-48) Monocytes (%) (Auto) 4 % (0-9) Eosinophils (%) (Auto) 0 % (0-3) Basophils (%) (Auto) 0 % (0-3) Neutrophils # (Auto) 21.2 x10^3/uL (1.8-7.7) Lymphocytes # (Auto) 0.5 x10^3/uL (1.0-4.8) Monocytes # (Auto) 0.9 x10^3/uL (0.0-1.1) Eosinophils # (Auto) 0.0 x10^3/uL (0.0-0.7) Basophils # (Auto) 0.1 x10^3/uL (0.0-0.2) Sodium Level 135 mmol/L (136-145) Potassium Level 4.3 mmol/L (3.5-5.1) Chloride Level 100 mmol/L (98-107) Carbon Dioxide Level 25 mmol/L (21-32) Anion Gap 10 (6-14) Blood Urea Nitrogen 79 mg/dL (7-20) Creatinine 2.0 mg/dL (0.6-1.0) Estimated GFR (Cockcroft-Gault) 24.2 Glucose Level 267 mg/dL (70-99) Calcium Level 9.5 mg/dL (8.5-10.1) Test 01/28/20 10:15 01/28/20 12:08 01/28/20 17:18 01/28/20 20:49 White Blood Count 16.9 x10^3/uL (4.0-11.0) Red Blood Count 3.95 x10^6/uL (3.50-5.40) Hemoglobin 11.5 g/dL (12.0-15.5) Hematocrit 36.4 % (36.0-47.0) Mean Corpuscular Volume 92 fL (79-100) Mean Corpuscular Hemoglobin 29 pg (25-35) Mean Corpuscular Hemoglobin Concent 32 g/dL (31-37) Red Cell Distribution Width 14.8 % (11.5-14.5) Platelet Count 224 x10^3/uL (140-400) Neutrophils (%) (Auto) 91 % (31-73) Lymphocytes (%) (Auto) 5 % (24-48) Monocytes (%) (Auto) 4 % (0-9) Eosinophils (%) (Auto) 0 % (0-3) Basophils (%) (Auto) 1 % (0-3) Neutrophils # (Auto) 15.4 x10^3/uL (1.8-7.7) Lymphocytes # (Auto) 0.8 x10^3/uL (1.0-4.8) Monocytes # (Auto) 0.7 x10^3/uL (0.0-1.1) Eosinophils # (Auto) 0.0 x10^3/uL (0.0-0.7) Basophils # (Auto) 0.1 x10^3/uL (0.0-0.2) Sodium Level 137 mmol/L (136-145) Potassium Level 4.4 mmol/L (3.5-5.1) Chloride Level 102 mmol/L (98-107) Carbon Dioxide Level 26 mmol/L (21-32) Anion Gap 9 (6-14) Blood Urea Nitrogen 72 mg/dL (7-20) Creatinine 1.7 mg/dL (0.6-1.0) Estimated GFR (Cockcroft-Gault) 29.2 BUN/Creatinine Ratio 42 (6-20) Glucose Level 277 mg/dL (70-99) Calcium Level 9.6 mg/dL (8.5-10.1) Total Bilirubin 0.2 mg/dL (0.2-1.0) Aspartate Amino Transf (AST/SGOT) 23 U/L (15-37) Alanine Aminotransferase (ALT/SGPT) 32 U/L (14-59) Alkaline Phosphatase 94 U/L (46-116) Total Protein 7.4 g/dL (6.4-8.2) Albumin 2.6 g/dL (3.4-5.0) Albumin/Globulin Ratio 0.5 (1.0-1.7) Glucose (Fingerstick) 279 mg/dL (70-99) 256 mg/dL (70-99) 396 mg/dL (70-99) Test 01/29/20 04:05 01/29/20 07:50 Sodium Level 142 mmol/L (136-145) Potassium Level 4.6 mmol/L (3.5-5.1) Chloride Level 108 mmol/L (98-107) Carbon Dioxide Level 26 mmol/L (21-32) Anion Gap 8 (6-14) Blood Urea Nitrogen 60 mg/dL (7-20) Creatinine 1.4 mg/dL (0.6-1.0) Estimated GFR (Cockcroft-Gault) 36.6 Glucose Level 182 mg/dL (70-99) Calcium Level 9.3 mg/dL (8.5-10.1) Glucose (Fingerstick) 120 mg/dL (70-99) Laboratory Tests Test 01/28/20 10:15 01/28/20 12:08 01/28/20 17:18 01/28/20 20:49 White Blood Count 16.9 x10^3/uL (4.0-11.0) Red Blood Count 3.95 x10^6/uL (3.50-5.40) Hemoglobin 11.5 g/dL (12.0-15.5) Hematocrit 36.4 % (36.0-47.0) Mean Corpuscular Volume 92 fL (79-100) Mean Corpuscular Hemoglobin 29 pg (25-35) Mean Corpuscular Hemoglobin Concent 32 g/dL (31-37) Red Cell Distribution Width 14.8 % (11.5-14.5) Platelet Count 224 x10^3/uL (140-400) Neutrophils (%) (Auto) 91 % (31-73) Lymphocytes (%) (Auto) 5 % (24-48) Monocytes (%) (Auto) 4 % (0-9) Eosinophils (%) (Auto) 0 % (0-3) Basophils (%) (Auto) 1 % (0-3) Neutrophils # (Auto) 15.4 x10^3/uL (1.8-7.7) Lymphocytes # (Auto) 0.8 x10^3/uL (1.0-4.8) Monocytes # (Auto) 0.7 x10^3/uL (0.0-1.1) Eosinophils # (Auto) 0.0 x10^3/uL (0.0-0.7) Basophils # (Auto) 0.1 x10^3/uL (0.0-0.2) Sodium Level 137 mmol/L (136-145) Potassium Level 4.4 mmol/L (3.5-5.1) Chloride Level 102 mmol/L (98-107) Carbon Dioxide Level 26 mmol/L (21-32) Anion Gap 9 (6-14) Blood Urea Nitrogen 72 mg/dL (7-20) Creatinine 1.7 mg/dL (0.6-1.0) Estimated GFR (Cockcroft-Gault) 29.2 BUN/Creatinine Ratio 42 (6-20) Glucose Level 277 mg/dL (70-99) Calcium Level 9.6 mg/dL (8.5-10.1) Total Bilirubin 0.2 mg/dL (0.2-1.0) Aspartate Amino Transf (AST/SGOT) 23 U/L (15-37) Alanine Aminotransferase (ALT/SGPT) 32 U/L (14-59) Alkaline Phosphatase 94 U/L (46-116) Total Protein 7.4 g/dL (6.4-8.2) Albumin 2.6 g/dL (3.4-5.0) Albumin/Globulin Ratio 0.5 (1.0-1.7) Glucose (Fingerstick) 279 mg/dL (70-99) 256 mg/dL (70-99) 396 mg/dL (70-99) Test 01/29/20 04:05 01/29/20 07:50 Sodium Level 142 mmol/L (136-145) Potassium Level 4.6 mmol/L (3.5-5.1) Chloride Level 108 mmol/L (98-107) Carbon Dioxide Level 26 mmol/L (21-32) Anion Gap 8 (6-14) Blood Urea Nitrogen 60 mg/dL (7-20) Creatinine 1.4 mg/dL (0.6-1.0) Estimated GFR (Cockcroft-Gault) 36.6 Glucose Level 182 mg/dL (70-99) Calcium Level 9.3 mg/dL (8.5-10.1) Glucose (Fingerstick) 120 mg/dL (70-99) Medications Active Scripts Medications Dose Route/Sig Max Daily Dose Days Date Category Vitamin B-12 (Cyanocobalamin (Vitamin B-12)) 1,000 Mcg Tablet 2,000 Mcg PO DAILY 01/26/20 Reported One-Daily Multi-Vitamin (Multivitamin) 1 Each Tablet 1 Tab PO DAILY 30 01/26/20 Reported Vitamin D3 (Cholecalciferol (Vitamin D3)) 2,000 Unit Tab.chew 1 Tab PO DAILY 30 01/26/20 Reported Proair Hfa (Albuterol Sulfate) 8.5 Gm Hfa.aer.ad 2.5 Mg NEB RTQID MDD 1 12/15/18 Rx Metoprolol Tartrate 25 Mg Tablet 12.5 Mg PO BID MDD 1 12/15/18 Rx Protonix (Pantoprazole Sodium) 20 Mg Tablet.dr 40 Mg PO DAILY 60 08/07/18 Rx Bumetanide 2 Mg Tablet 2 Mg PO DAILY 01/05/18 Reported Fish Oil 1,000 mg Softgel ([place]-3S/Dha/Epa/Fish Oil) 1 Each Capsule 1 Each PO BID 01/05/18 Reported Losartan Potassium 50 Mg Tablet 50 Mg PO DAILY 01/05/18 Reported Klor-Con M10 (Potassium Chloride) 10 Meq Tab.er.prt 1 Tab PO BID 01/05/18 Reported Digoxin 125 Mcg Tablet 1 Tab PO DAILY 01/05/18 Reported Miralax (Polyethylene Glycol 3350) 17 Gm Powd.pack 1 Packet PO DAILY 01/05/18 Reported Symbicort 160-4.5 Mcg Inhaler (Budesonide/Formoterol Fumarate) 10.2 Gm Hfa.aer.ad 2 Puff IH BID 01/05/[address] CHEST Impression: Interval development of significant consolidations since the prior exam. Interval follow-up to resolution is recommended. Stability of previously seen left apical groundglass infiltrates since 12/22/2018 CT chest without contrast. Continued interval follow-up in 9 months to assess stability of these infiltrates recommended. Impression . 1. Acute hypoxic respiratory failure secondary to underlying chronic obstructive pulmonary disease and left perihilar pneumonia. 2. Abnormal chest x-ray with left perihilar rounded density. 3. Underlying obstructive sleep apnea, on CPAP with good compliance. 4. No history of deep vein thrombosis. 5. Leukocytosis secondary to pneumonia. 6. Influenza screen negative. Plan . 1. Continue with present oxygen with gradual wean to keep saturation 92 and above. 2. Continue Rocephin and doxycycline. 3. Continue DuoNeb. 4. Noncontrast CT chest REVIEWED. NEW CONSOLIDATION Lingula , unchanged GG nodules left upper lobe 5. CPAP at bedtime. 6. We will follow along with you. possible dc in 48 hrs DORIS COMER MD Jan 29, 2020 10:09
[2020-01-29 11:00] VITALS: BP 175/90
--- NOTE | 2020-01-29 11:01 | PDOC ---
Renal-Progress Notes Subjective Notes Notes FEELING BETTER History of Present Illness Hx of present illness IMPROVED Vitals Vitals Vital Signs Date Time Temp Pulse Resp B/P (MAP) Pulse Ox O2 Delivery O2 Flow Rate FiO2 01/29/20 08:31 110 01/29/20 07:35 96 Nasal Cannula 3.0 01/29/20 07:00 97.6 22 174/91 (118) 97.6 Weight Weight [ ] I.O. Intake and Output Intake and Output 01/29/20 07:00 Intake Total 1450 ml Balance 1450 ml Intake Oral 1350 ml IV Total 100 ml # Voids 3 # Bowel Movements 2 Labs Labs Laboratory Tests Test 01/28/20 12:08 01/28/20 17:18 01/28/20 20:49 01/29/20 04:05 Glucose (Fingerstick) 279 mg/dL (70-99) 256 mg/dL (70-99) 396 mg/dL (70-99) Sodium Level 142 mmol/L (136-145) Potassium Level 4.6 mmol/L (3.5-5.1) Chloride Level 108 mmol/L (98-107) Carbon Dioxide Level 26 mmol/L (21-32) Anion Gap 8 (6-14) Blood Urea Nitrogen 60 mg/dL (7-20) Creatinine 1.4 mg/dL (0.6-1.0) Estimated GFR (Cockcroft-Gault) 36.6 Glucose Level 182 mg/dL (70-99) Calcium Level 9.3 mg/dL (8.5-10.1) Test 01/29/20 07:50 Glucose (Fingerstick) 120 mg/dL (70-99) Micro Micro Microbiology 01/26/20 Blood Culture - Preliminary, Resulted NO GROWTH AFTER 3 DAYS Review of Systems Constitutional: yes: alert, oriented Ears/Nose/Throat: Yes: no symptom reported Eyes: Yes: no symptom reported Pulmonary: Yes dyspnea Cardiovascular: Yes no symptom reported Gastrointestional: Yes: no symptom reported Genitourinary: Yes: no symptom reported Musculoskeletal: Yes: no symptom reported Skin: Yes no symptom reported Endocrine: Yes: no symptom reported Physical Exam General Appearance: no apparent distress Skin: warm Respiratory: decreased breath sounds Heart: S1S2 Abdomen: soft, bowel sounds present Genitourinary: bladder flat Extremities: pulses present Neurology: alert Musculoskeletal: Osteoarthritis Assessment Assessment IMP GERARDO WITH CR DOWN TO 1.4 CKD STAGE 3 WITH CR OF 1.5 PNEUMONIA-CAP DM II HTN PLAN ANTIBIOTICS RESUME HOME MEDS LOSARTAN AND BUMEX FURTHER EVAL IF RENAL FXN NOT BETTER ENC PO AVOID NEPHROTOXINS WILL FOLLOW CATHERINE PATEL MD Jan 29, 2020 11:01
--- NOTE | 2020-01-29 11:40 | PDOC ---
PROGRESS NOTES Chief Complaint Chief Complaint 1. Acute hypoxic respiratory failure 2. COPD with acute bronchitis, pneumonia, left perihilar rounded density. 3. Underlying obstructive sleep apnea, on CPAP with good compliance. 4. acute renal faiulre no CKD, 5. Sepsis, from PNA History of Present Illness History of Present Illness Pt seen and examined, discussed with nursing staff, reviewed documentation. Imag ing finds a left perihylar consolidation. Will continue to provide steroids, breathing treatments, oxygen, duonebs. Pulmonology and Renal follownig, Vitals Vitals Vital Signs Date Time Temp Pulse Resp B/P (MAP) Pulse Ox O2 Delivery O2 Flow Rate FiO2 01/29/20 08:31 110 01/29/20 07:35 96 Nasal Cannula 3.0 01/29/20 07:00 97.6 22 174/91 (118) 97.6 Physical Exam General: Alert, Oriented X3, Cooperative, No acute distress Heart: Regular rate, Normal S1 Lungs: Clear Abdomen: Soft, No tenderness Extremities: No clubbing, No cyanosis, No edema, Normal pulses, No tenderness/swelling Skin: No rashes Labs LABS Laboratory Tests Test 01/28/20 12:08 01/28/20 17:18 01/28/20 20:49 01/29/20 04:05 Glucose (Fingerstick) 279 mg/dL (70-99) 256 mg/dL (70-99) 396 mg/dL (70-99) Sodium Level 142 mmol/L (136-145) Potassium Level 4.6 mmol/L (3.5-5.1) Chloride Level 108 mmol/L (98-107) Carbon Dioxide Level 26 mmol/L (21-32) Anion Gap 8 (6-14) Blood Urea Nitrogen 60 mg/dL (7-20) Creatinine 1.4 mg/dL (0.6-1.0) Estimated GFR (Cockcroft-Gault) 36.6 Glucose Level 182 mg/dL (70-99) Calcium Level 9.3 mg/dL (8.5-10.1) Test 01/29/20 07:50 Glucose (Fingerstick) 120 mg/dL (70-99) Assessment and Plan Assessmemt and Plan Problems Medical Problems: (1) Atrial fibrillation with RVR Status: Acute (2) CAP (community acquired pneumonia) Status: Acute (3) Chest wall pain Status: Acute (4) Congestive heart failure Status: Acute (5) Leukocytosis Status: Acute (6) SIRS (systemic inflammatory response syndrome) Status: Acute Comment Review of Relevant I have reviewed the following items halle (where applicable) has been applied. Labs Laboratory Tests Test 01/27/20 14:15 01/27/20 16:42 01/28/20 07:27 01/28/20 10:15 White Blood Count 22.6 x10^3/uL (4.0-11.0) 16.9 x10^3/uL (4.0-11.0) Red Blood Count 3.87 x10^6/uL (3.50-5.40) 3.95 x10^6/uL (3.50-5.40) Hemoglobin 11.4 g/dL (12.0-15.5) 11.5 g/dL (12.0-15.5) Hematocrit 35.4 % (36.0-47.0) 36.4 % (36.0-47.0) Mean Corpuscular Volume 92 fL (79-100) 92 fL (79-100) Mean Corpuscular Hemoglobin 30 pg (25-35) 29 pg (25-35) Mean Corpuscular Hemoglobin Concent 32 g/dL (31-37) 32 g/dL (31-37) Red Cell Distribution Width 14.6 % (11.5-14.5) 14.8 % (11.5-14.5) Platelet Count 234 x10^3/uL (140-400) 224 x10^3/uL (140-400) Neutrophils (%) (Auto) 94 % (31-73) 91 % (31-73) Lymphocytes (%) (Auto) 2 % (24-48) 5 % (24-48) Monocytes (%) (Auto) 4 % (0-9) 4 % (0-9) Eosinophils (%) (Auto) 0 % (0-3) 0 % (0-3) Basophils (%) (Auto) 0 % (0-3) 1 % (0-3) Neutrophils # (Auto) 21.2 x10^3/uL (1.8-7.7) 15.4 x10^3/uL (1.8-7.7) Lymphocytes # (Auto) 0.5 x10^3/uL (1.0-4.8) 0.8 x10^3/uL (1.0-4.8) Monocytes # (Auto) 0.9 x10^3/uL (0.0-1.1) 0.7 x10^3/uL (0.0-1.1) Eosinophils # (Auto) 0.0 x10^3/uL (0.0-0.7) 0.0 x10^3/uL (0.0-0.7) Basophils # (Auto) 0.1 x10^3/uL (0.0-0.2) 0.1 x10^3/uL (0.0-0.2) Sodium Level 135 mmol/L (136-145) 137 mmol/L (136-145) Potassium Level 4.3 mmol/L (3.5-5.1) 4.4 mmol/L (3.5-5.1) Chloride Level 100 mmol/L (98-107) 102 mmol/L (98-107) Carbon Dioxide Level 25 mmol/L (21-32) 26 mmol/L (21-32) Anion Gap 10 (6-14) 9 (6-14) Blood Urea Nitrogen 79 mg/dL (7-20) 72 mg/dL (7-20) Creatinine 2.0 mg/dL (0.6-1.0) 1.7 mg/dL (0.6-1.0) Estimated GFR (Cockcroft-Gault) 24.2 29.2 Glucose Level 267 mg/dL (70-99) 277 mg/dL (70-99) Calcium Level 9.5 mg/dL (8.5-10.1) 9.6 mg/dL (8.5-10.1) Glucose (Fingerstick) 249 mg/dL (70-99) 163 mg/dL (70-99) BUN/Creatinine Ratio 42 (6-20) Total Bilirubin 0.2 mg/dL (0.2-1.0) Aspartate Amino Transf (AST/SGOT) 23 U/L (15-37) Alanine Aminotransferase (ALT/SGPT) 32 U/L (14-59) Alkaline Phosphatase 94 U/L (46-116) Total Protein 7.4 g/dL (6.4-8.2) Albumin 2.6 g/dL (3.4-5.0) Albumin/Globulin Ratio 0.5 (1.0-1.7) Test 01/28/20 12:08 01/28/20 17:18 01/28/20 20:49 01/29/20 04:05 Glucose (Fingerstick) 279 mg/dL (70-99) 256 mg/dL (70-99) 396 mg/dL (70-99) Sodium Level 142 mmol/L (136-145) Potassium Level 4.6 mmol/L (3.5-5.1) Chloride Level 108 mmol/L (98-107) Carbon Dioxide Level 26 mmol/L (21-32) Anion Gap 8 (6-14) Blood Urea Nitrogen 60 mg/dL (7-20) Creatinine 1.4 mg/dL (0.6-1.0) Estimated GFR (Cockcroft-Gault) 36.6 Glucose Level 182 mg/dL (70-99) Calcium Level 9.3 mg/dL (8.5-10.1) Test 01/29/20 07:50 Glucose (Fingerstick) 120 mg/dL (70-99) Laboratory Tests Test 01/28/20 12:08 01/28/20 17:18 01/28/20 20:49 01/29/20 04:05 Glucose (Fingerstick) 279 mg/dL (70-99) 256 mg/dL (70-99) 396 mg/dL (70-99) Sodium Level 142 mmol/L (136-145) Potassium Level 4.6 mmol/L (3.5-5.1) Chloride Level 108 mmol/L (98-107) Carbon Dioxide Level 26 mmol/L (21-32) Anion Gap 8 (6-14) Blood Urea Nitrogen 60 mg/dL (7-20) Creatinine 1.4 mg/dL (0.6-1.0) Estimated GFR (Cockcroft-Gault) 36.6 Glucose Level 182 mg/dL (70-99) Calcium Level 9.3 mg/dL (8.5-10.1) Test 01/29/20 07:50 Glucose (Fingerstick) 120 mg/dL (70-99) Microbiology 01/26/20 Blood Culture - Preliminary, Resulted NO GROWTH AFTER 3 DAYS Medications Current Medications Sodium Chloride 1,000 ml @ 150 mls/hr Q6H40M IV Last administered on 01/26/20at 08:51; Start 01/26/20 at 08:07; Stop 01/26/20 at 14:46; Status DC Albuterol/ Ipratropium (Duoneb) 3 ml 1X ONCE NEB Last administered on 01/26/20at 08:30; Start 01/26/20 at 08:15; Stop 01/26/20 at 08:16; Status DC Methylprednisolone Sodium Succinate (SOLU-Medrol 125MG VIAL) 125 mg 1X ONCE IV Last administered on 01/26/20at 08:42; Start 01/26/20 at 08:15; Stop 01/26/20 at 08:16; Status DC Acetaminophen (Tylenol) 1,000 mg 1X ONCE PO Last administered on 01/26/20at 11:36; Start 01/26/20 at 09:15; Stop 01/26/20 at 09:16; Status DC Ceftriaxone Sodium (Rocephin) 1 gm 1X ONCE IVP Last administered on 01/26/20at 09:29; Start 01/26/20 at 09:15; Stop 01/26/20 at 09:16; Status DC Vancomycin HCl 2 gm/Sodium Chloride 500 ml @ 250 mls/hr 1X ONCE IV Last administered on 01/26/20at 11:03; Start 01/26/20 at 09:30; Stop 01/26/20 at 11:29; Status DC Diltiazem HCl (Cardizem Iv Push) 10 mg 1X ONCE IVP Last administered on 01/26/20at 11:37; Start 01/26/20 at 09:45; Stop 01/26/20 at 09:46; Status DC Albuterol/ Ipratropium (Duoneb) 3 ml RTQID NEB ; Start 01/26/20 at 12:00; Stop 01/26/20 at 11:46; Status DC Albuterol Sulfate (Ventolin Neb Soln) 2.5 mg RTQID NEB Last administered on 01/26/20at 16:13; Start 01/26/20 at 12:00; Stop 01/27/20 at 16:36; Status DC Cyanocobalamin (Vitamin B-12) 2,000 mcg DAILY PO Last administered on 01/29/20at 08:32; Start 01/26/20 at 12:00 Digoxin (Lanoxin) 125 mcg DAILY PO Last administered on 01/29/20 08:31; Start 01/26/20 at 12:00 Losartan Potassium (Cozaar) 50 mg DAILY PO Last administered on 01/28/20 08:36; Start 01/26/20 at 12:00; Stop 01/28/20 at 12:09; Status DC Metoprolol Tartrate (Lopressor) 12.5 mg BID PO Last administered on 01/29/20 08:31; Start 01/26/20 at 12:00 Polyethylene Glycol (miraLAX PACKET) 17 gm DAILY PO Last administered on 01/27/20 08:38; Start 01/26/20 at 11:00 Potassium Chloride (Klor-Con) 10 meq BIDWMEALS PO Last administered on 01/29/20 08:58; Start 01/26/20 at 12:00 Non-Formulary Medication (Budesonide/ Formoterol Fumarate (Symbicort 160-4.5 Mcg Inhaler)) 2 puff BID IH ; Start 01/26/20 at 21:00; Status UNV Multivitamins (Thera M Plus) 1 tab DAILY PO Last administered on 01/28/20 08:37; Start 01/26/20 at 12:00 Fish Oil (Fish Oil) 1,000 mg BID PO Last administered on 01/29/20 08:32; Start 01/26/20 at 12:00 Pantoprazole Sodium (Protonix) 40 mg DAILYAC PO Last administered on 01/29/20 08:31; Start 01/26/20 at 12:00 Insulin Human Lispro (HumaLOG) 0-5 UNITS TIDACHC SQ Last administered on 01/28/20 21:49; Start 01/26/20 at 11:30 Dextrose (Dextrose 50%-Water Syringe) 12.5 gm PRN Q15MIN PRN IV SEE COMMENTS; Start 01/26/20 at 11:30 Budesonide (Pulmicort) 0.5 mg RTBID NEB Last administered on 01/29/20 07:35; Start 01/26/20 at 12:00 Insulin Glargine (Lantus Syringe) 8 unit QHS SQ Last administered on 01/28/20 21:50; Start 01/26/20 at 21:00 Levofloxacin/ Dextrose 100 ml @ 100 mls/hr Q24H IV ; Start 01/26/20 at 17:00; Stop 01/26/20 at 16:52; Status DC Vancomycin HCl (Vanco Per Pharmacy) 1 each PRN DAILY PRN MC SEE COMMENTS; Start 01/26/20 at 16:45; Stop 01/26/20 at 16:45; Status DC Prednisone (Prednisone) 20 mg DAILY PO Last administered on 01/29/20at 08:31; Start 01/27/20 at 09:00; Stop 01/31/20 at 09:01 Albuterol/ Ipratropium (Duoneb) 3 ml RTQID NEB Last administered on 01/29/20at 07:35; Start 01/26/20 at 17:00 Heparin Sodium (Porcine) (Heparin Sodium) 5,000 unit Q12HR SQ ; Start 01/26/20 at 17:00 Doxycycline Hyclate 100 mg/ Dextrose 100 ml @ 50 mls/hr Q12HR IV Last administered on 01/29/20at 08:57; Start 01/26/20 at 21:00 Ceftriaxone Sodium (Rocephin) 1 gm Q24H IVP Last administered on 01/29/20at 08:57; Start 01/27/20 at 09:00 Lactobacillus Rhamnosus (Culturelle) 1 cap BID PO Last administered on 01/29/20at 08:31; Start 01/27/20 at 09:00 Acetaminophen (Tylenol) 500 mg PRN Q4HRS PRN PO MILD PAIN / TEMP Last administered on 01/29/20at 08:30; Start 01/29/20 at 08:00 Bumetanide (Bumex) 2 mg DAILY PO ; Start 01/29/20 at 11:30 Losartan Potassium (Cozaar) 50 mg DAILY PO ; Start 01/29/20 at 11:30 Active Scripts Active Proair Hfa (Albuterol Sulfate) 8.5 Gm Hfa.aer.ad 2.5 Mg NEB RTQID MDD 1 Metoprolol Tartrate 25 Mg Tablet 12.5 Mg PO BID MDD 1 Protonix (Pantoprazole Sodium) 20 Mg Tablet.dr 40 Mg PO DAILY 60 Days Reported Vitamin B-12 (Cyanocobalamin (Vitamin B-12)) 1,000 Mcg Tablet 2,000 Mcg PO DAILY One-Daily Multi-Vitamin (Multivitamin) 1 Each Tablet 1 Tab PO DAILY 30 Days Vitamin D3 (Cholecalciferol (Vitamin D3)) 2,000 Unit Tab.chew 1 Tab PO DAILY 30 Days Bumetanide 2 Mg Tablet 2 Mg PO DAILY Fish Oil 1,000 mg Softgel ([place]-3S/Dha/Epa/Fish Oil) 1 Each Capsule 1 Each PO BID Losartan Potassium 50 Mg Tablet 50 Mg PO DAILY Klor-Con M10 (Potassium Chloride) 10 Meq Tab.er.prt 1 Tab PO BID Digoxin 125 Mcg Tablet 1 Tab PO DAILY Miralax (Polyethylene Glycol 3350) 17 Gm Powd.pack 1 Packet PO DAILY Symbicort 160-4.5 Mcg Inhaler (Budesonide/Formoterol Fumarate) 10.2 Gm Hfa.aer.ad 2 Puff IH BID Vitals/I & O Vital Sign - Last 24 Hours 01/28/20 01/28/20 01/28/20 01/28/20 11:57 15:00 15:40 19:25 Temp 97.6 97.9 97.6 97.9 Pulse 96 99 Resp 18 22 B/P (MAP) 126/66 (86) 175/94 (121) Pulse Ox 96 96 96 96 O2 Delivery Nasal Cannula Nasal Cannula Nasal Cannula Nasal Cannula O2 Flow Rate 3.0 3.0 3.0 3.0 01/28/20 01/28/20 01/28/20 01/28/20 19:38 20:00 20:18 22:50 Temp 97.8 97.8 Pulse 99 77 Resp 20 B/P (MAP) 175/94 141/77 (98) Pulse Ox 98 96 O2 Delivery Nasal Cannula Nasal Cannula Nasal Cannula O2 Flow Rate 3.0 2.0 3.0 01/29/20 01/29/20 01/29/20 01/29/20 03:20 07:00 07:35 08:31 Temp 97.5 97.6 97.5 97.6 Pulse 97 121 97 Resp 22 B/P (MAP) 133/79 (97) 174/91 (118) Pulse Ox 97 94 96 O2 Delivery Nasal Cannula Nasal Cannula Nasal Cannula O2 Flow Rate 3.0 3.0 3.0 01/29/20 08:31 Pulse 110 Intake and Output 01/28/20 01/28/20 01/29/20 15:00 23:00 07:00 Intake Total 730 ml 400 ml 320 ml Balance 730 ml 400 ml 320 ml SNEHA HO MD Jan 29, 2020 11:40
[2020-01-29] MEDS: BUMETANIDE 1 MG TABLET. PO SCH (12:07)
[2020-01-29] MEDS: LOSARTAN POTASSIUM 50 MG TABLET. PO SCH (12:07)
[2020-01-29 15:00] VITALS: BP 158/69
[2020-01-29 19:45] VITALS: BP_SYST 148; BP_SYST 159; BP_DIAS 109; BP_DIAS 65
[2020-01-29] MEDS: INSULIN GLARGINE SYRINGE. SQ SCH (21:11)
[2020-01-29 22:50] VITALS: BP 151/96
[2020-01-30 03:25] VITALS: BP 131/62
[2020-01-30 06:30] LABS: CALCIUM 9.1 mg/dL (8.5-10.1); CREATININE 1.4 mg/dL (0.6-1.0); GFR 36.6; POTASSIUM 4.4 mmol/L (3.5-5.1)
[2020-01-30 07:00] VITALS: BP 135/75
[2020-01-30] MEDS: INSULIN LISPRO 300 UNITS/3 ML VIAL. SQ SCH ×4 (07:30→21:00)
[2020-01-30] MEDS: PANTOPRAZOLE 40 MG TABLET.DR. PO SCH (07:30)
[2020-01-30] MEDS: BUDESONIDE 0.5 MG/2 ML NEBU. NEB SCH ×2 (07:47→21:27)
[2020-01-30] MEDS: IPRATRPIUM/ALBUTEROL 0.5/2.5MG 3 ML NEBU. NEB SCH ×4 (07:47→21:27)
--- NOTE | 2020-01-30 08:16 | PDOC ---
[employer] PROGRESS NOTE Chief Complaint Chief Complaint 1. Acute hypoxic respiratory failure 2. COPD with acute bronchitis, pneumonia, left perihilar rounded density. 3. Underlying obstructive sleep apnea, on CPAP with good compliance. 4. acute renal faiulre no CKD, 5. Sepsis, from PNA History of Present Illness History of Present Illness 01/30/2020 Pt seen and examined Discussed care w/ RN Reviewed Charts PT has no new complaints or overnight events 01/29/2020 Pt seen and examined, discussed with nursing staff, reviewed documentation. Imaging finds a left perihylar consolidation. Will continue to provide steroids, breathing treatments, oxygen, duonebs. Pulmonology and Renal follownig, Vitals/I&O Vitals/I&O: Vital Signs Date Time Temp Pulse Resp B/P (MAP) Pulse Ox O2 Delivery O2 Flow Rate FiO2 01/30/20 07:47 96 Room Air 01/30/20 03:25 97.8 76 20 131/62 (85) 3.0 97.8 I & O 01/29/20 01/29/20 01/30/20 15:00 23:00 07:00 Intake Total 500 ml 450 ml 1000 ml Balance 500 ml 450 ml 1000 ml Physical Exam General: Alert, Oriented X3, Cooperative, No acute distress Heart: Regular rate, Normal S1 Lungs: Clear Abdomen: Soft, No tenderness Extremities: No clubbing, No cyanosis, No edema, Normal pulses, No tenderness/swelling Skin: No rashes Labs Labs: Laboratory Tests Test 01/29/20 12:04 01/29/20 16:55 01/29/20 20:51 01/30/20 04:27 Glucose (Fingerstick) 173 mg/dL (70-99) 297 mg/dL (70-99) 244 mg/dL (70-99) Sodium Level 143 mmol/L (136-145) Potassium Level 4.4 mmol/L (3.5-5.1) Chloride Level 106 mmol/L (98-107) Carbon Dioxide Level 30 mmol/L (21-32) Anion Gap 7 (6-14) Blood Urea Nitrogen 56 mg/dL (7-20) Creatinine 1.4 mg/dL (0.6-1.0) Estimated GFR (Cockcroft-Gault) 36.6 Glucose Level 130 mg/dL (70-99) Calcium Level 9.1 mg/dL (8.5-10.1) Test 01/30/20 07:32 Glucose (Fingerstick) 125 mg/dL (70-99) Review of Systems Review of Systems: GEN: No abnormal weight changes CV: No chest pain, palpitations PULM: Yes shortness of breath, cough GI: No abd pain Assessment and Plan Assessmemt and Plan Problems Medical Problems: (1) Atrial fibrillation with RVR Status: Acute (2) CAP (community acquired pneumonia) Status: Acute (3) Chest wall pain Status: Acute (4) Congestive heart failure Status: Acute (5) Leukocytosis Status: Acute (6) SIRS (systemic inflammatory response syndrome) Status: Acute Breathing Treatments STeroids, antibiotics, duonebs Pulmonary consult IV Fluids Trend labs CPAP overnight, possibly BiPAP if needed Home MEds PT/OT Comment Review of Relevant I have reviewed the following items halle (where applicable) has been applied. Medications: Current Medications Medications (Trade) Dose Ordered Sig/Jose Rafael Route PRN Reason Start Time Stop Time Status Last Admin Dose Admin Bumetanide (Bumex) 2 mg DAILY PO 01/29/20 11:30 01/29/20 12:07 Losartan Potassium (Cozaar) 50 mg DAILY PO 01/29/20 11:30 01/29/20 12:07 ASHWIN DAVIS III DO Jan 30, 2020 08:16
[2020-01-30] MEDS: BUMETANIDE 1 MG TABLET. PO SCH (08:47)
[2020-01-30] MEDS: POTASSIUM CHLORIDE 10 MEQ TABLET.ER. PO SCH ×2 (08:47→17:26)
[2020-01-30] MEDS: DIGOXIN 125 MCG TABLET. PO SCH (08:47)
[2020-01-30] MEDS: CYANOCOBALAMIN (VITAMIN B-12) 1,000 MCG TABLET. PO SCH (08:47)
[2020-01-30] MEDS: METOPROLOL TART IMMED RELEASE 25 MG TABLET. PO SCH ×2 (08:48→22:24)
[2020-01-30] MEDS: MULTIVITAMIN with MINERAL TABLET. PO SCH ×2 (08:48→08:53)
[2020-01-30] MEDS: LACTOBACILLUS RHAMNOSUS GG 1 CAPSULE. PO SCH ×2 (08:48→22:23)
[2020-01-30] MEDS: cefTRIAXone IV Push 1 GM VIAL. IVP SCH (08:48)
[2020-01-30] MEDS: LOSARTAN POTASSIUM 50 MG TABLET. PO SCH (08:48)
[2020-01-30] MEDS: OMEGA-3 FATTY ACIDS/FISH OIL 1,000 MG CAPSULE. PO SCH ×2 (08:48→22:23)
[2020-01-30] MEDS: predniSONE 20 MG TABLET PO SCH (08:48)
[2020-01-30] MEDS: POLYETHYLENE GLYCOL 3350 17 GM PACKET. PO SCH (08:49)
[2020-01-30] MEDS: DOXYCYCLINE HYCLATE 100 MG in IV DEXTROSE 5% 100ML 100 ML IV SCH ×2 (08:49→22:22)
[2020-01-30] MEDS: HEPARIN for SUB-Q USE 5,000 UNIT/ML VIAL. SQ SCH ×2 (08:49→21:00)
[2020-01-30 11:00] VITALS: BP 168/77
--- NOTE | 2020-01-30 11:02 | PDOC ---
Renal-Progress Notes Subjective Notes Notes STABLE History of Present Illness Hx of present illness IMPROVED Vitals Vitals Vital Signs Date Time Temp Pulse Resp B/P (MAP) Pulse Ox O2 Delivery O2 Flow Rate FiO2 01/30/20 08:48 98 135/75 01/30/20 08:00 Nasal Cannula 3.0 01/30/20 07:47 96 01/30/20 07:00 97.6 16 97.6 Weight Weight [ ] I.O. Intake and Output Intake and Output 01/30/20 07:00 Intake Total 1950 ml Balance 1950 ml Intake Oral 1950 ml # Voids 6 Labs Labs Laboratory Tests Test 01/29/20 12:04 01/29/20 16:55 01/29/20 20:51 01/30/20 04:27 Glucose (Fingerstick) 173 mg/dL (70-99) 297 mg/dL (70-99) 244 mg/dL (70-99) Sodium Level 143 mmol/L (136-145) Potassium Level 4.4 mmol/L (3.5-5.1) Chloride Level 106 mmol/L (98-107) Carbon Dioxide Level 30 mmol/L (21-32) Anion Gap 7 (6-14) Blood Urea Nitrogen 56 mg/dL (7-20) Creatinine 1.4 mg/dL (0.6-1.0) Estimated GFR (Cockcroft-Gault) 36.6 Glucose Level 130 mg/dL (70-99) Calcium Level 9.1 mg/dL (8.5-10.1) Test 01/30/20 07:32 Glucose (Fingerstick) 125 mg/dL (70-99) Micro Micro Microbiology 01/26/20 Blood Culture - Preliminary, Resulted NO GROWTH AFTER 4 DAYS Review of Systems Constitutional: yes: alert, oriented Ears/Nose/Throat: Yes: no symptom reported Eyes: Yes: no symptom reported Pulmonary: Yes dyspnea Cardiovascular: Yes no symptom reported Gastrointestional: Yes: no symptom reported Genitourinary: Yes: no symptom reported Musculoskeletal: Yes: no symptom reported Skin: Yes no symptom reported Endocrine: Yes: no symptom reported Physical Exam General Appearance: no apparent distress Skin: warm Respiratory: decreased breath sounds Heart: S1S2 Abdomen: soft, bowel sounds present Genitourinary: bladder flat Extremities: pulses present Neurology: alert Musculoskeletal: Osteoarthritis Assessment Assessment IMP GERARDO WITH CR DOWN TO 1.4 CKD STAGE 3 WITH CR OF 1.5 PNEUMONIA-CAP DM II HTN-IMPROVED PLAN ANTIBIOTICS RESUMED HOME MEDS LOSARTAN AND BUMEX AVOID NEPHROTOXINS WILL FOLLOW CATHERINE PATEL MD Jan 30, 2020 11:01
--- NOTE | 2020-01-30 11:32 | NUR ---
SS following up with discharge planning. PT/OT recommending home healthcare. SS met with pt to discuss discharge planning and home healthcare. Pt reported that she is uncertain if she wants home healthcare at this time and will have to think about it. Pt's RN notified. SS will continue to follow for discharge planning.
--- NOTE | 2020-01-30 12:32 | PDOC ---
PULMONARY PROGRESS NOTES Subjective feels better Vitals Vital Signs Date Time Temp Pulse Resp B/P (MAP) Pulse Ox O2 Delivery O2 Flow Rate FiO2 01/30/20 11:56 92 Room Air 01/30/20 11:00 98.2 100 18 168/77 (107) 98.2 01/30/20 08:00 3.0 General: Alert, No acute distress Lungs: Clear Cardiovascular: S1, S2 Abdomen: Soft Neuro Exam: Alert Extremities: No Edema Skin: Warm Labs Laboratory Tests Test 01/28/20 17:18 01/28/20 20:49 01/29/20 04:05 01/29/20 07:50 Glucose (Fingerstick) 256 mg/dL (70-99) 396 mg/dL (70-99) 120 mg/dL (70-99) Sodium Level 142 mmol/L (136-145) Potassium Level 4.6 mmol/L (3.5-5.1) Chloride Level 108 mmol/L (98-107) Carbon Dioxide Level 26 mmol/L (21-32) Anion Gap 8 (6-14) Blood Urea Nitrogen 60 mg/dL (7-20) Creatinine 1.4 mg/dL (0.6-1.0) Estimated GFR (Cockcroft-Gault) 36.6 Glucose Level 182 mg/dL (70-99) Calcium Level 9.3 mg/dL (8.5-10.1) Test 01/29/20 12:04 01/29/20 16:55 01/29/20 20:51 01/30/20 04:27 Glucose (Fingerstick) 173 mg/dL (70-99) 297 mg/dL (70-99) 244 mg/dL (70-99) Sodium Level 143 mmol/L (136-145) Potassium Level 4.4 mmol/L (3.5-5.1) Chloride Level 106 mmol/L (98-107) Carbon Dioxide Level 30 mmol/L (21-32) Anion Gap 7 (6-14) Blood Urea Nitrogen 56 mg/dL (7-20) Creatinine 1.4 mg/dL (0.6-1.0) Estimated GFR (Cockcroft-Gault) 36.6 Glucose Level 130 mg/dL (70-99) Calcium Level 9.1 mg/dL (8.5-10.1) Test 01/30/20 07:32 01/30/20 12:14 Glucose (Fingerstick) 125 mg/dL (70-99) 240 mg/dL (70-99) Laboratory Tests Test 01/29/20 16:55 01/29/20 20:51 01/30/20 04:27 01/30/20 07:32 Glucose (Fingerstick) 297 mg/dL (70-99) 244 mg/dL (70-99) 125 mg/dL (70-99) Sodium Level 143 mmol/L (136-145) Potassium Level 4.4 mmol/L (3.5-5.1) Chloride Level 106 mmol/L (98-107) Carbon Dioxide Level 30 mmol/L (21-32) Anion Gap 7 (6-14) Blood Urea Nitrogen 56 mg/dL (7-20) Creatinine 1.4 mg/dL (0.6-1.0) Estimated GFR (Cockcroft-Gault) 36.6 Glucose Level 130 mg/dL (70-99) Calcium Level 9.1 mg/dL (8.5-10.1) Test 01/30/20 12:14 Glucose (Fingerstick) 240 mg/dL (70-99) Medications Active Scripts Medications Dose Route/Sig Max Daily Dose Days Date Category Vitamin B-12 (Cyanocobalamin (Vitamin B-12)) 1,000 Mcg Tablet 2,000 Mcg PO DAILY 01/26/20 Reported One-Daily Multi-Vitamin (Multivitamin) 1 Each Tablet 1 Tab PO DAILY 30 01/26/20 Reported Vitamin D3 (Cholecalciferol (Vitamin D3)) 2,000 Unit Tab.chew 1 Tab PO DAILY 30 01/26/20 Reported Proair Hfa (Albuterol Sulfate) 8.5 Gm Hfa.aer.ad 2.5 Mg NEB RTQID MDD 1 12/15/18 Rx Metoprolol Tartrate 25 Mg Tablet 12.5 Mg PO BID MDD 1 12/15/18 Rx Protonix (Pantoprazole Sodium) 20 Mg Tablet.dr 40 Mg PO DAILY 60 08/07/18 Rx Bumetanide 2 Mg Tablet 2 Mg PO DAILY 01/05/18 Reported Fish Oil 1,000 mg Softgel ([place]-3S/Dha/Epa/Fish Oil) 1 Each Capsule 1 Each PO BID 01/05/18 Reported Losartan Potassium 50 Mg Tablet 50 Mg PO DAILY 01/05/18 Reported Klor-Con M10 (Potassium Chloride) 10 Meq Tab.er.prt 1 Tab PO BID 01/05/18 Reported Digoxin 125 Mcg Tablet 1 Tab PO DAILY 01/05/18 Reported Miralax (Polyethylene Glycol 3350) 17 Gm Powd.pack 1 Packet PO DAILY 01/05/18 Reported Symbicort 160-4.5 Mcg Inhaler (Budesonide/Formoterol Fumarate) 10.2 Gm Hfa.aer.ad 2 Puff IH BID 01/05/[address] CHEST Impression: Interval development of significant consolidations since the prior exam. Interval follow-up to resolution is recommended. Stability of previously seen left apical groundglass infiltrates since 12/22/2018 CT chest without contrast. Continued interval follow-up in 9 months to assess stability of these infiltrates recommended. Impression . 1. Acute hypoxic respiratory failure secondary to underlying chronic obstructive pulmonary disease and left perihilar pneumonia. 2. Abnormal chest x-ray with left perihilar rounded density. 3. Underlying obstructive sleep apnea, on CPAP with good compliance. 4. No history of deep vein thrombosis. 5. Leukocytosis secondary to pneumonia. 6. Influenza screen negative. Plan . 1. Continue with present oxygen with gradual wean to keep saturation 92 and above. 2. Continue Rocephin and doxycycline. 3. Continue DuoNeb. 4. Noncontrast CT chest REVIEWED. NEW CONSOLIDATION Lingula , unchanged GG nodules left upper lobe 5. CPAP at bedtime. 6. We will follow along with you. possible dc in 24 HRS DORIS COMER MD Jan 30, 2020 12:32
[2020-01-30 15:00] VITALS: BP 159/77
[2020-01-30 19:00] VITALS: BP 151/96
[2020-01-30] MEDS: INSULIN GLARGINE SYRINGE. SQ SCH (22:30)
[2020-01-30 23:00] VITALS: BP 144/65
[2020-01-31 03:00] VITALS: BP 133/92
[2020-01-31 06:54] LABS: CALCIUM 9.2 mg/dL (8.5-10.1); CREATININE 1.1 mg/dL (0.6-1.0); GFR 48.3; POTASSIUM 4.1 mmol/L (3.5-5.1)
[2020-01-31 07:00] VITALS: BP 171/82
[2020-01-31] MEDS: INSULIN LISPRO 300 UNITS/3 ML VIAL. SQ SCH ×4 (07:30→21:00)
[2020-01-31] MEDS: IPRATRPIUM/ALBUTEROL 0.5/2.5MG 3 ML NEBU. NEB SCH ×4 (07:43→20:45)
[2020-01-31] MEDS: BUDESONIDE 0.5 MG/2 ML NEBU. NEB SCH ×2 (07:43→20:45)
[2020-01-31] MEDS: MULTIVITAMIN with MINERAL TABLET. PO SCH (08:44)
[2020-01-31] MEDS: OMEGA-3 FATTY ACIDS/FISH OIL 1,000 MG CAPSULE. PO SCH ×2 (08:44→21:00)
[2020-01-31] MEDS: POTASSIUM CHLORIDE 10 MEQ TABLET.ER. PO SCH ×2 (08:44→17:32)
[2020-01-31] MEDS: BUMETANIDE 1 MG TABLET. PO SCH (08:45)
[2020-01-31] MEDS: CYANOCOBALAMIN (VITAMIN B-12) 1,000 MCG TABLET. PO SCH (08:45)
[2020-01-31] MEDS: predniSONE 20 MG TABLET PO SCH (08:45)
[2020-01-31] MEDS: PANTOPRAZOLE 40 MG TABLET.DR. PO SCH (08:45)
[2020-01-31] MEDS: LACTOBACILLUS RHAMNOSUS GG 1 CAPSULE. PO SCH ×2 (08:45→21:00)
[2020-01-31] MEDS: LOSARTAN POTASSIUM 50 MG TABLET. PO SCH (08:46)
[2020-01-31] MEDS: METOPROLOL TART IMMED RELEASE 25 MG TABLET. PO SCH ×2 (08:46→21:00)
[2020-01-31] MEDS: POLYETHYLENE GLYCOL 3350 17 GM PACKET. PO SCH (08:47)
[2020-01-31] MEDS: DIGOXIN 125 MCG TABLET. PO SCH (08:47)
[2020-01-31] MEDS: HEPARIN for SUB-Q USE 5,000 UNIT/ML VIAL. SQ SCH ×2 (08:54→21:00)
[2020-01-31] MEDS: DOXYCYCLINE HYCLATE 100 MG in IV DEXTROSE 5% 100ML 100 ML IV SCH ×2 (09:28→21:00)
[2020-01-31] MEDS: cefTRIAXone IV Push 1 GM VIAL. IVP SCH (09:29)
[2020-01-31 11:00] VITALS: BP 127/92
--- NOTE | 2020-01-31 11:37 | PDOC ---
PULMONARY PROGRESS NOTES Subjective feels better Vitals Vital Signs Date Time Temp Pulse Resp B/P (MAP) Pulse Ox O2 Delivery O2 Flow Rate FiO2 01/31/20 08:47 119 171/82 01/31/20 07:45 94 Room Air 01/31/20 07:00 98.0 18 1.0 98.0 General: Alert, No acute distress Lungs: Clear Cardiovascular: S1, S2 Abdomen: Soft Neuro Exam: Alert Extremities: No Edema Skin: Warm Labs Laboratory Tests Test 01/29/20 12:04 01/29/20 16:55 01/29/20 20:51 01/30/20 04:27 Glucose (Fingerstick) 173 mg/dL (70-99) 297 mg/dL (70-99) 244 mg/dL (70-99) Sodium Level 143 mmol/L (136-145) Potassium Level 4.4 mmol/L (3.5-5.1) Chloride Level 106 mmol/L (98-107) Carbon Dioxide Level 30 mmol/L (21-32) Anion Gap 7 (6-14) Blood Urea Nitrogen 56 mg/dL (7-20) Creatinine 1.4 mg/dL (0.6-1.0) Estimated GFR (Cockcroft-Gault) 36.6 Glucose Level 130 mg/dL (70-99) Calcium Level 9.1 mg/dL (8.5-10.1) Test 01/30/20 07:32 01/30/20 12:14 01/30/20 16:54 01/30/20 21:09 Glucose (Fingerstick) 125 mg/dL (70-99) 240 mg/dL (70-99) 314 mg/dL (70-99) 207 mg/dL (70-99) Test 01/31/20 05:40 01/31/20 07:54 Sodium Level 144 mmol/L (136-145) Potassium Level 4.1 mmol/L (3.5-5.1) Chloride Level 104 mmol/L (98-107) Carbon Dioxide Level 34 mmol/L (21-32) Anion Gap 6 (6-14) Blood Urea Nitrogen 52 mg/dL (7-20) Creatinine 1.1 mg/dL (0.6-1.0) Estimated GFR (Cockcroft-Gault) 48.3 Glucose Level 127 mg/dL (70-99) Calcium Level 9.2 mg/dL (8.5-10.1) Glucose (Fingerstick) 126 mg/dL (70-99) Laboratory Tests Test 01/30/20 12:14 01/30/20 16:54 01/30/20 21:09 01/31/20 05:40 Glucose (Fingerstick) 240 mg/dL (70-99) 314 mg/dL (70-99) 207 mg/dL (70-99) Sodium Level 144 mmol/L (136-145) Potassium Level 4.1 mmol/L (3.5-5.1) Chloride Level 104 mmol/L (98-107) Carbon Dioxide Level 34 mmol/L (21-32) Anion Gap 6 (6-14) Blood Urea Nitrogen 52 mg/dL (7-20) Creatinine 1.1 mg/dL (0.6-1.0) Estimated GFR (Cockcroft-Gault) 48.3 Glucose Level 127 mg/dL (70-99) Calcium Level 9.2 mg/dL (8.5-10.1) Test 01/31/20 07:54 Glucose (Fingerstick) 126 mg/dL (70-99) Medications Active Scripts Medications Dose Route/Sig Max Daily Dose Days Date Category Vitamin B-12 (Cyanocobalamin (Vitamin B-12)) 1,000 Mcg Tablet 2,000 Mcg PO DAILY 01/26/20 Reported One-Daily Multi-Vitamin (Multivitamin) 1 Each Tablet 1 Tab PO DAILY 30 01/26/20 Reported Vitamin D3 (Cholecalciferol (Vitamin D3)) 2,000 Unit Tab.chew 1 Tab PO DAILY 30 01/26/20 Reported Proair Hfa (Albuterol Sulfate) 8.5 Gm Hfa.aer.ad 2.5 Mg NEB RTQID MDD 1 12/15/18 Rx Metoprolol Tartrate 25 Mg Tablet 12.5 Mg PO BID MDD 1 12/15/18 Rx Protonix (Pantoprazole Sodium) 20 Mg Tablet.dr 40 Mg PO DAILY 60 08/07/18 Rx Bumetanide 2 Mg Tablet 2 Mg PO DAILY 01/05/18 Reported Fish Oil 1,000 mg Softgel ([place]-3S/Dha/Epa/Fish Oil) 1 Each Capsule 1 Each PO BID 01/05/18 Reported Losartan Potassium 50 Mg Tablet 50 Mg PO DAILY 01/05/18 Reported Klor-Con M10 (Potassium Chloride) 10 Meq Tab.er.prt 1 Tab PO BID 01/05/18 Reported Digoxin 125 Mcg Tablet 1 Tab PO DAILY 01/05/18 Reported Miralax (Polyethylene Glycol 3350) 17 Gm Powd.pack 1 Packet PO DAILY 01/05/18 Reported Symbicort 160-4.5 Mcg Inhaler (Budesonide/Formoterol Fumarate) 10.2 Gm Hfa.aer.ad 2 Puff IH BID 01/05/[address] CHEST Impression: Interval development of significant consolidations since the prior exam. Interval follow-up to resolution is recommended. Stability of previously seen left apical groundglass infiltrates since 12/22/2018 CT chest without contrast. Continued interval follow-up in 9 months to assess stability of these infiltrates recommended. Impression . 1. Acute hypoxic respiratory failure secondary to underlying chronic obstructive pulmonary disease and left perihilar pneumonia. 2. Abnormal chest x-ray with left perihilar rounded density. 3. Underlying obstructive sleep apnea, on CPAP with good compliance. 4. No history of deep vein thrombosis. 5. Leukocytosis secondary to pneumonia. 6. Influenza screen negative. Plan . 1. Continue with present oxygen with gradual wean to keep saturation 92 and above. 2. Continue Rocephin and doxycycline. 3. Continue DuoNeb. 4. Noncontrast CT chest REVIEWED. NEW CONSOLIDATION Lingula , unchanged GG nodules left upper lobe 5. CPAP at bedtime. 6. We will follow along with you. cxr today possible dc in 24 HRS DORIS COMER MD Jan 31, 2020 11:37
[2020-01-31] MEDS: CHOLECALCIFEROL (VITAMIN D3) 5,000 UNIT CAPSULE PO SCH (11:47)
--- NOTE | 2020-01-31 11:59 | PDOC ---
Renal-Progress Notes Subjective Notes Notes FEELS WELL History of Present Illness Hx of present illness STABLE Vitals Vitals Vital Signs Date Time Temp Pulse Resp B/P (MAP) Pulse Ox O2 Delivery O2 Flow Rate FiO2 01/31/20 08:47 119 171/82 01/31/20 07:45 94 Room Air 01/31/20 07:00 98.0 18 1.0 98.0 Weight Weight [ ] I.O. Intake and Output Intake and Output 01/31/20 07:00 Intake Total 2120 ml Output Total 2 ml Balance 2118 ml Intake Oral 2020 ml IV Total 100 ml Output Urine Total 1 ml Stool Total 1 ml # Voids 8 Labs Labs Laboratory Tests Test 01/30/20 12:14 01/30/20 16:54 01/30/20 21:09 01/31/20 05:40 Glucose (Fingerstick) 240 mg/dL (70-99) 314 mg/dL (70-99) 207 mg/dL (70-99) Sodium Level 144 mmol/L (136-145) Potassium Level 4.1 mmol/L (3.5-5.1) Chloride Level 104 mmol/L (98-107) Carbon Dioxide Level 34 mmol/L (21-32) Anion Gap 6 (6-14) Blood Urea Nitrogen 52 mg/dL (7-20) Creatinine 1.1 mg/dL (0.6-1.0) Estimated GFR (Cockcroft-Gault) 48.3 Glucose Level 127 mg/dL (70-99) Calcium Level 9.2 mg/dL (8.5-10.1) Test 01/31/20 07:54 Glucose (Fingerstick) 126 mg/dL (70-99) Micro Micro Microbiology 01/26/20 Blood Culture - Final, Complete NO GROWTH AFTER 5 DAYS Review of Systems Constitutional: yes: alert, oriented Ears/Nose/Throat: Yes: no symptom reported Eyes: Yes: no symptom reported Pulmonary: Yes dyspnea Cardiovascular: Yes no symptom reported Gastrointestional: Yes: no symptom reported Genitourinary: Yes: no symptom reported Musculoskeletal: Yes: no symptom reported Skin: Yes no symptom reported Endocrine: Yes: no symptom reported Physical Exam General Appearance: no apparent distress Skin: warm Respiratory: decreased breath sounds Heart: S1S2 Abdomen: soft, bowel sounds present Genitourinary: bladder flat Extremities: pulses present Neurology: alert Musculoskeletal: Osteoarthritis Assessment Assessment IMP GERARDO CR DOWN TO 1.1-ESSENTIALLY RESOLVED PNEUMONIA-CAP DM II HTN-IMPROVED PLAN AVOID NEPHROTOXINS WILL SIGN OFF CATHERINE PATEL MD Jan 31, 2020 11:59
[2020-01-31 15:00] VITALS: BP 135/60
--- NOTE | 2020-01-31 16:33 | RAD ---
Portable chest x-ray compared to similar examination dated January 26, 2020 for pneumonia. FINDINGS: Left lower and midlung infiltrates persist, and there is likely a small left pleural effusion as well. Cardiomegaly is stable. No new lung parenchymal abnormalities. IMPRESSION: 1. Grossly stable chest x-ray with persistent left mid and lower lung infiltrates and left pleural effusion. Electronically signed by: Ruben Tabares MD (01/31/2020 4:30 PM) [id number]
[2020-01-31 19:00] VITALS: BP 132/78
[2020-01-31] MEDS: INSULIN GLARGINE SYRINGE. SQ SCH (21:00)
[2020-01-31] MEDS ORDERED: traZODone 50 MG TABLET. PO SCH (21:00)
[2020-01-31 23:10] VITALS: BP 150/79
[2020-02-01 03:00] VITALS: BP 127/78
[2020-02-01 07:00] VITALS: BP 140/96
[2020-02-01] MEDS: INSULIN LISPRO 300 UNITS/3 ML VIAL. SQ SCH ×2 (07:30→12:16)
[2020-02-01] MEDS: IPRATRPIUM/ALBUTEROL 0.5/2.5MG 3 ML NEBU. NEB SCH ×3 (07:49→16:10)
[2020-02-01] MEDS: BUDESONIDE 0.5 MG/2 ML NEBU. NEB SCH (07:49)
[2020-02-01] MEDS: POLYETHYLENE GLYCOL 3350 17 GM PACKET. PO SCH (08:09)
[2020-02-01] MEDS: BUMETANIDE 1 MG TABLET. PO SCH (08:10)
[2020-02-01] MEDS: CYANOCOBALAMIN (VITAMIN B-12) 1,000 MCG TABLET. PO SCH (08:10)
[2020-02-01] MEDS: OMEGA-3 FATTY ACIDS/FISH OIL 1,000 MG CAPSULE. PO SCH (08:10)
[2020-02-01] MEDS: MULTIVITAMIN with MINERAL TABLET. PO SCH (08:10)
[2020-02-01] MEDS: CHOLECALCIFEROL (VITAMIN D3) 5,000 UNIT CAPSULE PO SCH (08:10)
[2020-02-01] MEDS: PANTOPRAZOLE 40 MG TABLET.DR. PO SCH (08:11)
[2020-02-01] MEDS: POTASSIUM CHLORIDE 10 MEQ TABLET.ER. PO SCH (08:13)
[2020-02-01] MEDS: LACTOBACILLUS RHAMNOSUS GG 1 CAPSULE. PO SCH (08:13)
[2020-02-01] MEDS: cefTRIAXone IV Push 1 GM VIAL. IVP SCH (08:14)
[2020-02-01] MEDS: DOXYCYCLINE HYCLATE 100 MG in IV DEXTROSE 5% 100ML 100 ML IV SCH (08:14)
[2020-02-01] MEDS: DIGOXIN 125 MCG TABLET. PO SCH (08:15)
[2020-02-01] MEDS: HEPARIN for SUB-Q USE 5,000 UNIT/ML VIAL. SQ SCH (08:39)
[2020-02-01 11:00] VITALS: BP 151/76
[2020-02-01] MEDS ORDERED: DOXY100C2 PO (11:17)
--- NOTE | 2020-02-01 11:19 | SNU/HH DC ---
DISCHARGE WITH HOME HEALTH DISCHARGE INFORMATION: Discharge Date: Feb 01, 2020 Final Diagnosis: Problems Medical Problems: (1) Atrial fibrillation with RVR Status: Acute (2) CAP (community acquired pneumonia) Status: Acute (3) Chest wall pain Status: Acute (4) Congestive heart failure Status: Acute (5) Leukocytosis Status: Acute (6) SIRS (systemic inflammatory response syndrome) Status: Acute Condition on Discharge: Stable CODE STATUS: Code Status: Full HOME HEALTH: Face to Face: I certify this patient is under my care and that I, had a face to face encounter that meets the physician face to face encounter requirements with this patient on 01/31/ Medical Complications: COPD, Pneumonia Mcc For: Assess Cardiopulm Status, Medication Management RN For Eval/Treatment: Yes Physical Therapy For: Evalulation/Treatment Occupational Therapy For: Evaluation/Treatment Pt Meets Homebound Status: Poor coordination w/ amb., Unsteady balance w/ amb, POST DISCHARGE ORDERS: Activity Instructions for Disc: Activity as tolerated Weight Bearing Status after Di: As tolerated Bathing Instructions: No Tub Bath until see Wound/Incision Care: May get incision wet, No wound care needed CHECKS AFTER DISCHARGE: Checks after discharge: Check blood press - daily FOLLOW-UP: Follow up with: PRIMARY care 1-2 weeks TREATMENT/EQUIPMENT ORDERS: Adaptive Equipment Issued: None CERTIFICATION STATEMENT: Certification Statement: Certification Statement: Based on the above finding, I certify that this patient is confined to the home and needs intermittent residential care, physical therapy and/or speech therapy, or continues to need occupational therapy.~ This patient is under my care, and I have initiated the establishment of the plan of care.~ This patient will be followed by myself or a community physician who will periodically review the plan of care. Home Meds Active Scripts Doxycycline Hyclate (DOXYCYCLINE HYCLATE) 100 Mg Capsule, 1 CAP PO BID for BRONCHITIS, #6 CAP Prov:SNEHA HO MD 02/01/20 Albuterol Sulfate (Proair Hfa) 8.5 Gm Hfa.aer.ad, 2.5 MG NEB RTQID for soa MDD 1, #1 INHALER Prov:CURLY NOLAN MD 12/15/18 Metoprolol Tartrate (METOPROLOL TARTRATE) 25 Mg Tablet, 12.5 MG PO BID for htn MDD 1, #60 TAB Prov:CURLY NOLAN MD 12/15/18 Pantoprazole Sodium (PROTONIX) 20 Mg Tablet.dr, 40 MG PO DAILY for 60 Days, #120 TAB Prov:CURLY NOLAN MD 08/07/18 Reported Medications Cyanocobalamin (Vitamin B-12) (VITAMIN B-12) 1,000 Mcg Tablet, 2000 MCG PO DAILY for vitamin, TAB 01/26/20 Multivitamin (One-Daily Multi-Vitamin) 1 Each Tablet, 1 TAB PO DAILY for vitamin for 30 Days, #30 TAB 0 Refills 01/26/20 Cholecalciferol (Vitamin D3) (Vitamin D3) 2,000 Unit Tab.chew, 1 TAB PO DAILY for vitamin for 30 Days, #30 TAB 0 Refills 01/26/20 Bumetanide (BUMETANIDE) 2 Mg Tablet, 2 MG PO DAILY, TAB 01/05/18 [place]-3S/Dha/Epa/Fish Oil (Fish Oil 1,000 mg Softgel) 1 Each Capsule, 1 EACH PO BID, CAP 01/05/18 Losartan Potassium (LOSARTAN POTASSIUM) 50 Mg Tablet, 50 MG PO DAILY, TAB 01/05/18 Potassium Chloride (KLOR-CON M10) 10 Meq Tab.er.prt, 1 TAB PO BID, #30 TAB 5 Refills 01/05/18 Digoxin (DIGOXIN) 125 Mcg Tablet, 1 TAB PO DAILY, #30 TAB 5 Refills 01/05/18 Polyethylene Glycol 3350 (MIRALAX) 17 Gm Powd.pack, 1 PACKET PO DAILY, #30 PACKET 3 Refills 01/05/18 Budesonide/Formoterol Fumarate (SYMBICORT 160-4.5 MCG INHALER) 10.2 Gm Hfa.aer.ad, 2 PUFF IH BID, #10.6 GM 3 Refills 01/05/18 SNEHA HO MD Feb 01, 2020 11:18
--- NOTE | 2020-02-01 11:24 | PDOC3 ---
Discharge Summary Visit Information Date of Admission: Jan 26, 2020 Date of Discharge: Feb 01, 2020 Final Diagnosis chest pain, tachycardia, acute systolic CHF angina, r/o ACS, admit obesity, BMI 40 has pacemaker, NOS schizophrenia htn, lipids, CV consult will harrington angina Problems Medical Problems: (1) Atrial fibrillation with RVR Status: Acute (2) CAP (community acquired pneumonia) Status: Acute (3) Chest wall pain Status: Acute (4) Congestive heart failure Status: Acute (5) Leukocytosis Status: Acute (6) SIRS (systemic inflammatory response syndrome) Status: Acute Brief Hospital Course Allergies Allergies Coded Allergies Type Severity Reaction Last Updated Verified DONNA Inhibitors Allergy Severe angioedema 12/22/18 Yes Penicillins Allergy Intermediate n/v,itch,rash 12/22/18 Yes erythromycin base Adverse Reaction Intermediate n/v 12/22/18 Yes Vital Signs Vital Signs Date Time Temp Pulse Resp B/P (MAP) Pulse Ox O2 Delivery O2 Flow Rate FiO2 02/01/20 08:15 82 02/01/20 07:51 96 Nasal Cannula 2.0 02/01/20 07:00 97.6 22 140/96 (111) 97.6 Lab Results Laboratory Tests Test 01/30/20 12:14 01/30/20 16:54 01/30/20 21:09 01/31/20 05:40 Glucose (Fingerstick) 240 mg/dL (70-99) 314 mg/dL (70-99) 207 mg/dL (70-99) Sodium Level 144 mmol/L (136-145) Potassium Level 4.1 mmol/L (3.5-5.1) Chloride Level 104 mmol/L (98-107) Carbon Dioxide Level 34 mmol/L (21-32) Anion Gap 6 (6-14) Blood Urea Nitrogen 52 mg/dL (7-20) Creatinine 1.1 mg/dL (0.6-1.0) Estimated GFR (Cockcroft-Gault) 48.3 Glucose Level 127 mg/dL (70-99) Calcium Level 9.2 mg/dL (8.5-10.1) Test 01/31/20 07:54 01/31/20 12:00 01/31/20 17:22 01/31/20 21:41 Glucose (Fingerstick) 126 mg/dL (70-99) 222 mg/dL (70-99) 253 mg/dL (70-99) 179 mg/dL (70-99) Test 02/01/20 07:45 Glucose (Fingerstick) 122 mg/dL (70-99) Laboratory Tests Test 01/31/20 12:00 01/31/20 17:22 01/31/20 21:41 02/01/20 07:45 Glucose (Fingerstick) 222 mg/dL (70-99) 253 mg/dL (70-99) 179 mg/dL (70-99) 122 mg/dL (70-99) Brief Hospital Course Ms. Christensen is a 74 old v admit w/ cough, which has been mostly dry for the last week or so. bronchitis and CHF as above abx and txc, better after many days, hypoxia improvd, Discharge Information Condition at Discharge: Improved Follow Up: Weeks Disposition/Orders: D/C to Home Scheduled Albuterol Sulfate (Proair Hfa) 8.5 Gm Hfa.aer.ad, 2.5 MG NEB RTQID for soa MDD 1, #1 Prescribed by: CURLY NOLAN on 12/15/18 1232 Last Action: Continued on 01/26/20 1131 by VIKY MOTA MD Budesonide/Formoterol Fumarate (Symbicort 160-4.5 Mcg Inhaler) 10.2 Gm Hfa.aer.ad, 2 PUFF IH BID, #10.6 Ref 3 (Reported) Entered as Reported by: DAISY MENDEZ on 01/05/18 1251 Last Action: Converted on 01/26/20 1132 by VIKY MOTA MD Bumetanide (Bumetanide) 2 Mg Tablet, 2 MG PO DAILY, (Reported) Entered as Reported by: DAISY MENDEZ on 01/05/18 1251 Last Action: Reviewed on 01/26/20 111 by CORA SIERRA Cholecalciferol (Vitamin D3) (Vitamin D3) 2,000 Unit Tab.chew, 1 TAB PO DAILY for vitamin for 30 Days, #30 Ref 0 (Reported) Entered as Reported by: CORA SIERRA on 01/26/20 1112 Last Action: Converted on 01/31/20 1007 by SNEHA HO Cyanocobalamin (Vitamin B-12) (Vitamin B-12) 1,000 Mcg Tablet, 2,000 MCG PO DAILY for vitamin, (Reported) Entered as Reported by: CORA SIERRA on 01/26/20 1112 Last Taken: Unknown Dose on Unknown Date & Time Last Action: Continued on 01/26/201130 by VIKY MOTA MD Digoxin (Digoxin) 125 Mcg Tablet, 1 TAB PO DAILY, #30 Ref 5 (Reported) Entered as Reported by: DAISY MENDEZ on 01/05/18 1251 Last Action: Continued on 01/26/201130 by VIKY MOTA MD Doxycycline Hyclate (Doxycycline Hyclate) 100 Mg Capsule, 1 CAP PO BID for BRONCHITIS, #6 Prescribed by: SNEHA HO on 02/01/20 1117 Losartan Potassium (Losartan Potassium) 50 Mg Tablet, 50 MG PO DAILY, (Reported) Entered as Reported by: DAISY MENDEZ on 01/05/18 1251 Last Action: Continued on 01/26/201130 by VIKY MOTA MD Metoprolol Tartrate (Metoprolol Tartrate) 25 Mg Tablet, 12.5 MG PO BID for htn MDD 1, #60 Prescribed by: CURLY NOLAN on 12/15/18 1232 Last Action: Continued on 01/26/201130 by VIKY MOTA MD Multivitamin (One-Daily Multi-Vitamin) 1 Each Tablet, 1 TAB PO DAILY for vitamin for 30 Days, #30 Ref 0 (Reported) Entered as Reported by: CORA SIERRA on 01/26/20 111 Last Action: Converted on 01/26/201131 by VIKY MOTA MD [place]-3S/Dha/Epa/Fish Oil (Fish Oil 1,000 mg Softgel) 1 Each Capsule, 1 EACH PO BID, (Reported) Entered as Reported by: DAISY MENDEZ on 01/05/18 1251 Last Action: Converted on 01/26/201131 by VIKY MOTA MD Pantoprazole Sodium (Protonix) 20 Mg Tablet.dr, 40 MG PO DAILY for 60 Days, #120 Prescribed by: CURLY NOLAN on 08/07/18 1044 Last Action: Converted on 01/26/201131 by VIKY MOTA MD Polyethylene Glycol 3350 (Miralax) 17 Gm Powd.pack, 1 PACKET PO DAILY, #30 Ref 3 (Reported) Entered as Reported by: DAISY MENDEZ on 01/05/18 1251 Last Action: Continued on 01/26/201130 by VIKY MOTA MD Potassium Chloride (Klor-Con M10) 10 Meq Tab.er.prt, 1 TAB PO BID, #30 Ref 5 (Reported) Entered as Reported by: DAISY MENDEZ on 01/05/18 1251 Last Action: Continued on 01/26/201130 by MD VIC BAKER IRA W MD Feb 01, 2020 11:24
[2020-02-01] MEDS: METOPROLOL TART IMMED RELEASE 25 MG TABLET. PO SCH (12:15)
[2020-02-01 12:26] VITALS: BP 151/76
[2020-02-01] MEDS: LOSARTAN POTASSIUM 50 MG TABLET. PO SCH (12:26)
--- NOTE | 2020-02-01 12:58 | NUR ---
SS following up with discharge planning. Discharge orders received for home healthcare. SS met with pt to discuss home healthcare. Pt declining home healthcare at this time. Six minute walk ordered. SS currently awaiting oxygen needs.
--- NOTE | 2020-02-01 13:25 | PDOC ---
PULMONARY PROGRESS NOTES Subjective feels better Vitals Vital Signs Date Time Temp Pulse Resp B/P (MAP) Pulse Ox O2 Delivery O2 Flow Rate FiO2 02/01/20 12:26 104 151/76 02/01/20 11:36 96 Nasal Cannula 2.0 02/01/20 11:00 97.5 22 97.5 General: Alert, No acute distress Lungs: Clear Cardiovascular: S1, S2 Abdomen: Soft Neuro Exam: Alert Extremities: No Edema Skin: Warm Labs Laboratory Tests Test 01/30/20 16:54 01/30/20 21:09 01/31/20 05:40 01/31/20 07:54 Glucose (Fingerstick) 314 mg/dL (70-99) 207 mg/dL (70-99) 126 mg/dL (70-99) Sodium Level 144 mmol/L (136-145) Potassium Level 4.1 mmol/L (3.5-5.1) Chloride Level 104 mmol/L (98-107) Carbon Dioxide Level 34 mmol/L (21-32) Anion Gap 6 (6-14) Blood Urea Nitrogen 52 mg/dL (7-20) Creatinine 1.1 mg/dL (0.6-1.0) Estimated GFR (Cockcroft-Gault) 48.3 Glucose Level 127 mg/dL (70-99) Calcium Level 9.2 mg/dL (8.5-10.1) Test 01/31/20 12:00 01/31/20 17:22 01/31/20 21:41 02/01/20 07:45 Glucose (Fingerstick) 222 mg/dL (70-99) 253 mg/dL (70-99) 179 mg/dL (70-99) 122 mg/dL (70-99) Test 02/01/20 11:53 Glucose (Fingerstick) 176 mg/dL (70-99) Laboratory Tests Test 01/31/20 17:22 01/31/20 21:41 02/01/20 07:45 02/01/20 11:53 Glucose (Fingerstick) 253 mg/dL (70-99) 179 mg/dL (70-99) 122 mg/dL (70-99) 176 mg/dL (70-99) Medications Active Scripts Medications Dose Route/Sig Max Daily Dose Days Date Category Vitamin B-12 (Cyanocobalamin (Vitamin B-12)) 1,000 Mcg Tablet 2,000 Mcg PO DAILY 01/26/20 Reported One-Daily Multi-Vitamin (Multivitamin) 1 Each Tablet 1 Tab PO DAILY 30 01/26/20 Reported Vitamin D3 (Cholecalciferol (Vitamin D3)) 2,000 Unit Tab.chew 1 Tab PO DAILY 30 01/26/20 Reported Proair Hfa (Albuterol Sulfate) 8.5 Gm Hfa.aer.ad 2.5 Mg NEB RTQID MDD 1 12/15/18 Rx Metoprolol Tartrate 25 Mg Tablet 12.5 Mg PO BID MDD 1 12/15/18 Rx Protonix (Pantoprazole Sodium) 20 Mg Tablet.dr 40 Mg PO DAILY 60 08/07/18 Rx Bumetanide 2 Mg Tablet 2 Mg PO DAILY 01/05/18 Reported Fish Oil 1,000 mg Softgel ([place]ers-3S/Dha/Epa/Fish Oil) 1 Each Capsule 1 Each PO BID 01/05/18 Reported Losartan Potassium 50 Mg Tablet 50 Mg PO DAILY 01/05/18 Reported Klor-Con M10 (Potassium Chloride) 10 Meq Tab.er.prt 1 Tab PO BID 01/05/18 Reported Digoxin 125 Mcg Tablet 1 Tab PO DAILY 01/05/18 Reported Miralax (Polyethylene Glycol 3350) 17 Gm Powd.pack 1 Packet PO DAILY 01/05/18 Reported Symbicort 160-4.5 Mcg Inhaler (Budesonide/Formoterol Fumarate) 10.2 Gm Hfa.aer.ad 2 Puff IH BID 01/05/[address] CHEST Impression: Interval development of significant consolidations since the prior exam. Interval follow-up to resolution is recommended. Stability of previously seen left apical groundglass infiltrates since 12/22/2018 CT chest without contrast. Continued interval follow-up in 9 months to assess stability of these infiltrates recommended. Impression . 1. Acute hypoxic respiratory failure secondary to underlying chronic obstructive pulmonary disease and left perihilar pneumonia. 2. Abnormal chest x-ray with left perihilar rounded density. 3. Underlying obstructive sleep apnea, on CPAP with good compliance. 4. No history of deep vein thrombosis. 5. Leukocytosis secondary to pneumonia. 6. Influenza screen negative. Plan . 1. Continue with present oxygen with gradual wean to keep saturation 92 and above. 2. can change to po abx 3. Continue DuoNeb. 4. Noncontrast CT chest REVIEWED. NEW CONSOLIDATION Lingula , unchanged GG nodules left upper lobe 5. CPAP at bedtime. 6. We will follow along with you. cxr unchanged dc today DORIS COMER MD Feb 01, 2020 13:25
== END 2020-02-01 16:00 | disposition home or self-care (01) | DRG 871 ==
LOC: ER 07:43 → 6 SOUTH 09:02 → 2 SOUTH 09:59
PROVIDERS: ADMIT Internal Medicine; ATTEND Internal Medicine
DX: A41.9 Sepsis, unspecified organism (principal); J18.9 Pneumonia, unspecified organism; E43 Unspecified severe protein-calorie malnutrition; I50.43 Acute on chronic combined systolic (congestive) and diastolic (congestive) heart failure; J96.01 Acute respiratory failure with hypoxia; E87.1 Hypo-osmolality and hyponatremia; I13.0 Hypertensive heart and chronic kidney disease with heart failure and stage 1 through stage 4 chronic kidney disease, or unspecified chronic kidney disease; I48.20 Chronic atrial fibrillation, unspecified; J44.0 Chronic obstructive pulmonary disease with (acute) lower respiratory infection; J44.1 Chronic obstructive pulmonary disease with (acute) exacerbation; N17.9 Acute kidney failure, unspecified; E11.22 Type 2 diabetes mellitus with diabetic chronic kidney disease; E66.9 Obesity, unspecified; E86.9 Volume depletion, unspecified; F17.210 Nicotine dependence, cigarettes, uncomplicated; F20.9 Schizophrenia, unspecified; G47.33 Obstructive sleep apnea (adult) (pediatric); M19.90 Unspecified osteoarthritis, unspecified site; D53.9 Nutritional anemia, unspecified; K57.90 Diverticulosis of intestine, part unspecified, without perforation or abscess without bleeding; J20.9 Acute bronchitis, unspecified; N18.3 Chronic kidney disease, stage 3 (moderate); Z82.49 Family history of ischemic heart disease and other diseases of the circulatory system; Z68.38 Body mass index [BMI] 38.0-38.9, adult; Z83.3 Family history of diabetes mellitus; Z90.49 Acquired absence of other specified parts of digestive tract; Z93.3 Colostomy status; Z95.0 Presence of cardiac pacemaker; Z88.1 Allergy status to other antibiotic agents; Z88.0 Allergy status to penicillin; Z88.8 Allergy status to other drugs, medicaments and biological substances
CPT/HCPCS: 36415; 71045; 71250; 80048; 80053; 80162; 82550; 82962; 83036; 83605; 83735; 83880; 84145; 84484; 85007; 85025; 85610; 85730; 87040; 87804; 93005; 94618; 94640; 94760; 96361; 96374; 96375; J0696; J1815; J2930; J3370; J3490; J7030; J7040; J7060; J7512; 97116; 97530; 97535; 99291-25; G0378; J7613; J7626

== ENCOUNTER 2020-06-06 16:47 | Inpatient (IN) | payer BC ==
[~2020-06-06] VITALS: Ht 152.4 cm; Wt 88.9 kg
[~2020-06-06 16:47] MED LIST changes: -CALC600T4 PO; +CALC600T5 PO; +CHOL200078 PO; +CYAN-25 PO; +DOXY100C2 PO; +MULT-735 PO
[2020-06-06 18:58] LABS: BASO # 0.1 x10^3/uL (0.0-0.2); BASO % 1 % (0-3); EOS # 0.2 x10^3/uL (0.0-0.7); EOS % 2 % (0-3); HEMATOCRIT 21.9 % (36.0-47.0); LYMPH # 1.1 x10^3/uL (1.0-4.8); LYMPH % 14 % (24-48); MEAN CORPUSCULAR HEMOGLOBIN 24 pg (25-35); MEAN CORPUSCULAR HGB CONC 31 g/dL (31-37); MEAN CORPUSCULAR VOLUME 76 fL (79-100); MONO # 0.6 x10^3/uL (0.0-1.1); MONO % 8 % (0-9); NEUT # 6.2 x10^3/uL (1.8-7.7); NEUT % 76 % (31-73); PLATELET COUNT 353 x10^3/uL (140-400); RED BLOOD COUNT 2.89 x10^6/uL (3.50-5.40); RED CELL DISTRIBUTION WIDTH 18.4 % (11.5-14.5); WHITE BLOOD COUNT 8.2 x10^3/uL (4.0-11.0)
--- NOTE | 2020-06-06 19:03 | PHYS DOC ---
Past Medical History Past Medical History: A-Fib, Anemia, Arrhythmia, Asthma, CHF, COPD, Diabetes- Type II, Diverticulitis, Hypertension, Renal Failure, Other Additional Past Medical Histor: C-DIFF, COLOSTOMY D/T BOWEL OBST, Past Surgical History: Appendectomy, Cholecystectomy, Tonsillectomy, Other Additional Past Surgical Histo: adenoidectomy, EGD,COLOSTOMY BOWEL OBST, Smoking Status: Former Smoker Alcohol Use: Rarely Drug Use: None General Adult EDM: Chief Complaint: FATIGUE HPI: HPI: Patient is a 74 year old female who presents with patient's Doctor Dr Painter called and stated she seen in her patient that has a long history of JOHNNIE. She states that the patient is becoming increasingly more symptomatic over the last 2 weeks. Patient complains of fatigue, weakness, shortness of air and chest pain at times. Dr Painter states that the patient is scheduled for an iron transfusion on Tuesday but does not think the patient can make it that long. Patient denies any pain at this time. Patient only complains of fatigue and shortness of breath. She states that she can hardly make it across the room in her apartment without having to stop and catch her breath. Patient at this time denies chest pain, nausea, vomiting, abdominal pain, diarrhea, blood in her stools, dark stools, dizziness, syncope, headache, vision changes, focal weakness. Review of Systems: Review of Systems: Constitutional: Denies fever or chills. [] Eyes: Denies change in visual acuity. [] HENT: Denies nasal congestion or sore throat. [] Respiratory: Denies cough. +shortness of breath. [] Cardiovascular: Intermittent chest pain or denies edema. [] GI: Denies abdominal pain, nausea, vomiting, bloody stools or diarrhea. [] : Denies dysuria. [] Musculoskeletal: Denies back pain or joint pain. Generalized weakness. [] Integument: Denies rash. [] Neurologic: Denies headache, focal weakness or sensory changes. [] Endocrine: Denies polyuria or polydipsia. [] Lymphatic: Denies swollen glands. [] Psychiatric: Denies depression or anxiety. [] Heart Score: HEART Score for Chest Pain: HEART Score for Chest Pain Response (Comments) Value History Slighlty/Non-Suspicious 0 ECG Normal 0 Age > 65 2 Risk Factors >3 Risk Factors or Hx CAD 2 Troponin < Normal Limit 0 Total 4 Risk Factors: Risk Factors: DM, Current or recent (<one month) smoker, HTN, HLP, family history of CAD, obesity. Risk Scores: Score 0 - 3: 2.5% MACE over next 6 weeks - Discharge Home Score 4 - 6: 20.3% MACE over next 6 weeks - Admit for Clinical Observation Score 7 - 10: 72.7% MACE over next 6 weeks - Early Invasive Strategies Allergies: Allergies: Allergies Coded Allergies Type Severity Reaction Last Updated Verified DONNA Inhibitors Allergy Severe angioedema 12/22/18 Yes Penicillins Allergy Intermediate n/v,itch,rash 12/22/18 Yes erythromycin base Adverse Reaction Intermediate n/v 12/22/18 Yes Physical Exam: PE: Constitutional: Well developed, well nourished, no acute distress, non-toxic appearance. [] HENT: Normocephalic, atraumatic, bilateral external ears normal, oropharynx moist, no oral exudates, nose normal. [] Eyes: PERRLA, EOMI, conjunctiva normal, no discharge. [] Neck: Normal range of motion, no tenderness, supple, no stridor. [] Cardiovascular:Heart rate regular rhythm, no murmur [] Lungs & Thorax: Bilateral breath sounds clear to auscultation [] Abdomen: Bowel sounds normal, soft, no tenderness, no masses, no pulsatile masses. [] Skin: Warm, dry, no erythema, no rash. Pale. [] Back: No tenderness, no CVA tenderness. [] Extremities: No tenderness, no cyanosis, no clubbing, ROM intact, no edema. [] Neurologic: Alert and oriented X 3, normal motor function, normal sensory function, no focal deficits noted. [] Psychologic: Affect normal, judgement normal, mood normal. [] Current Patient Data: Vital Signs: Vital Signs Date Time Temp Pulse Resp B/P (MAP) Pulse Ox O2 Delivery O2 Flow Rate FiO2 06/06/20 18:05 98.1 73 14 141/75 (97) 96 Room Air 98.1 EKG: EK and read by Dr Ryan as Irregular sinus rhythm and no STEMI[] Radiology/Procedures: Radiology/Procedures: [] Impression: [facility] [address] [place] [address] IMAGING REPORT Signed PATIENT: ARIELLE MONZON ACCOUNT: [id number] : 1945 LOCATION: ER AGE: 74 SEX: F EXAM STATUS: PRE ER ORD. PHYSICIAN: CHARLES BLEVINS APRN REASON: weakness PROCEDURE: PORTABLE CHEST 1V INDICATION: Reason: weakness / Spl. Instructions: / History: COMPARISON: January 31, 2020 FINDINGS: Single view of chest obtained. Enlarged cardiomediastinal silhouette. Calcific atherosclerosis. Interstitial and groundglass opacities bilaterally. Linear opacity left lower lung. IMPRESSION: * Mild interstitial and groundglass opacities. This can be seen with edema or infiltrate. * Enlarged cardiomediastinal silhouette Electronically signed by: Marie Villegas MD (06/06/2020 7:50 PM) [id number] DICTATED and SIGNED BY: MARIE VILLEGAS MD DATE: 06/06/20 1950 Course & Med Decision Making: Course & Med Decision Making Pertinent Labs and Imaging studies reviewed. (See chart for details) COVID-19 CRITERIA: The patient was evaluated during the global COVID-19 pandemic, and that diagnosis was suspected/considered upon their initial presentation. Their evaluation, treatment and testing was consistent with current guidelines for patients who present with complaints or symptoms that may be related to COVID-19. Alert and oriented. Speaks in full clear sentences. Skin is pale warm and dry. PERRLA. Denies any numbness or tingling. See HPI. I have ordered a Covid swab. Dr. Jang states he not start any antibiotics at this time. I have ordered 1 unit of blood for the patient. [] Dragon Disclaimer: Dragniraj Disclaimer: This electronic medical record was generated, in whole or in part, using a voice recognition dictation system. COVID-19 Patient Risks: Age 65 or older: Yes Sign of co-morbidity: Yes Exp to person + for COVID: No Exp to PUI: No Travel from affected area: No Lower respiratory symptoms: Yes Fever: No Other: No PPE Use: Full PPE with N95 mask or PAPR: Yes Departure Departure Impression: Primary Impression: Low hemoglobin Additional Impression: Person under investigation for COVID-19 Disposition: ADMITTED INPATIENT Admitting Physician: TEO Condition: STABLE Referrals: LUIS PAINTER MD (PCP) Justicifation of Admission Dx: Justifications for Admission: Justification of Admission Dx: Yes Comments: LOW HEMOGLOBIN CHARLES BLEVINS RAILROAD OPERATOR Jun 06, 2020 19:03
[2020-06-06 19:05] LABS: HEMOGLOBIN 6.8 g/dL (12.0-15.5); PROTHROMBIN TIME PATIENT 13.6 SEC (11.7-14.0)
[2020-06-06 19:09] LABS: CREATININE 1.4 mg/dL (0.6-1.0); GFR 36.6; POTASSIUM 3.5 mmol/L (3.5-5.1)
[2020-06-06 19:23] LABS: ALBUMIN 3.3 g/dL (3.4-5.0); ALBUMIN/GLOBULIN RATIO 0.8 (1.0-1.7); TOTAL BILIRUBIN 0.4 mg/dL (0.2-1.0); TOTAL PROTEIN 7.3 g/dL (6.4-8.2)
--- NOTE | 2020-06-06 19:53 | RAD ---
INDICATION: Reason: weakness / Spl. Instructions: / History: COMPARISON: January 31, 2020 FINDINGS: Single view of chest obtained. Enlarged cardiomediastinal silhouette. Calcific atherosclerosis. Interstitial and groundglass opacities bilaterally. Linear opacity left lower lung. IMPRESSION: * Mild interstitial and groundglass opacities. This can be seen with edema or infiltrate. * Enlarged cardiomediastinal silhouette Electronically signed by: Bakari Davison MD (06/06/2020 7:50 PM) [id number]
[2020-06-06] MEDS ORDERED: fentaNYL PF VIAL 100 MCG/2 ML VIAL IV PRN (20:30)
[2020-06-06] MEDS ORDERED: ACETAMINOPHEN 325 MG TABLET. PO PRN (20:30)
[2020-06-06] MEDS ORDERED: ONDANSETRON PF 4 MG/2 ML VIAL. IV PRN (20:30)
[2020-06-06 20:50] LABS: C-REACTIVE PROTEIN 1.8 mg/L (0-3.3)
[2020-06-06 23:00] VITALS: BP 150/65
[2020-06-07] VITALS (10 sets, daily range): BP systolic 124–153; BP diastolic 53–84
[2020-06-07] MEDS: IPRATRPIUM/ALBUTEROL 0.5/2.5MG 3 ML NEBU. NEB SCH ×2 (08:00→12:00)
--- NOTE | 2020-06-07 08:12 | PDOC1 ---
History and Physical Date of Admission: Date of Admission DATE: 06/07/20 TIME: 08:10 Chief Complaint: Chief Complain: Weakness and shortness of breath History of Present Illness: HPI: Patient is a 74-year-old female with past medical history of atrial fibrillation, iron deficiency anemia, asthma, CHF, COPD, HERIBERTO on CPAP, diabetes who presents with weakness and shortness of breath over the past 2 weeks. She also does state some generalized weakness and fatigue. She can hardly make it across her room in the department without having to stop and catch her breath. Patient was scheduled for an iron transfusion on Tuesday but her PCP does not think that she can wait that long for that. Upon further questioning, patient states that she has had GI bleeding in the past and a work-up was in the works and she was being seen by Dr. John with GI. Denies chest pain, nausea, vomiting, abdominal pain, diarrhea, blood in her stools, dark stools, dizziness, syncope, headache, vision changes, focal weakness. Past Medical/Surgical History: PMH/PSH: Past Medical History: A-Fib, Anemia, Arrhythmia, Asthma, CHF, COPD, Diabetes- Type II, Diverticulitis, Hypertension, Renal Failure Past Surgical History: Appendectomy, Cholecystectomy, EGD, colostomy in the past for bowel obstruction Allergies: Allergies: Coded Allergies: DONNA Inhibitors (Verified Allergy, Severe, angioedema, 12/22/18) Penicillins (Verified Allergy, Intermediate, n/v,itch,rash, 12/22/18) erythromycin base (Verified Adverse Reaction, Intermediate, n/v, 12/22/18) Family History: Family History: None Social History: Social History: Smoker for 30 years but quit 10 years ago. Denies drug or alcohol abuse Current Medications: Current Medications Current Medications Ondansetron HCl (Zofran) 4 mg PRN Q8HRS PRN IV NAUSEA/VOMITING; Start 06/06/20 at 20:30; Stop 06/07/20 at 20:29 Fentanyl Citrate (Fentanyl 2ml Vial) 50 mcg PRN Q1HR PRN IV PAIN; Start 06/06/20 at 20:30; Stop 06/07/20 at 20:29 Acetaminophen (Tylenol) 650 mg PRN Q4HRS PRN PO FEVER > 100.3'F; Start 06/06/20 at 20:30; Stop 06/07/20 at 20:29 Albuterol/ Ipratropium (Duoneb) 3 ml RTQID NEB ; Start 06/07/20 at 08:00; Stop 06/08/20 at 07:59 Active Scripts Active Proair Hfa (Albuterol Sulfate) 8.5 Gm Hfa.aer.ad 2.5 Mg NEB RTQID MDD 1 Metoprolol Tartrate 25 Mg Tablet 12.5 Mg PO BID MDD 1 Reported Vitamin B-12 (Cyanocobalamin (Vitamin B-12)) 1,000 Mcg Tablet 1,000 Mcg PO DAILY One-Daily Multi-Vitamin (Multivitamin) 1 Each Tablet 1 Tab PO DAILY 30 Days Vitamin D3 (Cholecalciferol (Vitamin D3)) 2,000 Unit Tab.chew 1 Tab PO DAILY 30 Days Bumetanide 2 Mg Tablet 2 Mg PO DAILY Fish Oil 1,000 mg Softgel ([place]-3S/Dha/Epa/Fish Oil) 1 Each Capsule 1 Each PO BID Losartan Potassium 50 Mg Tablet 50 Mg PO DAILY Klor-Con M10 (Potassium Chloride) 10 Meq Tab.er.prt 1 Tab PO BID Digoxin 125 Mcg Tablet 1 Tab PO DAILY Symbicort 160-4.5 Mcg Inhaler (Budesonide/Formoterol Fumarate) 10.2 Gm Hfa.aer.ad 2 Puff IH BID ROS: Review of Systems Review of System REVIEW OF SYSTEMS: GENERAL: Denies weakness SKIN: No bruising, hair changes or rashes. EYES: No blurred, double or loss of vision. NOSE AND THROAT: No history of nosebleeds, hoarseness or sore throat. HEART: No history of palpitations, chest pain or shortness of breath on exertion. LUNGS: Denies cough, hemoptysis, wheezing or shortness of breath. GASTROINTESTINAL: Denies changes in appetite, nausea, vomiting, diarrhea or constipation. GENITOURINARY: No history of frequency, urgency, hesitancy or nocturia. NEUROLOGIC: Denies history of numbness, tingling, or tremor. PSYCHIATRIC: No history of panic, anxiety or depression. ENDOCRINE: No history of heat or cold intolerance, polyuria or polydipsia. EXTREMITIES: Denies joint pain, pain on walking or stiffness. Physical Exam: Vital Signs: Vital Signs Date Time Temp Pulse Resp B/P (MAP) Pulse Ox O2 Delivery O2 Flow Rate FiO2 06/07/20 06:36 98.0 80 20 129/64 98.0 06/07/20 03:00 90 Room Air Physcial Exam: GEN: No apparent distress. Alert and oriented HEENT: Normal cephalic, atraumatic, external auditory canals are patent EYES: Extraocular muscles are intact, pupil are equally round and reactive to light and accommodation MUSCULOSKELETAL: Well developed , well nourished, good range of motion ENDOCRINE: No thyromegaly was palpated LYMPHATICS: No cervical chain or axillary nodes were noted HEMATOPOIETIC: No bruising NECK: Supple, no JVD, no thyromegaly was noted LUNGS: Clear to auscultation in all lung durant without rhonchi or wheezing HEART: RRR, S!, S2 present. Peripheral pulses intact, no obvious murmurs noted ABDOMEN: Soft, nontender. Positive bowel sounds, no organomegaly, normal bowel sounds EXTREMITIES: Without clubbing, cyanosis, or edema. Pedal pulses intact. Negative Homans sign NEUROLOGIC: Normal speech and tone. A&O x 3, moves all extremities, no obvious focal deficits PSYCHIATRIC: Normal affect, normal mood. Stable SKIN: No ulcerations or rashes, good skin turgor, no jaundice VASCULAR: Good capillary refill, neurovascular bundle appears to be intact Labs: Labs: Laboratory Tests Test 06/06/20 18:15 White Blood Count 8.2 x10^3/uL (4.0-11.0) Red Blood Count 2.89 x10^6/uL (3.50-5.40) Hemoglobin 6.8 g/dL (12.0-15.5) Hematocrit 21.9 % (36.0-47.0) Mean Corpuscular Volume 76 fL (79-100) Mean Corpuscular Hemoglobin 24 pg (25-35) Mean Corpuscular Hemoglobin Concent 31 g/dL (31-37) Red Cell Distribution Width 18.4 % (11.5-14.5) Platelet Count 353 x10^3/uL (140-400) Neutrophils (%) (Auto) 76 % (31-73) Lymphocytes (%) (Auto) 14 % (24-48) Monocytes (%) (Auto) 8 % (0-9) Eosinophils (%) (Auto) 2 % (0-3) Basophils (%) (Auto) 1 % (0-3) Neutrophils # (Auto) 6.2 x10^3/uL (1.8-7.7) Lymphocytes # (Auto) 1.1 x10^3/uL (1.0-4.8) Monocytes # (Auto) 0.6 x10^3/uL (0.0-1.1) Eosinophils # (Auto) 0.2 x10^3/uL (0.0-0.7) Basophils # (Auto) 0.1 x10^3/uL (0.0-0.2) Prothrombin Time 13.6 SEC (11.7-14.0) Prothromb Time International Ratio 1.1 (0.8-1.1) Sodium Level 142 mmol/L (136-145) Potassium Level 3.5 mmol/L (3.5-5.1) Chloride Level 104 mmol/L (98-107) Carbon Dioxide Level 32 mmol/L (21-32) Anion Gap 6 (6-14) Blood Urea Nitrogen 35 mg/dL (7-20) Creatinine 1.4 mg/dL (0.6-1.0) Estimated GFR (Cockcroft-Gault) 36.6 BUN/Creatinine Ratio 25 (6-20) Glucose Level 136 mg/dL (70-99) Calcium Level 9.0 mg/dL (8.5-10.1) Ferritin 6 ng/mL (8-252) Total Bilirubin 0.4 mg/dL (0.2-1.0) Aspartate Amino Transf (AST/SGOT) 21 U/L (15-37) Alanine Aminotransferase (ALT/SGPT) 34 U/L (14-59) Alkaline Phosphatase 86 U/L (46-116) Troponin I Quantitative < 0.017 ng/mL (0.000-0.055) C-Reactive Protein, Quantitative 1.8 mg/L (0-3.3) NP-Bhr-L-Type Natriuretic Peptide 1980 pg/mL (0-449) Total Protein 7.3 g/dL (6.4-8.2) Albumin 3.3 g/dL (3.4-5.0) Albumin/Globulin Ratio 0.8 (1.0-1.7) Procalcitonin < 0.10 ng/mL (0.00-0.10) Laboratory Tests Test 06/06/20 18:15 White Blood Count 8.2 x10^3/uL (4.0-11.0) Red Blood Count 2.89 x10^6/uL (3.50-5.40) Hemoglobin 6.8 g/dL (12.0-15.5) Hematocrit 21.9 % (36.0-47.0) Mean Corpuscular Volume 76 fL (79-100) Mean Corpuscular Hemoglobin 24 pg (25-35) Mean Corpuscular Hemoglobin Concent 31 g/dL (31-37) Red Cell Distribution Width 18.4 % (11.5-14.5) Platelet Count 353 x10^3/uL (140-400) Neutrophils (%) (Auto) 76 % (31-73) Lymphocytes (%) (Auto) 14 % (24-48) Monocytes (%) (Auto) 8 % (0-9) Eosinophils (%) (Auto) 2 % (0-3) Basophils (%) (Auto) 1 % (0-3) Neutrophils # (Auto) 6.2 x10^3/uL (1.8-7.7) Lymphocytes # (Auto) 1.1 x10^3/uL (1.0-4.8) Monocytes # (Auto) 0.6 x10^3/uL (0.0-1.1) Eosinophils # (Auto) 0.2 x10^3/uL (0.0-0.7) Basophils # (Auto) 0.1 x10^3/uL (0.0-0.2) Prothrombin Time 13.6 SEC (11.7-14.0) Prothromb Time International Ratio 1.1 (0.8-1.1) Sodium Level 142 mmol/L (136-145) Potassium Level 3.5 mmol/L (3.5-5.1) Chloride Level 104 mmol/L (98-107) Carbon Dioxide Level 32 mmol/L (21-32) Anion Gap 6 (6-14) Blood Urea Nitrogen 35 mg/dL (7-20) Creatinine 1.4 mg/dL (0.6-1.0) Estimated GFR (Cockcroft-Gault) 36.6 BUN/Creatinine Ratio 25 (6-20) Glucose Level 136 mg/dL (70-99) Calcium Level 9.0 mg/dL (8.5-10.1) Ferritin 6 ng/mL (8-252) Total Bilirubin 0.4 mg/dL (0.2-1.0) Aspartate Amino Transf (AST/SGOT) 21 U/L (15-37) Alanine Aminotransferase (ALT/SGPT) 34 U/L (14-59) Alkaline Phosphatase 86 U/L (46-116) Troponin I Quantitative < 0.017 ng/mL (0.000-0.055) C-Reactive Protein, Quantitative 1.8 mg/L (0-3.3) WW-Gjc-V-Type Natriuretic Peptide 1980 pg/mL (0-449) Total Protein 7.3 g/dL (6.4-8.2) Albumin 3.3 g/dL (3.4-5.0) Albumin/Globulin Ratio 0.8 (1.0-1.7) Procalcitonin < 0.10 ng/mL (0.00-0.10) Assessment/Plan Assessment/Plan Acute symptomatic microcytic anemia due to possible GI bleed Iron deficiency anemia Acute renal failure due to vasomotor nephropathy A-Fib Anemia Arrhythmia Asthma CHF COPD Diabetes-Type II Diverticulitis Hypertension Renal Failure Admit to telemetry 1 unit PRBC Trend H&H IV iron transfusion before discharge Continue telemonitoring Pulmonary consult for abnormal chest x-ray and HERIBERTO management Pending GI consult for history of GI bleed Insulin sliding scale Restart home atrial fibrillation medications Avoid nephrotoxic agents. Consider nephrology consult if renal function worsens SCD for DVT prophylaxis Cardiac diet Full code Discussed with RN and SW Dispo pending pulmonary and GI consult Justicifation of Admission Dx: Justifications for Admission: Justification of Admission Dx: Yes ANTONIO BECK MD Jun 07, 2020 08:12
[2020-06-07] MEDS: PANTOPRAZOLE IV PUSH 40 MG VIAL. IVP SCH ×2 (09:04→21:24)
--- NOTE | 2020-06-07 09:21 | CONS ---
DATE OF CONSULTATION: 06/07/2020 REASON FOR CONSULTATION: I was asked to see this 74-year-old lady for dyspnea and abnormal chest x-ray. HISTORY OF PRESENT ILLNESS: She has history of [id number] smoking, stopped smoking 11 years ago. She has COPD. She has obstructive sleep apnea-hypopnea syndrome and is on CPAP. She did not bring her CPAP here. She has had GI bleeding. Workup is in progress. She was seen by Dr. John of Gastroenterology. She started to have increased shortness of breath for the past few days. She knew her hemoglobin is low because this has happened to her before. She was presented to the Emergency Room, was found to have a hemoglobin of 6.8. She received 1 unit of blood overnight. Her shortness of breath has improved. She denies any cough more than usual or wheezing. She denies fever or chills. She denies exposure to COVID-19 patients. She denies chest pain. She has had some lower extremity edema. PAST MEDICAL HISTORY: Atrial fibrillation, COPD, CHF, diabetes mellitus, diverticulitis, hypertension, status post colostomy, appendectomy, cholecystectomy, tonsillectomy, and obstructive sleep apnea-hypopnea syndrome. ALLERGIES: DONNA INHIBITOR, PENICILLIN, ERYTHROMYCIN. MEDICATIONS: Currently, she is on DuoNeb. FAMILY HISTORY: Hypertension. SOCIAL HISTORY: History of [id number] smoking, stopped smoking 11 years ago. REVIEW OF SYSTEMS: As mentioned as above, other systems otherwise negative. PHYSICAL EXAMINATION: GENERAL: This is an obese lady. VITAL SIGNS: Her O2 saturation on room air is 96%, respiratory rate 18, heart rate 96, blood pressure 142/65, and temperature 97.7. HEENT: Normocephalic, atraumatic. Pupils equal, round, reactive to light. Nose is clear. She appears pale. NECK: Short and thick. CARDIOVASCULAR: Irregularly irregular rhythm. PMI is not displaced. CHEST: Inspection is normal. LUNGS: Clear to auscultation. There is no wheezing. ABDOMEN: Soft and obese. Bowel sounds are good. EXTREMITIES: There is edema. LYMPHATICS: There is no lymphadenopathy. NEUROLOGIC: Alert. LABORATORY DATA: I reviewed the following lab data: Chest x-ray showed increased interstitial marking, cardiomegaly. Hemoglobin 6.8, platelets 353, WBC 8.2, sodium 142, potassium 3.5, chloride 104, CO2 of 32, BUN 35, creatinine of 1.4, and glucose 136. Troponin less than 0.01. BNP 1980. Procalcitonin less than 0.1. IMPRESSION: 1. Dyspnea, multifactorial in etiology. The major part is anemia, chronic obstructive pulmonary disease, and chronic heart failure. 2. Abnormal chest x-ray, I suspect it is secondary to congestive heart failure. 3. Chronic kidney disease. 4. Anemia with gastrointestinal bleeding. 5. Obstructive sleep apnea-hypopnea syndrome. 6. Chronic obstructive pulmonary disease. 7. Her previous echocardiogram showed a [id number] mitral regurgitation and [id number]-ji-nzpzqegl aortic regurgitation. As she has a history of CHF, may consider a Cardiology consultation. 8. Hypertension. 9. Diabetes mellitus. 10. Atrial fibrillation. PLAN AND RECOMMENDATIONS: 1. Titrate FiO2 to keep O2 saturation at 92%. 2. Consult GI. Meanwhile, I will start her on Protonix 40 mg IV b.i.d. 3. Bronchodilator. 4. Follow up COVID-19 testing. 5. May consider Cardiology consultation. 6. Monitor her volume status very closely. 7. Use CPAP during the sleep. The importance of treatment of obstructive sleep apnea-hypopnea syndrome was discussed. 8. The findings and recommendations were discussed with the patient and RN. 9. Followup hemoglobin. Thank you very much for allowing me to participate in care of this very nice lady. NATALI GALVEZ M.D. : KURT/lara JOB#: [id number] / [id number]
[2020-06-07 10:07] LABS: BASO % 1 % (0-3); EOS # 0.2 x10^3/uL (0.0-0.7); EOS % 3 % (0-3); HEMATOCRIT 23.9 % (36.0-47.0); HEMOGLOBIN 7.5 g/dL (12.0-15.5); LYMPH % 15 % (24-48); MEAN CORPUSCULAR HEMOGLOBIN 24 pg (25-35); MEAN CORPUSCULAR HGB CONC 31 g/dL (31-37); MEAN CORPUSCULAR VOLUME 76 fL (79-100); MONO # 0.6 x10^3/uL (0.0-1.1); MONO % 9 % (0-9); NEUT % 73 % (31-73); PLATELET COUNT 320 x10^3/uL (140-400); RED BLOOD COUNT 3.16 x10^6/uL (3.50-5.40); WHITE BLOOD COUNT 6.8 x10^3/uL (4.0-11.0)
[2020-06-07] MEDS ORDERED: DEXTROSE 50% 25 GM / 50ML DISP.SYRIN. IV PRN (12:15)
[2020-06-07] MEDS ORDERED: ALBUTEROL SULFATE 2.5 MG/3 ML NEBU. NEB SCH (12:15)
[2020-06-07] MEDS ORDERED: IPRATRPIUM/ALBUTEROL 0.5/2.5MG 3 ML NEBU. NEB PRN (12:30)
[2020-06-07] MEDS ORDERED: ALBUTEROL SULFATE 2.5 MG/3 ML NEBU. NEB PRN (12:30)
--- NOTE | 2020-06-07 13:09 | PDOC2 ---
CONSULT Date of Consult Date of Consult DATE: 06/07/20 TIME: 13:07 Reason for Consult Reason for Consult: Chronc blood loss anemia-s/p sigmoid resection Past Medical History Cardiovascular: AFIB, HTN Pulmonary: COPD GI: Diverticulosis, Other Heme/Onc: Anemia NOS Musculoskeletal: Osteoarthritis Infectious disease: Other Renal/: Chronic renal insuff Endocrine: No pertinent hx Past Surgical History Past Surgical History: Appendectomy, Cholecystectomy, Tonsillectomy, Colon Resection, Other Family History Family History: Diabetes, Hypertension Social History ALCOHOL: none Drugs: None Lives: with Family Current Problem List Problem List Problems Medical Problems: (1) Low hemoglobin Status: Acute (2) Person under investigation for COVID-19 Status: Acute Current Medications Current Medications Current Medications Ondansetron HCl (Zofran) 4 mg PRN Q8HRS PRN IV NAUSEA/VOMITING; Start 06/06/20 at 20:30; Stop 06/07/20 at 20:29 Fentanyl Citrate (Fentanyl 2ml Vial) 50 mcg PRN Q1HR PRN IV PAIN; Start 06/06/20 at 20:30; Stop 06/07/20 at 20:29 Acetaminophen (Tylenol) 650 mg PRN Q4HRS PRN PO FEVER > 100.3'F; Start 06/06/20 at 20:30; Stop 06/07/20 at 20:29 Albuterol/ Ipratropium (Duoneb) 3 ml RTQID NEB ; Start 06/07/20 at 08:00; Stop 06/07/20 at 12:24; Status DC Pantoprazole Sodium (PROTONIX VIAL for IV PUSH) 40 mg BID IVP Last administered on 06/07/20at 09:04; Start 06/07/20 at 09:00 Albuterol Sulfate (Ventolin Neb Soln) 2.5 mg RTQID NEB ; Start 06/07/20 at 12:15; Stop 06/07/20 at 12:24; Status DC Cyanocobalamin (Vitamin B-12) 1,000 mcg DAILY PO ; Start 06/07/20 at 13:00 Digoxin (Lanoxin) 125 mcg DAILY PO ; Start 06/07/20 at 13:00 Losartan Potassium (Cozaar) 50 mg DAILY PO ; Start 06/07/20 at 13:00 Metoprolol Tartrate (Lopressor) 12.5 mg BID PO ; Start 06/07/20 at 13:00 Albuterol Sulfate (Ventolin Neb Soln) 2.5 mg PRN QID PRN NEB SHORTNESS OF BREATH; Start 06/07/20 at 12:30 Albuterol/ Ipratropium (Duoneb) 3 ml PRN TID PRN NEB SHORTNESS OF BREATH; Start 06/07/20 at 12:30; Stop 06/08/20 at 12:29; Status UNV Insulin Human Lispro (HumaLOG) 0-5 UNITS TIDWMEALS SQ ; Start 06/07/20 at 17:00 Dextrose (Dextrose 50%-Water Syringe) 12.5 gm PRN Q15MIN PRN IV SEE COMMENTS; Start 06/07/20 at 12:15 Active Scripts Active Proair Hfa (Albuterol Sulfate) 8.5 Gm Hfa.aer.ad 2.5 Mg NEB RTQID MDD 1 Metoprolol Tartrate 25 Mg Tablet 12.5 Mg PO BID MDD 1 Reported Vitamin B-12 (Cyanocobalamin (Vitamin B-12)) 1,000 Mcg Tablet 1,000 Mcg PO DAILY One-Daily Multi-Vitamin (Multivitamin) 1 Each Tablet 1 Tab PO DAILY 30 Days Vitamin D3 (Cholecalciferol (Vitamin D3)) 2,000 Unit Tab.chew 1 Tab PO DAILY 30 Days Bumetanide 2 Mg Tablet 2 Mg PO DAILY Fish Oil 1,000 mg Softgel ([place]-3S/Dha/Epa/Fish Oil) 1 Each Capsule 1 Each PO BID Losartan Potassium 50 Mg Tablet 50 Mg PO DAILY Klor-Con M10 (Potassium Chloride) 10 Meq Tab.er.prt 1 Tab PO BID Digoxin 125 Mcg Tablet 1 Tab PO DAILY Symbicort 160-4.5 Mcg Inhaler (Budesonide/Formoterol Fumarate) 10.2 Gm Hfa.aer.ad 2 Puff IH BID Allergies Allergies: Coded Allergies: DONNA Inhibitors (Verified Allergy, Severe, angioedema, 12/22/18) Penicillins (Verified Allergy, Intermediate, n/v,itch,rash, 12/22/18) erythromycin base (Verified Adverse Reaction, Intermediate, n/v, 12/22/18) Vitals VITALS Vital Signs Date Time Temp Pulse Resp B/P (MAP) Pulse Ox O2 Delivery O2 Flow Rate FiO2 06/07/20 12:19 92 Room Air 06/07/20 11:19 97.8 66 20 135/67 (89) 97.8 Labs Labs Laboratory Tests Test 06/06/20 18:15 06/07/20 09:18 White Blood Count 8.2 x10^3/uL (4.0-11.0) 6.8 x10^3/uL (4.0-11.0) Red Blood Count 2.89 x10^6/uL (3.50-5.40) 3.16 x10^6/uL (3.50-5.40) Hemoglobin 6.8 g/dL (12.0-15.5) 7.5 g/dL (12.0-15.5) Hematocrit 21.9 % (36.0-47.0) 23.9 % (36.0-47.0) Mean Corpuscular Volume 76 fL (79-100) 76 fL (79-100) Mean Corpuscular Hemoglobin 24 pg (25-35) 24 pg (25-35) Mean Corpuscular Hemoglobin Concent 31 g/dL (31-37) 31 g/dL (31-37) Red Cell Distribution Width 18.4 % (11.5-14.5) 18.0 % (11.5-14.5) Platelet Count 353 x10^3/uL (140-400) 320 x10^3/uL (140-400) Neutrophils (%) (Auto) 76 % (31-73) 73 % (31-73) Lymphocytes (%) (Auto) 14 % (24-48) 15 % (24-48) Monocytes (%) (Auto) 8 % (0-9) 9 % (0-9) Eosinophils (%) (Auto) 2 % (0-3) 3 % (0-3) Basophils (%) (Auto) 1 % (0-3) 1 % (0-3) Neutrophils # (Auto) 6.2 x10^3/uL (1.8-7.7) 5.0 x10^3/uL (1.8-7.7) Lymphocytes # (Auto) 1.1 x10^3/uL (1.0-4.8) 1.0 x10^3/uL (1.0-4.8) Monocytes # (Auto) 0.6 x10^3/uL (0.0-1.1) 0.6 x10^3/uL (0.0-1.1) Eosinophils # (Auto) 0.2 x10^3/uL (0.0-0.7) 0.2 x10^3/uL (0.0-0.7) Basophils # (Auto) 0.1 x10^3/uL (0.0-0.2) 0.0 x10^3/uL (0.0-0.2) Prothrombin Time 13.6 SEC (11.7-14.0) Prothromb Time International Ratio 1.1 (0.8-1.1) Sodium Level 142 mmol/L (136-145) Potassium Level 3.5 mmol/L (3.5-5.1) Chloride Level 104 mmol/L (98-107) Carbon Dioxide Level 32 mmol/L (21-32) Anion Gap 6 (6-14) Blood Urea Nitrogen 35 mg/dL (7-20) Creatinine 1.4 mg/dL (0.6-1.0) Estimated GFR (Cockcroft-Gault) 36.6 BUN/Creatinine Ratio 25 (6-20) Glucose Level 136 mg/dL (70-99) Calcium Level 9.0 mg/dL (8.5-10.1) Ferritin 6 ng/mL (8-252) Total Bilirubin 0.4 mg/dL (0.2-1.0) Aspartate Amino Transf (AST/SGOT) 21 U/L (15-37) Alanine Aminotransferase (ALT/SGPT) 34 U/L (14-59) Alkaline Phosphatase 86 U/L (46-116) Troponin I Quantitative < 0.017 ng/mL (0.000-0.055) C-Reactive Protein, Quantitative 1.8 mg/L (0-3.3) JX-Uhb-O-Type Natriuretic Peptide 1980 pg/mL (0-449) Total Protein 7.3 g/dL (6.4-8.2) Albumin 3.3 g/dL (3.4-5.0) Albumin/Globulin Ratio 0.8 (1.0-1.7) Procalcitonin < 0.10 ng/mL (0.00-0.10) Laboratory Tests Test 06/06/20 18:15 06/07/20 09:18 White Blood Count 8.2 x10^3/uL (4.0-11.0) 6.8 x10^3/uL (4.0-11.0) Red Blood Count 2.89 x10^6/uL (3.50-5.40) 3.16 x10^6/uL (3.50-5.40) Hemoglobin 6.8 g/dL (12.0-15.5) 7.5 g/dL (12.0-15.5) Hematocrit 21.9 % (36.0-47.0) 23.9 % (36.0-47.0) Mean Corpuscular Volume 76 fL (79-100) 76 fL (79-100) Mean Corpuscular Hemoglobin 24 pg (25-35) 24 pg (25-35) Mean Corpuscular Hemoglobin Concent 31 g/dL (31-37) 31 g/dL (31-37) Red Cell Distribution Width 18.4 % (11.5-14.5) 18.0 % (11.5-14.5) Platelet Count 353 x10^3/uL (140-400) 320 x10^3/uL (140-400) Neutrophils (%) (Auto) 76 % (31-73) 73 % (31-73) Lymphocytes (%) (Auto) 14 % (24-48) 15 % (24-48) Monocytes (%) (Auto) 8 % (0-9) 9 % (0-9) Eosinophils (%) (Auto) 2 % (0-3) 3 % (0-3) Basophils (%) (Auto) 1 % (0-3) 1 % (0-3) Neutrophils # (Auto) 6.2 x10^3/uL (1.8-7.7) 5.0 x10^3/uL (1.8-7.7) Lymphocytes # (Auto) 1.1 x10^3/uL (1.0-4.8) 1.0 x10^3/uL (1.0-4.8) Monocytes # (Auto) 0.6 x10^3/uL (0.0-1.1) 0.6 x10^3/uL (0.0-1.1) Eosinophils # (Auto) 0.2 x10^3/uL (0.0-0.7) 0.2 x10^3/uL (0.0-0.7) Basophils # (Auto) 0.1 x10^3/uL (0.0-0.2) 0.0 x10^3/uL (0.0-0.2) Prothrombin Time 13.6 SEC (11.7-14.0) Prothromb Time International Ratio 1.1 (0.8-1.1) Sodium Level 142 mmol/L (136-145) Potassium Level 3.5 mmol/L (3.5-5.1) Chloride Level 104 mmol/L (98-107) Carbon Dioxide Level 32 mmol/L (21-32) Anion Gap 6 (6-14) Blood Urea Nitrogen 35 mg/dL (7-20) Creatinine 1.4 mg/dL (0.6-1.0) Estimated GFR (Cockcroft-Gault) 36.6 BUN/Creatinine Ratio 25 (6-20) Glucose Level 136 mg/dL (70-99) Calcium Level 9.0 mg/dL (8.5-10.1) Ferritin 6 ng/mL (8-252) Total Bilirubin 0.4 mg/dL (0.2-1.0) Aspartate Amino Transf (AST/SGOT) 21 U/L (15-37) Alanine Aminotransferase (ALT/SGPT) 34 U/L (14-59) Alkaline Phosphatase 86 U/L (46-116) Troponin I Quantitative < 0.017 ng/mL (0.000-0.055) C-Reactive Protein, Quantitative 1.8 mg/L (0-3.3) EW-Obk-W-Type Natriuretic Peptide 1980 pg/mL (0-449) Total Protein 7.3 g/dL (6.4-8.2) Albumin 3.3 g/dL (3.4-5.0) Albumin/Globulin Ratio 0.8 (1.0-1.7) Procalcitonin < 0.10 ng/mL (0.00-0.10) Assessment/Plan Assessment/Plan Chronic blood loss anemia- with prior sigmoid resection, on IV iron infusions as o/p. SB AVMS with prior extensive work-up likely. Plan advance diet serial CBCs with transfusional support consider O/p SB series and capsule endoscopy Full note dictated RYAN SHEN MD Jun 07, 2020 13:09
[2020-06-07] MEDS: DIGOXIN 125 MCG TABLET. PO SCH (13:22)
[2020-06-07] MEDS: CYANOCOBALAMIN (VITAMIN B-12) 1,000 MCG TABLET. PO SCH (13:22)
[2020-06-07] MEDS: METOPROLOL TART IMMED RELEASE 25 MG TABLET. PO SCH ×2 (13:22→21:25)
--- NOTE | 2020-06-07 14:18 | CONS ---
DATE OF CONSULTATION: GASTROENTEROLOGY CONSULTATION REASON FOR CONSULTATION: Chronic blood loss anemia. HISTORY OF PRESENT ILLNESS: This is a 74-year-old female with past medical history significant for organic heart disease, atrial fibrillation, dysrhythmias, asthma, CHF, diabetes, hypertension, renal insufficiency, status post appendectomy, cholecystectomy and partial colonic resection of the sigmoid as seen with increased weakness, shortness of breath and dyspnea with exertion. The patient states that the weakness has been worse over the past several weeks, leading to her being admitted to the hospital despite an iron transfusion, which she was scheduled for, but could not make. States her stools have been somewhat darker in color, but there has been no tobi hematochezia, melena and/or hematemesis. Weight and appetite have been stable. She has undergone extensive GI workup in the past including upper endoscopy and colonoscopy in view of the sigmoid anastomosis without additional pathology. PAST MEDICAL HISTORY: AFib, anemia, arrhythmia, asthma, CHF, COPD, diabetes, diverticulosis, hypertension, renal failure. PAST SURGICAL HISTORY: Status post appendectomy, cholecystectomy. ALLERGIES: DONNA INHIBITORS, PENICILLIN AND ERYTHROMYCIN. MEDICATIONS ON ADMISSION: Include insulin, metoprolol, losartan, digoxin, vitamin B12, albuterol, and pantoprazole. SOCIAL HISTORY: She is retired. Does not drink or smoke at this time. FAMILY HISTORY: Noncontributory. REVIEW OF SYSTEMS: Per records. PHYSICAL EXAMINATION: GENERAL: Reveals a well-nourished, well-developed female. VITAL SIGNS: Temperature is 97.8, pulse 66, respirations 20, blood pressure is 135/67. HEENT: Normocephalic, atraumatic head. Pupils and extraocular muscles are not tested. Sclerae anicteric. NECK: Supple. LUNGS: Clear. CARDIOVASCULAR: Reveals an S1, S2 without S3, S4 or appreciable murmur. ABDOMEN: With a soft abdomen, normal bowel sounds. Multiple surgical incisions. EXTREMITIES: Reveals no cyanosis, clubbing or edema. LABORATORY STUDIES: Hemoglobin on admission 6.8, now 7.5; white count 6.8, platelet count is 320,000. Sodium 142, potassium 3.5, chloride 104, bicarbonate 32, BUN 35, creatinine 1.4, glucose is 136, calcium is 9.0, total bilirubin 0.4, AST of 21, ALT of 34, alkaline phosphatase 86, total protein 7.3, albumin 3.3. 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 We will recommend medical therapy IV iron infusions. Consider small bowel series and capsule endoscopy. She is unable to maintain her blood counts with transfusional support and IV iron. RYNA SHEN MD DR: MARIA ESTHER/lara JOB#: [id number] / [id number] DR. MAHENDRA Hopson MICHAEL MD
[2020-06-07] MEDS: LOSARTAN POTASSIUM 50 MG TABLET. PO SCH (15:14)
[2020-06-07 16:44] LABS: HEMATOCRIT 24.6 % (36.0-47.0); HEMOGLOBIN 7.9 g/dL (12.0-15.5); RED BLOOD COUNT 3.25 x10^6/uL (3.50-5.40); RED CELL DISTRIBUTION WIDTH 18.1 % (11.5-14.5); WHITE BLOOD COUNT 8.1 x10^3/uL (4.0-11.0)
[2020-06-07] MEDS: INSULIN LISPRO 300 UNITS/3 ML VIAL. SQ SCH (16:52)
[2020-06-07 18:59] LABS: FECAL OB PT POSITIVE (NEG)
[2020-06-08] MEDS: ACETAMINOPHEN 325 MG TABLET. PO PRN (02:41)
[2020-06-08 03:00] VITALS: BP 127/45
[2020-06-08 05:18] LABS: BASO % 0 % (0-3); EOS # 0.2 x10^3/uL (0.0-0.7); EOS % 3 % (0-3); HEMATOCRIT 23.2 % (36.0-47.0); HEMOGLOBIN 7.3 g/dL (12.0-15.5); LYMPH # 1.2 x10^3/uL (1.0-4.8); LYMPH % 16 % (24-48); MEAN CORPUSCULAR HEMOGLOBIN 24 pg (25-35); MEAN CORPUSCULAR HGB CONC 31 g/dL (31-37); MEAN CORPUSCULAR VOLUME 76 fL (79-100); MONO # 0.7 x10^3/uL (0.0-1.1); MONO % 10 % (0-9); NEUT # 5.3 x10^3/uL (1.8-7.7); NEUT % 71 % (31-73); PLATELET COUNT 296 x10^3/uL (140-400); RED BLOOD COUNT 3.07 x10^6/uL (3.50-5.40); RED CELL DISTRIBUTION WIDTH 18.4 % (11.5-14.5); WHITE BLOOD COUNT 7.5 x10^3/uL (4.0-11.0)
[2020-06-08 05:44] LABS: CALCIUM 8.9 mg/dL (8.5-10.1); CREATININE 1.3 mg/dL (0.6-1.0); GFR 39.8; MAGNESIUM 2.2 mg/dL (1.8-2.4); PHOSPHORUS 3.7 mg/dL (2.6-4.7); POTASSIUM 3.8 mmol/L (3.5-5.1)
[2020-06-08 07:00] VITALS: BP 135/53
--- NOTE | 2020-06-08 08:40 | PDOC ---
PULMONARY PROGRESS NOTES Subjective on 02, sob better, has occ cough, slept better last night Vitals Vital Signs Date Time Temp Pulse Resp B/P (MAP) Pulse Ox O2 Delivery O2 Flow Rate FiO2 06/08/20 07:00 97.6 92 18 135/53 (80) 96 Nasal Cannula 2.0 97.6 ROS: No Nausea, No Chest Pain General: Alert, No acute distress Lungs: Clear Cardiovascular: S1, S2 Abdomen: Soft Neuro Exam: Alert Extremities: Other (edema) Skin: Warm Labs Laboratory Tests Test 06/06/20 18:15 06/07/20 09:18 06/07/20 14:15 06/07/20 16:37 White Blood Count 8.2 x10^3/uL (4.0-11.0) 6.8 x10^3/uL (4.0-11.0) 8.1 x10^3/uL (4.0-11.0) Red Blood Count 2.89 x10^6/uL (3.50-5.40) 3.16 x10^6/uL (3.50-5.40) 3.25 x10^6/uL (3.50-5.40) Hemoglobin 6.8 g/dL (12.0-15.5) 7.5 g/dL (12.0-15.5) 7.9 g/dL (12.0-15.5) Hematocrit 21.9 % (36.0-47.0) 23.9 % (36.0-47.0) 24.6 % (36.0-47.0) Mean Corpuscular Volume 76 fL (79-100) 76 fL (79-100) 76 fL (79-100) Mean Corpuscular Hemoglobin 24 pg (25-35) 24 pg (25-35) 24 pg (25-35) Mean Corpuscular Hemoglobin Concent 31 g/dL (31-37) 31 g/dL (31-37) 32 g/dL (31-37) Red Cell Distribution Width 18.4 % (11.5-14.5) 18.0 % (11.5-14.5) 18.1 % (11.5-14.5) Platelet Count 353 x10^3/uL (140-400) 320 x10^3/uL (140-400) 328 x10^3/uL (140-400) Neutrophils (%) (Auto) 76 % (31-73) 73 % (31-73) Lymphocytes (%) (Auto) 14 % (24-48) 15 % (24-48) Monocytes (%) (Auto) 8 % (0-9) 9 % (0-9) Eosinophils (%) (Auto) 2 % (0-3) 3 % (0-3) Basophils (%) (Auto) 1 % (0-3) 1 % (0-3) Neutrophils # (Auto) 6.2 x10^3/uL (1.8-7.7) 5.0 x10^3/uL (1.8-7.7) Lymphocytes # (Auto) 1.1 x10^3/uL (1.0-4.8) 1.0 x10^3/uL (1.0-4.8) Monocytes # (Auto) 0.6 x10^3/uL (0.0-1.1) 0.6 x10^3/uL (0.0-1.1) Eosinophils # (Auto) 0.2 x10^3/uL (0.0-0.7) 0.2 x10^3/uL (0.0-0.7) Basophils # (Auto) 0.1 x10^3/uL (0.0-0.2) 0.0 x10^3/uL (0.0-0.2) Prothrombin Time 13.6 SEC (11.7-14.0) Prothromb Time International Ratio 1.1 (0.8-1.1) Sodium Level 142 mmol/L (136-145) Potassium Level 3.5 mmol/L (3.5-5.1) Chloride Level 104 mmol/L (98-107) Carbon Dioxide Level 32 mmol/L (21-32) Anion Gap 6 (6-14) Blood Urea Nitrogen 35 mg/dL (7-20) Creatinine 1.4 mg/dL (0.6-1.0) Estimated GFR (Cockcroft-Gault) 36.6 BUN/Creatinine Ratio 25 (6-20) Glucose Level 136 mg/dL (70-99) Calcium Level 9.0 mg/dL (8.5-10.1) Ferritin 6 ng/mL (8-252) Total Bilirubin 0.4 mg/dL (0.2-1.0) Aspartate Amino Transf (AST/SGOT) 21 U/L (15-37) Alanine Aminotransferase (ALT/SGPT) 34 U/L (14-59) Alkaline Phosphatase 86 U/L (46-116) Troponin I Quantitative < 0.017 ng/mL (0.000-0.055) C-Reactive Protein, Quantitative 1.8 mg/L (0-3.3) UZ-Qjg-U-Type Natriuretic Peptide 1980 pg/mL (0-449) Total Protein 7.3 g/dL (6.4-8.2) Albumin 3.3 g/dL (3.4-5.0) Albumin/Globulin Ratio 0.8 (1.0-1.7) Procalcitonin < 0.10 ng/mL (0.00-0.10) Stool Occult Blood Positive (NEG) Test 06/07/20 16:48 06/07/20 21:22 06/08/20 05:00 06/08/20 07:55 Glucose (Fingerstick) 150 mg/dL (70-99) 141 mg/dL (70-99) 152 mg/dL (70-99) White Blood Count 7.5 x10^3/uL (4.0-11.0) Red Blood Count 3.07 x10^6/uL (3.50-5.40) Hemoglobin 7.3 g/dL (12.0-15.5) Hematocrit 23.2 % (36.0-47.0) Mean Corpuscular Volume 76 fL (79-100) Mean Corpuscular Hemoglobin 24 pg (25-35) Mean Corpuscular Hemoglobin Concent 31 g/dL (31-37) Red Cell Distribution Width 18.4 % (11.5-14.5) Platelet Count 296 x10^3/uL (140-400) Neutrophils (%) (Auto) 71 % (31-73) Lymphocytes (%) (Auto) 16 % (24-48) Monocytes (%) (Auto) 10 % (0-9) Eosinophils (%) (Auto) 3 % (0-3) Basophils (%) (Auto) 0 % (0-3) Neutrophils # (Auto) 5.3 x10^3/uL (1.8-7.7) Lymphocytes # (Auto) 1.2 x10^3/uL (1.0-4.8) Monocytes # (Auto) 0.7 x10^3/uL (0.0-1.1) Eosinophils # (Auto) 0.2 x10^3/uL (0.0-0.7) Basophils # (Auto) 0.0 x10^3/uL (0.0-0.2) Sodium Level 139 mmol/L (136-145) Potassium Level 3.8 mmol/L (3.5-5.1) Chloride Level 102 mmol/L (98-107) Carbon Dioxide Level 30 mmol/L (21-32) Anion Gap 7 (6-14) Blood Urea Nitrogen 31 mg/dL (7-20) Creatinine 1.3 mg/dL (0.6-1.0) Estimated GFR (Cockcroft-Gault) 39.8 Glucose Level 137 mg/dL (70-99) Calcium Level 8.9 mg/dL (8.5-10.1) Phosphorus Level 3.7 mg/dL (2.6-4.7) Magnesium Level 2.2 mg/dL (1.8-2.4) Laboratory Tests Test 06/07/20 09:18 06/07/20 14:15 06/07/20 16:37 06/07/20 16:48 White Blood Count 6.8 x10^3/uL (4.0-11.0) 8.1 x10^3/uL (4.0-11.0) Red Blood Count 3.16 x10^6/uL (3.50-5.40) 3.25 x10^6/uL (3.50-5.40) Hemoglobin 7.5 g/dL (12.0-15.5) 7.9 g/dL (12.0-15.5) Hematocrit 23.9 % (36.0-47.0) 24.6 % (36.0-47.0) Mean Corpuscular Volume 76 fL (79-100) 76 fL (79-100) Mean Corpuscular Hemoglobin 24 pg (25-35) 24 pg (25-35) Mean Corpuscular Hemoglobin Concent 31 g/dL (31-37) 32 g/dL (31-37) Red Cell Distribution Width 18.0 % (11.5-14.5) 18.1 % (11.5-14.5) Platelet Count 320 x10^3/uL (140-400) 328 x10^3/uL (140-400) Neutrophils (%) (Auto) 73 % (31-73) Lymphocytes (%) (Auto) 15 % (24-48) Monocytes (%) (Auto) 9 % (0-9) Eosinophils (%) (Auto) 3 % (0-3) Basophils (%) (Auto) 1 % (0-3) Neutrophils # (Auto) 5.0 x10^3/uL (1.8-7.7) Lymphocytes # (Auto) 1.0 x10^3/uL (1.0-4.8) Monocytes # (Auto) 0.6 x10^3/uL (0.0-1.1) Eosinophils # (Auto) 0.2 x10^3/uL (0.0-0.7) Basophils # (Auto) 0.0 x10^3/uL (0.0-0.2) Stool Occult Blood Positive (NEG) Glucose (Fingerstick) 150 mg/dL (70-99) Test 06/07/20 21:22 06/08/20 05:00 06/08/20 07:55 Glucose (Fingerstick) 141 mg/dL (70-99) 152 mg/dL (70-99) White Blood Count 7.5 x10^3/uL (4.0-11.0) Red Blood Count 3.07 x10^6/uL (3.50-5.40) Hemoglobin 7.3 g/dL (12.0-15.5) Hematocrit 23.2 % (36.0-47.0) Mean Corpuscular Volume 76 fL (79-100) Mean Corpuscular Hemoglobin 24 pg (25-35) Mean Corpuscular Hemoglobin Concent 31 g/dL (31-37) Red Cell Distribution Width 18.4 % (11.5-14.5) Platelet Count 296 x10^3/uL (140-400) Neutrophils (%) (Auto) 71 % (31-73) Lymphocytes (%) (Auto) 16 % (24-48) Monocytes (%) (Auto) 10 % (0-9) Eosinophils (%) (Auto) 3 % (0-3) Basophils (%) (Auto) 0 % (0-3) Neutrophils # (Auto) 5.3 x10^3/uL (1.8-7.7) Lymphocytes # (Auto) 1.2 x10^3/uL (1.0-4.8) Monocytes # (Auto) 0.7 x10^3/uL (0.0-1.1) Eosinophils # (Auto) 0.2 x10^3/uL (0.0-0.7) Basophils # (Auto) 0.0 x10^3/uL (0.0-0.2) Sodium Level 139 mmol/L (136-145) Potassium Level 3.8 mmol/L (3.5-5.1) Chloride Level 102 mmol/L (98-107) Carbon Dioxide Level 30 mmol/L (21-32) Anion Gap 7 (6-14) Blood Urea Nitrogen 31 mg/dL (7-20) Creatinine 1.3 mg/dL (0.6-1.0) Estimated GFR (Cockcroft-Gault) 39.8 Glucose Level 137 mg/dL (70-99) Calcium Level 8.9 mg/dL (8.5-10.1) Phosphorus Level 3.7 mg/dL (2.6-4.7) Magnesium Level 2.2 mg/dL (1.8-2.4) Medications Active Scripts Medications Dose Route/Sig Max Daily Dose Days Date Category Vitamin B-12 (Cyanocobalamin (Vitamin B-12)) 1,000 Mcg Tablet 1,000 Mcg PO DAILY 01/26/20 Reported One-Daily Multi-Vitamin (Multivitamin) 1 Each Tablet 1 Tab PO DAILY 30 01/26/20 Reported Vitamin D3 (Cholecalciferol (Vitamin D3)) 2,000 Unit Tab.chew 1 Tab PO DAILY 30 01/26/20 Reported Proair Hfa (Albuterol Sulfate) 8.5 Gm Hfa.aer.ad 2.5 Mg NEB RTQID MDD 1 12/15/18 Rx Metoprolol Tartrate 25 Mg Tablet 12.5 Mg PO BID MDD 1 12/15/18 Rx Bumetanide 2 Mg Tablet 2 Mg PO DAILY 01/05/18 Reported Fish Oil 1,000 mg Softgel (Channing-3S/Dha/Epa/Fish Oil) 1 Each Capsule 1 Each PO BID 01/05/18 Reported Losartan Potassium 50 Mg Tablet 50 Mg PO DAILY 01/05/18 Reported Klor-Con M10 (Potassium Chloride) 10 Meq Tab.er.prt 1 Tab PO BID 01/05/18 Reported Digoxin 125 Mcg Tablet 1 Tab PO DAILY 01/05/18 Reported Symbicort 160-4.5 Mcg Inhaler (Budesonide/Formoterol Fumarate) 10.2 Gm Hfa.aer.ad 2 Puff IH BID 01/05/18 Reported Impression . IMPRESSION: 1. Dyspnea, multifactorial in etiology. anemia, chronic obstructive pulmonary disease, and chronic heart failure. 2. Abnormal chest x-ray, I suspect it is secondary to congestive heart failure. 3. Chronic kidney disease. 4. Anemia with gastrointestinal bleeding. 5. Obstructive sleep apnea-hypopnea syndrome. 6. Chronic obstructive pulmonary disease. 7. Her previous echocardiogram showed a [id number] mitral regurgitation and [id number] aortic regurgitation. As she has a history of CHF, may consider a Cardiology consultation. 8. Hypertension. 9. Diabetes mellitus. 10. Atrial fibrillation. Plan . PLAN AND RECOMMENDATIONS: 1. Titrate FiO2 to keep O2 saturation at 92%. 2. Consult GI. Meanwhile, change Protonix 40 mg b.i.d caitlin po 3. Bronchodilator. 4. Follow up COVID-19 testing. 5. May consider Cardiology consultation. 6. Monitor her volume status very closely. 7. Use CPAP during the sleep. The importance of treatment of obstructive sleep apnea-hypopnea syndrome was discussed. 8. The findings and recommendations were discussed with the patient and RN. 9. Follow hemoglobin. discussed w pt NATALI Valiente MD Jun 08, 2020 08:40
[2020-06-08] MEDS: DIGOXIN 125 MCG TABLET. PO SCH (08:45)
[2020-06-08] MEDS: PANTOPRAZOLE IV PUSH 40 MG VIAL. IVP SCH ×2 (08:45→20:22)
[2020-06-08] MEDS: LOSARTAN POTASSIUM 50 MG TABLET. PO SCH (08:46)
[2020-06-08] MEDS: CYANOCOBALAMIN (VITAMIN B-12) 1,000 MCG TABLET. PO SCH (08:46)
[2020-06-08] MEDS: METOPROLOL TART IMMED RELEASE 25 MG TABLET. PO SCH ×2 (08:46→20:22)
[2020-06-08] MEDS: INSULIN LISPRO 300 UNITS/3 ML VIAL. SQ SCH ×3 (08:49→17:00)
[2020-06-08] MEDS ORDERED: IRON SUCROSE COMPLEX 400 MG in IV NORMAL SALINE 250ML 250 ML IV ONE (09:00)
[2020-06-08 10:42] VITALS: BP 125/56
--- NOTE | 2020-06-08 13:13 | PDOC ---
[facility] PROGRESS NOTE Chief Complaint Chief Complaint Acute symptomatic microcytic anemia due to possible GI bleed Iron deficiency anemia Acute renal failure due to vasomotor nephropathy A-Fib Anemia Arrhythmia Asthma Chronic systolic CHF last echo done 1 year ago with EF of 55% COPD Diabetes-Type II Diverticulitis Hypertension Renal Failure Status post 1 unit PRBC Continue to trend H&H IV Venofer today and possibly tomorrow before discharge Continue telemonitoring Pulmonary consult for abnormal chest x-ray and HERIBERTO management We will obtain small bowel series as an outpatient per GI Insulin sliding scale Restart home atrial fibrillation medications Avoid nephrotoxic agents. Consider nephrology consult if renal function worsens SCD for DVT prophylaxis Cardiac diet Full code Discussed with RN and SW Dispo pending COVID test History of Present Illness History of Present Illness 74-year-old female with past medical history of atrial fibrillation, iron deficiency anemia, asthma, CHF, COPD, HERIBERTO on CPAP, diabetes who presents with weakness and shortness of breath over the past 2 weeks. She also does state some generalized weakness and fatigue. She can hardly make it across her room in the department without having to stop and catch her breath. Patient was scheduled for an iron transfusion on Tuesday but her PCP does not think that she can wait that long for that. Upon further questioning, patient states that she has had GI bleeding in the past and a work-up was in the works and she was being seen by Dr. John with GI. Denies chest pain, nausea, vomiting, abdominal pain, diarrhea, blood in her stools, dark stools, dizziness, syncope, headache, vision changes, focal weakness. Vitals/I&O Vitals/I&O: Vital Signs Date Time Temp Pulse Resp B/P (MAP) Pulse Ox O2 Delivery O2 Flow Rate FiO2 06/08/20 10:42 97.7 104 18 125/56 (79) 94 Nasal Cannula 2.0 97.7 I & O 06/07/20 06/07/20 06/08/20 15:00 23:00 07:00 Intake Total 550 ml 600 ml 200 ml Balance 550 ml 600 ml 200 ml Physical Exam Physical Exam: GEN: No apparent distress. Alert and oriented HEENT: Normal cephalic, atraumatic, external auditory canals are patent NECK: Supple, no JVD, no thyromegaly was noted LUNGS: Bilateral crackles HEART: RRR, S1, S2 present. Peripheral pulses intact, no obvious murmurs noted ABDOMEN: Soft, nontender. Positive bowel sounds, no organomegaly, normal bowel sounds EXTREMITIES: Without clubbing, cyanosis, or edema. Pedal pulses intact. Negative Homans sign Lungs: Clear Labs Labs: Laboratory Tests Test 06/07/20 14:15 06/07/20 16:37 06/07/20 16:48 06/07/20 21:22 Stool Occult Blood Positive (NEG) White Blood Count 8.1 x10^3/uL (4.0-11.0) Red Blood Count 3.25 x10^6/uL (3.50-5.40) Hemoglobin 7.9 g/dL (12.0-15.5) Hematocrit 24.6 % (36.0-47.0) Mean Corpuscular Volume 76 fL (79-100) Mean Corpuscular Hemoglobin 24 pg (25-35) Mean Corpuscular Hemoglobin Concent 32 g/dL (31-37) Red Cell Distribution Width 18.1 % (11.5-14.5) Platelet Count 328 x10^3/uL (140-400) Glucose (Fingerstick) 150 mg/dL (70-99) 141 mg/dL (70-99) Test 06/08/20 05:00 06/08/20 07:55 06/08/20 11:02 White Blood Count 7.5 x10^3/uL (4.0-11.0) Red Blood Count 3.07 x10^6/uL (3.50-5.40) Hemoglobin 7.3 g/dL (12.0-15.5) Hematocrit 23.2 % (36.0-47.0) Mean Corpuscular Volume 76 fL (79-100) Mean Corpuscular Hemoglobin 24 pg (25-35) Mean Corpuscular Hemoglobin Concent 31 g/dL (31-37) Red Cell Distribution Width 18.4 % (11.5-14.5) Platelet Count 296 x10^3/uL (140-400) Neutrophils (%) (Auto) 71 % (31-73) Lymphocytes (%) (Auto) 16 % (24-48) Monocytes (%) (Auto) 10 % (0-9) Eosinophils (%) (Auto) 3 % (0-3) Basophils (%) (Auto) 0 % (0-3) Neutrophils # (Auto) 5.3 x10^3/uL (1.8-7.7) Lymphocytes # (Auto) 1.2 x10^3/uL (1.0-4.8) Monocytes # (Auto) 0.7 x10^3/uL (0.0-1.1) Eosinophils # (Auto) 0.2 x10^3/uL (0.0-0.7) Basophils # (Auto) 0.0 x10^3/uL (0.0-0.2) Sodium Level 139 mmol/L (136-145) Potassium Level 3.8 mmol/L (3.5-5.1) Chloride Level 102 mmol/L (98-107) Carbon Dioxide Level 30 mmol/L (21-32) Anion Gap 7 (6-14) Blood Urea Nitrogen 31 mg/dL (7-20) Creatinine 1.3 mg/dL (0.6-1.0) Estimated GFR (Cockcroft-Gault) 39.8 Glucose Level 137 mg/dL (70-99) Calcium Level 8.9 mg/dL (8.5-10.1) Phosphorus Level 3.7 mg/dL (2.6-4.7) Magnesium Level 2.2 mg/dL (1.8-2.4) Glucose (Fingerstick) 152 mg/dL (70-99) 240 mg/dL (70-99) Review of Systems Review of Systems: CONSTITUIONAL: Denies weight loss, fever and chills. HEENT: Denies changes in vision and hearing. RESPIRATORY: Denies SOB and cough. CV: Denies palpitations and CP. GI: Denies abdominal pain, nausea, vomiting and diarrhea. : Denies dysuria and urinary frequency. MSK: Denies myalgia and joint pain. SKIN: Denies rash and pruritus. NEUROLOGICAL: Denies headache and syncope. PSYCHIATRIC: Denies recent changes in mood. Denies anxiety and depression. Assessment and Plan Assessmemt and Plan Problems Medical Problems: (1) Low hemoglobin Status: Acute (2) Person under investigation for COVID-19 Status: Acute Comment Review of Relevant I have reviewed the following items halle (where applicable) has been applied. Medications: Current Medications Medications (Trade) Dose Ordered Sig/Jose Rafael Route PRN Reason Start Time Stop Time Status Last Admin Dose Admin Insulin Human Lispro (HumaLOG) 0-5 UNITS TIDWMEALS SQ 06/07/20 17:00 06/08/20 12:25 Acetaminophen (Tylenol) 650 mg PRN Q6HRS PRN PO MILD PAIN / TEMP > 100.3'F 06/08/20 02:45 06/08/20 02:41 Iron Sucrose 400 mg/Sodium Chloride 270 ml @ 90 mls/hr 1X ONCE IV 06/08/20 09:00 06/08/20 11:59 DC 06/08/20 09:41 Justicifation of Admission Dx: Justifications for Admission: Justification of Admission Dx: Yes ANTONIO BECK MD Jun 08, 2020 13:13
--- NOTE | 2020-06-08 14:53 | PDOC ---
[facility] PROGRESS NOTE Reason for Follow-up Chronic blood loss anemia Subjective Without new complaints Physical Exam Lungs decreased BS' CV S1 S2 ABD +BS, soft, nontender Review of Relevant I have reviewed the following items halle (where applicable) has been applied. Labs Laboratory Tests Test 06/06/20 18:15 06/07/20 09:18 06/07/20 14:15 06/07/20 16:37 White Blood Count 8.2 x10^3/uL (4.0-11.0) 6.8 x10^3/uL (4.0-11.0) 8.1 x10^3/uL (4.0-11.0) Red Blood Count 2.89 x10^6/uL (3.50-5.40) 3.16 x10^6/uL (3.50-5.40) 3.25 x10^6/uL (3.50-5.40) Hemoglobin 6.8 g/dL (12.0-15.5) 7.5 g/dL (12.0-15.5) 7.9 g/dL (12.0-15.5) Hematocrit 21.9 % (36.0-47.0) 23.9 % (36.0-47.0) 24.6 % (36.0-47.0) Mean Corpuscular Volume 76 fL (79-100) 76 fL (79-100) 76 fL (79-100) Mean Corpuscular Hemoglobin 24 pg (25-35) 24 pg (25-35) 24 pg (25-35) Mean Corpuscular Hemoglobin Concent 31 g/dL (31-37) 31 g/dL (31-37) 32 g/dL (31-37) Red Cell Distribution Width 18.4 % (11.5-14.5) 18.0 % (11.5-14.5) 18.1 % (11.5-14.5) Platelet Count 353 x10^3/uL (140-400) 320 x10^3/uL (140-400) 328 x10^3/uL (140-400) Neutrophils (%) (Auto) 76 % (31-73) 73 % (31-73) Lymphocytes (%) (Auto) 14 % (24-48) 15 % (24-48) Monocytes (%) (Auto) 8 % (0-9) 9 % (0-9) Eosinophils (%) (Auto) 2 % (0-3) 3 % (0-3) Basophils (%) (Auto) 1 % (0-3) 1 % (0-3) Neutrophils # (Auto) 6.2 x10^3/uL (1.8-7.7) 5.0 x10^3/uL (1.8-7.7) Lymphocytes # (Auto) 1.1 x10^3/uL (1.0-4.8) 1.0 x10^3/uL (1.0-4.8) Monocytes # (Auto) 0.6 x10^3/uL (0.0-1.1) 0.6 x10^3/uL (0.0-1.1) Eosinophils # (Auto) 0.2 x10^3/uL (0.0-0.7) 0.2 x10^3/uL (0.0-0.7) Basophils # (Auto) 0.1 x10^3/uL (0.0-0.2) 0.0 x10^3/uL (0.0-0.2) Prothrombin Time 13.6 SEC (11.7-14.0) Prothromb Time International Ratio 1.1 (0.8-1.1) Sodium Level 142 mmol/L (136-145) Potassium Level 3.5 mmol/L (3.5-5.1) Chloride Level 104 mmol/L (98-107) Carbon Dioxide Level 32 mmol/L (21-32) Anion Gap 6 (6-14) Blood Urea Nitrogen 35 mg/dL (7-20) Creatinine 1.4 mg/dL (0.6-1.0) Estimated GFR (Cockcroft-Gault) 36.6 BUN/Creatinine Ratio 25 (6-20) Glucose Level 136 mg/dL (70-99) Calcium Level 9.0 mg/dL (8.5-10.1) Ferritin 6 ng/mL (8-252) Total Bilirubin 0.4 mg/dL (0.2-1.0) Aspartate Amino Transf (AST/SGOT) 21 U/L (15-37) Alanine Aminotransferase (ALT/SGPT) 34 U/L (14-59) Alkaline Phosphatase 86 U/L (46-116) Troponin I Quantitative < 0.017 ng/mL (0.000-0.055) C-Reactive Protein, Quantitative 1.8 mg/L (0-3.3) EV-Ebf-R-Type Natriuretic Peptide 1980 pg/mL (0-449) Total Protein 7.3 g/dL (6.4-8.2) Albumin 3.3 g/dL (3.4-5.0) Albumin/Globulin Ratio 0.8 (1.0-1.7) Procalcitonin < 0.10 ng/mL (0.00-0.10) Stool Occult Blood Positive (NEG) Test 06/07/20 16:48 06/07/20 21:22 06/08/20 05:00 06/08/20 07:55 Glucose (Fingerstick) 150 mg/dL (70-99) 141 mg/dL (70-99) 152 mg/dL (70-99) White Blood Count 7.5 x10^3/uL (4.0-11.0) Red Blood Count 3.07 x10^6/uL (3.50-5.40) Hemoglobin 7.3 g/dL (12.0-15.5) Hematocrit 23.2 % (36.0-47.0) Mean Corpuscular Volume 76 fL (79-100) Mean Corpuscular Hemoglobin 24 pg (25-35) Mean Corpuscular Hemoglobin Concent 31 g/dL (31-37) Red Cell Distribution Width 18.4 % (11.5-14.5) Platelet Count 296 x10^3/uL (140-400) Neutrophils (%) (Auto) 71 % (31-73) Lymphocytes (%) (Auto) 16 % (24-48) Monocytes (%) (Auto) 10 % (0-9) Eosinophils (%) (Auto) 3 % (0-3) Basophils (%) (Auto) 0 % (0-3) Neutrophils # (Auto) 5.3 x10^3/uL (1.8-7.7) Lymphocytes # (Auto) 1.2 x10^3/uL (1.0-4.8) Monocytes # (Auto) 0.7 x10^3/uL (0.0-1.1) Eosinophils # (Auto) 0.2 x10^3/uL (0.0-0.7) Basophils # (Auto) 0.0 x10^3/uL (0.0-0.2) Sodium Level 139 mmol/L (136-145) Potassium Level 3.8 mmol/L (3.5-5.1) Chloride Level 102 mmol/L (98-107) Carbon Dioxide Level 30 mmol/L (21-32) Anion Gap 7 (6-14) Blood Urea Nitrogen 31 mg/dL (7-20) Creatinine 1.3 mg/dL (0.6-1.0) Estimated GFR (Cockcroft-Gault) 39.8 Glucose Level 137 mg/dL (70-99) Calcium Level 8.9 mg/dL (8.5-10.1) Phosphorus Level 3.7 mg/dL (2.6-4.7) Magnesium Level 2.2 mg/dL (1.8-2.4) Test 06/08/20 11:02 Glucose (Fingerstick) 240 mg/dL (70-99) Laboratory Tests Test 06/07/20 16:37 06/07/20 16:48 06/07/20 21:22 06/08/20 05:00 White Blood Count 8.1 x10^3/uL (4.0-11.0) 7.5 x10^3/uL (4.0-11.0) Red Blood Count 3.25 x10^6/uL (3.50-5.40) 3.07 x10^6/uL (3.50-5.40) Hemoglobin 7.9 g/dL (12.0-15.5) 7.3 g/dL (12.0-15.5) Hematocrit 24.6 % (36.0-47.0) 23.2 % (36.0-47.0) Mean Corpuscular Volume 76 fL (79-100) 76 fL (79-100) Mean Corpuscular Hemoglobin 24 pg (25-35) 24 pg (25-35) Mean Corpuscular Hemoglobin Concent 32 g/dL (31-37) 31 g/dL (31-37) Red Cell Distribution Width 18.1 % (11.5-14.5) 18.4 % (11.5-14.5) Platelet Count 328 x10^3/uL (140-400) 296 x10^3/uL (140-400) Glucose (Fingerstick) 150 mg/dL (70-99) 141 mg/dL (70-99) Neutrophils (%) (Auto) 71 % (31-73) Lymphocytes (%) (Auto) 16 % (24-48) Monocytes (%) (Auto) 10 % (0-9) Eosinophils (%) (Auto) 3 % (0-3) Basophils (%) (Auto) 0 % (0-3) Neutrophils # (Auto) 5.3 x10^3/uL (1.8-7.7) Lymphocytes # (Auto) 1.2 x10^3/uL (1.0-4.8) Monocytes # (Auto) 0.7 x10^3/uL (0.0-1.1) Eosinophils # (Auto) 0.2 x10^3/uL (0.0-0.7) Basophils # (Auto) 0.0 x10^3/uL (0.0-0.2) Sodium Level 139 mmol/L (136-145) Potassium Level 3.8 mmol/L (3.5-5.1) Chloride Level 102 mmol/L (98-107) Carbon Dioxide Level 30 mmol/L (21-32) Anion Gap 7 (6-14) Blood Urea Nitrogen 31 mg/dL (7-20) Creatinine 1.3 mg/dL (0.6-1.0) Estimated GFR (Cockcroft-Gault) 39.8 Glucose Level 137 mg/dL (70-99) Calcium Level 8.9 mg/dL (8.5-10.1) Phosphorus Level 3.7 mg/dL (2.6-4.7) Magnesium Level 2.2 mg/dL (1.8-2.4) Test 06/08/20 07:55 06/08/20 11:02 Glucose (Fingerstick) 152 mg/dL (70-99) 240 mg/dL (70-99) Medications Current Medications Ondansetron HCl (Zofran) 4 mg PRN Q8HRS PRN IV NAUSEA/VOMITING; Start 06/06/20 at 20:30; Stop 06/07/20 at 20:29; Status DC Fentanyl Citrate (Fentanyl 2ml Vial) 50 mcg PRN Q1HR PRN IV PAIN; Start 06/06/20 at 20:30; Stop 06/07/20 at 20:29; Status DC Acetaminophen (Tylenol) 650 mg PRN Q4HRS PRN PO FEVER > 100.3'F; Start 06/06/20 at 20:30; Stop 06/07/20 at 20:29; Status DC Albuterol/ Ipratropium (Duoneb) 3 ml RTQID NEB ; Start 06/07/20 at 08:00; Stop 06/07/20 at 12:24; Status DC Pantoprazole Sodium (PROTONIX VIAL for IV PUSH) 40 mg BID IVP Last administered on 06/08/20at 08:45; Start 06/07/20 at 09:00 Albuterol Sulfate (Ventolin Neb Soln) 2.5 mg RTQID NEB ; Start 06/07/20 at 12:15; Stop 06/07/20 at 12:24; Status DC Cyanocobalamin (Vitamin B-12) 1,000 mcg DAILY PO Last administered on 06/08/20at 08:46; Start 06/07/20 at 13:00 Digoxin (Lanoxin) 125 mcg DAILY PO Last administered on 06/08/20at 08:45; Start 06/07/20 at 13:00 Losartan Potassium (Cozaar) 50 mg DAILY PO Last administered on 06/08/20at 08:46; Start 06/07/20 at 13:00 Metoprolol Tartrate (Lopressor) 12.5 mg BID PO Last administered on 06/08/20at 08:46; Start 06/07/20 at 13:00 Albuterol Sulfate (Ventolin Neb Soln) 2.5 mg PRN QID PRN NEB SHORTNESS OF BREATH; Start 06/07/20 at 12:30 Albuterol/ Ipratropium (Duoneb) 3 ml PRN TID PRN NEB SHORTNESS OF BREATH; Start 06/07/20 at 12:30; Stop 06/08/20 at 12:29; Status UNV Insulin Human Lispro (HumaLOG) 0-5 UNITS TIDWMEALS SQ Last administered on at 12:25; Start 06/07/20 at 17:00 Dextrose (Dextrose 50%-Water Syringe) 12.5 gm PRN Q15MIN PRN IV SEE COMMENTS; Start 06/07/20 at 12:15 Acetaminophen (Tylenol) 650 mg PRN Q6HRS PRN PO MILD PAIN / TEMP > 100.3'F Last administered on 06/08/20at 02:41; Start 06/08/20 at 02:45 Iron Sucrose 400 mg/Sodium Chloride 270 ml @ 90 mls/hr 1X ONCE IV Last administered on 06/08/20at 09:41; Start 06/08/20 at 09:00; Stop 06/08/20 at 11:59; Status DC Active Scripts Active Proair Hfa (Albuterol Sulfate) 8.5 Gm Hfa.aer.ad 2.5 Mg NEB RTQID MDD 1 Metoprolol Tartrate 25 Mg Tablet 12.5 Mg PO BID MDD 1 Reported Vitamin B-12 (Cyanocobalamin (Vitamin B-12)) 1,000 Mcg Tablet 1,000 Mcg PO DAILY One-Daily Multi-Vitamin (Multivitamin) 1 Each Tablet 1 Tab PO DAILY 30 Days Vitamin D3 (Cholecalciferol (Vitamin D3)) 2,000 Unit Tab.chew 1 Tab PO DAILY 30 Days Bumetanide 2 Mg Tablet 2 Mg PO DAILY Fish Oil 1,000 mg Softgel ([place]-3S/Dha/Epa/Fish Oil) 1 Each Capsule 1 Each PO BID Losartan Potassium 50 Mg Tablet 50 Mg PO DAILY Klor-Con M10 (Potassium Chloride) 10 Meq Tab.er.prt 1 Tab PO BID Digoxin 125 Mcg Tablet 1 Tab PO DAILY Symbicort 160-4.5 Mcg Inhaler (Budesonide/Formoterol Fumarate) 10.2 Gm Hfa.aer.ad 2 Puff IH BID Vitals/I & O Vital Sign - Last 24 Hours 06/07/20 06/07/20 06/07/20 06/07/20 15:01 15:14 19:00 20:00 Temp 98.0 97.5 98.0 97.5 Pulse 86 77 Resp 20 24 B/P (MAP) 128/53 (78) 128/53 129/56 (80) Pulse Ox 92 O2 Delivery Room Air Room Air Room Air O2 Flow Rate 90.0 06/07/20 06/07/20 06/08/20 06/08/20 21:25 23:00 03:00 07:00 Temp 98.3 97.3 97.6 98.3 97.3 97.6 Pulse 77 81 91 92 Resp 24 20 18 B/P (MAP) 129/56 124/64 (84) 127/45 (72) 135/53 (80) Pulse Ox 92 96 O2 Delivery Room Air Room Air Nasal Cannula O2 Flow Rate 91.0 2.0 06/08/20 06/08/20 06/08/20 06/08/20 07:50 08:45 08:46 08:46 Pulse 92 92 92 B/P (MAP) 135/53 135/53 135/53 O2 Delivery Room Air 06/08/20 10:42 Temp 97.7 97.7 Pulse 104 Resp 18 B/P (MAP) 125/56 (79) Pulse Ox 94 O2 Delivery Nasal Cannula O2 Flow Rate 2.0 Intake and Output 06/07/20 06/07/20 06/08/20 15:00 23:00 07:00 Intake Total 550 ml 600 ml 200 ml Balance 550 ml 600 ml 200 ml Problem List Problems Medical Problems: (1) Low hemoglobin Status: Acute (2) Person under investigation for COVID-19 Status: Acute Assessment CHronic blood loss anemia- AVMS likely contributing, iron infusion i n progress this afternoon, await repeat HG in am. CPM Justicifation of Admission Dx: Justifications for Admission: Justification of Admission Dx: Yes RYAN SHEN MD Jun 08, 2020 14:53
[2020-06-08 15:00] VITALS: BP 113/64
[2020-06-08 19:00] VITALS: BP 104/52
[2020-06-08 21:31] LABS: HEMATOCRIT 26.1 % (36.0-47.0); RED BLOOD COUNT 3.42 x10^6/uL (3.50-5.40); RED CELL DISTRIBUTION WIDTH 18.5 % (11.5-14.5); WHITE BLOOD COUNT 9.6 x10^3/uL (4.0-11.0)
[2020-06-08 23:00] VITALS: BP 126/67
[2020-06-09] MEDS: ACETAMINOPHEN 325 MG TABLET. PO PRN ×2 (02:44→21:48)
[2020-06-09 03:00] VITALS: BP 101/61
[2020-06-09 07:22] VITALS: BP 115/73
--- NOTE | 2020-06-09 07:56 | EKG ---
[facility] [address] [place] [id number] Test Date: 2020-06-06 Test Time: 19:22:23 Pat Name: ARIELLE MONZON Department: Room: Gender: F Scientific Writer: : 1945 Requested By: CHARLES BLEVINS Order Number: [id number] Reading MD: Measurements Intervals [place] Rate: 85 P: AR: QRS: 2 QRSD: 120 T: 173 QT: 400 QTc: 476 Interpretive Statements IRREGULAR RHYTHM, NO P-WAVE FOUND VENTRICULAR PREMATURE COMPLEX(ES) CONSIDER LEFT VENTRICULAR HYPERTROPHY ST ABNORMALITY, POSSIBLE HIGH LATERAL SUBENDOCARDIAL INJURY ABNORMAL ECG RI6.02 No previous ECG available for comparison
[2020-06-09] MEDS: INSULIN LISPRO 300 UNITS/3 ML VIAL. SQ SCH ×3 (08:00→16:24)
[2020-06-09] MEDS: PANTOPRAZOLE IV PUSH 40 MG VIAL. IVP SCH ×2 (09:00→09:50)
[2020-06-09 09:19] LABS: BASO % 1 % (0-3); EOS # 0.2 x10^3/uL (0.0-0.7); EOS % 2 % (0-3); HEMOGLOBIN 7.4 g/dL (12.0-15.5); LYMPH # 0.6 x10^3/uL (1.0-4.8); LYMPH % 7 % (24-48); MEAN CORPUSCULAR HEMOGLOBIN 24 pg (25-35); MEAN CORPUSCULAR HGB CONC 31 g/dL (31-37); MEAN CORPUSCULAR VOLUME 77 fL (79-100); MONO # 0.7 x10^3/uL (0.0-1.1); MONO % 7 % (0-9); NEUT # 8.1 x10^3/uL (1.8-7.7); NEUT % 83 % (31-73); PLATELET COUNT 319 x10^3/uL (140-400); RED BLOOD COUNT 3.13 x10^6/uL (3.50-5.40); RED CELL DISTRIBUTION WIDTH 18.6 % (11.5-14.5); WHITE BLOOD COUNT 9.7 x10^3/uL (4.0-11.0)
[2020-06-09 09:26] LABS: CALCIUM 8.6 mg/dL (8.5-10.1); CREATININE 1.3 mg/dL (0.6-1.0); GFR 39.8; PHOSPHORUS 3.8 mg/dL (2.6-4.7); POTASSIUM 3.7 mmol/L (3.5-5.1)
[2020-06-09] MEDS: CYANOCOBALAMIN (VITAMIN B-12) 1,000 MCG TABLET. PO SCH (09:50)
[2020-06-09] MEDS: LOSARTAN POTASSIUM 50 MG TABLET. PO SCH (09:51)
[2020-06-09] MEDS: DIGOXIN 125 MCG TABLET. PO SCH (09:51)
[2020-06-09] MEDS: METOPROLOL TART IMMED RELEASE 25 MG TABLET. PO SCH ×2 (09:51→21:04)
--- NOTE | 2020-06-09 10:00 | PDOC ---
PROGRESS NOTES Chief Complaint Chief Complaint Acute symptomatic microcytic anemia due to possible GI bleed Iron deficiency anemia Acute renal failure due to vasomotor nephropathy A-Fib Anemia Arrhythmia Asthma Chronic systolic CHF last echo done 1 year ago with EF of 55% COPD Diabetes-Type II Diverticulitis Hypertension Renal Failure HERIBERTO on CPAP Status post 1 unit PRBC Continue to trend H&H IV Venofer today and possibly tomorrow before discharge Continue telemonitoring Pulmonary consult for abnormal chest x-ray and HERIBERTO management We will obtain small bowel series as an outpatient per GI Insulin sliding scale Restart home atrial fibrillation medications Avoid nephrotoxic agents. Consider nephrology consult if renal function worsens SCD for DVT prophylaxis Cardiac diet Full code Discussed with RN and SW Dispo pending COVID test History of Present Illness History of Present Illness 74-year-old female with past medical history of atrial fibrillation, iron deficiency anemia, asthma, CHF, COPD, HERIBERTO on CPAP, diabetes who presents with weakness and shortness of breath over the past 2 weeks. She also does state some generalized weakness and fatigue. She can hardly make it across her room in the department without having to stop and catch her breath. Patient was scheduled for an iron transfusion on Tuesday but her PCP does not think that she can wait that long for that. Upon further questioning, patient states that she has had GI bleeding in the past and a work-up was in the works and she was being seen by Dr. John with GI. Denies chest pain, nausea, vomiting, abdominal pain, diarrhea, blood in her stools, dark stools, dizziness, syncope, headache, vision changes, focal weakness. Hb stable at 7.4. She notes she is required oxygen at night, she has not brought her in her home CPAP. She still feels very weak. Think she probably needs home oxygen. Plan: PT/OT 6" walk Check iron stores, may need repeat iron infusion prior to d/c Vitals Vitals Vital Signs Date Time Temp Pulse Resp B/P (MAP) Pulse Ox O2 Delivery O2 Flow Rate FiO2 06/09/20 09:51 87 115/73 06/09/20 07:22 98.2 22 93 Nasal Cannula 2.0 98.2 Physical Exam Physical Exam GEN: No apparent distress. Alert and oriented HEENT: Normal cephalic, atraumatic, external auditory canals are patent NECK: Supple, no JVD, no thyromegaly was noted LUNGS: Bilateral crackles HEART: RRR, S1, S2 present. Peripheral pulses intact, no obvious murmurs noted ABDOMEN: Soft, nontender. Positive bowel sounds, no organomegaly, normal bowel sounds EXTREMITIES: Without clubbing, cyanosis, or edema. Pedal pulses intact. Negative Homans sign Lungs: Clear Labs LABS Laboratory Tests Test 06/08/20 11:02 06/08/20 16:02 06/08/20 20:02 06/08/20 21:12 Glucose (Fingerstick) 240 mg/dL (70-99) 93 mg/dL (70-99) 177 mg/dL (70-99) White Blood Count 9.6 x10^3/uL (4.0-11.0) Red Blood Count 3.42 x10^6/uL (3.50-5.40) Hemoglobin 8.0 g/dL (12.0-15.5) Hematocrit 26.1 % (36.0-47.0) Mean Corpuscular Volume 76 fL (79-100) Mean Corpuscular Hemoglobin 24 pg (25-35) Mean Corpuscular Hemoglobin Concent 31 g/dL (31-37) Red Cell Distribution Width 18.5 % (11.5-14.5) Platelet Count 331 x10^3/uL (140-400) Test 06/09/20 07:29 06/09/20 08:30 Glucose (Fingerstick) 123 mg/dL (70-99) White Blood Count 9.7 x10^3/uL (4.0-11.0) Red Blood Count 3.13 x10^6/uL (3.50-5.40) Hemoglobin 7.4 g/dL (12.0-15.5) Hematocrit 24.0 % (36.0-47.0) Mean Corpuscular Volume 77 fL (79-100) Mean Corpuscular Hemoglobin 24 pg (25-35) Mean Corpuscular Hemoglobin Concent 31 g/dL (31-37) Red Cell Distribution Width 18.6 % (11.5-14.5) Platelet Count 319 x10^3/uL (140-400) Neutrophils (%) (Auto) 83 % (31-73) Lymphocytes (%) (Auto) 7 % (24-48) Monocytes (%) (Auto) 7 % (0-9) Eosinophils (%) (Auto) 2 % (0-3) Basophils (%) (Auto) 1 % (0-3) Neutrophils # (Auto) 8.1 x10^3/uL (1.8-7.7) Lymphocytes # (Auto) 0.6 x10^3/uL (1.0-4.8) Monocytes # (Auto) 0.7 x10^3/uL (0.0-1.1) Eosinophils # (Auto) 0.2 x10^3/uL (0.0-0.7) Basophils # (Auto) 0.0 x10^3/uL (0.0-0.2) Sodium Level 142 mmol/L (136-145) Potassium Level 3.7 mmol/L (3.5-5.1) Chloride Level 105 mmol/L (98-107) Carbon Dioxide Level 30 mmol/L (21-32) Anion Gap 7 (6-14) Blood Urea Nitrogen 25 mg/dL (7-20) Creatinine 1.3 mg/dL (0.6-1.0) Estimated GFR (Cockcroft-Gault) 39.8 Glucose Level 186 mg/dL (70-99) Calcium Level 8.6 mg/dL (8.5-10.1) Phosphorus Level 3.8 mg/dL (2.6-4.7) Magnesium Level 2.0 mg/dL (1.8-2.4) Assessment and Plan Assessmemt and Plan Problems Medical Problems: (1) Low hemoglobin Status: Acute (2) Person under investigation for COVID-19 Status: Acute Comment Review of Relevant I have reviewed the following items halle (where applicable) has been applied. Labs Laboratory Tests Test 06/07/20 14:15 06/07/20 16:37 06/07/20 16:48 06/07/20 21:22 Stool Occult Blood Positive (NEG) White Blood Count 8.1 x10^3/uL (4.0-11.0) Red Blood Count 3.25 x10^6/uL (3.50-5.40) Hemoglobin 7.9 g/dL (12.0-15.5) Hematocrit 24.6 % (36.0-47.0) Mean Corpuscular Volume 76 fL (79-100) Mean Corpuscular Hemoglobin 24 pg (25-35) Mean Corpuscular Hemoglobin Concent 32 g/dL (31-37) Red Cell Distribution Width 18.1 % (11.5-14.5) Platelet Count 328 x10^3/uL (140-400) Glucose (Fingerstick) 150 mg/dL (70-99) 141 mg/dL (70-99) Test 06/08/20 05:00 06/08/20 07:55 06/08/20 11:02 06/08/20 16:02 White Blood Count 7.5 x10^3/uL (4.0-11.0) Red Blood Count 3.07 x10^6/uL (3.50-5.40) Hemoglobin 7.3 g/dL (12.0-15.5) Hematocrit 23.2 % (36.0-47.0) Mean Corpuscular Volume 76 fL (79-100) Mean Corpuscular Hemoglobin 24 pg (25-35) Mean Corpuscular Hemoglobin Concent 31 g/dL (31-37) Red Cell Distribution Width 18.4 % (11.5-14.5) Platelet Count 296 x10^3/uL (140-400) Neutrophils (%) (Auto) 71 % (31-73) Lymphocytes (%) (Auto) 16 % (24-48) Monocytes (%) (Auto) 10 % (0-9) Eosinophils (%) (Auto) 3 % (0-3) Basophils (%) (Auto) 0 % (0-3) Neutrophils # (Auto) 5.3 x10^3/uL (1.8-7.7) Lymphocytes # (Auto) 1.2 x10^3/uL (1.0-4.8) Monocytes # (Auto) 0.7 x10^3/uL (0.0-1.1) Eosinophils # (Auto) 0.2 x10^3/uL (0.0-0.7) Basophils # (Auto) 0.0 x10^3/uL (0.0-0.2) Sodium Level 139 mmol/L (136-145) Potassium Level 3.8 mmol/L (3.5-5.1) Chloride Level 102 mmol/L (98-107) Carbon Dioxide Level 30 mmol/L (21-32) Anion Gap 7 (6-14) Blood Urea Nitrogen 31 mg/dL (7-20) Creatinine 1.3 mg/dL (0.6-1.0) Estimated GFR (Cockcroft-Gault) 39.8 Glucose Level 137 mg/dL (70-99) Calcium Level 8.9 mg/dL (8.5-10.1) Phosphorus Level 3.7 mg/dL (2.6-4.7) Magnesium Level 2.2 mg/dL (1.8-2.4) Glucose (Fingerstick) 152 mg/dL (70-99) 240 mg/dL (70-99) 93 mg/dL (70-99) Test 06/08/20 20:02 06/08/20 21:12 06/09/20 07:29 06/09/20 08:30 Glucose (Fingerstick) 177 mg/dL (70-99) 123 mg/dL (70-99) White Blood Count 9.6 x10^3/uL (4.0-11.0) 9.7 x10^3/uL (4.0-11.0) Red Blood Count 3.42 x10^6/uL (3.50-5.40) 3.13 x10^6/uL (3.50-5.40) Hemoglobin 8.0 g/dL (12.0-15.5) 7.4 g/dL (12.0-15.5) Hematocrit 26.1 % (36.0-47.0) 24.0 % (36.0-47.0) Mean Corpuscular Volume 76 fL (79-100) 77 fL (79-100) Mean Corpuscular Hemoglobin 24 pg (25-35) 24 pg (25-35) Mean Corpuscular Hemoglobin Concent 31 g/dL (31-37) 31 g/dL (31-37) Red Cell Distribution Width 18.5 % (11.5-14.5) 18.6 % (11.5-14.5) Platelet Count 331 x10^3/uL (140-400) 319 x10^3/uL (140-400) Neutrophils (%) (Auto) 83 % (31-73) Lymphocytes (%) (Auto) 7 % (24-48) Monocytes (%) (Auto) 7 % (0-9) Eosinophils (%) (Auto) 2 % (0-3) Basophils (%) (Auto) 1 % (0-3) Neutrophils # (Auto) 8.1 x10^3/uL (1.8-7.7) Lymphocytes # (Auto) 0.6 x10^3/uL (1.0-4.8) Monocytes # (Auto) 0.7 x10^3/uL (0.0-1.1) Eosinophils # (Auto) 0.2 x10^3/uL (0.0-0.7) Basophils # (Auto) 0.0 x10^3/uL (0.0-0.2) Sodium Level 142 mmol/L (136-145) Potassium Level 3.7 mmol/L (3.5-5.1) Chloride Level 105 mmol/L (98-107) Carbon Dioxide Level 30 mmol/L (21-32) Anion Gap 7 (6-14) Blood Urea Nitrogen 25 mg/dL (7-20) Creatinine 1.3 mg/dL (0.6-1.0) Estimated GFR (Cockcroft-Gault) 39.8 Glucose Level 186 mg/dL (70-99) Calcium Level 8.6 mg/dL (8.5-10.1) Phosphorus Level 3.8 mg/dL (2.6-4.7) Magnesium Level 2.0 mg/dL (1.8-2.4) Laboratory Tests Test 06/08/20 11:02 06/08/20 16:02 06/08/20 20:02 06/08/20 21:12 Glucose (Fingerstick) 240 mg/dL (70-99) 93 mg/dL (70-99) 177 mg/dL (70-99) White Blood Count 9.6 x10^3/uL (4.0-11.0) Red Blood Count 3.42 x10^6/uL (3.50-5.40) Hemoglobin 8.0 g/dL (12.0-15.5) Hematocrit 26.1 % (36.0-47.0) Mean Corpuscular Volume 76 fL (79-100) Mean Corpuscular Hemoglobin 24 pg (25-35) Mean Corpuscular Hemoglobin Concent 31 g/dL (31-37) Red Cell Distribution Width 18.5 % (11.5-14.5) Platelet Count 331 x10^3/uL (140-400) Test 06/09/20 07:29 06/09/20 08:30 Glucose (Fingerstick) 123 mg/dL (70-99) White Blood Count 9.7 x10^3/uL (4.0-11.0) Red Blood Count 3.13 x10^6/uL (3.50-5.40) Hemoglobin 7.4 g/dL (12.0-15.5) Hematocrit 24.0 % (36.0-47.0) Mean Corpuscular Volume 77 fL (79-100) Mean Corpuscular Hemoglobin 24 pg (25-35) Mean Corpuscular Hemoglobin Concent 31 g/dL (31-37) Red Cell Distribution Width 18.6 % (11.5-14.5) Platelet Count 319 x10^3/uL (140-400) Neutrophils (%) (Auto) 83 % (31-73) Lymphocytes (%) (Auto) 7 % (24-48) Monocytes (%) (Auto) 7 % (0-9) Eosinophils (%) (Auto) 2 % (0-3) Basophils (%) (Auto) 1 % (0-3) Neutrophils # (Auto) 8.1 x10^3/uL (1.8-7.7) Lymphocytes # (Auto) 0.6 x10^3/uL (1.0-4.8) Monocytes # (Auto) 0.7 x10^3/uL (0.0-1.1) Eosinophils # (Auto) 0.2 x10^3/uL (0.0-0.7) Basophils # (Auto) 0.0 x10^3/uL (0.0-0.2) Sodium Level 142 mmol/L (136-145) Potassium Level 3.7 mmol/L (3.5-5.1) Chloride Level 105 mmol/L (98-107) Carbon Dioxide Level 30 mmol/L (21-32) Anion Gap 7 (6-14) Blood Urea Nitrogen 25 mg/dL (7-20) Creatinine 1.3 mg/dL (0.6-1.0) Estimated GFR (Cockcroft-Gault) 39.8 Glucose Level 186 mg/dL (70-99) Calcium Level 8.6 mg/dL (8.5-10.1) Phosphorus Level 3.8 mg/dL (2.6-4.7) Magnesium Level 2.0 mg/dL (1.8-2.4) Medications Current Medications Ondansetron HCl (Zofran) 4 mg PRN Q8HRS PRN IV NAUSEA/VOMITING; Start 06/06/20 at 20:30; Stop 06/07/20 at 20:29; Status DC Fentanyl Citrate (Fentanyl 2ml Vial) 50 mcg PRN Q1HR PRN IV PAIN; Start 06/06/20 at 20:30; Stop 06/07/20 at 20:29; Status DC Acetaminophen (Tylenol) 650 mg PRN Q4HRS PRN PO FEVER > 100.3'F; Start 06/06/20 at 20:30; Stop 06/07/20 at 20:29; Status DC Albuterol/ Ipratropium (Duoneb) 3 ml RTQID NEB ; Start 06/07/20 at 08:00; Stop 06/07/20 at 12:24; Status DC Pantoprazole Sodium (PROTONIX VIAL for IV PUSH) 40 mg BID IVP Last administered on 06/09/20at 09:50; Start 06/07/20 at 09:00 Albuterol Sulfate (Ventolin Neb Soln) 2.5 mg RTQID NEB ; Start 06/07/20 at 12:15; Stop 06/07/20 at 12:24; Status DC Cyanocobalamin (Vitamin B-12) 1,000 mcg DAILY PO Last administered on 06/09/20at 09:50; Start 06/07/20 at 13:00 Digoxin (Lanoxin) 125 mcg DAILY PO Last administered on 06/09/20 09:51; Start 06/07/20 at 13:00 Losartan Potassium (Cozaar) 50 mg DAILY PO Last administered on 06/09/20 09:51; Start 06/07/20 at 13:00 Metoprolol Tartrate (Lopressor) 12.5 mg BID PO Last administered on 06/09/20at 09:51; Start 06/07/20 at 13:00 Albuterol Sulfate (Ventolin Neb Soln) 2.5 mg PRN QID PRN NEB SHORTNESS OF BREATH; Start 06/07/20 at 12:30 Albuterol/ Ipratropium (Duoneb) 3 ml PRN TID PRN NEB SHORTNESS OF BREATH; Start 06/07/20 at 12:30; Stop 06/08/20 at 12:29; Status UNV Insulin Human Lispro (HumaLOG) 0-5 UNITS TIDWMEALS SQ Last administered on 06/08/20at 12:25; Start 06/07/20 at 17:00 Dextrose (Dextrose 50%-Water Syringe) 12.5 gm PRN Q15MIN PRN IV SEE COMMENTS; Start 06/07/20 at 12:15 Acetaminophen (Tylenol) 650 mg PRN Q6HRS PRN PO MILD PAIN / TEMP > 100.3'F Last administered on 06/09/20at 02:44; Start 06/08/20 at 02:45 Iron Sucrose 400 mg/Sodium Chloride 270 ml @ 90 mls/hr 1X ONCE IV Last administered on 06/08/20at 09:41; Start 06/08/20 at 09:00; Stop 06/08/20 at 11:59; Status DC Active Scripts Active Proair Hfa (Albuterol Sulfate) 8.5 Gm Hfa.aer.ad 2.5 Mg NEB RTQID MDD 1 Metoprolol Tartrate 25 Mg Tablet 12.5 Mg PO BID MDD 1 Reported Vitamin B-12 (Cyanocobalamin (Vitamin B-12)) 1,000 Mcg Tablet 1,000 Mcg PO DAILY One-Daily Multi-Vitamin (Multivitamin) 1 Each Tablet 1 Tab PO DAILY 30 Days Vitamin D3 (Cholecalciferol (Vitamin D3)) 2,000 Unit Tab.chew 1 Tab PO DAILY 30 Days Bumetanide 2 Mg Tablet 2 Mg PO DAILY Fish Oil 1,000 mg Softgel ([place]-3S/Dha/Epa/Fish Oil) 1 Each Capsule 1 Each PO BID Losartan Potassium 50 Mg Tablet 50 Mg PO DAILY Klor-Con M10 (Potassium Chloride) 10 Meq Tab.er.prt 1 Tab PO BID Digoxin 125 Mcg Tablet 1 Tab PO DAILY Symbicort 160-4.5 Mcg Inhaler (Budesonide/Formoterol Fumarate) 10.2 Gm Hfa.aer.ad 2 Puff IH BID Vitals/I & O Vital Sign - Last 24 Hours 06/08/20 06/08/20 06/08/20 06/08/20 10:42 15:00 19:00 19:30 Temp 97.7 97.8 97.8 97.7 97.8 97.8 Pulse 104 74 77 Resp 18 18 24 B/P (MAP) 125/56 (79) 113/64 (80) 104/52 (69) Pulse Ox 94 96 92 O2 Delivery Nasal Cannula Nasal Cannula Nasal Cannula Nasal Cannula O2 Flow Rate 2.0 1.0 2.0 2.0 06/08/20 06/08/20 06/09/20 06/09/20 20:22 23:00 03:00 07:22 Temp 97.8 98.0 98.2 97.8 98.0 98.2 Pulse 74 82 71 87 Resp 19 21 22 B/P (MAP) 113/64 126/67 (86) 101/61 (74) 115/73 (87) Pulse Ox 95 94 93 O2 Delivery Nasal Cannula Nasal Cannula Nasal Cannula O2 Flow Rate 2.0 2.0 2.0 06/09/20 06/09/20 06/09/20 09:51 09:51 09:51 Pulse 87 87 87 B/P (MAP) 115/73 115/73 115/73 Intake and Output 06/08/20 06/08/20 06/09/20 15:00 23:00 07:00 Intake Total 600 ml 350 ml Balance 600 ml 350 ml Justicifation of Admission Dx: Justifications for Admission: Justification of Admission Dx: Yes VIKY MOTA MD Jun 09, 2020 10:00
[2020-06-09 11:09] VITALS: BP 127/86
[2020-06-09] MEDS ORDERED: POLYETHYLENE GLYCOL 3350 17 GM PACKET. PO ONE (11:15)
--- NOTE | 2020-06-09 11:20 | PDOC ---
Subjective: Subjective: Feeling okay. Eating without issue. Would like Miralax restarted. Say has appt to see Dr. Lantigua on 06/24 re: iron infusions. Denies bleeding. Objective: Vital Signs: Vital Signs Date Time Temp Pulse Resp B/P (MAP) Pulse Ox O2 Delivery O2 Flow Rate FiO2 06/09/20 11:09 98.7 84 24 127/86 (100) 94 Nasal Cannula 2.0 98.7 Labs: Laboratory Tests Test 06/08/20 16:02 06/08/20 20:02 06/08/20 21:12 06/09/20 07:29 Glucose (Fingerstick) 93 mg/dL 177 mg/dL 123 mg/dL White Blood Count 9.6 x10^3/uL Red Blood Count 3.42 x10^6/uL Hemoglobin 8.0 g/dL Hematocrit 26.1 % Mean Corpuscular Volume 76 fL Mean Corpuscular Hemoglobin 24 pg Mean Corpuscular Hemoglobin Concent 31 g/dL Red Cell Distribution Width 18.5 % Platelet Count 331 x10^3/uL Test 06/09/20 08:30 06/09/20 10:38 White Blood Count 9.7 x10^3/uL Red Blood Count 3.13 x10^6/uL Hemoglobin 7.4 g/dL Hematocrit 24.0 % Mean Corpuscular Volume 77 fL Mean Corpuscular Hemoglobin 24 pg Mean Corpuscular Hemoglobin Concent 31 g/dL Red Cell Distribution Width 18.6 % Platelet Count 319 x10^3/uL Neutrophils (%) (Auto) 83 % Lymphocytes (%) (Auto) 7 % Monocytes (%) (Auto) 7 % Eosinophils (%) (Auto) 2 % Basophils (%) (Auto) 1 % Neutrophils # (Auto) 8.1 x10^3/uL Lymphocytes # (Auto) 0.6 x10^3/uL Monocytes # (Auto) 0.7 x10^3/uL Eosinophils # (Auto) 0.2 x10^3/uL Basophils # (Auto) 0.0 x10^3/uL Sodium Level 142 mmol/L Potassium Level 3.7 mmol/L Chloride Level 105 mmol/L Carbon Dioxide Level 30 mmol/L Anion Gap 7 Blood Urea Nitrogen 25 mg/dL Creatinine 1.3 mg/dL Estimated GFR (Cockcroft-Gault) 39.8 Glucose Level 186 mg/dL Calcium Level 8.6 mg/dL Phosphorus Level 3.8 mg/dL Magnesium Level 2.0 mg/dL Glucose (Fingerstick) 168 mg/dL PE: GEN: NAD LUNGS: diminished HEART: RRR ABD: S/ND/NT NEURO/PSYCH: A & O 3 A/P: Chronic JOHNNIE - thought in past 2/2 SB AVMs -EGD 03/2018: LA grade A reflux esophagitis, normal stomach, and normal duodenum - path negative for H. pylori or celiac disease. -colonoscopy 11/2018: s/p sigmoid resection w/ narrow but adequate anastomosis, diverticulosis, internal hemorrhoids -past SBCE in [place]? COVID-negative -- PO PPI since eating. Miralax is ordered. Agree w/ plans to f/u w/ hematology re: iron infusions. Justicifation of Admission Dx: Justifications for Admission: Justification of Admission Dx: Yes MELO STOCKTON Jun 09, 2020 11:20
[2020-06-09] MEDS: POLYETHYLENE GLYCOL 3350 17 GM PACKET. PO SCH (12:39)
--- NOTE | 2020-06-09 13:53 | NUR ---
SW following. Reviewed chart and spoke with RN. Pt from home with dtr Lucero. Spoke with pt who stated she plans to return home at discharge. Pt on 2l 02. Pt does not have 02 at home. Pt COVID pending. PT/OT has been ordered for evaluation. Pt on oral medications. SW attempted to call pt's dtrFAISAL. SW to continue following.
--- NOTE | 2020-06-09 15:16 | PDOC ---
PULMONARY PROGRESS NOTES Subjective Patient with no new symptoms of increasing shortness of breath no chest pain no pressure nausea vomiting diarrhea Vitals Vital Signs Date Time Temp Pulse Resp B/P (MAP) Pulse Ox O2 Delivery O2 Flow Rate FiO2 06/09/20 11:09 98.7 84 24 127/86 (100) 94 Nasal Cannula 2.0 98.7 ROS: No Nausea, No Chest Pain General: Alert, No acute distress Lungs: Clear Cardiovascular: S1, S2 Abdomen: Soft Neuro Exam: Alert Extremities: Other (edema) Skin: Warm Labs Laboratory Tests Test 06/07/20 16:37 06/07/20 16:48 06/07/20 21:22 06/08/20 05:00 White Blood Count 8.1 x10^3/uL (4.0-11.0) 7.5 x10^3/uL (4.0-11.0) Red Blood Count 3.25 x10^6/uL (3.50-5.40) 3.07 x10^6/uL (3.50-5.40) Hemoglobin 7.9 g/dL (12.0-15.5) 7.3 g/dL (12.0-15.5) Hematocrit 24.6 % (36.0-47.0) 23.2 % (36.0-47.0) Mean Corpuscular Volume 76 fL (79-100) 76 fL (79-100) Mean Corpuscular Hemoglobin 24 pg (25-35) 24 pg (25-35) Mean Corpuscular Hemoglobin Concent 32 g/dL (31-37) 31 g/dL (31-37) Red Cell Distribution Width 18.1 % (11.5-14.5) 18.4 % (11.5-14.5) Platelet Count 328 x10^3/uL (140-400) 296 x10^3/uL (140-400) Glucose (Fingerstick) 150 mg/dL (70-99) 141 mg/dL (70-99) Neutrophils (%) (Auto) 71 % (31-73) Lymphocytes (%) (Auto) 16 % (24-48) Monocytes (%) (Auto) 10 % (0-9) Eosinophils (%) (Auto) 3 % (0-3) Basophils (%) (Auto) 0 % (0-3) Neutrophils # (Auto) 5.3 x10^3/uL (1.8-7.7) Lymphocytes # (Auto) 1.2 x10^3/uL (1.0-4.8) Monocytes # (Auto) 0.7 x10^3/uL (0.0-1.1) Eosinophils # (Auto) 0.2 x10^3/uL (0.0-0.7) Basophils # (Auto) 0.0 x10^3/uL (0.0-0.2) Sodium Level 139 mmol/L (136-145) Potassium Level 3.8 mmol/L (3.5-5.1) Chloride Level 102 mmol/L (98-107) Carbon Dioxide Level 30 mmol/L (21-32) Anion Gap 7 (6-14) Blood Urea Nitrogen 31 mg/dL (-20) Creatinine 1.3 mg/dL (0.6-1.0) Estimated GFR (Cockcroft-Gault) 39.8 Glucose Level 137 mg/dL (70-99) Calcium Level 8.9 mg/dL (8.5-10.1) Phosphorus Level 3.7 mg/dL (2.6-4.7) Magnesium Level 2.2 mg/dL (1.8-2.4) Test 06/08/20 07:55 06/08/20 11:02 06/08/20 16:02 06/08/20 20:02 Glucose (Fingerstick) 152 mg/dL (70-99) 240 mg/dL (70-99) 93 mg/dL (70-99) 177 mg/dL (70-99) Test 06/08/20 21:12 06/09/20 07:29 06/09/20 08:30 06/09/20 10:38 White Blood Count 9.6 x10^3/uL (4.0-11.0) 9.7 x10^3/uL (4.0-11.0) Red Blood Count 3.42 x10^6/uL (3.50-5.40) 3.13 x10^6/uL (3.50-5.40) Hemoglobin 8.0 g/dL (12.0-15.5) 7.4 g/dL (12.0-15.5) Hematocrit 26.1 % (36.0-47.0) 24.0 % (36.0-47.0) Mean Corpuscular Volume 76 fL (79-100) 77 fL (79-100) Mean Corpuscular Hemoglobin 24 pg (25-35) 24 pg (25-35) Mean Corpuscular Hemoglobin Concent 31 g/dL (31-37) 31 g/dL (31-37) Red Cell Distribution Width 18.5 % (11.5-14.5) 18.6 % (11.5-14.5) Platelet Count 331 x10^3/uL (140-400) 319 x10^3/uL (140-400) Glucose (Fingerstick) 123 mg/dL (70-99) 168 mg/dL (70-99) Neutrophils (%) (Auto) 83 % (31-73) Lymphocytes (%) (Auto) 7 % (24-48) Monocytes (%) (Auto) 7 % (0-9) Eosinophils (%) (Auto) 2 % (0-3) Basophils (%) (Auto) 1 % (0-3) Neutrophils # (Auto) 8.1 x10^3/uL (1.8-7.7) Lymphocytes # (Auto) 0.6 x10^3/uL (1.0-4.8) Monocytes # (Auto) 0.7 x10^3/uL (0.0-1.1) Eosinophils # (Auto) 0.2 x10^3/uL (0.0-0.7) Basophils # (Auto) 0.0 x10^3/uL (0.0-0.2) Sodium Level 142 mmol/L (136-145) Potassium Level 3.7 mmol/L (3.5-5.1) Chloride Level 105 mmol/L (98-107) Carbon Dioxide Level 30 mmol/L (21-32) Anion Gap 7 (6-14) Blood Urea Nitrogen 25 mg/dL (7-20) Creatinine 1.3 mg/dL (0.6-1.0) Estimated GFR (Cockcroft-Gault) 39.8 Glucose Level 186 mg/dL (70-99) Calcium Level 8.6 mg/dL (8.5-10.1) Phosphorus Level 3.8 mg/dL (2.6-4.7) Magnesium Level 2.0 mg/dL (1.8-2.4) Iron Level 448 ug/dL (50-170) Total Iron Binding Capacity 508 ug/dL (250-450) Iron Saturation 88 % (15-34) Laboratory Tests Test 06/08/20 16:02 06/08/20 20:02 06/08/20 21:12 06/09/20 07:29 Glucose (Fingerstick) 93 mg/dL (70-99) 177 mg/dL (70-99) 123 mg/dL (70-99) White Blood Count 9.6 x10^3/uL (4.0-11.0) Red Blood Count 3.42 x10^6/uL (3.50-5.40) Hemoglobin 8.0 g/dL (12.0-15.5) Hematocrit 26.1 % (36.0-47.0) Mean Corpuscular Volume 76 fL (79-100) Mean Corpuscular Hemoglobin 24 pg (25-35) Mean Corpuscular Hemoglobin Concent 31 g/dL (31-37) Red Cell Distribution Width 18.5 % (11.5-14.5) Platelet Count 331 x10^3/uL (140-400) Test 06/09/20 08:30 06/09/20 10:38 White Blood Count 9.7 x10^3/uL (4.0-11.0) Red Blood Count 3.13 x10^6/uL (3.50-5.40) Hemoglobin 7.4 g/dL (12.0-15.5) Hematocrit 24.0 % (36.0-47.0) Mean Corpuscular Volume 77 fL (79-100) Mean Corpuscular Hemoglobin 24 pg (25-35) Mean Corpuscular Hemoglobin Concent 31 g/dL (31-37) Red Cell Distribution Width 18.6 % (11.5-14.5) Platelet Count 319 x10^3/uL (140-400) Neutrophils (%) (Auto) 83 % (31-73) Lymphocytes (%) (Auto) 7 % (24-48) Monocytes (%) (Auto) 7 % (0-9) Eosinophils (%) (Auto) 2 % (0-3) Basophils (%) (Auto) 1 % (0-3) Neutrophils # (Auto) 8.1 x10^3/uL (1.8-7.7) Lymphocytes # (Auto) 0.6 x10^3/uL (1.0-4.8) Monocytes # (Auto) 0.7 x10^3/uL (0.0-1.1) Eosinophils # (Auto) 0.2 x10^3/uL (0.0-0.7) Basophils # (Auto) 0.0 x10^3/uL (0.0-0.2) Sodium Level 142 mmol/L (136-145) Potassium Level 3.7 mmol/L (3.5-5.1) Chloride Level 105 mmol/L (98-107) Carbon Dioxide Level 30 mmol/L (21-32) Anion Gap 7 (6-14) Blood Urea Nitrogen 25 mg/dL (7-20) Creatinine 1.3 mg/dL (0.6-1.0) Estimated GFR (Cockcroft-Gault) 39.8 Glucose Level 186 mg/dL (70-99) Calcium Level 8.6 mg/dL (8.5-10.1) Phosphorus Level 3.8 mg/dL (2.6-4.7) Magnesium Level 2.0 mg/dL (1.8-2.4) Iron Level 448 ug/dL (50-170) Total Iron Binding Capacity 508 ug/dL (250-450) Iron Saturation 88 % (15-34) Glucose (Fingerstick) 168 mg/dL (70-99) Medications Active Scripts Medications Dose Route/Sig Max Daily Dose Days Date Category Vitamin B-12 (Cyanocobalamin (Vitamin B-12)) 1,000 Mcg Tablet 1,000 Mcg PO DAILY 01/26/20 Reported One-Daily Multi-Vitamin (Multivitamin) 1 Each Tablet 1 Tab PO DAILY 30 01/26/20 Reported Vitamin D3 (Cholecalciferol (Vitamin D3)) 2,000 Unit Tab.chew 1 Tab PO DAILY 30 01/26/20 Reported Proair Hfa (Albuterol Sulfate) 8.5 Gm Hfa.aer.ad 2.5 Mg NEB RTQID MDD 1 12/15/18 Rx Metoprolol Tartrate 25 Mg Tablet 12.5 Mg PO BID MDD 1 12/15/18 Rx Bumetanide 2 Mg Tablet 2 Mg PO DAILY 2/15/18 Reported Fish Oil 1,000 mg Softgel ([place]il[place]-3S/Dha/Epa/Fish Oil) 1 Each Capsule 1 Each PO BID 01/05/18 Reported Losartan Potassium 50 Mg Tablet 50 Mg PO DAILY 01/05/18 Reported Klor-Con M10 (Potassium Chloride) 10 Meq Tab.er.prt 1 Tab PO BID 01/05/18 Reported Digoxin 125 Mcg Tablet 1 Tab PO DAILY 01/05/18 Reported Symbicort 160-4.5 Mcg Inhaler (Budesonide/Formoterol Fumarate) 10.2 Gm Hfa.aer.ad 2 Puff IH BID 01/05/18 Reported Impression . IMPRESSION: 1. Dyspnea, multifactorial in etiology. anemia, chronic obstructive pulmonary disease, and chronic heart failure. 2. Abnormal chest x-ray, I suspect it is secondary to congestive heart failure. 3. Chronic kidney disease. 4. Anemia with gastrointestinal bleeding. 5. Obstructive sleep apnea-hypopnea syndrome. 6. Chronic obstructive pulmonary disease. 7. Her previous echocardiogram showed a [id number] mitral regurgitation and [id number] aortic regurgitation. 9. Diabetes mellitus. 10. Atrial fibrillation. Plan . Monitor H&H O2 sat above 92% IV fluids, monitor for CHF CPAP Above discussed with MAINE MEI MD Jun 09, 2020 15:16
[2020-06-09 15:26] VITALS: BP 118/70
[2020-06-09] MEDS ORDERED: IV RINGERS,LACTATED 1000ML 1,000 ML IV ONE (15:30)
[2020-06-09] MEDS: PSYLLIUM HUSK (SUGAR FREE) 1 PKT PACKET PO SCH (17:32)
[2020-06-09 18:24] LABS: DIG 0.9 ng/mL (0.9-2.0)
[2020-06-09 19:00] VITALS: BP 156/73
[2020-06-09 23:00] VITALS: BP 112/44
[2020-06-10] VITALS (14 sets, daily range): BP systolic 103–166; BP diastolic 36–97
[2020-06-10 03:45] LABS: BASE EXCESS ABG 1 mmol/L (-3-3); HCO3 ABG 28 mmol/L (21-28); PO2 ABG 107 mmHg (65-108); SAT O2 ABG 97 % (92-99)
[2020-06-10 03:46] LABS: FIO2 ABG 32; PCO2 ABG 61 mmHg (35-46)
--- NOTE | 2020-06-10 04:00 | NUR ---
Called RT to room, patient sating 70-80% after getting up to BSC and taking a while to recover. Patient confused and breathing shallow. Patient refusing and unable to tolerate CPAP. Blood gases taken with abnormal results called to Dr. Wilson. Patient o2 turned down to 1liter. No new orders given. Will continue to monitor patient.
[2020-06-10 04:17] LABS: BASO % 0 % (0-3); EOS % 0 % (0-3); HEMATOCRIT 24.3 % (36.0-47.0); HEMOGLOBIN 7.2 g/dL (12.0-15.5); LYMPH # 0.7 x10^3/uL (1.0-4.8); LYMPH % 6 % (24-48); MEAN CORPUSCULAR HEMOGLOBIN 23 pg (25-35); MEAN CORPUSCULAR HGB CONC 30 g/dL (31-37); MEAN CORPUSCULAR VOLUME 78 fL (79-100); MONO # 0.8 x10^3/uL (0.0-1.1); MONO % 7 % (0-9); NEUT # 10.3 x10^3/uL (1.8-7.7); NEUT % 87 % (31-73); PLATELET COUNT 334 x10^3/uL (140-400); RED BLOOD COUNT 3.13 x10^6/uL (3.50-5.40); WHITE BLOOD COUNT 11.9 x10^3/uL (4.0-11.0)
[2020-06-10 04:42] LABS: CALCIUM 8.8 mg/dL (8.5-10.1); CREATININE 1.2 mg/dL (0.6-1.0); GFR 43.7; POTASSIUM 3.8 mmol/L (3.5-5.1)
[2020-06-10 05:19] LABS: % BANDS 1 % (0-9); % LYMPHS 6 % (24-48); % MONOS 1 % (0-10); % SEGS 92 % (35-66); ANISOCYTOSIS SLIGHT; HYPOCHROMIA SLIGHT; PLT ESTIMATE ADEQUATE (ADEQUATE); POLYCHROMASIA SLIGHT; TOXIC GRANULATION SLIGHT
[2020-06-10] MEDS: PANTOPRAZOLE 40 MG TABLET.DR. PO SCH (07:30)
[2020-06-10] MEDS: INSULIN LISPRO 300 UNITS/3 ML VIAL. SQ SCH ×3 (08:00→17:00)
[2020-06-10] MEDS: LOSARTAN POTASSIUM 50 MG TABLET. PO SCH (09:00)
[2020-06-10] MEDS: CYANOCOBALAMIN (VITAMIN B-12) 1,000 MCG TABLET. PO SCH (09:00)
[2020-06-10] MEDS: DIGOXIN 125 MCG TABLET. PO SCH (09:00)
[2020-06-10] MEDS: METOPROLOL TART IMMED RELEASE 25 MG TABLET. PO SCH ×2 (09:00→21:31)
[2020-06-10] MEDS: POLYETHYLENE GLYCOL 3350 17 GM PACKET. PO SCH (09:00)
--- NOTE | 2020-06-10 12:01 | PDOC ---
Objective: Objective: Reviewed chart - resp issues, confusion overnight. Vital Signs: Vital Signs Date Time Temp Pulse Resp B/P (MAP) Pulse Ox O2 Delivery O2 Flow Rate FiO2 06/10/20 11:22 91 BiPAP/CPAP 06/10/20 11:07 97.8 80 17 130/63 (85) 3.0 97.8 Labs: Laboratory Tests Test 06/09/20 16:16 06/09/20 17:00 06/09/20 20:38 06/10/20 03:00 Glucose (Fingerstick) 149 mg/dL 151 mg/dL Hemoglobin 7.1 g/dL 7.2 g/dL Digoxin Level 0.9 ng/mL Digoxin Last Dose Date Unk Digoxin Last Dose Time Unk White Blood Count 11.9 x10^3/uL Red Blood Count 3.13 x10^6/uL Hematocrit 24.3 % Mean Corpuscular Volume 78 fL Mean Corpuscular Hemoglobin 23 pg Mean Corpuscular Hemoglobin Concent 30 g/dL Red Cell Distribution Width 19.0 % Platelet Count 334 x10^3/uL Neutrophils (%) (Auto) 87 % Lymphocytes (%) (Auto) 6 % Monocytes (%) (Auto) 7 % Eosinophils (%) (Auto) 0 % Basophils (%) (Auto) 0 % Neutrophils # (Auto) 10.3 x10^3/uL Lymphocytes # (Auto) 0.7 x10^3/uL Monocytes # (Auto) 0.8 x10^3/uL Eosinophils # (Auto) 0.0 x10^3/uL Basophils # (Auto) 0.0 x10^3/uL Segmented Neutrophils % 92 % Band Neutrophils % 1 % Lymphocytes % 6 % Monocytes % 1 % Toxic Granulation Slight Platelet Estimate Adequate Polychromasia Slight Hypochromasia Slight Basophilic Stippling Present Anisocytosis Slight Sodium Level 142 mmol/L Potassium Level 3.8 mmol/L Chloride Level 106 mmol/L Carbon Dioxide Level 28 mmol/L Anion Gap 8 Blood Urea Nitrogen 26 mg/dL Creatinine 1.2 mg/dL Estimated GFR (Cockcroft-Gault) 43.7 Glucose Level 165 mg/dL Calcium Level 8.8 mg/dL Test 06/10/20 03:30 06/10/20 07:40 06/10/20 11:26 O2 Saturation 97 % Arterial Blood pH 7.28 Arterial Blood pCO2 at Patient Temp 61 mmHg Arterial Blood pO2 at Patient Temp 107 mmHg Arterial Blood HCO3 28 mmol/L Arterial Blood Base Excess 1 mmol/L FiO2 32 Glucose (Fingerstick) 175 mg/dL 129 mg/dL PE: GEN: up in chair, RT present LUNGS: BiPAP HEART: RRR ABD: S/ND/NT NEURO/PSYCH: A & O 3 A/P: Chronic JOHNNIE - probably related to SB AVMs - s/p IV iron Resp failure COVID-negative -- Continue same per GI - previously discussed need for more frequent iron infusions, has plans to f/u w/ hematology as outpt. Transfuse as needed. Justicifation of Admission Dx: Justifications for Admission: Justification of Admission Dx: Yes MELO STOCKTON Jun 10, 2020 12:01
[2020-06-10 12:22] LABS: BASE EXCESS ABG -2 mmol/L (-3-3); HCO3 ABG 26 mmol/L (21-28); PO2 ABG 76 mmHg (65-108); SAT O2 ABG 92 % (92-99)
[2020-06-10 12:27] LABS: PCO2 ABG 61 mmHg (35-46)
[2020-06-10 12:28] LABS: FIO2 ABG BIPAP 35%
--- NOTE | 2020-06-10 12:56 | PDOC ---
PROGRESS NOTES Chief Complaint Chief Complaint Acute symptomatic microcytic anemia due to possible GI bleed Iron deficiency anemia Acute renal failure due to vasomotor nephropathy A-Fib Anemia Arrhythmia Asthma Chronic systolic CHF last echo done 1 year ago with EF of 55% COPD Diabetes-Type II Diverticulitis Hypertension Renal Failure HERIBERTO on CPAP Status post 1 unit PRBC Continue to trend H&H IV Venofer today and possibly tomorrow before discharge Continue telemonitoring Pulmonary consult for abnormal chest x-ray and HERIBERTO management We will obtain small bowel series as an outpatient per GI Insulin sliding scale Restart home atrial fibrillation medications Avoid nephrotoxic agents. Consider nephrology consult if renal function worsens SCD for DVT prophylaxis Cardiac diet Full code Discussed with RN and SW Dispo pending COVID test History of Present Illness History of Present Illness Ms Christensen is a 74 yo F with past medical history of atrial fibrillation, iron deficiency anemia, asthma, CHF, COPD, HERIBERTO on CPAP, diabetes who presents with weakness and shortness of breath over the past 2 weeks. She also does state some generalized weakness and fatigue. She can hardly make it across her room in the department without having to stop and catch her breath. Patient was scheduled for an iron transfusion on Tuesday but her PCP does not think that she can wait that long for that. Upon further questioning, patient states that she has had GI bleeding in the past and a work-up was in the works and she was being seen by Dr. John with GI. Denies chest pain, nausea, vomiting, abdominal pain, diarrhea, blood in her stools, dark stools, dizziness, syncope, headache, vision changes, focal weakness. 06/09: Hb stable at 7.4. She notes she is required oxygen at night, she has not brought her in her home CPAP. She still feels very weak, became hypoxic after therapy, placed on BIPAP,stable Afebrile. Been on BiPAP since 3 AM. PCO2 61 with pH 7.28. Hb stable at 7.2, WBC 11.8 today. No chest pain or abdominal pain. Plan: Cont BIPAP, needs better ventilation with CO2 retention ICU transfer was appropriate, have discussed with pulmonology Cc time 38 minutes Vitals Vitals Vital Signs Date Time Temp Pulse Resp B/P (MAP) Pulse Ox O2 Delivery O2 Flow Rate FiO2 06/10/20 11:22 91 BiPAP/CPAP 06/10/20 11:07 97.8 80 17 130/63 (85) 3.0 97.8 Physical Exam General: Alert, Cooperative, severe distress Heart: Regular rate, Normal S1, Normal S2 Lungs: Crackles Abdomen: Normal bowel sounds, Soft Extremities: No clubbing, No cyanosis Skin: No rashes, No breakdown Labs LABS Laboratory Tests Test 06/09/20 16:16 06/09/20 17:00 06/09/20 20:38 06/10/20 03:00 Glucose (Fingerstick) 149 mg/dL (70-99) 151 mg/dL (70-99) Hemoglobin 7.1 g/dL (12.0-15.5) 7.2 g/dL (12.0-15.5) Digoxin Level 0.9 ng/mL (0.9-2.0) Digoxin Last Dose Date Unk Digoxin Last Dose Time Unk White Blood Count 11.9 x10^3/uL (4.0-11.0) Red Blood Count 3.13 x10^6/uL (3.50-5.40) Hematocrit 24.3 % (36.0-47.0) Mean Corpuscular Volume 78 fL (79-100) Mean Corpuscular Hemoglobin 23 pg (25-35) Mean Corpuscular Hemoglobin Concent 30 g/dL (31-37) Red Cell Distribution Width 19.0 % (11.5-14.5) Platelet Count 334 x10^3/uL (140-400) Neutrophils (%) (Auto) 87 % (31-73) Lymphocytes (%) (Auto) 6 % (24-48) Monocytes (%) (Auto) 7 % (0-9) Eosinophils (%) (Auto) 0 % (0-3) Basophils (%) (Auto) 0 % (0-3) Neutrophils # (Auto) 10.3 x10^3/uL (1.8-7.7) Lymphocytes # (Auto) 0.7 x10^3/uL (1.0-4.8) Monocytes # (Auto) 0.8 x10^3/uL (0.0-1.1) Eosinophils # (Auto) 0.0 x10^3/uL (0.0-0.7) Basophils # (Auto) 0.0 x10^3/uL (0.0-0.2) Segmented Neutrophils % 92 % (35-66) Band Neutrophils % 1 % (0-9) Lymphocytes % 6 % (24-48) Monocytes % 1 % (0-10) Toxic Granulation Slight Platelet Estimate Adequate (ADEQUATE) Polychromasia Slight Hypochromasia Slight Basophilic Stippling Present Anisocytosis Slight Sodium Level 142 mmol/L (136-145) Potassium Level 3.8 mmol/L (3.5-5.1) Chloride Level 106 mmol/L (98-107) Carbon Dioxide Level 28 mmol/L (21-32) Anion Gap 8 (6-14) Blood Urea Nitrogen 26 mg/dL (7-20) Creatinine 1.2 mg/dL (0.6-1.0) Estimated GFR (Cockcroft-Gault) 43.7 Glucose Level 165 mg/dL (70-99) Calcium Level 8.8 mg/dL (8.5-10.1) Test 06/10/20 03:30 06/10/20 07:40 06/10/20 11:25 06/10/20 11:26 O2 Saturation 97 % (92-99) 92 % (92-99) Arterial Blood pH 7.28 (7.35-7.45) 7.25 (7.35-7.45) Arterial Blood pCO2 at Patient Temp 61 mmHg (35-46) 61 mmHg (35-46) Arterial Blood pO2 at Patient Temp 107 mmHg (65-108) 76 mmHg (65-108) Arterial Blood HCO3 28 mmol/L (21-28) 26 mmol/L (21-28) Arterial Blood Base Excess 1 mmol/L (-3-3) -2 mmol/L (-3-3) FiO2 32 Bipap 35% Glucose (Fingerstick) 175 mg/dL (70-99) 129 mg/dL (70-99) Assessment and Plan Assessmemt and Plan Problems Medical Problems: (1) Low hemoglobin Status: Acute (2) Person under investigation for COVID-19 Status: Acute Comment Review of Relevant I have reviewed the following items halle (where applicable) has been applied. Labs Laboratory Tests Test 06/08/20 16:02 06/08/20 20:02 06/08/20 21:12 06/09/20 07:29 Glucose (Fingerstick) 93 mg/dL (70-99) 177 mg/dL (70-99) 123 mg/dL (70-99) White Blood Count 9.6 x10^3/uL (4.0-11.0) Red Blood Count 3.42 x10^6/uL (3.50-5.40) Hemoglobin 8.0 g/dL (12.0-15.5) Hematocrit 26.1 % (36.0-47.0) Mean Corpuscular Volume 76 fL (79-100) Mean Corpuscular Hemoglobin 24 pg (25-35) Mean Corpuscular Hemoglobin Concent 31 g/dL (31-37) Red Cell Distribution Width 18.5 % (11.5-14.5) Platelet Count 331 x10^3/uL (140-400) Test 06/09/20 08:30 06/09/20 10:38 06/09/20 16:16 06/09/20 17:00 White Blood Count 9.7 x10^3/uL (4.0-11.0) Red Blood Count 3.13 x10^6/uL (3.50-5.40) Hemoglobin 7.4 g/dL (12.0-15.5) 7.1 g/dL (12.0-15.5) Hematocrit 24.0 % (36.0-47.0) Mean Corpuscular Volume 77 fL (79-100) Mean Corpuscular Hemoglobin 24 pg (25-35) Mean Corpuscular Hemoglobin Concent 31 g/dL (31-37) Red Cell Distribution Width 18.6 % (11.5-14.5) Platelet Count 319 x10^3/uL (140-400) Neutrophils (%) (Auto) 83 % (31-73) Lymphocytes (%) (Auto) 7 % (24-48) Monocytes (%) (Auto) 7 % (0-9) Eosinophils (%) (Auto) 2 % (0-3) Basophils (%) (Auto) 1 % (0-3) Neutrophils # (Auto) 8.1 x10^3/uL (1.8-7.7) Lymphocytes # (Auto) 0.6 x10^3/uL (1.0-4.8) Monocytes # (Auto) 0.7 x10^3/uL (0.0-1.1) Eosinophils # (Auto) 0.2 x10^3/uL (0.0-0.7) Basophils # (Auto) 0.0 x10^3/uL (0.0-0.2) Sodium Level 142 mmol/L (136-145) Potassium Level 3.7 mmol/L (3.5-5.1) Chloride Level 105 mmol/L (98-107) Carbon Dioxide Level 30 mmol/L (21-32) Anion Gap 7 (6-14) Blood Urea Nitrogen 25 mg/dL (7-20) Creatinine 1.3 mg/dL (0.6-1.0) Estimated GFR (Cockcroft-Gault) 39.8 Glucose Level 186 mg/dL (70-99) Calcium Level 8.6 mg/dL (8.5-10.1) Phosphorus Level 3.8 mg/dL (2.6-4.7) Magnesium Level 2.0 mg/dL (1.8-2.4) Iron Level 448 ug/dL (50-170) Total Iron Binding Capacity 508 ug/dL (250-450) Iron Saturation 88 % (15-34) Glucose (Fingerstick) 168 mg/dL (70-99) 149 mg/dL (70-99) Digoxin Level 0.9 ng/mL (0.9-2.0) Digoxin Last Dose Date Unk Digoxin Last Dose Time Unk Test 06/09/20 20:38 06/10/20 03:00 06/10/20 03:30 06/10/20 07:40 Glucose (Fingerstick) 151 mg/dL (70-99) 175 mg/dL (70-99) White Blood Count 11.9 x10^3/uL (4.0-11.0) Red Blood Count 3.13 x10^6/uL (3.50-5.40) Hemoglobin 7.2 g/dL (12.0-15.5) Hematocrit 24.3 % (36.0-47.0) Mean Corpuscular Volume 78 fL (79-100) Mean Corpuscular Hemoglobin 23 pg (25-35) Mean Corpuscular Hemoglobin Concent 30 g/dL (31-37) Red Cell Distribution Width 19.0 % (11.5-14.5) Platelet Count 334 x10^3/uL (140-400) Neutrophils (%) (Auto) 87 % (31-73) Lymphocytes (%) (Auto) 6 % (24-48) Monocytes (%) (Auto) 7 % (0-9) Eosinophils (%) (Auto) 0 % (0-3) Basophils (%) (Auto) 0 % (0-3) Neutrophils # (Auto) 10.3 x10^3/uL (1.8-7.7) Lymphocytes # (Auto) 0.7 x10^3/uL (1.0-4.8) Monocytes # (Auto) 0.8 x10^3/uL (0.0-1.1) Eosinophils # (Auto) 0.0 x10^3/uL (0.0-0.7) Basophils # (Auto) 0.0 x10^3/uL (0.0-0.2) Segmented Neutrophils % 92 % (35-66) Band Neutrophils % 1 % (0-9) Lymphocytes % 6 % (24-48) Monocytes % 1 % (0-10) Toxic Granulation Slight Platelet Estimate Adequate (ADEQUATE) Polychromasia Slight Hypochromasia Slight Basophilic Stippling Present Anisocytosis Slight Sodium Level 142 mmol/L (136-145) Potassium Level 3.8 mmol/L (3.5-5.1) Chloride Level 106 mmol/L (98-107) Carbon Dioxide Level 28 mmol/L (21-32) Anion Gap 8 (6-14) Blood Urea Nitrogen 26 mg/dL (7-20) Creatinine 1.2 mg/dL (0.6-1.0) Estimated GFR (Cockcroft-Gault) 43.7 Glucose Level 165 mg/dL (70-99) Calcium Level 8.8 mg/dL (8.5-10.1) O2 Saturation 97 % (92-99) Arterial Blood pH 7.28 (7.35-7.45) Arterial Blood pCO2 at Patient Temp 61 mmHg (35-46) Arterial Blood pO2 at Patient Temp 107 mmHg (65-108) Arterial Blood HCO3 28 mmol/L (21-28) Arterial Blood Base Excess 1 mmol/L (-3-3) FiO2 32 Test 06/10/20 11:25 06/10/20 11:26 O2 Saturation 92 % (92-99) Arterial Blood pH 7.25 (7.35-7.45) Arterial Blood pCO2 at Patient Temp 61 mmHg (35-46) Arterial Blood pO2 at Patient Temp 76 mmHg (65-108) Arterial Blood HCO3 26 mmol/L (21-28) Arterial Blood Base Excess -2 mmol/L (-3-3) FiO2 Bipap 35% Glucose (Fingerstick) 129 mg/dL (70-99) Laboratory Tests Test 06/09/20 16:16 06/09/20 17:00 06/09/20 20:38 06/10/20 03:00 Glucose (Fingerstick) 149 mg/dL (70-99) 151 mg/dL (70-99) Hemoglobin 7.1 g/dL (12.0-15.5) 7.2 g/dL (12.0-15.5) Digoxin Level 0.9 ng/mL (0.9-2.0) Digoxin Last Dose Date Unk Digoxin Last Dose Time Unk White Blood Count 11.9 x10^3/uL (4.0-11.0) Red Blood Count 3.13 x10^6/uL (3.50-5.40) Hematocrit 24.3 % (36.0-47.0) Mean Corpuscular Volume 78 fL (79-100) Mean Corpuscular Hemoglobin 23 pg (25-35) Mean Corpuscular Hemoglobin Concent 30 g/dL (31-37) Red Cell Distribution Width 19.0 % (11.5-14.5) Platelet Count 334 x10^3/uL (140-400) Neutrophils (%) (Auto) 87 % (31-73) Lymphocytes (%) (Auto) 6 % (24-48) Monocytes (%) (Auto) 7 % (0-9) Eosinophils (%) (Auto) 0 % (0-3) Basophils (%) (Auto) 0 % (0-3) Neutrophils # (Auto) 10.3 x10^3/uL (1.8-7.7) Lymphocytes # (Auto) 0.7 x10^3/uL (1.0-4.8) Monocytes # (Auto) 0.8 x10^3/uL (0.0-1.1) Eosinophils # (Auto) 0.0 x10^3/uL (0.0-0.7) Basophils # (Auto) 0.0 x10^3/uL (0.0-0.2) Segmented Neutrophils % 92 % (35-66) Band Neutrophils % 1 % (0-9) Lymphocytes % 6 % (24-48) Monocytes % 1 % (0-10) Toxic Granulation Slight Platelet Estimate Adequate (ADEQUATE) Polychromasia Slight Hypochromasia Slight Basophilic Stippling Present Anisocytosis Slight Sodium Level 142 mmol/L (136-145) Potassium Level 3.8 mmol/L (3.5-5.1) Chloride Level 106 mmol/L (98-107) Carbon Dioxide Level 28 mmol/L (21-32) Anion Gap 8 (6-14) Blood Urea Nitrogen 26 mg/dL (7-20) Creatinine 1.2 mg/dL (0.6-1.0) Estimated GFR (Cockcroft-Gault) 43.7 Glucose Level 165 mg/dL (70-99) Calcium Level 8.8 mg/dL (8.5-10.1) Test 06/10/20 03:30 06/10/20 07:40 06/10/20 11:25 06/10/20 11:26 O2 Saturation 97 % (92-99) 92 % (92-99) Arterial Blood pH 7.28 (7.35-7.45) 7.25 (7.35-7.45) Arterial Blood pCO2 at Patient Temp 61 mmHg (35-46) 61 mmHg (35-46) Arterial Blood pO2 at Patient Temp 107 mmHg (65-108) 76 mmHg (65-108) Arterial Blood HCO3 28 mmol/L (21-28) 26 mmol/L (21-28) Arterial Blood Base Excess 1 mmol/L (-3-3) -2 mmol/L (-3-3) FiO2 32 Bipap 35% Glucose (Fingerstick) 175 mg/dL (70-99) 129 mg/dL (70-99) Medications Current Medications Ondansetron HCl (Zofran) 4 mg PRN Q8HRS PRN IV NAUSEA/VOMITING; Start 06/06/20 at 20:30; Stop 06/07/20 at 20:29; Status DC Fentanyl Citrate (Fentanyl 2ml Vial) 50 mcg PRN Q1HR PRN IV PAIN; Start 06/06/20 at 20:30; Stop 06/07/20 at 20:29; Status DC Acetaminophen (Tylenol) 650 mg PRN Q4HRS PRN PO FEVER > 100.3'F; Start 06/06/20 at 20:30; Stop 06/07/20 at 20:29; Status DC Albuterol/ Ipratropium (Duoneb) 3 ml RTQID NEB ; Start 06/07/20 at 08:00; Stop 06/07/20 at 12:24; Status DC Pantoprazole Sodium (PROTONIX VIAL for IV PUSH) 40 mg BID IVP Last administered on 06/08/20at 20:22; Start 06/07/20 at 09:00; Stop 06/09/20 at 11:21; Status DC Albuterol Sulfate (Ventolin Neb Soln) 2.5 mg RTQID NEB ; Start 06/07/20 at 12:15; Stop 06/07/20 at 12:24; Status DC Cyanocobalamin (Vitamin B-12) 1,000 mcg DAILY PO Last administered on 06/09/20at 09:50; Start 06/07/20 at 13:00 Digoxin (Lanoxin) 125 mcg DAILY PO Last administered on 06/09/20at 09:51; Start 06/07/20 at 13:00 Losartan Potassium (Cozaar) 50 mg DAILY PO Last administered on 06/09/20at 09:51; Start 06/07/20 at 13:00 Metoprolol Tartrate (Lopressor) 12.5 mg BID PO Last administered on 06/09/20at 21:04; Start 06/07/20 at 13:00 Albuterol Sulfate (Ventolin Neb Soln) 2.5 mg PRN QID PRN NEB SHORTNESS OF BREATH Last administered on 06/10/20at 02:47; Start 06/07/20 at 12:30 Albuterol/ Ipratropium (Duoneb) 3 ml PRN TID PRN NEB SHORTNESS OF BREATH; Start 06/07/20 at 12:30; Stop 06/08/20 at 12:29; Status UNV Insulin Human Lispro (HumaLOG) 0-5 UNITS TIDWMEALS SQ Last administered on 06/09/20at 12:45; Start 06/07/20 at 17:00 Dextrose (Dextrose 50%-Water Syringe) 12.5 gm PRN Q15MIN PRN IV SEE COMMENTS; Start 06/07/20 at 12:15 Acetaminophen (Tylenol) 650 mg PRN Q6HRS PRN PO MILD PAIN / TEMP > 100.3'F Last administered on 06/09/20at 21:48; Start 06/08/20 at 02:45 Iron Sucrose 400 mg/Sodium Chloride 270 ml @ 90 mls/hr 1X ONCE IV Last administered on 06/08/20at 09:41; Start 06/08/20 at 09:00; Stop 06/08/20 at 11:59; Status DC Polyethylene Glycol (miraLAX PACKET) 17 gm 1X ONCE PO ; Start 06/09/20 at 11:15; Stop 06/09/20 at 12:23; Status DC Polyethylene Glycol (miraLAX PACKET) 17 gm DAILY PO Last administered on 06/09/20at 12:39; Start 06/09/20 at 11:30 Pantoprazole Sodium (Protonix) 40 mg DAILYAC PO ; Start 06/10/20 at 07:30 Psyllium Hydrophilic Mucilloid (Metamucil Fiber Packet) 1 pkt QPM PO Last administered on 06/09/20at 17:32; Start 06/09/20 at 18:00 Ringer's Solution 1,000 ml @ 500 mls/hr 1X ONCE IV Last administered on 06/09/20at 15:30; Start 06/09/20 at 15:30; Stop 06/09/20 at 17:29; Status DC Active Scripts Active Proair Hfa (Albuterol Sulfate) 8.5 Gm Hfa.aer.ad 2.5 Mg NEB RTQID MDD 1 Metoprolol Tartrate 25 Mg Tablet 12.5 Mg PO BID MDD 1 Reported Vitamin B-12 (Cyanocobalamin (Vitamin B-12)) 1,000 Mcg Tablet 1,000 Mcg PO DAILY One-Daily Multi-Vitamin (Multivitamin) 1 Each Tablet 1 Tab PO DAILY 30 Days Vitamin D3 (Cholecalciferol (Vitamin D3)) 2,000 Unit Tab.chew 1 Tab PO DAILY 30 Days Bumetanide 2 Mg Tablet 2 Mg PO DAILY Fish Oil 1,000 mg Softgel ([place]-3S/Dha/Epa/Fish Oil) 1 Each Capsule 1 Each PO BID Losartan Potassium 50 Mg Tablet 50 Mg PO DAILY Klor-Con M10 (Potassium Chloride) 10 Meq Tab.er.prt 1 Tab PO BID Digoxin 125 Mcg Tablet 1 Tab PO DAILY Symbicort 160-4.5 Mcg Inhaler (Budesonide/Formoterol Fumarate) 10.2 Gm Hfa.aer.ad 2 Puff IH BID Vitals/I & O Vital Sign - Last 24 Hours 06/09/20 06/09/20 06/09/20 06/09/20 15:26 19:00 20:00 21:04 Temp 98.5 98.5 98.5 98.5 Pulse 89 92 92 Resp 22 18 B/P (MAP) 118/70 (86) 156/73 (100) 156/73 Pulse Ox 93 93 O2 Delivery Nasal Cannula Nasal Cannula Nasal Cannula O2 Flow Rate 2.0 2.0 2.0 06/09/20 06/10/20 06/10/20 06/10/20 23:00 02:47 03:00 06:10 Temp 98.1 97.3 98.1 97.3 Pulse 68 91 Resp 18 20 B/P (MAP) 112/44 (66) 103/56 (72) Pulse Ox 94 94 94 90 O2 Delivery Nasal Cannula Nasal Cannula Nasal Cannula BiPAP/CPAP O2 Flow Rate 2.0 3.0 3.0 06/10/20 06/10/20 06/10/20 06/10/20 07:11 07:19 11:07 11:22 Temp 97.8 97.8 97.8 97.8 Pulse 89 80 Resp 18 17 B/P (MAP) 122/36 (64) 130/63 (85) Pulse Ox 91 94 95 91 O2 Delivery BiPAP/CPAP Nasal Cannula Nasal Cannula BiPAP/CPAP O2 Flow Rate 3.0 3.0 Intake and Output 06/09/20 06/09/20 06/10/20 15:00 23:00 07:00 Intake Total 250 ml 950 ml Balance 250 ml 950 ml Justicifation of Admission Dx: Justifications for Admission: Justification of Admission Dx: Yes VIKY MOTA MD Jun 10, 2020 12:55
--- NOTE | 2020-06-10 13:24 | PDOC ---
PULMONARY PROGRESS NOTES Subjective Patient seen earlier this morning, on BiPAP, arousable with sternal rub Vitals Vital Signs Date Time Temp Pulse Resp B/P (MAP) Pulse Ox O2 Delivery O2 Flow Rate FiO2 06/10/20 12:56 100 BiPAP/CPAP 06/10/20 11:07 97.8 80 17 130/63 (85) 3.0 97.8 Comments Review of systems unobtainable secondary to patient's condition Lungs: Crackles Cardiovascular: S1, S2 Abdomen: Soft Extremities: Other (edema) Skin: Warm Labs Laboratory Tests Test 06/08/20 16:02 06/08/20 20:02 06/08/20 21:12 06/09/20 07:29 Glucose (Fingerstick) 93 mg/dL (70-99) 177 mg/dL (70-99) 123 mg/dL (70-99) White Blood Count 9.6 x10^3/uL (4.0-11.0) Red Blood Count 3.42 x10^6/uL (3.50-5.40) Hemoglobin 8.0 g/dL (12.0-15.5) Hematocrit 26.1 % (36.0-47.0) Mean Corpuscular Volume 76 fL (79-100) Mean Corpuscular Hemoglobin 24 pg (25-35) Mean Corpuscular Hemoglobin Concent 31 g/dL (31-37) Red Cell Distribution Width 18.5 % (11.5-14.5) Platelet Count 331 x10^3/uL (140-400) Test 06/09/20 08:30 06/09/20 10:38 06/09/20 16:16 06/09/20 17:00 White Blood Count 9.7 x10^3/uL (4.0-11.0) Red Blood Count 3.13 x10^6/uL (3.50-5.40) Hemoglobin 7.4 g/dL (12.0-15.5) 7.1 g/dL (12.0-15.5) Hematocrit 24.0 % (36.0-47.0) Mean Corpuscular Volume 77 fL (79-100) Mean Corpuscular Hemoglobin 24 pg (25-35) Mean Corpuscular Hemoglobin Concent 31 g/dL (31-37) Red Cell Distribution Width 18.6 % (11.5-14.5) Platelet Count 319 x10^3/uL (140-400) Neutrophils (%) (Auto) 83 % (31-73) Lymphocytes (%) (Auto) 7 % (24-48) Monocytes (%) (Auto) 7 % (0-9) Eosinophils (%) (Auto) 2 % (0-3) Basophils (%) (Auto) 1 % (0-3) Neutrophils # (Auto) 8.1 x10^3/uL (1.8-7.7) Lymphocytes # (Auto) 0.6 x10^3/uL (1.0-4.8) Monocytes # (Auto) 0.7 x10^3/uL (0.0-1.1) Eosinophils # (Auto) 0.2 x10^3/uL (0.0-0.7) Basophils # (Auto) 0.0 x10^3/uL (0.0-0.2) Sodium Level 142 mmol/L (136-145) Potassium Level 3.7 mmol/L (3.5-5.1) Chloride Level 105 mmol/L (98-107) Carbon Dioxide Level 30 mmol/L (21-32) Anion Gap 7 (6-14) Blood Urea Nitrogen 25 mg/dL (7-20) Creatinine 1.3 mg/dL (0.6-1.0) Estimated GFR (Cockcroft-Gault) 39.8 Glucose Level 186 mg/dL (70-99) Calcium Level 8.6 mg/dL (8.5-10.1) Phosphorus Level 3.8 mg/dL (2.6-4.7) Magnesium Level 2.0 mg/dL (1.8-2.4) Iron Level 448 ug/dL (50-170) Total Iron Binding Capacity 508 ug/dL (250-450) Iron Saturation 88 % (15-34) Glucose (Fingerstick) 168 mg/dL (70-99) 149 mg/dL (70-99) Digoxin Level 0.9 ng/mL (0.9-2.0) Digoxin Last Dose Date Unk Digoxin Last Dose Time Unk Test 06/09/20 20:38 06/10/20 03:00 06/10/20 03:30 06/10/20 07:40 Glucose (Fingerstick) 151 mg/dL (70-99) 175 mg/dL (70-99) White Blood Count 11.9 x10^3/uL (4.0-11.0) Red Blood Count 3.13 x10^6/uL (3.50-5.40) Hemoglobin 7.2 g/dL (12.0-15.5) Hematocrit 24.3 % (36.0-47.0) Mean Corpuscular Volume 78 fL (79-100) Mean Corpuscular Hemoglobin 23 pg (25-35) Mean Corpuscular Hemoglobin Concent 30 g/dL (31-37) Red Cell Distribution Width 19.0 % (11.5-14.5) Platelet Count 334 x10^3/uL (140-400) Neutrophils (%) (Auto) 87 % (31-73) Lymphocytes (%) (Auto) 6 % (24-48) Monocytes (%) (Auto) 7 % (0-9) Eosinophils (%) (Auto) 0 % (0-3) Basophils (%) (Auto) 0 % (0-3) Neutrophils # (Auto) 10.3 x10^3/uL (1.8-7.7) Lymphocytes # (Auto) 0.7 x10^3/uL (1.0-4.8) Monocytes # (Auto) 0.8 x10^3/uL (0.0-1.1) Eosinophils # (Auto) 0.0 x10^3/uL (0.0-0.7) Basophils # (Auto) 0.0 x10^3/uL (0.0-0.2) Segmented Neutrophils % 92 % (35-66) Band Neutrophils % 1 % (0-9) Lymphocytes % 6 % (24-48) Monocytes % 1 % (0-10) Toxic Granulation Slight Platelet Estimate Adequate (ADEQUATE) Polychromasia Slight Hypochromasia Slight Basophilic Stippling Present Anisocytosis Slight Sodium Level 142 mmol/L (136-145) Potassium Level 3.8 mmol/L (3.5-5.1) Chloride Level 106 mmol/L (98-107) Carbon Dioxide Level 28 mmol/L (21-32) Anion Gap 8 (6-14) Blood Urea Nitrogen 26 mg/dL (7-20) Creatinine 1.2 mg/dL (0.6-1.0) Estimated GFR (Cockcroft-Gault) 43.7 Glucose Level 165 mg/dL (70-99) Calcium Level 8.8 mg/dL (8.5-10.1) O2 Saturation 97 % (92-99) Arterial Blood pH 7.28 (7.35-7.45) Arterial Blood pCO2 at Patient Temp 61 mmHg (35-46) Arterial Blood pO2 at Patient Temp 107 mmHg (65-108) Arterial Blood HCO3 28 mmol/L (21-28) Arterial Blood Base Excess 1 mmol/L (-3-3) FiO2 32 Test 06/10/20 11:25 06/10/20 11:26 O2 Saturation 92 % (92-99) Arterial Blood pH 7.25 (7.35-7.45) Arterial Blood pCO2 at Patient Temp 61 mmHg (35-46) Arterial Blood pO2 at Patient Temp 76 mmHg (65-108) Arterial Blood HCO3 26 mmol/L (21-28) Arterial Blood Base Excess -2 mmol/L (-3-3) FiO2 Bipap 35% Glucose (Fingerstick) 129 mg/dL (70-99) Laboratory Tests Test 06/09/20 16:16 06/09/20 17:00 06/09/20 20:38 06/10/20 03:00 Glucose (Fingerstick) 149 mg/dL (70-99) 151 mg/dL (70-99) Hemoglobin 7.1 g/dL (12.0-15.5) 7.2 g/dL (12.0-15.5) Digoxin Level 0.9 ng/mL (0.9-2.0) Digoxin Last Dose Date Unk Digoxin Last Dose Time Unk White Blood Count 11.9 x10^3/uL (4.0-11.0) Red Blood Count 3.13 x10^6/uL (3.50-5.40) Hematocrit 24.3 % (36.0-47.0) Mean Corpuscular Volume 78 fL (79-100) Mean Corpuscular Hemoglobin 23 pg (25-35) Mean Corpuscular Hemoglobin Concent 30 g/dL (31-37) Red Cell Distribution Width 19.0 % (11.5-14.5) Platelet Count 334 x10^3/uL (140-400) Neutrophils (%) (Auto) 87 % (31-73) Lymphocytes (%) (Auto) 6 % (24-48) Monocytes (%) (Auto) 7 % (0-9) Eosinophils (%) (Auto) 0 % (0-3) Basophils (%) (Auto) 0 % (0-3) Neutrophils # (Auto) 10.3 x10^3/uL (1.8-7.7) Lymphocytes # (Auto) 0.7 x10^3/uL (1.0-4.8) Monocytes # (Auto) 0.8 x10^3/uL (0.0-1.1) Eosinophils # (Auto) 0.0 x10^3/uL (0.0-0.7) Basophils # (Auto) 0.0 x10^3/uL (0.0-0.2) Segmented Neutrophils % 92 % (35-66) Band Neutrophils % 1 % (0-9) Lymphocytes % 6 % (24-48) Monocytes % 1 % (0-10) Toxic Granulation Slight Platelet Estimate Adequate (ADEQUATE) Polychromasia Slight Hypochromasia Slight Basophilic Stippling Present Anisocytosis Slight Sodium Level 142 mmol/L (136-145) Potassium Level 3.8 mmol/L (3.5-5.1) Chloride Level 106 mmol/L (98-107) Carbon Dioxide Level 28 mmol/L (21-32) Anion Gap 8 (6-14) Blood Urea Nitrogen 26 mg/dL (7-20) Creatinine 1.2 mg/dL (0.6-1.0) Estimated GFR (Cockcroft-Gault) 43.7 Glucose Level 165 mg/dL (70-99) Calcium Level 8.8 mg/dL (8.5-10.1) Test 06/10/20 03:30 06/10/20 07:40 06/10/20 11:25 06/10/20 11:26 O2 Saturation 97 % (92-99) 92 % (92-99) Arterial Blood pH 7.28 (7.35-7.45) 7.25 (7.35-7.45) Arterial Blood pCO2 at Patient Temp 61 mmHg (35-46) 61 mmHg (35-46) Arterial Blood pO2 at Patient Temp 107 mmHg (65-108) 76 mmHg (65-108) Arterial Blood HCO3 28 mmol/L (21-28) 26 mmol/L (21-28) Arterial Blood Base Excess 1 mmol/L (-3-3) -2 mmol/L (-3-3) FiO2 32 Bipap 35% Glucose (Fingerstick) 175 mg/dL (70-99) 129 mg/dL (70-99) Medications Active Scripts Medications Dose Route/Sig Max Daily Dose Days Date Category Vitamin B-12 (Cyanocobalamin (Vitamin B-12)) 1,000 Mcg Tablet 1,000 Mcg PO DAILY 01/26/20 Reported One-Daily Multi-Vitamin (Multivitamin) 1 Each Tablet 1 Tab PO DAILY 30 01/26/20 Reported Vitamin D3 (Cholecalciferol (Vitamin D3)) 2,000 Unit Tab.chew 1 Tab PO DAILY 30 01/26/20 Reported Proair Hfa (Albuterol Sulfate) 8.5 Gm Hfa.aer.ad 2.5 Mg NEB RTQID MDD 1 12/15/18 Rx Metoprolol Tartrate 25 Mg Tablet 12.5 Mg PO BID MDD 1 12/15/18 Rx Bumetanide 2 Mg Tablet 2 Mg PO DAILY 01/05/18 Reported Fish Oil 1,000 mg Softgel ([place]-3S/Dha/Epa/Fish Oil) 1 Each Capsule 1 Each PO BID 01/05/18 Reported Losartan Potassium 50 Mg Tablet 50 Mg PO DAILY 01/05/18 Reported Klor-Con M10 (Potassium Chloride) 10 Meq Tab.er.prt 1 Tab PO BID 01/05/18 Reported Digoxin 125 Mcg Tablet 1 Tab PO DAILY 01/05/18 Reported Symbicort 160-4.5 Mcg Inhaler (Budesonide/Formoterol Fumarate) 10.2 Gm Hfa.aer.ad 2 Puff IH BID 01/05/18 Reported Impression . IMPRESSION: 1. Acute hypoxemic hypercapnic respiratory failure present upon admission multifactorial 2. Abnormal chest x-ray, I suspect it is secondary to congestive heart failure. 3. Chronic kidney disease. 4. Anemia with gastrointestinal bleeding. 5. Obstructive sleep apnea-hypopnea syndrome. 6. Chronic obstructive pulmonary disease. 7. Her previous echocardiogram showed a swckjzsg-[id number] mitral regurgitation and yaxp-[id number] aortic regurgitation. 9. Diabetes mellitus. 10. Atrial fibrillation. Plan . Repeat H&H, current H&H noted Patient on BiPAP, ABG stat ordered, results are back by now. Transfer to the intensive care unit Discussed with Dr. Williamson Repeat H&H later on today O2 sat above 92% IV fluids, monitor for CHF Above discussed with RN Total cumulative critical care time of 30 minutes reviewing data, chest x-ray, labs, and and formulating a plan MAINE GRACIA MD Jun 10, 2020 13:24
--- NOTE | 2020-06-10 16:19 | NUR ---
SW following. Spoke with RN and reviewed chart. Pt sating low and will transfer to ICU. Pt on a BIPAP now and PT/OT is recommending SNU.
[2020-06-10 16:35] LABS: HEMATOCRIT 24.4 % (36.0-47.0); HEMOGLOBIN 7.5 g/dL (12.0-15.5)
[2020-06-10] MEDS: PSYLLIUM HUSK (SUGAR FREE) 1 PKT PACKET PO SCH (17:21)
--- NOTE | 2020-06-10 19:32 | NUR ---
Patient arrived as a transfer from [facility]. Patient alert and oriented, slightly drowsy. Patient was swabbed for covid upon transfer and sent to lab. Patient's daughter notified of transfer and updated on patient's condition. Reynolds catheter placed. Will continue to monitor.
[2020-06-11] VITALS (22 sets, daily range): BP systolic 116–161; BP diastolic 46–95
--- NOTE | 2020-06-11 06:45 | RAD ---
EXAM: PORTABLE CHEST 1V INDICATION: Reason: CHF 109 / Spl. Instructions: / History: . TECHNIQUE: Single view COMPARISON: 06/06/2020 chest x-ray FINDINGS: Stable cardiomegaly. Aortic calcification and mild tortuosity redemonstrated Bilateral perihilar parahilar infiltrates are newly apparent. Lungs show mild prominence of the pulmonary interstitium. The right costophrenic angle is partly excluded. Small bilateral pleural effusions are suspected. There is no pneumothorax. There are no significant osseous abnormalities. IMPRESSION: Cardiomegaly with bilateral perihilar opacities and more conspicuous findings of pulmonary vascular congestion, suggesting developing pulmonary edema. Electronically signed by: Alfred Black MD (06/11/2020 6:43 AM) [facility] [place]
[2020-06-11 07:59] LABS: BASE EXCESS ABG 0 mmol/L (-3-3); HCO3 ABG 28 mmol/L (21-28); PO2 ABG 81 mmHg (65-108); SAT O2 ABG 94 % (92-99)
[2020-06-11] MEDS: INSULIN LISPRO 300 UNITS/3 ML VIAL. SQ SCH ×3 (08:00→17:00)
[2020-06-11 08:02] LABS: FIO2 ABG 35; PCO2 ABG 63 mmHg (35-46)
[2020-06-11] MEDS: POLYETHYLENE GLYCOL 3350 17 GM PACKET. PO SCH (08:51)
[2020-06-11] MEDS: CYANOCOBALAMIN (VITAMIN B-12) 1,000 MCG TABLET. PO SCH (08:51)
[2020-06-11] MEDS: LOSARTAN POTASSIUM 50 MG TABLET. PO SCH (08:51)
[2020-06-11] MEDS: DIGOXIN 125 MCG TABLET. PO SCH (08:52)
[2020-06-11] MEDS: PANTOPRAZOLE 40 MG TABLET.DR. PO SCH (08:52)
[2020-06-11] MEDS: METOPROLOL TART IMMED RELEASE 25 MG TABLET. PO SCH ×2 (08:53→21:16)
--- NOTE | 2020-06-11 09:23 | PDOC ---
PULMONARY PROGRESS NOTES Subjective Patient on BiPAP, I took the BiPAP off for a brief moment, she is now more short of air she wanted to drink something Vitals Vital Signs Date Time Temp Pulse Resp B/P (MAP) Pulse Ox O2 Delivery O2 Flow Rate FiO2 06/11/20 09:00 83 20 157/73 (101) 96 BiPAP/CPAP 06/11/20 08:00 97.8 97.8 06/10/20 11:07 3.0 Comments Review of systems unobtainable secondary to patient's condition Lungs: Crackles Cardiovascular: S1, S2 Abdomen: Soft Extremities: Other (edema) Skin: Warm Labs Laboratory Tests Test 06/09/20 10:38 06/09/20 16:16 06/09/20 17:00 06/09/20 20:38 Glucose (Fingerstick) 168 mg/dL (70-99) 149 mg/dL (70-99) 151 mg/dL (70-99) Hemoglobin 7.1 g/dL (12.0-15.5) Digoxin Level 0.9 ng/mL (0.9-2.0) Digoxin Last Dose Date Unk Digoxin Last Dose Time Unk Test 06/10/20 03:00 06/10/20 03:30 06/10/20 07:40 06/10/20 11:25 White Blood Count 11.9 x10^3/uL (4.0-11.0) Red Blood Count 3.13 x10^6/uL (3.50-5.40) Hemoglobin 7.2 g/dL (12.0-15.5) Hematocrit 24.3 % (36.0-47.0) Mean Corpuscular Volume 78 fL (79-100) Mean Corpuscular Hemoglobin 23 pg (25-35) Mean Corpuscular Hemoglobin Concent 30 g/dL (31-37) Red Cell Distribution Width 19.0 % (11.5-14.5) Platelet Count 334 x10^3/uL (140-400) Neutrophils (%) (Auto) 87 % (31-73) Lymphocytes (%) (Auto) 6 % (24-48) Monocytes (%) (Auto) 7 % (0-9) Eosinophils (%) (Auto) 0 % (0-3) Basophils (%) (Auto) 0 % (0-3) Neutrophils # (Auto) 10.3 x10^3/uL (1.8-7.7) Lymphocytes # (Auto) 0.7 x10^3/uL (1.0-4.8) Monocytes # (Auto) 0.8 x10^3/uL (0.0-1.1) Eosinophils # (Auto) 0.0 x10^3/uL (0.0-0.7) Basophils # (Auto) 0.0 x10^3/uL (0.0-0.2) Segmented Neutrophils % 92 % (35-66) Band Neutrophils % 1 % (0-9) Lymphocytes % 6 % (24-48) Monocytes % 1 % (0-10) Toxic Granulation Slight Platelet Estimate Adequate (ADEQUATE) Polychromasia Slight Hypochromasia Slight Basophilic Stippling Present Anisocytosis Slight Sodium Level 142 mmol/L (136-145) Potassium Level 3.8 mmol/L (3.5-5.1) Chloride Level 106 mmol/L (98-107) Carbon Dioxide Level 28 mmol/L (21-32) Anion Gap 8 (6-14) Blood Urea Nitrogen 26 mg/dL (7-20) Creatinine 1.2 mg/dL (0.6-1.0) Estimated GFR (Cockcroft-Gault) 43.7 Glucose Level 165 mg/dL (70-99) Calcium Level 8.8 mg/dL (8.5-10.1) O2 Saturation 97 % (92-99) 92 % (92-99) Arterial Blood pH 7.28 (7.35-7.45) 7.25 (7.35-7.45) Arterial Blood pCO2 at Patient Temp 61 mmHg (35-46) 61 mmHg (35-46) Arterial Blood pO2 at Patient Temp 107 mmHg (65-108) 76 mmHg (65-108) Arterial Blood HCO3 28 mmol/L (21-28) 26 mmol/L (21-28) Arterial Blood Base Excess 1 mmol/L (-3-3) -2 mmol/L (-3-3) FiO2 32 Bipap 35% Glucose (Fingerstick) 175 mg/dL (70-99) Test 06/10/20 11:26 06/10/20 16:00 06/11/20 08:00 Glucose (Fingerstick) 129 mg/dL (70-99) Hemoglobin 7.5 g/dL (12.0-15.5) Hematocrit 24.4 % (36.0-47.0) O2 Saturation 94 % (92-99) Arterial Blood pH 7.26 (7.35-7.45) Arterial Blood pCO2 at Patient Temp 63 mmHg (35-46) Arterial Blood pO2 at Patient Temp 81 mmHg (65-108) Arterial Blood HCO3 28 mmol/L (21-28) Arterial Blood Base Excess 0 mmol/L (-3-3) FiO2 35 Laboratory Tests Test 06/10/20 11:25 06/10/20 11:26 06/10/20 16:00 06/11/20 08:00 O2 Saturation 92 % (92-99) 94 % (92-99) Arterial Blood pH 7.25 (7.35-7.45) 7.26 (7.35-7.45) Arterial Blood pCO2 at Patient Temp 61 mmHg (35-46) 63 mmHg (35-46) Arterial Blood pO2 at Patient Temp 76 mmHg (65-108) 81 mmHg (65-108) Arterial Blood HCO3 26 mmol/L (21-28) 28 mmol/L (21-28) Arterial Blood Base Excess -2 mmol/L (-3-3) 0 mmol/L (-3-3) FiO2 Bipap 35% 35 Glucose (Fingerstick) 129 mg/dL (70-99) Hemoglobin 7.5 g/dL (12.0-15.5) Hematocrit 24.4 % (36.0-47.0) Medications Active Scripts Medications Dose Route/Sig Max Daily Dose Days Date Category Vitamin B-12 (Cyanocobalamin (Vitamin B-12)) 1,000 Mcg Tablet 1,000 Mcg PO DAILY 01/26/20 Reported One-Daily Multi-Vitamin (Multivitamin) 1 Each Tablet 1 Tab PO DAILY 30 01/26/20 Reported Vitamin D3 (Cholecalciferol (Vitamin D3)) 2,000 Unit Tab.chew 1 Tab PO DAILY 30 01/26/20 Reported Proair Hfa (Albuterol Sulfate) 8.5 Gm Hfa.aer.ad 2.5 Mg NEB RTQID MDD 1 12/15/18 Rx Metoprolol Tartrate 25 Mg Tablet 12.5 Mg PO BID MDD 1 12/15/18 Rx Bumetanide 2 Mg Tablet 2 Mg PO DAILY 01/05/18 Reported Fish Oil 1,000 mg Softgel ([place]-3S/Dha/Epa/Fish Oil) 1 Each Capsule 1 Each PO BID 01/05/18 Reported Losartan Potassium 50 Mg Tablet 50 Mg PO DAILY 01/05/18 Reported Klor-Con M10 (Potassium Chloride) 10 Meq Tab.er.prt 1 Tab PO BID 01/05/18 Reported Digoxin 125 Mcg Tablet 1 Tab PO DAILY 01/05/18 Reported Symbicort 160-4.5 Mcg Inhaler (Budesonide/Formoterol Fumarate) 10.2 Gm Hfa.aer.ad 2 Puff IH BID 01/05/18 Reported Impression . IMPRESSION: 1. Acute hypoxemic hypercapnic respiratory failure present upon admission multifactorial 2. Abnormal chest x-ray, I suspect it is secondary to congestive heart failure. 3. Chronic kidney disease. 4. Anemia with gastrointestinal bleeding. 5. Obstructive sleep apnea-hypopnea syndrome. 6. Chronic obstructive pulmonary disease. 7. Her previous echocardiogram showed a mykbpkln-bq-ztkccm mitral regurgitation and uzji-hm-bwcwxbgn aortic regurgitation. 9. Diabetes mellitus. 10. Atrial fibrillation. Plan . Respiratory status slightly improved today mental status improved. We will continue the same Discussed with RT and RN Monitor H&H, follow-up with GI Up to chair. IV Lasix O2 sat above 92% IV fluids, monitor for CHF Total cumulative critical care time of 30 minutes reviewing data, chest x-ray, labs, and and formulating a plan MAINE GRACIA MD Jun 11, 2020 09:23
--- NOTE | 2020-06-11 11:01 | PDOC ---
G I PROGRESS NOTE Subjective Increasing respiratory distress yesterday. Now in ICU on BIPAP. Waves "hi". Can't really talk with mask. Seems to deny any abdominal pain. Objective Others' notes reviewed. Physical Exam Lungs coarse bilaterally. RRR Abdomen soft, not tender nor distended. Review of Relevant I have reviewed the following items halle (where applicable) has been applied. Labs Laboratory Tests Test 06/09/20 16:16 06/09/20 17:00 06/09/20 20:38 06/10/20 03:00 Glucose (Fingerstick) 149 mg/dL (70-99) 151 mg/dL (70-99) Hemoglobin 7.1 g/dL (12.0-15.5) 7.2 g/dL (12.0-15.5) Digoxin Level 0.9 ng/mL (0.9-2.0) Digoxin Last Dose Date Unk Digoxin Last Dose Time Unk White Blood Count 11.9 x10^3/uL (4.0-11.0) Red Blood Count 3.13 x10^6/uL (3.50-5.40) Hematocrit 24.3 % (36.0-47.0) Mean Corpuscular Volume 78 fL (79-100) Mean Corpuscular Hemoglobin 23 pg (25-35) Mean Corpuscular Hemoglobin Concent 30 g/dL (31-37) Red Cell Distribution Width 19.0 % (11.5-14.5) Platelet Count 334 x10^3/uL (140-400) Neutrophils (%) (Auto) 87 % (31-73) Lymphocytes (%) (Auto) 6 % (24-48) Monocytes (%) (Auto) 7 % (0-9) Eosinophils (%) (Auto) 0 % (0-3) Basophils (%) (Auto) 0 % (0-3) Neutrophils # (Auto) 10.3 x10^3/uL (1.8-7.7) Lymphocytes # (Auto) 0.7 x10^3/uL (1.0-4.8) Monocytes # (Auto) 0.8 x10^3/uL (0.0-1.1) Eosinophils # (Auto) 0.0 x10^3/uL (0.0-0.7) Basophils # (Auto) 0.0 x10^3/uL (0.0-0.2) Segmented Neutrophils % 92 % (35-66) Band Neutrophils % 1 % (0-9) Lymphocytes % 6 % (24-48) Monocytes % 1 % (0-10) Toxic Granulation Slight Platelet Estimate Adequate (ADEQUATE) Polychromasia Slight Hypochromasia Slight Basophilic Stippling Present Anisocytosis Slight Sodium Level 142 mmol/L (136-145) Potassium Level 3.8 mmol/L (3.5-5.1) Chloride Level 106 mmol/L (98-107) Carbon Dioxide Level 28 mmol/L (21-32) Anion Gap 8 (6-14) Blood Urea Nitrogen 26 mg/dL (7-20) Creatinine 1.2 mg/dL (0.6-1.0) Estimated GFR (Cockcroft-Gault) 43.7 Glucose Level 165 mg/dL (70-99) Calcium Level 8.8 mg/dL (8.5-10.1) Test 06/10/20 03:30 06/10/20 07:40 06/10/20 11:25 06/10/20 11:26 O2 Saturation 97 % (92-99) 92 % (92-99) Arterial Blood pH 7.28 (7.35-7.45) 7.25 (7.35-7.45) Arterial Blood pCO2 at Patient Temp 61 mmHg (35-46) 61 mmHg (35-46) Arterial Blood pO2 at Patient Temp 107 mmHg (65-108) 76 mmHg (65-108) Arterial Blood HCO3 28 mmol/L (21-28) 26 mmol/L (21-28) Arterial Blood Base Excess 1 mmol/L (-3-3) -2 mmol/L (-3-3) FiO2 32 Bipap 35% Glucose (Fingerstick) 175 mg/dL (70-99) 129 mg/dL (70-99) Test 06/10/20 16:00 06/11/20 08:00 Hemoglobin 7.5 g/dL (12.0-15.5) Hematocrit 24.4 % (36.0-47.0) O2 Saturation 94 % (92-99) Arterial Blood pH 7.26 (7.35-7.45) Arterial Blood pCO2 at Patient Temp 63 mmHg (35-46) Arterial Blood pO2 at Patient Temp 81 mmHg (65-108) Arterial Blood HCO3 28 mmol/L (21-28) Arterial Blood Base Excess 0 mmol/L (-3-3) FiO2 35 Laboratory Tests Test 06/10/20 11:25 06/10/20 11:26 06/10/20 16:00 06/11/20 08:00 O2 Saturation 92 % (92-99) 94 % (92-99) Arterial Blood pH 7.25 (7.35-7.45) 7.26 (7.35-7.45) Arterial Blood pCO2 at Patient Temp 61 mmHg (35-46) 63 mmHg (35-46) Arterial Blood pO2 at Patient Temp 76 mmHg (65-108) 81 mmHg (65-108) Arterial Blood HCO3 26 mmol/L (21-28) 28 mmol/L (21-28) Arterial Blood Base Excess -2 mmol/L (-3-3) 0 mmol/L (-3-3) FiO2 Bipap 35% 35 Glucose (Fingerstick) 129 mg/dL (70-99) Hemoglobin 7.5 g/dL (12.0-15.5) Hematocrit 24.4 % (36.0-47.0) Vitals/I & O Vital Sign - Last 24 Hours 06/10/20 06/10/20 06/10/20 06/10/20 11:07 11:22 12:56 13:56 Temp 97.8 97.8 Pulse 80 Resp 17 B/P (MAP) 130/63 (85) Pulse Ox 95 91 100 O2 Delivery Nasal Cannula BiPAP/CPAP BiPAP/CPAP Bi-pap O2 Flow Rate 3.0 06/10/20 06/10/20 06/10/20 06/10/20 15:00 15:15 15:30 15:43 Temp 96.9 96.9 Pulse 84 82 93 Resp 20 20 B/P (MAP) 166/63 (97) 142/79 (100) 164/85 (111) Pulse Ox 98 99 98 97 O2 Delivery BiPAP/CPAP BiPAP/CPAP BiPAP/CPAP BiPAP/CPAP 06/10/20 06/10/20 06/10/20 06/10/20 15:57 17:00 18:00 19:00 Pulse 82 80 78 Resp 20 20 B/P (MAP) 107/97 (100) 147/54 (85) 146/55 (85) Pulse Ox 98 98 O2 Delivery Bi-pap BiPAP/CPAP BiPAP/CPAP BiPAP/CPAP 06/10/20 06/10/20 06/10/20 06/10/20 19:48 20:00 20:00 21:00 Temp 97.8 97.8 Pulse 78 89 Resp 23 25 B/P (MAP) 158/55 (89) 162/52 (88) Pulse Ox 100 98 98 O2 Delivery BiPAP/CPAP Bi-pap BiPAP/CPAP BiPAP/CPAP 06/10/20 06/10/20 06/10/20 06/10/20 21:31 22:00 23:00 23:00 Pulse 78 87 76 Resp 20 22 B/P (MAP) 158/55 130/69 (89) 124/55 (78) Pulse Ox 98 100 99 O2 Delivery BiPAP/CPAP BiPAP/CPAP BiPAP/CPAP 06/10/20 06/10/20 06/11/20 06/11/20 23:59 23:59 01:00 02:00 Temp 97.8 97.8 Pulse 66 69 73 Resp 20 20 16 B/P (MAP) 122/45 (70) 135/53 (80) 138/67 (90) Pulse Ox 98 98 98 O2 Delivery BiPAP/CPAP Bi-pap BiPAP/CPAP BiPAP/CPAP 06/11/20 06/11/20 06/11/20 06/11/20 03:00 03:54 04:00 04:00 Temp 97.7 97.7 Pulse 71 88 Resp 16 20 B/P (MAP) 133/66 (88) 124/46 (72) Pulse Ox 95 96 98 O2 Delivery BiPAP/CPAP BiPAP/CPAP Bi-pap BiPAP/CPAP 06/11/20 06/11/20 06/11/20 06/11/20 05:00 06:00 07:00 07:36 Pulse 74 72 79 Resp 16 17 20 B/P (MAP) 128/64 (85) 126/62 (83) Pulse Ox 95 96 100 96 O2 Delivery BiPAP/CPAP BiPAP/CPAP BiPAP/CPAP BiPAP/CPAP 06/11/20 06/11/20 06/11/20 06/11/20 08:00 08:00 08:51 08:52 Temp 97.8 97.8 Pulse 75 85 87 Resp 20 B/P (MAP) 148/73 (98) 133/73 133/73 Pulse Ox 100 O2 Delivery BiPAP/CPAP Bi-pap 06/11/20 06/11/20 06/11/20 08:53 09:00 10:00 Pulse 88 83 71 Resp 20 23 B/P (MAP) 133/73 157/73 (101) 134/67 (89) Pulse Ox 96 96 O2 Delivery BiPAP/CPAP BiPAP/CPAP Intake and Output 06/10/20 06/10/20 06/11/20 15:00 23:00 07:00 Intake Total 0 ml Output Total 820 ml 455 ml Balance 0 ml -820 ml -455 ml Problem List Problems Medical Problems: (1) Low hemoglobin Status: Acute (2) Person under investigation for COVID-19 Status: Acute Assessment Acute on chronic respiratory failure. 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 Plan of Care: Continue current Tx, Mgmt Plan of Care Note Monitor hemoglobin; might require transfusion. Continue PPI. Justicifation of Admission Dx: Justifications for Admission: Justification of Admission Dx: Yes CHRISTIAN MCCRAY MD Jun 11, 2020 11:01
[2020-06-11] MEDS ORDERED: FUROSEMIDE 40 MG/4 ML VIAL. IVP ONE (11:45)
--- NOTE | 2020-06-11 13:05 | PDOC ---
[facility] [facility] PROGRESS NOTE Chief Complaint Chief Complaint Acute symptomatic microcytic anemia due to possible GI bleed Iron deficiency anemia Acute renal failure due to vasomotor nephropathy A-Fib Anemia Arrhythmia Asthma Chronic systolic CHF last echo done 1 year ago with EF of 55% COPD Diabetes-Type II Diverticulitis Hypertension Renal Failure HERIBERTO on CPAP History of Present Illness History of Present Illness 06/11/2020 Patient seen and examined in the ICU She is currently on BiPAP Had to be transferred down from the 6 floor Discussed with RN Chart reviewed Ms Christensen is a 74 yo F with past medical history of atrial fibrillation, iron deficiency anemia, asthma, CHF, COPD, HERIBERTO on CPAP, diabetes who presents with weakness and shortness of breath over the past 2 weeks. She also does state some generalized weakness and fatigue. She can hardly make it across her room in the department without having to stop and catch her breath. Patient was scheduled for an iron transfusion on Tuesday but her PCP does not think that she can wait that long for that. Upon further questioning, patient states that she has had GI bleeding in the past and a work-up was in the works and she was being seen by Dr. John with GI. Denies chest pain, nausea, vomiting, abdominal pain, diarrhea, blood in her stools, dark stools, dizziness, syncope, headache, vision changes, focal weakness. 06/09: Hb stable at 7.4. She notes she is required oxygen at night, she has not brought her in her home CPAP. She still feels very weak, became hypoxic after therapy, placed on BIPAP,stable Afebrile. Been on BiPAP since 3 AM. PCO2 61 with pH 7.28. Hb stable at 7.2, WBC 11.8 today. No chest pain or abdominal pain. Plan: Cont BIPAP, needs better ventilation with CO2 retention ICU transfer was appropriate, have discussed with pulmonology Cc time 38 minutes Vitals/I&O Vitals/I&O: Vital Signs Date Time Temp Pulse Resp B/P (MAP) Pulse Ox O2 Delivery O2 Flow Rate FiO2 06/11/20 11:36 99 BiPAP/CPAP 06/11/20 10:00 71 23 134/67 (89) 06/11/20 08:00 97.8 97.8 06/10/20 11:07 3.0 I & O 06/10/20 06/10/20 06/11/20 15:00 23:00 07:00 Intake Total 0 ml Output Total 820 ml 455 ml Balance 0 ml -820 ml -455 ml Physical Exam General: mild distress, Other (On BiPAP) Heart: Normal S1, Normal S2, Other (Tachycardic) Lungs: Crackles Abdomen: Normal bowel sounds, Soft Extremities: No clubbing, No cyanosis Skin: No rashes, No breakdown Labs Labs: Laboratory Tests Test 06/10/20 16:00 06/11/20 08:00 Hemoglobin 7.5 g/dL (12.0-15.5) Hematocrit 24.4 % (36.0-47.0) O2 Saturation 94 % (92-99) Arterial Blood pH 7.26 (7.35-7.45) Arterial Blood pCO2 at Patient Temp 63 mmHg (35-46) Arterial Blood pO2 at Patient Temp 81 mmHg (65-108) Arterial Blood HCO3 28 mmol/L (21-28) Arterial Blood Base Excess 0 mmol/L (-3-3) FiO2 35 Assessment and Plan Assessmemt and Plan Problems Medical Problems: (1) Low hemoglobin Status: Acute (2) Person under investigation for COVID-19 Status: Acut Acute symptomatic microcytic anemia due to possible GI bleed Iron deficiency anemia Acute renal failure due to vasomotor nephropathy A-Fib Anemia Arrhythmia Asthma Chronic systolic CHF last echo done 1 year ago with EF of 55% COPD Diabetes-Type II Diverticulitis Hypertension Renal Failure HERIBERTO on CPAP Plan ICU monitoring Trying to titrate off BiPAP Trend hemoglobin IV Lasix Duo nebs Home meds DVT prophylaxis Full code Appreciate subspecialist input Prognosis long-term guarded Total time 33 minutes . Comment Review of Relevant I have reviewed the following items halle (where applicable) has been applied. Medications: Current Medications Medications (Trade) Dose Ordered Sig/Jose Rafael Route PRN Reason Start Time Stop Time Status Last Admin Dose Admin Furosemide (Lasix) 40 mg 1X ONCE IVP 06/11/20 11:45 06/11/20 11:46 DC 06/11/20 12:18 Justicifation of Admission Dx: Justifications for Admission: Justification of Admission Dx: Yes ASHWIN DAVIS III DO Jun 11, 2020 13:05
--- NOTE | 2020-06-11 15:12 | NUR ---
SS following for discharge planning. SS reviewed pt chart and discussed with pt RN. Pt transferred from 6S. SS discussed with Danni CARRIZALES. Pt is from home with daughter. Pt on BIPAP at 30%. COVID19 negative on 06/06/2020. Pt currently COVID19 pending for retest. PT/OT recommended assisted unit. SS will continue to follow for discharge planning.
[2020-06-11] MEDS: PSYLLIUM HUSK (SUGAR FREE) 1 PKT PACKET PO SCH (18:00)
[2020-06-11] MEDS: BUDESONIDE 0.5 MG/2 ML NEBU. NEB SCH (20:14)
[2020-06-11] MEDS: ALBUTEROL SULFATE 2.5 MG/3 ML NEBU. NEB SCH (20:14)
[2020-06-12] VITALS (15 sets, daily range): BP systolic 98–140; BP diastolic 41–78
[2020-06-12] MEDS: ACETAMINOPHEN 325 MG TABLET. PO PRN (02:24)
[2020-06-12] MEDS: BUDESONIDE 0.5 MG/2 ML NEBU. NEB SCH ×2 (07:07→20:31)
[2020-06-12] MEDS: ALBUTEROL SULFATE 2.5 MG/3 ML NEBU. NEB SCH ×4 (07:07→20:31)
[2020-06-12] MEDS: INSULIN LISPRO 300 UNITS/3 ML VIAL. SQ SCH ×3 (08:00→16:46)
[2020-06-12] MEDS: PANTOPRAZOLE 40 MG TABLET.DR. PO SCH (08:45)
[2020-06-12] MEDS: CYANOCOBALAMIN (VITAMIN B-12) 1,000 MCG TABLET. PO SCH (08:45)
[2020-06-12] MEDS: DIGOXIN 125 MCG TABLET. PO SCH (08:46)
[2020-06-12] MEDS: POLYETHYLENE GLYCOL 3350 17 GM PACKET. PO SCH (08:46)
[2020-06-12] MEDS: LOSARTAN POTASSIUM 50 MG TABLET. PO SCH (08:46)
--- NOTE | 2020-06-12 09:18 | PDOC ---
PULMONARY PROGRESS NOTES Subjective Patient seen off of BiPAP on nasal cannula oxygen felt better, work of breathing slightly elevated saturations hovering around 88% Vitals Vital Signs Date Time Temp Pulse Resp B/P (MAP) Pulse Ox O2 Delivery O2 Flow Rate FiO2 06/12/20 08:46 80 126/71 06/12/20 08:00 97.9 24 96 Nasal Cannula 3.0 97.9 ROS: No Nausea, No Chest Pain, No Abdominal Pain, No Increase Cough Lungs: Crackles Cardiovascular: S1, S2 Abdomen: Soft Extremities: Other (edema) Skin: Warm Labs Laboratory Tests Test 06/10/20 11:25 06/10/20 11:26 06/10/20 15:05 06/10/20 16:00 O2 Saturation 92 % (92-99) Arterial Blood pH 7.25 (7.35-7.45) Arterial Blood pCO2 at Patient Temp 61 mmHg (35-46) Arterial Blood pO2 at Patient Temp 76 mmHg (65-108) Arterial Blood HCO3 26 mmol/L (21-28) Arterial Blood Base Excess -2 mmol/L (-3-3) FiO2 Bipap 35% Glucose (Fingerstick) 129 mg/dL (70-99) Coronavirus (PCR) Not detected (Not Detected) Hemoglobin 7.5 g/dL (12.0-15.5) Hematocrit 24.4 % (36.0-47.0) Test 06/11/20 08:00 06/12/20 06:11 06/12/20 07:45 O2 Saturation 94 % (92-99) Arterial Blood pH 7.26 (7.35-7.45) Arterial Blood pCO2 at Patient Temp 63 mmHg (35-46) Arterial Blood pO2 at Patient Temp 81 mmHg (65-108) Arterial Blood HCO3 28 mmol/L (21-28) Arterial Blood Base Excess 0 mmol/L (-3-3) FiO2 35 Glucose (Fingerstick) 101 mg/dL (70-99) 99 mg/dL (70-99) Laboratory Tests Test 06/12/20 06:11 06/12/20 07:45 Glucose (Fingerstick) 101 mg/dL (70-99) 99 mg/dL (70-99) Medications Active Scripts Medications Dose Route/Sig Max Daily Dose Days Date Category Vitamin B-12 (Cyanocobalamin (Vitamin B-12)) 1,000 Mcg Tablet 1,000 Mcg PO DAILY 01/26/20 Reported One-Daily Multi-Vitamin (Multivitamin) 1 Each Tablet 1 Tab PO DAILY 30 01/26/20 Reported Vitamin D3 (Cholecalciferol (Vitamin D3)) 2,000 Unit Tab.chew 1 Tab PO DAILY 30 01/26/20 Reported Proair Hfa (Albuterol Sulfate) 8.5 Gm Hfa.aer.ad 2.5 Mg NEB RTQID MDD 1 12/15/18 Rx Metoprolol Tartrate 25 Mg Tablet 12.5 Mg PO BID MDD 1 12/15/18 Rx Bumetanide 2 Mg Tablet 2 Mg PO DAILY 01/05/18 Reported Fish Oil 1,000 mg Softgel ([place]-3S/Dha/Epa/Fish Oil) 1 Each Capsule 1 Each PO BID 01/05/18 Reported Losartan Potassium 50 Mg Tablet 50 Mg PO DAILY 01/05/18 Reported Klor-Con M10 (Potassium Chloride) 10 Meq Tab.er.prt 1 Tab PO BID 01/05/18 Reported Digoxin 125 Mcg Tablet 1 Tab PO DAILY 01/05/18 Reported Symbicort 160-4.5 Mcg Inhaler (Budesonide/Formoterol Fumarate) 10.2 Gm Hfa.aer.ad 2 Puff IH BID 01/05/18 Reported Impression . IMPRESSION: 1. Acute hypoxemic hypercapnic respiratory failure present upon admission multifactorial 2. Abnormal chest x-ray, I suspect it is secondary to congestive heart failure. 3. Chronic kidney disease. 4. Anemia with gastrointestinal bleeding. 5. Obstructive sleep apnea-hypopnea syndrome., Patient has CPAP at home, uses on a daily basis 6. Chronic obstructive pulmonary disease. 7. Her previous echocardiogram showed a hfgawfzk-ej-vxbjjd mitral regurgitation and vatc-gn-cfraxedj aortic regurgitation. 9. Diabetes mellitus. 10. Atrial fibrillation. Plan . Spoke with RN, attempt nasal cannula oxygen through mouth, patient is a mouth breather, other options will include Venturi mask, if not back on BiPAP Okay to transfer Monitor H&H, follow-up with GI, stable Up to chair. IV Lasix, chest x-ray reviewed bilateral infiltrates compatible with CHF O2 sat above 92% Total cumulative critical care time of 30 minutes reviewing data, chest x-ray, labs, and and formulating a plan MAINE GRACIA MD Jun 12, 2020 09:18
[2020-06-12] MEDS: METOPROLOL TART IMMED RELEASE 25 MG TABLET. PO SCH ×2 (09:37→21:12)
--- NOTE | 2020-06-12 10:25 | PDOC ---
Subjective: Subjective: Feels better, having breakfast. Says she wants football season to start. Objective: Vital Signs: Vital Signs Date Time Temp Pulse Resp B/P (MAP) Pulse Ox O2 Delivery O2 Flow Rate FiO2 06/12/20 09:37 74 125/67 06/12/20 09:00 25 96 Nasal Cannula 3.0 06/12/20 08:00 97.9 97.9 Labs: Laboratory Tests Test 06/12/20 06:11 06/12/20 07:45 Glucose (Fingerstick) 101 mg/dL (70-99) 99 mg/dL (70-99) PE: GEN: NAD - up in chair LUNGS: diminished, NC HEART: RRR ABD: S/ND/NT NEURO/PSYCH: A & O 3 A/P: Chronic JOHNNIE - probably related to SB AVMs - s/p IV iron, see hematology for this as outpt Resp failure - better COVID-negative -- Continue same per GI. Justicifation of Admission Dx: Justifications for Admission: Justification of Admission Dx: Yes MELO STOCKTON Jun 12, 2020 10:25
--- NOTE | 2020-06-12 13:25 | PDOC ---
[facility] [facility] PROGRESS NOTE Chief Complaint Chief Complaint Acute symptomatic microcytic anemia due to possible GI bleed Iron deficiency anemia Acute renal failure due to vasomotor nephropathy A-Fib Anemia Arrhythmia Asthma Chronic systolic CHF last echo done 1 year ago with EF of 55% COPD Diabetes-Type II Diverticulitis Hypertension Renal Failure HERIBERTO on CPAP History of Present Illness History of Present Illness Pt seen and examined Transitioned to nasal cannula Discussed with RN Charts reviewed 06/11/2020 Patient seen and examined in the ICU She is currently on BiPAP Had to be transferred down from the 6 floor Discussed with RN Chart reviewed Ms Christensen is a 74 yo F with past medical history of atrial fibrillation, iron deficiency anemia, asthma, CHF, COPD, HERIBERTO on CPAP, diabetes who presents with w eakness and shortness of breath over the past 2 weeks. She also does state some generalized weakness and fatigue. She can hardly make it across her room in the department without having to stop and catch her breath. Patient was scheduled for an iron transfusion on Tuesday but her PCP does not think that she can wait that long for that. Upon further questioning, patient states that she has had GI bleeding in the past and a work-up was in the works and she was being seen by Dr. John with GI. Denies chest pain, nausea, vomiting, abdominal pain, diarrhea, blood in her stools, dark stools, dizziness, syncope, headache, vision changes, focal weakness. 06/09: Hb stable at 7.4. She notes she is required oxygen at night, she has not brought her in her home CPAP. She still feels very weak, became hypoxic after therapy, placed on BIPAP,stable Afebrile. Been on BiPAP since 3 AM. PCO2 61 with pH 7.28. Hb stable at 7.2, WBC 11.8 today. No chest pain or abdominal pain. Plan: Cont BIPAP, needs better ventilation with CO2 retention ICU transfer was appropriate, have discussed with pulmonology Cc time 38 minutes Vitals/I&O Vitals/I&O: Vital Signs Date Time Temp Pulse Resp B/P (MAP) Pulse Ox O2 Delivery O2 Flow Rate FiO2 06/12/20 11:14 Nasal Cannula 3.0 06/12/20 11:00 84 20 130/74 (92) 94 06/12/20 08:00 97.9 97.9 I & O 706/11/20 06/12/20 15:00 23:00 07:00 Intake Total 670 ml 75 ml Output Total 810 ml 795 ml 260 ml Balance -810 ml -125 ml -185 ml Physical Exam General: Alert, Cooperative, No acute distress, Other (On Nasal cannula) Heart: Normal S1, Normal S2, Other (Tachycardic) Lungs: Crackles Abdomen: Normal bowel sounds, Soft Extremities: No clubbing, No cyanosis Skin: No rashes, No breakdown Labs Labs: Laboratory Tests Test 06/12/20 06:11 06/12/20 07:45 06/12/20 12:26 Glucose (Fingerstick) 101 mg/dL (70-99) 99 mg/dL (70-99) 100 mg/dL (70-99) Assessment and Plan Assessmemt and Plan Assessment Acute symptomatic microcytic anemia due to possible GI bleed Iron deficiency anemia Acute renal failure due to vasomotor nephropathy A-Fib Anemia Arrhythmia Asthma Chronic systolic CHF last echo done 1 year ago with EF of 55% COPD Diabetes-Type II Diverticulitis Hypertension Renal Failure HERIBERTO on CPAP Plan Cardiac monitoring Trend Hgb PRN transfusions (she already got 1 unit) Appreciate subspecialist input DVT prophylaxis IV Protonix Home Meds Full Code Comment Review of Relevant I have reviewed the following items halle (where applicable) has been applied. Medications: Current Medications Medications (Trade) Dose Ordered Sig/Jose Rafael Route PRN Reason Start Time Stop Time Status Last Admin Dose Admin Albuterol Sulfate (Ventolin Neb Soln) 2.5 mg RTQID [facility] [place] 06/11/20 20:00 06/12/20 11:11 Budesonide (Pulmicort) 0.5 mg RTBID [facility] [place] 06/11/20 20:00 06/12/20 07:07 Justicifation of Admission Dx: Justifications for Admission: Justification of Admission Dx: Yes ASHWIN DAVIS III DO Jun 12, 2020 13:25
--- NOTE | 2020-06-12 13:58 | NUR ---
SS following up with discharge planning. SS reviewed pt chart and discussed with pt RN. Pt now on nasal canula oxygen. COVID19 negative. Pt has BIPAP PRN. PT/OT recommended long-term unit on 06/10/2020. Pt transferred to room 263. PT/OT reordered. SS left voicemail with pt's daughter to discuss discharge planning and long-term unit. SS will continue to follow for discharge planning.
[2020-06-12] MEDS: PSYLLIUM HUSK (SUGAR FREE) 1 PKT PACKET PO SCH (16:46)
[2020-06-13 03:00] VITALS: BP 131/57
[2020-06-13 07:00] VITALS: BP 126/58
[2020-06-13] MEDS: INSULIN LISPRO 300 UNITS/3 ML VIAL. SQ SCH ×2 (07:53→12:00)
[2020-06-13] MEDS: ALBUTEROL SULFATE 2.5 MG/3 ML NEBU. NEB SCH ×3 (08:14→16:00)
[2020-06-13] MEDS: BUDESONIDE 0.5 MG/2 ML NEBU. NEB SCH (08:14)
[2020-06-13] MEDS: POLYETHYLENE GLYCOL 3350 17 GM PACKET. PO SCH (08:37)
[2020-06-13] MEDS: LOSARTAN POTASSIUM 50 MG TABLET. PO SCH (08:38)
[2020-06-13] MEDS: DIGOXIN 125 MCG TABLET. PO SCH (08:38)
[2020-06-13] MEDS: METOPROLOL TART IMMED RELEASE 25 MG TABLET. PO SCH (08:39)
[2020-06-13] MEDS: PANTOPRAZOLE 40 MG TABLET.DR. PO SCH (08:40)
[2020-06-13] MEDS: CYANOCOBALAMIN (VITAMIN B-12) 1,000 MCG TABLET. PO SCH (08:40)
--- NOTE | 2020-06-13 09:43 | PDOC ---
Subjective: Subjective: Feeling better, breathing better. Hoping to go home before her [birth year] on [birth year]. No GI complaints. Objective: Vital Signs: Vital Signs Date Time Temp Pulse Resp B/P (MAP) Pulse Ox O2 Delivery O2 Flow Rate FiO2 06/13/20 08:39 97 126/58 06/13/20 08:18 99 Nasal Cannula 2.0 06/13/20 07:00 97.9 24 97.9 Labs: Laboratory Tests Test 06/12/20 12:26 06/12/20 16:11 06/12/20 20:40 06/13/20 07:48 Glucose (Fingerstick) 100 mg/dL 121 mg/dL 143 mg/dL 150 mg/dL PE: GEN: NAD, sitting on edge of bed eating akhtar and toast LUNGS: diminished HEART: RRR ABD: S/ND/NT NEURO/PSYCH: A & O 3 A/P: Chronic JOHNNIE - suspected related to SB AVMs -- Resp issues improved. DC per primary, pulmonology. Continue iron - has hematology appt scheduled re: infusions. Justicifation of Admission Dx: Justifications for Admission: Justification of Admission Dx: Yes MELO STOCKTON Jun 13, 2020 09:43
--- NOTE | 2020-06-13 10:02 | PDOC ---
PULMONARY PROGRESS NOTES Subjective Patient seen off of BiPAP on nasal cannula oxygen felt better, work of breathing BETTER Vitals Vital Signs Date Time Temp Pulse Resp B/P (MAP) Pulse Ox O2 Delivery O2 Flow Rate FiO2 06/13/20 08:39 97 126/58 06/13/20 08:30 Nasal Cannula 3.0 06/13/20 08:18 99 06/13/20 07:00 97.9 24 97.9 ROS: No Nausea, No Chest Pain, No Abdominal Pain, No Increase Cough General: Alert Lungs: Clear Cardiovascular: S1, S2 Abdomen: Soft Neuro Exam: Alert Extremities: Other (edema) Skin: Warm Labs Laboratory Tests Test 06/12/20 06:11 06/12/20 07:45 06/12/20 12:26 06/12/20 16:11 Glucose (Fingerstick) 101 mg/dL (70-99) 99 mg/dL (70-99) 100 mg/dL (70-99) 121 mg/dL (70-99) Test 06/12/20 20:40 06/13/20 07:48 Glucose (Fingerstick) 143 mg/dL (70-99) 150 mg/dL (70-99) Laboratory Tests Test 06/12/20 12:26 06/12/20 16:11 06/12/20 20:40 06/13/20 07:48 Glucose (Fingerstick) 100 mg/dL (70-99) 121 mg/dL (70-99) 143 mg/dL (70-99) 150 mg/dL (70-99) Medications Active Scripts Medications Dose Route/Sig Max Daily Dose Days Date Category Vitamin B-12 (Cyanocobalamin (Vitamin B-12)) 1,000 Mcg Tablet 1,000 Mcg PO DAILY 01/26/20 Reported One-Daily Multi-Vitamin (Multivitamin) 1 Each Tablet 1 Tab PO DAILY 30 01/26/20 Reported Vitamin D3 (Cholecalciferol (Vitamin D3)) 2,000 Unit Tab.chew 1 Tab PO DAILY 30 01/26/20 Reported Proair Hfa (Albuterol Sulfate) 8.5 Gm Hfa.aer.ad 2.5 Mg NEB RTQID MDD 1 12/15/18 Rx Metoprolol Tartrate 25 Mg Tablet 12.5 Mg PO BID MDD 1 12/15/18 Rx Bumetanide 2 Mg Tablet 2 Mg PO DAILY 01/05/18 Reported Fish Oil 1,000 mg Softgel ([place]-3S/Dha/Epa/Fish Oil) 1 Each Capsule 1 Each PO BID 01/05/18 Reported Losartan Potassium 50 Mg Tablet 50 Mg PO DAILY 01/05/18 Reported Klor-Con M10 (Potassium Chloride) 10 Meq Tab.er.prt 1 Tab PO BID 01/05/18 Reported Digoxin 125 Mcg Tablet 1 Tab PO DAILY 01/05/18 Reported Symbicort 160-4.5 Mcg Inhaler (Budesonide/Formoterol Fumarate) 10.2 Gm Hfa.aer.ad 2 Puff IH BID 01/05/18 Reported Impression . IMPRESSION: 1. Acute hypoxemic hypercapnic respiratory failure present upon admission multifactorial 2. Abnormal chest x-ray, I suspect it is secondary to congestive heart failure. 3. Chronic kidney disease. 4. Anemia with gastrointestinal bleeding. 5. Obstructive sleep apnea-hypopnea syndrome., Patient has CPAP at home, uses on a daily basis 6. Chronic obstructive pulmonary disease. 7. Her previous echocardiogram showed a lcafxwdr-ib-yahjgd mitral regurgitation and ofte-ir-txoledzj aortic regurgitation. 9. Diabetes mellitus. 10. Atrial fibrillation. Plan . nasal cannula HOME cpap QHS Monitor H&H, follow-up with GI, stable Up to chair. IV Lasix, chest x-ray reviewed 06/11 MILD bilateral infiltrates compatible with CHF O2 sat above 92% CLINICALLY BETTER DORIS COMER MD Jun 13, 2020 10:02
[2020-06-13 11:00] VITALS: BP 99/52
--- NOTE | 2020-06-13 12:11 | NUR ---
SS following up with discharge planning. SS reviewed pt chart and discussed with pt RN. Pt is currently requiring oxygen. PT/OT recommended usp unit. SS met with pt and discussed discharge planning and usp unit. Pt declined usp unit and is requesting to discharge to home today. SS discussed home healthcare. Pt declined home healthcare stating that she has family at home to care for her. Pt's RN and physician notified. Six minute walk ordered to assess oxygen needs. SS will continue to follow for discharge planning.
[2020-06-13 15:00] VITALS: BP 111/40
[2020-06-13] MEDS ORDERED: PANT40TA77 PO (15:09)
--- NOTE | 2020-06-13 15:14 | PDOC3 ---
Discharge Summary Visit Information Date of Admission: Jun 07, 2020 Date of Discharge: Jun 13, 2020 Admitting Diagnosis Comment: Assessment/Plan Acute symptomatic microcytic anemia due to possible GI bleed Iron deficiency anemia Acute renal failure due to vasomotor nephropathy A-Fib Anemia Arrhythmia Asthma CHF COPD Diabetes-Type II Diverticulitis Hypertension Renal Failure Final Diagnosis Problems Medical Problems: (1) Low hemoglobin Status: Acute (2) Negative for COVID-19 Status: Acute Acute symptomatic microcytic anemia due to possible GI bleed Iron deficiency anemia Acute renal failure due to vasomotor nephropathy A-Fib Anemia Arrhythmia Asthma Chronic systolic CHF last echo done 1 year ago with EF of 55% COPD Diabetes-Type II Diverticulitis Hypertension Renal Failure HERIBERTO on CPAP Brief Hospital Course Allergies Allergies Coded Allergies Type Severity Reaction Last Updated Verified DONNA Inhibitors Allergy Severe angioedema 12/22/18 Yes Penicillins Allergy Intermediate n/v,itch,rash 12/22/18 Yes erythromycin base Adverse Reaction Intermediate n/v 12/22/18 Yes Vital Signs Vital Signs Date Time Temp Pulse Resp B/P (MAP) Pulse Ox O2 Delivery O2 Flow Rate FiO2 06/13/20 12:20 Nasal Cannula 2.0 06/13/20 11:00 98.2 68 22 99/52 (68) 97 98.2 Lab Results Laboratory Tests Test 06/12/20 06:11 06/12/20 07:45 06/12/20 12:26 06/12/20 16:11 Glucose (Fingerstick) 101 mg/dL (70-99) 99 mg/dL (70-99) 100 mg/dL (70-99) 121 mg/dL (70-99) Test 06/12/20 20:40 06/13/20 07:48 06/13/20 12:27 Glucose (Fingerstick) 143 mg/dL (70-99) 150 mg/dL (70-99) 125 mg/dL (70-99) Laboratory Tests Test 06/12/20 16:11 06/12/20 20:40 06/13/20 07:48 06/13/20 12:27 Glucose (Fingerstick) 121 mg/dL (70-99) 143 mg/dL (70-99) 150 mg/dL (70-99) 125 mg/dL (70-99) Brief Hospital Course History and Physical Date of Admission: Date of Admission DATE: 06/07/20 TIME: 08:10 Chief Complaint: Chief Complain: Weakness and shortness of breath History of Present Illness: HPI: Patient is a 74-year-old female with past medical history of atrial fibrillation, iron deficiency anemia, asthma, CHF, COPD, HERIBERTO on CPAP, diabetes who presents with weakness and shortness of breath over the past 2 weeks. She also does state some generalized weakness and fatigue. She can hardly make it across her room in the department without having to stop and catch her breath. Patient was scheduled for an iron transfusion on Tuesday but her PCP does not think that she can wait that long for that. Upon further questioning, patient states that she has had GI bleeding in the past and a work-up was in the works and she was being seen by Dr. John with GI. Denies chest pain, nausea, vomiting, abdominal pain, diarrhea, blood in her stools, dark stools, dizziness, syncope, headache, vision changes, focal weakness. Ms Christensen is a 74 yo F with past medical history of atrial fibrillation, iron deficiency anemia, asthma, CHF, COPD, HERIBERTO on CPAP, diabetes who presents with weakness and shortness of breath over the past 2 weeks. She also does state some generalized weakness and fatigue. She can hardly make it across her room in the department without having to stop and catch her breath. Patient was scheduled for an iron transfusion on Tuesday but her PCP does not think that she can wait that long for that. Upon further questioning, patient states that she has had GI bleeding in the past and a work-up was in the works and she was being seen by Dr. John with GI. Denies chest pain, nausea, vomiting, abdominal pain, diarrhea, blood in her stools, dark stools, dizziness, syncope, headache, vision changes, focal weakness. 06/09: Hb stable at 7.4. She notes she is required oxygen at night, she has not brought her in her home CPAP. She still feels very weak, became hypoxic after therapy, placed on BIPAP,stable 06/10 Afebrile. Been on BiPAP since 3 AM. PCO2 61 with pH 7.28. Hb stable at 7.2, WBC 11.8 today. No chest pain or abdominal pain. 06/11/2020 Patient seen and examined in the ICU She is currently on BiPAP Had to be transferred down from the 6 floor Discussed with RN Chart reviewed Pt seen and examined Transitioned to nasal cannula Discussed with RN Charts reviewed 06/13 2020 Patient had a 6-minute walk test which at the time of this note was still pending, from the GI standpoint of view she was stable for discharge her hemoglobin remained stable, pulmonary wilhelm the patient was also doing well and the only missing part prior to dismissal is ensuring that the patient will have oxygen therapy if it needs to be arranged. 6-minute walk test will be done prior to dismissal I have encouraged her to follow-up with her primary care physician within 1 week, signs and symptoms of concern and when to seek medical attention were discussed with the patient prior to departure. Greater than 35 minutes were spent in the discharge process the patient counseling coordination of care and arrangements for a safe discharge Physical Exam General: Alert, Cooperative, No acute distress, Other (On Nasal cannula) Heart: Normal S1, Normal S2, Other (Tachycardic) Lungs: Crackles Abdomen: Normal bowel sounds, Soft Extremities: No clubbing, No cyanosis Skin: No rashes, No breakdown Discharge Information Condition at Discharge: Improved Follow Up: Weeks Disposition/Orders: D/C to Home Scheduled Albuterol Sulfate (Proair Hfa) 8.5 Gm Hfa.aer.ad, 2.5 MG NEB RTQID for soa MDD 1, #1 Prescribed by: CURLY NOLAN on 12/15/18 1232 Last Action: Continued on 06/07/20 1212 by ANTONIO BECK MD Budesonide/Formoterol Fumarate (Symbicort 160-4.5 Mcg Inhaler) 10.2 Gm Hfa.aer.ad, 2 PUFF IH BID, #10.6 Ref 3 (Reported) Entered as Reported by: DAISY MENDEZ on 01/05/18 1251 Bumetanide (Bumetanide) 2 Mg Tablet, 2 MG PO DAILY, (Reported) Entered as Reported by: DAISY MENDEZ on 01/05/18 1251 Cholecalciferol (Vitamin D3) (Vitamin D3) 2,000 Unit Tab.chew, 1 TAB PO DAILY for vitamin for 30 Days, #30 Ref 0 (Reported) Entered as Reported by: CORA SIERRA on 01/26/20 1112 Cyanocobalamin (Vitamin B-12) (Vitamin B-12) 1,000 Mcg Tablet, 1,000 MCG PO DAILY for vitamin, (Reported) Entered as Reported by: CORA SIERRA on 01/26/20 1112 Last Action: Continued on 06/07/201211 by ANTONIO BECK MD Digoxin (Digoxin) 125 Mcg Tablet, 1 TAB PO DAILY, #30 Ref 5 (Reported) Entered as Reported by: DAISY MENDEZ on 01/05/181250 Last Action: Continued on 06/07/201211 by ANTONIO BECK MD Losartan Potassium (Losartan Potassium) 50 Mg Tablet, 50 MG PO DAILY, (Reported) Entered as Reported by: DAISY MENDEZ on 01/05/181250 Last Action: Continued on 06/07/201211 by ANTONIO BECK MD Metoprolol Tartrate (Metoprolol Tartrate) 25 Mg Tablet, 12.5 MG PO BID for htn MDD 1, #60 Prescribed by: CURLY NOLAN on 12/15/18 1232 Last Action: Continued on 06/07/201211 by ANTONIO BECK MD Multivitamin (One-Daily Multi-Vitamin) 1 Each Tablet, 1 TAB PO DAILY for vitamin for 30 Days, #30 Ref 0 (Reported) Entered as Reported by: CORA SIERRA on 01/26/201111 [place]-3S/Dha/Epa/Fish Oil (Fish Oil 1,000 mg Softgel) 1 Each Capsule, 1 EACH PO BID, (Reported) Entered as Reported by: DAISY MENDEZ on 01/05/181250 Last Action: Reviewed on 06/09/20954 by VERA PACKER Pantoprazole Sodium (Pantoprazole Sodium ) 40 Mg Tablet.dr, 40 MG PO DAILYAC for GERD for 30 Days, #30 Prescribed by: RIP MOONEY MD on 06/13/20 1509 Potassium Chloride (Klor-Con M10) 10 Meq Tab.er.prt, 1 TAB PO BID, #30 Ref 5 (Reported) Entered as Reported by: DAISY MENDEZ on 01/05/181250 Last Action: Reviewed on 06/09/20954 by VERA PACKER Justicifation of Admission Dx: Justifications for Admission: Justification of Admission Dx: Yes RIP MOONEY MD Jun 13, 2020 15:14
--- NOTE | 2020-06-13 16:19 | NUR ---
SS following up with discharge planning. Oxygen order received. SS phoned and faxed oxygen order and clinical to [facility], ; fax [phone]. [facility] confirmed receipt of information. Oxygen tank provided for transport to home.
--- NOTE | 2020-06-13 16:25 | NUR ---
Discharge instructions given over following up with her primary care physician and Dr. Lantigua for her iron infusions. Education given over anemia, SOB, and medications. Patient going home with oxygen from [facility] and was instructed to wear 2L NC at rest and with activity. Patient verbalized understanding and is awaiting her ride.
== END 2020-06-13 17:31 | disposition home or self-care (01) | DRG 377 ==
LOC: ER 16:47 → 6 SOUTH 20:26 → 1 WEST ICU 06-10 13:18 → 2 SOUTH 06-12 14:08
PROVIDERS: ADMIT Internal Medicine; ATTEND Internal Medicine
PROC: 30233N1 Transfusion of Nonautologous Red Blood Cells into Peripheral Vein, Percutaneous Approach (ICD-10-PCS; principal; 2020-06-07)
PROC: 5A09457 Assistance with Respiratory Ventilation, 24-96 Consecutive Hours, Continuous Positive Airway Pressure (ICD-10-PCS; 2020-06-07)
DX: K92.2 Gastrointestinal hemorrhage, unspecified (principal); N17.0 Acute kidney failure with tubular necrosis; J96.21 Acute and chronic respiratory failure with hypoxia; J96.22 Acute and chronic respiratory failure with hypercapnia; I13.0 Hypertensive heart and chronic kidney disease with heart failure and stage 1 through stage 4 chronic kidney disease, or unspecified chronic kidney disease; I50.22 Chronic systolic (congestive) heart failure; D50.0 Iron deficiency anemia secondary to blood loss (chronic); E11.22 Type 2 diabetes mellitus with diabetic chronic kidney disease; G47.33 Obstructive sleep apnea (adult) (pediatric); I08.0 Rheumatic disorders of both mitral and aortic valves; I48.91 Unspecified atrial fibrillation; J44.9 Chronic obstructive pulmonary disease, unspecified; K64.8 Other hemorrhoids; N18.9 Chronic kidney disease, unspecified; Z20.828 Contact with and (suspected) exposure to other viral communicable diseases; Z82.49 Family history of ischemic heart disease and other diseases of the circulatory system; Z83.3 Family history of diabetes mellitus; Z87.891 Personal history of nicotine dependence; Z90.49 Acquired absence of other specified parts of digestive tract; Z93.3 Colostomy status; K21.0 Gastro-esophageal reflux disease with esophagitis; M19.90 Unspecified osteoarthritis, unspecified site; Z79.899 Other long term (current) drug therapy
CPT/HCPCS: 36415; 36600; 71045; 80048; 80053; 80162; 82274; 82728; 82805; 82962; 83540; 83550; 83735; 83880; 84100; 84145; 84484; 85007; 85014; 85018; 85025; 85027; 85610; 86140; 86850; 86900; 86901; 86920; 93005; 94618; 94640; 94660; 94760; C9113; J1756; J1815; J1940; J7050; J7120; P9016; 97116-GP; 97530-GP; 97535-GO; 99285-25; G0378; J7030; J7613; J7626; U0003-CS

== ENCOUNTER → 2020-07-25 | Outpatient (CLI) | payer BC ==
[~2020-07-25] MED LIST changes: -CALC600T5 PO; +CALC600T6 PO; +PANT40TA77 PO
--- NOTE | 2020-07-25 18:09 | CARD ---
MR#: [id number] Date of Study: 07/25/2020 Ordering Physician: NERI CAMARA, Referring Physician: NERI CAMARA, Tech: Maricel Trujillo MAHIN APPROVED REPORT EXAM: Two-dimensional and M-mode echocardiogram with Doppler and color Doppler. Other Information Quality : Good Rhythm : Atrial FibrillationTechnically limited study due to lung interferance, O2 dependant INDICATION Atrial Fibrillation 2D DIMENSIONS RVDd3.6 (2.9-3.5cm)Left Atrium(2D)5.1 (1.6-4.0cm) IVSd1.2 (0.7-1.1cm)Aortic Root(2D)2.4 (2.0-3.7cm) LVDd5.1 (3.9-5.9cm)LVOT Diameter2.0 (1.8-2.4cm) PWd1.2 (0.7-1.1cm)LVDs3.7 (2.5-4.0cm) FS (%) 26.7 %SV63.7 ml LVEF(%)51.9 (>50%) Aortic Valve AoV Peak Mustapha.207.7cm/sAoV VTI27.1cm AO Peak GR.17.2mmHgLVOT Peak Mustapha.143.3cm/s AO Mean GR.9mmHgAVA (VMAX)2.18cm2 SHANE (VTI)3.00cm2 Tricuspid Valve TR P. Aljqjvns818zu/sRAP [id number] TR Peak Gr.25paOvUJVN31njAa Pulmonary Vein S1 Duugusgc11.3cm/sD2 Kqipghnh007.1cm/s LEFT VENTRICLE The left ventricle is normal size. There is mild concentric left ventricular hypertrophy. The left ve ntricular systolic function is normal and the ejection fraction is within normal range. The Ejection Fraction is 55%. There is normal LV segmental wall motion. Tissue Doppler imaging reveals severe left ventricular diastolic dysfunction. No left ventricle thrombus noted on this study. RIGHT VENTRICLE The right ventricle is normal size. The right ventricular systolic function is normal. ATRIA The left atrium is severely dilated. The right atrium is severely dilated. The interatrial septum is intact with no evidence for an atrial septal defect or patent foramen ovale as noted on 2-D or Dopple r imaging. AORTIC VALVE The aortic valve is not well visualized. Doppler and Color Flow revealed mild aortic regurgitation Th ere is no significant aortic valvular stenosis. MITRAL VALVE The mitral valve is normal in structure and function. There is no evidence of mitral valve prolapse. There is no mitral valve stenosis. Doppler and Color-flow revealed moderate mitral regurgitation. TRICUSPID VALVE The tricuspid valve is normal in structure and function. Doppler and Color Flow revealed mild tricusp id regurgitation. There is severe pulmonary hypertension. The PA pressure was estimated at 76 mmHg. T here is no tricuspid valve stenosis. PULMONIC VALVE The pulmonic valve is not well visualized. Doppler and Color Flow revealed no pulmonic valvular regur gitation. There is no pulmonic valvular stenosis. GREAT VESSELS The aortic root is normal in size. The ascending aorta is not well seen. The IVC is dilated and colla pses >50% with inspiration. PERICARDIAL EFFUSION There is no evidence of significant pericardial effusion. Critical Notification Critical Value: No <Conclusion> The left ventricular systolic function is normal and the ejection fraction is within normal range. Th e Ejection Fraction is 55%. There is normal LV segmental wall motion. Doppler and Color-flow revealed moderate mitral regurgitation. Doppler and Color Flow revealed mild tricuspid regurgitation. There is severe pulmonary hypertension. The PA pressure was estimated at 76 mmHg. Overall appearance suggestive of infiltrative disease with severe biatrial enlargement, LVH and valvu lar disease. Consider referral for MRI or PYP scanning. Signed by : Dejon Spaulding, Electronically Approved : 07/25/2020 18:08:33
== END | disposition home or self-care (01) ==
LOC: ECHO 10:50
PROVIDERS: ATTEND Internal Medicine Cardiovascular Disease
DX: I08.3 Combined rheumatic disorders of mitral, aortic and tricuspid valves (principal); I11.9 Hypertensive heart disease without heart failure
CPT/HCPCS: 93306

== ENCOUNTER → 2021-03-11 | Outpatient (CLI) | payer BC ==
[~2021-03-11] MED LIST changes: -CALC600T6 PO; +CALC600T60 PO
[2021-03-11 10:06] LABS: BASO % 1 % (0-3); EOS # 0.3 x10^3/uL (0.0-0.7); EOS % 5 % (0-3); HEMATOCRIT 25.8 % (36.0-47.0); LYMPH # 0.8 x10^3/uL (1.0-4.8); LYMPH % 13 % (24-48); MEAN CORPUSCULAR HEMOGLOBIN 25 pg (25-35); MEAN CORPUSCULAR HGB CONC 31 g/dL (31-37); MEAN CORPUSCULAR VOLUME 79 fL (79-100); MONO # 0.5 x10^3/uL (0.0-1.1); MONO % 9 % (0-9); NEUT # 4.5 x10^3/uL (1.8-7.7); NEUT % 73 % (31-73); PLATELET COUNT 261 x10^3/uL (140-400); RED BLOOD COUNT 3.26 x10^6/uL (3.50-5.40); RED CELL DISTRIBUTION WIDTH 17.2 % (11.5-14.5); WHITE BLOOD COUNT 6.3 x10^3/uL (4.0-11.0)
[2021-03-11 10:19] LABS: CALCIUM 9.1 mg/dL (8.5-10.1); CREATININE 1.2 mg/dL (0.6-1.0); GFR 43.6; POTASSIUM 4.1 mmol/L (3.5-5.1)
[2021-03-11 10:37] LABS: ALBUMIN 3.2 g/dL (3.4-5.0); ALBUMIN/GLOBULIN RATIO 0.9 (1.0-1.7); TOTAL BILIRUBIN 0.4 mg/dL (0.2-1.0); TOTAL PROTEIN 6.9 g/dL (6.4-8.2)
== END | disposition home or self-care (01) ==
LOC: ONC 09:27
PROVIDERS: ATTEND Internal Medicine Hematology & Oncology
DX: D50.0 Iron deficiency anemia secondary to blood loss (chronic) (principal)
CPT/HCPCS: 80053; 82607; 82728; 82746; 83540; 83550; 83921; 85025

== ENCOUNTER → 2021-04-02 | Outpatient (CLI) | payer BC ==
[2021-04-02 12:22] LABS: BASO # 0.1 x10^3/uL (0.0-0.2); BASO % 1 % (0-3); EOS # 0.3 x10^3/uL (0.0-0.7); EOS % 5 % (0-3); HEMATOCRIT 25.6 % (36.0-47.0); HEMOGLOBIN 7.7 g/dL (12.0-15.5); LYMPH # 0.8 x10^3/uL (1.0-4.8); LYMPH % 11 % (24-48); MEAN CORPUSCULAR HEMOGLOBIN 25 pg (25-35); MEAN CORPUSCULAR HGB CONC 30 g/dL (31-37); MEAN CORPUSCULAR VOLUME 85 fL (79-100); MONO # 0.6 x10^3/uL (0.0-1.1); MONO % 9 % (0-9); NEUT # 5.5 x10^3/uL (1.8-7.7); NEUT % 75 % (31-73); PLATELET COUNT 281 x10^3/uL (140-400); RED BLOOD COUNT 3.03 x10^6/uL (3.50-5.40); RED CELL DISTRIBUTION WIDTH 24.2 % (11.5-14.5); WHITE BLOOD COUNT 7.4 x10^3/uL (4.0-11.0)
[2021-04-02 12:55] LABS: ANISOCYTOSIS MOD; PLT ESTIMATE ADEQUATE (ADEQUATE); POLYCHROMASIA OCCASIONAL
== END ==
LOC: ONCLAB 12:02
PROVIDERS: ATTEND Physician Assistant
DX: D50.0 Iron deficiency anemia secondary to blood loss (chronic) (principal)
CPT/HCPCS: 36415; 85025

== ENCOUNTER → 2021-04-13 | Outpatient (CLI) | payer BC ==
[2021-04-13 15:29] LABS: BASO % 1 % (0-3); EOS # 0.3 x10^3/uL (0.0-0.7); EOS % 4 % (0-3); HEMATOCRIT 24.2 % (36.0-47.0); HEMOGLOBIN 7.4 g/dL (12.0-15.5); LYMPH # 0.8 x10^3/uL (1.0-4.8); LYMPH % 13 % (24-48); MEAN CORPUSCULAR HEMOGLOBIN 27 pg (25-35); MEAN CORPUSCULAR HGB CONC 31 g/dL (31-37); MEAN CORPUSCULAR VOLUME 87 fL (79-100); MONO # 0.5 x10^3/uL (0.0-1.1); MONO % 8 % (0-9); NEUT # 4.5 x10^3/uL (1.8-7.7); NEUT % 74 % (31-73); PLATELET COUNT 264 x10^3/uL (140-400); RED BLOOD COUNT 2.78 x10^6/uL (3.50-5.40); RED CELL DISTRIBUTION WIDTH 25.5 % (11.5-14.5); WHITE BLOOD COUNT 6.1 x10^3/uL (4.0-11.0)
== END ==
LOC: ONCLAB 14:27
PROVIDERS: ATTEND Physician Assistant
DX: D50.0 Iron deficiency anemia secondary to blood loss (chronic) (principal)
CPT/HCPCS: 36415; 85025

== ENCOUNTER → 2021-04-30 | Outpatient (CLI) | payer BC ==
[2021-04-21 13:00] VITALS: BP 133/86
[~2021-04-30] MED LIST changes: +DOXY-181 PO; -DOXY100C14 PO
[2021-04-30 11:27] LABS: BASO % 1 % (0-3); EOS # 0.5 x10^3/uL (0.0-0.7); EOS % 6 % (0-3); HEMOGLOBIN 7.2 g/dL (12.0-15.5); LYMPH # 0.9 x10^3/uL (1.0-4.8); LYMPH % 11 % (24-48); MEAN CORPUSCULAR HEMOGLOBIN 26 pg (25-35); MEAN CORPUSCULAR HGB CONC 32 g/dL (31-37); MEAN CORPUSCULAR VOLUME 83 fL (79-100); MONO # 0.7 x10^3/uL (0.0-1.1); MONO % 9 % (0-9); NEUT # 5.8 x10^3/uL (1.8-7.7); NEUT % 73 % (31-73); PLATELET COUNT 250 x10^3/uL (140-400); RED BLOOD COUNT 2.76 x10^6/uL (3.50-5.40); RED CELL DISTRIBUTION WIDTH 22.2 % (11.5-14.5); WHITE BLOOD COUNT 7.8 x10^3/uL (4.0-11.0)
[2021-04-30 14:14] LABS: PLT ESTIMATE ADEQUATE (ADEQUATE); POLYCHROMASIA SLIGHT
[2021-04-30 14:15] LABS: ANISOCYTOSIS MOD; OVALOCYTES FEW
== END ==
LOC: ONCLAB 11:15
PROVIDERS: ATTEND Internal Medicine Hematology & Oncology
DX: D50.0 Iron deficiency anemia secondary to blood loss (chronic) (principal)
CPT/HCPCS: 36415; 82728; 83540; 83550; 85025

== ENCOUNTER → 2021-05-07 | Outpatient (CLI) | payer BC ==
[2021-04-21 13:00] VITALS: BP 133/86
[2021-05-07 13:54] LABS: BASO % 1 % (0-3); EOS # 0.3 x10^3/uL (0.0-0.7); EOS % 4 % (0-3); LYMPH # 0.8 x10^3/uL (1.0-4.8); LYMPH % 11 % (24-48); MEAN CORPUSCULAR HEMOGLOBIN 25 pg (25-35); MEAN CORPUSCULAR HGB CONC 30 g/dL (31-37); MEAN CORPUSCULAR VOLUME 83 fL (79-100); MONO # 0.7 x10^3/uL (0.0-1.1); MONO % 9 % (0-9); NEUT # 5.9 x10^3/uL (1.8-7.7); NEUT % 76 % (31-73); PLATELET COUNT 271 x10^3/uL (140-400); RED BLOOD COUNT 2.37 x10^6/uL (3.50-5.40); RED CELL DISTRIBUTION WIDTH 20.7 % (11.5-14.5); WHITE BLOOD COUNT 7.8 x10^3/uL (4.0-11.0)
[2021-05-07 14:02] LABS: HEMATOCRIT 19.6 % (36.0-47.0)
== END ==
LOC: ONCLAB 12:37
PROVIDERS: ATTEND Physician Assistant
DX: D50.0 Iron deficiency anemia secondary to blood loss (chronic) (principal)
CPT/HCPCS: 36415; 82728; 83540; 83550; 85025; 85651

== ENCOUNTER 2021-05-14 19:59 | Inpatient (IN) | payer OTHER ==
[~2021-05-14] VITALS: Ht 152.4 cm; Wt 86.6 kg
--- NOTE | 2021-05-14 19:45 | NUR ---
Pt assisted to the chair with assistance, pt denied pain assessment completed vss poc explained.Pt call light in reach and chair alarm set. Niko hospice nurse here to see pt and orders received.
[~2021-05-14 19:59] MED LIST changes: +ACET325T21 PO; +ASCO100019 PO; +ASPI-886 PO; +DOCU-153 PO; +INSU100V35 SQ; +POLY17PO52 PO; +PRED50TA PO; +Phenyleph/Mineral Oil/Petrolat RC; +THIA100T22 PO
[2021-05-14 20:31] VITALS: BP 159/95
[2021-05-14] MEDS ORDERED: BISACODYL 10 MG SUPP.RECT. PR PRN (22:45)
[2021-05-14] MEDS ORDERED: ATROPINE 1% OPHTH SOLUTION 5ML BOTTLE. SL PRN (22:45)
[2021-05-14] MEDS ORDERED: MORPHINE SULFATE 2 MG/ML VIAL. IV PRN (22:45)
[2021-05-14] MEDS ORDERED: ACETAMINOPHEN 325 MG TABLET. PO PRN (22:45)
[2021-05-14] MEDS ORDERED: ACETAMINOPHEN 650 MG SUPP.RECT. PR PRN (22:45)
[2021-05-14] MEDS ORDERED: SCOPOLAMINE 1.5MG PATCH. TD SCH (23:00)
--- NOTE | 2021-05-15 04:16 | NUR ---
Pt heart monitor went from 78 beats per min to asystole pt assessed and found to have no pulse call placed to pt daughter, Dr. Sorenson and [facility].
--- NOTE | 2021-05-15 07:10 | PDOC1 ---
History and Physical Date of Admission Date of Admission DATE: 05/15/21 TIME: 07:09 Identification/Chief Complaint Chief Complaint Shortness of breath Source Source: Caregiver, Chart review, Patient History of Present Illness History of Present Illness Ms Christensen is a 75 yo F with past medical history of atrial fibrillation, iron deficiency anemia, asthma, COPD with chronic hypoxic and hypercapnic respiratory failure, chronic diastolic CHF, COPD, HERIBERTO on CPAP, diabetes, HTN, CKD, prior perforated diverticulitis s/p colostomy and reversal who presented to the ED via EMS c/o shortness of breath and confusion 3 hours after being discharged from the hospital on prednisone and breathing treatments as well as doxycycline. Initiated on treatment for H CAP and seen by pulmonology in consultation adjusted her BiPAP but had her daughter bring in her home BiPAP which worked wel l with nasal pillows. By cardiology as well for recommendations on atrial fibrillation. Due to symptomatic anemia and her history of CHF and CAD blood transfusion was recommended. Patient stated she had enough and made it clear that she was DNR/DNI. She did not want to have a type and screen or blood transfusion and asked to speak with her daughter about hospice care. Seen by hospice and due to her acute and chronic respiratory failure poor cardiac status she will be discharged and admitted to inpatient hospice care. . She is very dyspneic despite use of her BiPAP and profoundly hypoxic into the 70s. IV morphine frequency increased. Still on home bipap, not wanting to eat. Says she has had enough. Admitted and seen overnight on 05/14/2021 Past Medical History Cardiovascular: AFIB, HTN Pulmonary: COPD GI: Diverticulosis, Other Heme/Onc: Anemia NOS Musculoskeletal: Osteoarthritis Infectious disease: Other Renal/: Chronic renal insuff Endocrine: No pertinent hx Past Surgical History Past Surgical History: Appendectomy, Cholecystectomy, Tonsillectomy, Colon Resection, Other Family History Family History: Diabetes, Hypertension Social History Smoke: No ALCOHOL: none Drugs: None Current Medications Current Medications Current Medications Bisacodyl (Dulcolax Supp) 10 mg PRN DAILY PRN [place] CONSTIPATION; Start 05/14/21 at 22:45; Stop 05/15/21 at 06:33; Status DC Acetaminophen (Tylenol Supp) 650 mg PRN Q4HRS PRN [place] MILD PAIN / TEMP > 100.3'F; Start 05/14/21 at 22:45; Stop 05/15/21 at 06:33; Status DC Acetaminophen (Tylenol) 650 mg PRN Q4HRS PRN PO MILD PAIN / TEMP > 100.3'F; Start 05/14/21 at 22:45; Stop 05/15/21 at 06:33; Status DC Morphine Sulfate (Morphine Sulfate) 2 mg PRN Q1HR PRN IV PAIN; Start 05/14/21 at 22:45; Stop 05/15/21 at 06:33; Status DC Lorazepam (Ativan Inj) 1 mg PRN Q2HR PRN IVP ANXIETY / AGITATION Last administered on 05/15/21at 03:41; Start 05/14/21 at 22:45; Stop 05/15/21 at 06:33; Status DC Scopolamine (Transderm-Scop) 1 patch Q72H TD Last administered on 05/15/21at 00:02; Start 05/14/21 at 23:00; Stop 05/15/21 at 06:33; Status DC Atropine Sulfate (Isopto Atropine) 1 drop PRN Q2HR PRN SL SECRETIONS; Start 05/14/21 at 22:45; Stop 05/15/21 at 06:33; Status DC Active Scripts Active Vitamin C (Ascorbic Acid) 1,000 Mg Tablet 3,000 Mg PO TID 30 Days Vitamin B-1 (Thiamine Mononitrate) 100 Mg Tablet 300 Mg PO DAILY 30 Days Polyethylene Glycol 3350 17 Gm Powd.pack 17 Gm PO DAILY 30 Days Dok (Docusate Sodium) 100 Mg Capsule 100 Mg PO PRN DAILY PRN 30 Days Acetaminophen 325 Mg Tablet 650 Mg PO PRN Q4HRS PRN 30 Days Aspirin Ec (Aspirin) 81 Mg Tablet. 81 Mg PO DAILYWBKFT 30 Days Pantoprazole Sodium (Pantoprazole Sodium) 40 Mg Tablet. 40 Mg PO DAILYAC 30 Days Proair Hfa (Albuterol Sulfate) 8.5 Gm Hfa.aer.ad 2.5 Mg NEB RTQID MDD 1 Metoprolol Tartrate 25 Mg Tablet 12.5 Mg PO BID MDD 1 Reported Vitamin B-12 (Cyanocobalamin (Vitamin B-12)) 1,000 Mcg Tablet 1,000 Mcg PO DAILY One-Daily Multi-Vitamin (Multivitamin) 1 Each Tablet 1 Tab PO DAILY 30 Days Vitamin D3 (Cholecalciferol (Vitamin D3)) 2,000 Unit Tab.chew 1 Tab PO DAILY 30 Days Bumetanide 2 Mg Tablet 2 Mg PO DAILY Fish Oil 1,000 mg Softgel ([place]-3S/Dha/Epa/Fish Oil) 1 Each Capsule 1 Each PO BID Losartan Potassium 50 Mg Tablet 50 Mg PO DAILY Klor-Con M10 (Potassium Chloride) 10 Meq Tab.er.prt 1 Tab PO BID Digoxin 125 Mcg Tablet 1 Tab PO DAILY Symbicort 160-4.5 Mcg Inhaler (Budesonide/Formoterol Fumarate) 10.2 Gm Hfa.aer.ad 2 Puff IH BID Allergies Allergies: Coded Allergies: DONNA Inhibitors (Verified Allergy, Severe, angioedema, 05/08/21) Penicillins (Verified Allergy, Intermediate, n/v,itch,rash, 05/08/21) erythromycin base (Verified Adverse Reaction, Intermediate, n/v, 05/08/21) ROS General: YES: Fatigue, Malaise, Appetite; No: Chills, Night Sweats, Other PSYCHOLOGICAL ROS: YES: Anxiety; No: Behavioral Disorder, Concentration difficultie, Decreased libido, Depression, Disorientation, Hallucinations, Hostility, Irritablity, Memory difficulties, Mood Swings, Obsessive thoughts, Physical abuse, Sexual abuse, Sleep disturbances, Suicidal ideation, Other Eyes: No Blurry vision, No Decreased vision, No Double vision, No Dry eyes, No Excessive tearing, No Eye Pain, No Itchy Eyes, No Loss of vision, No Photophobia, No Scotomata, No Uses contacts, No Uses glasses, No Other HEENT: No: Heacaches, Visual Changes, Hearing change, Nasal congestion, Nasal discharge, Oral lesions, Sinus pain, Sore Throat, Epistaxis, Sneezing, Snoring, Tinnitus, Vertigo, Vocal changes, Other ALLERGY AND IMMUNOLOGY: No: Hives, Insect Bite Sensitivity, Itchy/Watery Eyes, Nasal Congestion, Post Nasal Drip, Seasonal Allergies, Other Hematological and Lymphatic: No: Bleeding Problems, Blood Clots, Blood Transfusions, Brusing, Night Sweats, Pallor, Swollen Lymph Nodes, Other ENDOCRINE: No: Breast Changes, Galactorrhea, Hair Pattern Changes, Hot Flashes, Malaise/lethargy, Mood Swings, Palpitations, Polydipsia/polyuria, Skin Changes, Temperature Intolerance, Unexpected Weight Changes, Other Breast: No New/Changing Breast Lumps, No Nipple changes, No Nipple discharge, No Other Respiratory: YES: Shortness of breath, Tachypnea, Wheezing; No: Cough, Hemoptysis, Orthopnea, Pleuritic Pain, SOB with excertion, Sputum Changes, Stridor, Other Cardiovascular: No Chest Pain, No Palpitations, No Orthopnea, No Paroxysmal Noc. Dyspnea, No Edema, No Lt Headedness, No Other Gastrointestinal: No Nausea, No Vomiting, No Abdominal Pain, No Diarrhea, No Constipation, No Melena, No Hematochezia, No Other Genitourinary: No Dysuria, No Frequency, No Incontinence, No Hematuria, No Retention, No Discharge, No Urgency, No Pain, No Flank Pain, No Other, No , No , No , No , No , No , No Musculoskeletal: No Gait Disturbance, No Joint Pain, No Joint Stiffness, No Joint Swelling, No Muscle Pain, No Muscular Weakness, No Pain In:, No Swelling In:, No Other Neurological: No Behavorial Changes, No Bowel/Bladder ControlChng, No Con fusion, No Dizziness, No Gait Disturbance, No Headaches, No Impaired Coord/balance, No Memory Loss, No Numbness/Tingling, No Seizures, No Speech Problems, No Tremors, No Visual Changes, No Weakness, No Other Skin: No Dry Skin, No Eczema, No Hair Changes, No Lumps, No Mole Changes, No Mottling, No Nail Changes, No Pruritus, No Rash, No Skin Lesion Changes, No O ther, No Acne Physical Exam General: Alert, Cooperative, severe distress HEENT: Atraumatic, PERRLA, EOMI, Mucous membr. moist/pink Lungs: Other (Bilateral rhonchi) Heart: irregularly irregular Abdomen: Normal bowel sounds, Soft, No tenderness, No hepatosplenomegaly, No masses Extremities: No clubbing, No cyanosis, No edema, Normal pulses, No tenderness/swelling Skin: No rashes, No breakdown, No significant lesion Neuro: Strength at 5/5 X4 ext, Normal tone, Sensation intact, Cranial nerves 3- 12 NL, Reflexes 2+ Vitals Vitals Vital Signs Date Time Temp Pulse Resp B/P (MAP) Pulse Ox O2 Delivery O2 Flow Rate FiO2 05/14/21 20:31 98.0 108 22 159/95 (116) 96 BiPAP/CPAP 98.0 VTE Prophylaxis Ordered VTE Prophylaxis Devices: No VTE Pharmacological Prophylaxi: No Assessment/Plan Assessment/Plan Acute respiratory failure with hypoxia and hypercapnea - due to compliance difficulties and missing tubing for home CPAP/BIPAP Acute metabolic encephalopathy - due to hypercapnea, Pneumonia - HCAP, on comfort care Diastolic CHF exacerbation Acute pulmonary edema - likely due to above, chf Acute on chronic cor pulmonale. Acute exacerbation of chronic obstructive pulmonary disease. Morbid obesity. Obesity hypoventilation syndrome. Acute symptomatic microcytic anemia due to possible GI bleed - refusing transfusion Iron deficiency anemia Acute renal failure due to vasomotor nephropathy A-Fib Chronic systolic CHF last echo done 1 year ago with EF of 55% COPD Diabetes-Type II Diverticulosis - prior perforated diverticulitis s/p colostomy and reversal Hypertension Renal Failure HERIBERTO on CPAP FEN - comfort foods PPX - colace CODE - DNR/DNI - hospice Dispo - inpatient hospice care Justifications for Admission Other Justification Pulmonary edema VIKY MOTA MD May 15, 2021 07:10
--- NOTE | 2021-05-15 07:11 | PDOC3 ---
Discharge Summary Visit Information Date of Admission: May 14, 2021 Date of Discharge: May 15, 2021 Admitting Diagnosis: Acute on chronic combined respiratory failure with hypox Final Diagnosis acute on chronic combined respiratory failure with hypoxia and hypercapnia Brief Hospital Course Allergies Allergies Coded Allergies Type Severity Reaction Last Updated Verified DONNA Inhibitors Allergy Severe angioedema 05/08/21 Yes Penicillins Allergy Intermediate n/v,itch,rash 05/08/21 Yes erythromycin base Adverse Reaction Intermediate n/v 05/08/21 Yes Vital Signs Vital Signs Date Time Temp Pulse Resp B/P (MAP) Pulse Ox O2 Delivery O2 Flow Rate FiO2 05/14/21 20:31 98.0 108 22 159/95 (116) 96 BiPAP/CPAP 98.0 Brief Hospital Course acute on chronic combined respiratory failure with hypoxia and hypercapnia Discharge Information Scheduled Albuterol Sulfate (Proair Hfa) 8.5 Gm Hfa.aer.ad, 2.5 MG NEB RTQID for soa MDD 1, #1 Prescribed by: CURLY NOLAN on 12/15/18 1232 Ascorbic Acid (Vitamin C) 1,000 Mg Tablet, 3,000 MG PO TID for SUPPLEMENT for 30 Days, #270 Prescribed by: BELKYS MOYA MD on 05/12/21 1504 Aspirin (Aspirin Ec) 81 Mg Tablet.dr, [facility], #30 Prescribed by: BELKYS MOYA MD on 05/12/21 1504 Budesonide/Formoterol Fumarate (Symbicort 160-4.5 Mcg Inhaler) 10.2 Gm Hfa.aer.ad, 2 PUFF IH BID, #10.6 Ref 3 (Reported) Entered as Reported by: DAISY MENDEZ on 01/05/18 1251 Bumetanide (Bumetanide) 2 Mg Tablet, 2 MG PO DAILY, (Reported) Entered as Reported by: DAISY MENDEZ on 01/05/18 1251 Cholecalciferol (Vitamin D3) (Vitamin D3) 2,000 Unit Tab.chew, 1 TAB PO DAILY for vitamin for 30 Days, #30 Ref 0 (Reported) Entered as Reported by: CORA SIERRA on 01/26/20 1112 Cyanocobalamin (Vitamin B-12) (Vitamin B-12) 1,000 Mcg Tablet, 1,000 MCG PO DAILY for vitamin, (Reported) Entered as Reported by: CORA SIERRA on 01/26/20 1112 Digoxin (Digoxin) 125 Mcg Tablet, 1 TAB PO DAILY, #30 Ref 5 (Reported) Entered as Reported by: DAISY MENDEZ on 01/05/18 1251 Losartan Potassium (Losartan Potassium) 50 Mg Tablet, 50 MG PO DAILY, (Reported) Entered as Reported by: DAISY MENDEZ on 01/05/18 1251 Metoprolol Tartrate (Metoprolol Tartrate) 25 Mg Tablet, 12.5 MG PO BID for htn MDD 1, #60 Prescribed by: CURLY NOLAN on 12/15/18 1232 Multivitamin (One-Daily Multi-Vitamin) 1 Each Tablet, 1 TAB PO DAILY for vitamin for 30 Days, #30 Ref 0 (Reported) Entered as Reported by: CORA SIERRA on 01/26/20 1112 [place]-3S/Dha/Epa/Fish Oil (Fish Oil 1,000 mg Softgel) 1 Each Capsule, 1 EACH PO BID, (Reported) Entered as Reported by: DAISY MENDEZ on 01/05/18 1251 Pantoprazole Sodium (Pantoprazole Sodium ) 40 Mg Tablet.dr, 40 MG PO DAILYAC for GERD for 30 Days, #30 Prescribed by: RIP MOONEY MD on 06/13/20 1509 Polyethylene Glycol 3350 (Polyethylene Glycol 3350) 17 Gm Powd.pack, 17 GM PO DAILY for PREVENT CONSTIPATION for 30 Days, #30 Prescribed by: BELKYS MOYA MD on 05/12/21 1504 Potassium Chloride (Klor-Con M10) 10 Meq Tab.er.prt, 1 TAB PO BID, #30 Ref 5 (Reported) Entered as Reported by: DAISY MENDEZ on 01/05/18 1251 Thiamine Mononitrate (Vitamin B-1) 100 Mg Tablet, 300 MG PO DAILY for SUPPLEMENT for 30 Days, #90 Prescribed by: BELKYS MOYA MD on 05/12/21 1504 Scheduled PRN Acetaminophen (Acetaminophen) 325 Mg Tablet, 650 MG PO PRN Q4HRS PRN for TEMP OVER 100.4F OR MILD PAIN for 30 Days, #90 Prescribed by: BELKYS MOYA MD on 05/12/21 1504 Docusate Sodium (Dok) 100 Mg Capsule, 100 MG PO PRN DAILY PRN for HARD STOOLS for 30 Days, #60 Prescribed by: BELKYS MOYA MD on 05/12/21 1504 Justicifation of Admission Dx: Justifications for Admission: Justification of Admission Dx: Yes VIKY MOTA MD May 15, 2021 07:11
== END 2021-05-15 06:33 | DRG 189 ==
LOC: 2 NORTH 19:59
PROVIDERS: ADMIT Internal Medicine; ATTEND Internal Medicine
PROC: 5A09357 Assistance with Respiratory Ventilation, Less than 24 Consecutive Hours, Continuous Positive Airway Pressure (ICD-10-PCS; principal; 2021-05-14)
DX: J96.21 Acute and chronic respiratory failure with hypoxia (principal); N17.0 Acute kidney failure with tubular necrosis; I50.43 Acute on chronic combined systolic (congestive) and diastolic (congestive) heart failure; G93.41 Metabolic encephalopathy; J18.9 Pneumonia, unspecified organism; I26.09 Other pulmonary embolism with acute cor pulmonale; E66.2 Morbid (severe) obesity with alveolar hypoventilation; J44.1 Chronic obstructive pulmonary disease with (acute) exacerbation; J44.0 Chronic obstructive pulmonary disease with (acute) lower respiratory infection; I13.0 Hypertensive heart and chronic kidney disease with heart failure and stage 1 through stage 4 chronic kidney disease, or unspecified chronic kidney disease; M19.90 Unspecified osteoarthritis, unspecified site; J96.22 Acute and chronic respiratory failure with hypercapnia; I48.91 Unspecified atrial fibrillation; Y95 Nosocomial condition; K57.90 Diverticulosis of intestine, part unspecified, without perforation or abscess without bleeding; K21.9 Gastro-esophageal reflux disease without esophagitis; N18.9 Chronic kidney disease, unspecified; E11.22 Type 2 diabetes mellitus with diabetic chronic kidney disease; Z66 Do not resuscitate; Z51.5 Encounter for palliative care; D50.9 Iron deficiency anemia, unspecified; Z68.37 Body mass index [BMI] 37.0-37.9, adult; Z93.3 Colostomy status; Z88.8 Allergy status to other drugs, medicaments and biological substances; Z90.49 Acquired absence of other specified parts of digestive tract; Z79.51 Long term (current) use of inhaled steroids; Z79.899 Other long term (current) drug therapy; Z83.3 Family history of diabetes mellitus; Z82.49 Family history of ischemic heart disease and other diseases of the circulatory system
CPT/HCPCS: J2060; G0378